=== PATIENT | female | born 1945 | race American Indian/Alaskan Native ===

== ENCOUNTER 2016-10-28 13:52 | Inpatient (IN) | payer OTHER ==
[2016-10-28 13:52] VITALS: BMI 34.0
[2016-10-28] MEDS ORDERED: Sodium Chloride 0.9% 1,000 ML IV ONE ×2 (14:44→14:46)
--- NOTE | 2016-10-28 15:18 | C.PDOC ---
History Of Present Illness A 71 y/o female presents to the ER c/o bilateral lower extremity pain for 3 years. Pt notes pain has worsened recently. Pt was evaluated by Dr. Peterson and diagnosed with peripheral vascular disease. Pt notes occasional swelling but denies redness, Shortness of breath, chest pain, fever, chills, trauma to the area, weakness or numbness, or any other complaints. Time Seen by Provider: 10/28/16 14:23 Chief Complaint (Nursing): Lower Extremity Problem/Injury History Per: Patient History/Exam Limitations: no limitations Onset/Duration Of Symptoms: Days Current Symptoms Are (Timing): Still Present Severity: Mild Additional History Per: Patient Past Medical History Reviewed: Historical Data, Nursing Documentation, Vital Signs Vital Signs: Last Vital Signs Temp 98.3 F 10/28/16 14:00 Pulse 51 L 10/28/16 15:44 Resp 18 10/28/16 15:44 BP 119/66 10/28/16 15:44 Pulse Ox 98 10/28/16 15:44 - Medical History PMH: Arthritis, HTN, Hypercholesterolemia Denies: Chronic Kidney Disease - [facility] Procedures CONTRAST AORTOGRAM (02/09/14) CONTRAST ARTERIOGRAM-LEG (02/09/14) Family History: States: Unknown Family Hx - Social History Hx Alcohol Use: No Hx Substance Use: No - Immunization History Hx Influenza Vaccination: Yes Hx Pneumococcal Vaccination: Yes Review Of Systems Except As Marked, All Systems Reviewed And Found Negative. Constitutional: Negative for: Fever, Chills, Other (Trauma to area) Cardiovascular: Negative for: Chest Pain Respiratory: Negative for: Shortness of Breath Musculoskeletal: Positive for: Leg Pain (Bilateral leg pain, occasional swelling ) Skin: Negative for: Other (Redness) Neurological: Negative for: Weakness, Numbness Physical Exam - Physical Exam Appears: Well, Non-toxic, No Acute Distress, Other (Speaking in full sentences) Skin: Normal Color, Warm, Dry Head: Atraumatic, Normacephalic Eye(s): bilateral: Normal Inspection, EOMI Nose: Normal Oral Mucosa: Moist Chest: Symmetrical Cardiovascular: Rhythm Regular, No Murmur Respiratory: Normal Breath Sounds, No Accessory Muscle Use Extremity: Normal ROM, No Tenderness, No Pedal Edema, No Calf Tenderness, Capillary Refill (<2secs), No Deformity, No Swelling Pulses: Left Dorsalis Pedis: Normal, Right Dorsalis Pedis: Normal Neurological/Psych: Oriented x3, Normal Speech, Normal Motor, Normal Sensation, Other (No focal deficit) Gait: Steady ED Course And Treatment - Laboratory Results Result Diagrams: 10/28/16 15:14 10/28/16 15:14 O2 Sat by Pulse Oximetry: 99 (RA) Pulse Ox Interpretation: Normal Progress Note: Impression: 71 y/o c/o bilateral lower extremity pain. Plans: Blood labs, EKG, IV fluids, UA. Dr gustavo cid. No call back. Admitted per RX instructions. Disposition - Disposition Disposition: HOSPITALIZED Disposition Time: 15:00 Condition: STABLE - Clinical Impression Clinical Impression: PVD (peripheral vascular disease), Bilateral leg pain, Chronic kidney disease - Scribe Statement The provider has reviewed the documentation as recorded by the Scribe Gaudencio rider All medical record entries made by the Scribe were at my direction and personally dictated by me. I have reviewed the chart and agree that the record accurately reflects my personal performance of the history, physical exam, medical decision making, and the department course for this patient. I have also personally directed, reviewed, and agree with the discharge instructions and disposition.
[2016-10-28 15:19] LABS: BASO % 0.5 % (0.0-2.0); EOS # 0.4 K/uL (0.0-0.7); HEMATOCRIT 39.2 % (34.0-47.0); LYMPH # 2.1 K/uL (1.0-4.3); LYMPH % 40.2 % (20.0-40.0); MEAN CORPUSCULAR HEMOGLOBIN 25.4 pg (27.0-31.0); MEAN CORPUSCULAR HGB CONC 31.7 g/dL (33.0-37.0); MEAN PLATELET VOLUME 12.3 fL (7.2-11.7); MONO # 0.4 K/uL (0.0-0.8); MONO % 8.6 % (0.0-10.0); NRBC % 0.1 % (0.0-2.0); RED CELL DISTRIBUTION WIDTH 16.8 % (11.5-14.5); WHITE BLOOD COUNT 5.2 K/uL (4.8-10.8)
[2016-10-28 15:28] LABS: POTASSIUM 4.2 mmol/L (3.6-5.2)
[2016-10-28] MEDS ORDERED: Sodium Chloride 0.9% 1,000 ML ONE (15:28)
[2016-10-28 15:30] LABS: ALB/GLOB RATIO 1.6 (1.0-2.1); BILIRUBIN,TOTAL 0.7 mg/dL (0.2-1.3); CALCIUM 8.9 mg/dl (8.6-10.4); TOTAL PROTEIN 7.3 g/dL (6.3-8.3)
--- NOTE | 2016-10-28 21:31 | CP.PCM.HP ---
History of Present Illness - History of Present Illness History of Present Illness: CC: "Pain in legs" HPI: Pt is a 71 year old female with a PMHx of HTN. Diabetes Mellitus, Chronic Kidney Disease, peripheral vascular disease, hypercholesterolemia, and Gout who presented to the ED after her vascular surgeon, Dr. Peterson, suggested she come to the hospital today following her appointment at his office 3 days ago. Pt reports that she has been experiencing pain in her legs 'for years'. She reports that the pain is worse with ambulation, but that she also experiences pain at rest. Pt denies any numbness, tingling, chest pain, shortness of breath , nausea, vomiting. PMHx: HTN, Diabetes Mellitus, Chronic Kidney Disease, peripheral vascular disease, hypercholesterolemia, and Gout Allergies: NKDA, seasonal, dust Home medications: Zetia 10 mg po qd, colchicine 0.6 mg po qd, Vit D 50,000 units q weekly, lisinopril 5 mg po qd, clonidine 0.2 mg po tid, HCTZ 25 mg po qd , asa 81 mg po qd, omega 3, humalog 75/25 Past Surgical Hx: denies Social Hx: denies hx of tobacco, alcohol, drug use Family Hx: Heart Attack (mother) Present on Admission - Present on Admission Any Indicators Present on Admission: No Review of Systems - Constitutional Constitutional: absent: Chills, Fever - EENT Eyes: absent: Blurred Vision Ears: absent: Disequilibrium Nose/Mouth/Throat: absent: Epistaxis, Nasal Congestion - Cardiovascular Cardiovascular: absent: Chest Pain, Dyspnea, Leg Edema, Pedal Edema - Respiratory Respiratory: absent: Cough, Dyspnea - Gastrointestinal Gastrointestinal: absent: Abdominal Pain, Belching - Genitourinary Genitourinary: absent: Dysuria - Musculoskeletal Musculoskeletal: Radiating Pain into Limb - Integumentary Integumentary: absent: Bleeding Lesions, Changing Lesions - Neurological Neurological: absent: Disequilibrium, Dizziness, Numbness - Psychiatric Psychiatric: absent: Anxiety - Hematologic/Lymphatic Hematologic: absent: Easy Bleeding Past Patient History - Infectious Disease Hx of Infectious Diseases: None - Past Medical History & Family History Past Medical History?: Yes - Past Social History Smoking Status: Former Smoker - CARDIAC Hx Hypercholesterolemia: Yes Hx Hypertension: Yes - PULMONARY Hx Respiratory Disorders: Yes ( ) - NEUROLOGICAL Hx Neurological Disorder: No - HEENT Hx HEENT Problems: No - RENAL Hx Chronic Kidney Disease: No - ENDOCRINE/METABOLIC Hx Endocrine Disorders: Yes Hx Diabetes Mellitus Type 2: Yes - HEMATOLOGICAL/ONCOLOGICAL Hx Blood Disorders: No - INTEGUMENTARY Hx Dermatological Problems: No - MUSCULOSKELETAL/RHEUMATOLOGICAL Hx Falls: No - GASTROINTESTINAL Hx Gastrointestinal Disorders: No - GENITOURINARY/GYNECOLOGICAL Hx Genitourinary Disorders: No - PSYCHIATRIC Hx Substance Use: No - SURGICAL HISTORY Hx Surgeries: Yes Hx Angiogram: Yes Hx Angioplasty: Yes (?) Hx Cardiac Catheterization: Yes - ANESTHESIA Hx Anesthesia: Yes Hx Anesthesia Reactions: No Hx Malignant Hyperthermia: No Meds Allergies/Adverse Reactions: Allergies Allergy/AdvReac Type Severity Reaction Status Date / Time DUST Allergy Uncoded 10/28/16 14:05 SEASONAL Allergy Uncoded 10/28/16 14:05 Physical Exam - Constitutional Appears: No Acute Distress - Head Exam Head Exam: ATRAUMATIC, NORMOCEPHALIC - Eye Exam Eye Exam: EOMI, PERRL - ENT Exam ENT Exam: Mucous Membranes Moist. absent: Mucous Membranes Dry - Neck Exam Neck exam: Positive for: Full Rom. Negative for: Lymphadenopathy - Respiratory Exam Respiratory Exam: Clear to Auscultation Bilateral. absent: Rales, Rhonchi, Wheezes - Cardiovascular Exam Cardiovascular Exam: +S1, +S2. absent: Gallop, Rubs - GI/Abdominal Exam GI & Abdominal Exam: Normal Bowel Sounds, Soft. absent: Distended, Firm, Guarding - Extremities Exam Extremities exam: Positive for: full ROM. Negative for: calf tenderness, pedal edema, pedal pulses present Additional comments: pedal pulses absent - Neurological Exam Neurological exam: Alert, Oriented x3 - Psychiatric Exam Psychiatric exam: Normal Affect, Normal Mood - Skin Skin Exam: Normal Color, Warm Results - Vital Signs Recent Vital Signs: Last Vital Signs Temp 97.7 F 10/28/16 16:17 Pulse 49 L 10/28/16 16:17 Resp 20 10/28/16 16:17 BP 169/65 H 10/28/16 16:17 Pulse Ox 99 10/28/16 17:12 - Labs Result Diagrams: 10/28/16 15:14 10/28/16 15:14 Labs: Laboratory Results - last 24 hr 10/28/16 10/28/16 10/28/16 15:14 15:14 15:14 WBC 5.2 RBC 4.90 Hgb 12.4 Hct 39.2 MCV 80.0 L D MCH 25.4 L MCHC 31.7 L RDW 16.8 H Plt Count 105 L D MPV 12.3 H Neut % (Auto) 43.7 L Lymph % (Auto) 40.2 H [place] % (Auto) 8.6 Eos % (Auto) 7.0 H Baso % (Auto) 0.5 Neut # 2.3 Lymph # 2.1 [place] # 0.4 Eos # 0.4 Baso # 0.0 Differential Comment PT 10.8 INR 1.0 APTT 34 Sodium 140 Potassium 4.2 Chloride 102 Carbon Dioxide 28 Anion Gap 14 BUN 54 H Creatinine 2.0 H Est GFR ( Amer) 30 Est GFR (Non-Af Amer) 25 POC Glucose (mg/dL) Random Glucose 122 H Calcium 8.9 Total Bilirubin 0.7 AST 43 H ALT 49 Alkaline Phosphatase 62 Total Protein 7.3 Albumin 4.5 Globulin 2.8 Albumin/Globulin Ratio 1.6 10/28/16 16:51 WBC RBC Hgb Hct MCV MCH MCHC RDW Plt Count MPV Neut % (Auto) Lymph % (Auto) [place] % (Auto) Eos % (Auto) Baso % (Auto) Neut # Lymph # [place] # Eos # Baso # Differential Comment PT INR APTT Sodium Potassium Chloride Carbon Dioxide Anion Gap BUN Creatinine Est GFR ( Amer) Est GFR (Non-Af Amer) POC Glucose (mg/dL) 126 H Random Glucose Calcium Total Bilirubin AST ALT Alkaline Phosphatase Total Protein Albumin Globulin Albumin/Globulin Ratio
--- NOTE | 2016-10-28 21:35 | CP.PCM.CON ---
<Umer Jefferson - Last Filed: 10/28/16 22:06> History of Present Illness - History of Present Illness History of Present Illness: MEDICINE RESIDENT CONSULT NOTE CC: "Pain in legs" HPI: Pt is a 71 year old female with a PMHx of HTN. Diabetes Mellitus, Chronic Kidney Disease, peripheral vascular disease, hypercholesterolemia, and Gout who presented to the ED after her vascular surgeon, Dr. Peterson, suggested she come to the hospital today following her appointment at his office 3 days ago. Pt reports that she has been experiencing pain in her legs 'for years'. She reports that the pain is worse with ambulation, but that she also experiences pain at rest. Pt denies any numbness, tingling, chest pain, shortness of breath , nausea, vomiting. PMHx: HTN, Diabetes Mellitus, Chronic Kidney Disease, peripheral vascular disease, hypercholesterolemia, and Gout Allergies: NKDA, seasonal, dust Home medications: Zetia 10 mg po qd, colchicine 0.6 mg po qd, Vit D 50,000 units q weekly, lisinopril 5 mg po qd, clonidine 0.2 mg po tid, HCTZ 25 mg po qd , asa 81 mg po qd, omega 3, humalog 75/25 Past Surgical Hx: denies Social Hx: denies hx of tobacco, alcohol, drug use Family Hx: Heart Attack (mother) Review of Systems - Constitutional Constitutional: absent: Chills, Headache - EENT Eyes: absent: Blind Spots, Blurred Vision Ears: absent: Disequilibrium, Dizziness Nose/Mouth/Throat: absent: Nasal Congestion, Nasal Obstruction - Cardiovascular Cardiovascular: absent: Chest Pain, Dyspnea, Leg Edema - Respiratory Respiratory: absent: Cough, Dyspnea - Gastrointestinal Gastrointestinal: absent: Abdominal Pain, Constipation, Diarrhea - Genitourinary Genitourinary: absent: Dysuria - Musculoskeletal Additional comments: B/L leg pain - Integumentary Integumentary: absent: Acne, Bleeding Lesions - Neurological Neurological: absent: Disequilibrium, Dizziness, Numbness - Psychiatric Psychiatric: absent: Abnormal Sleep Pattern, Anxiety - Endocrine Endocrine: absent: Change in Body Appearance - Hematologic/Lymphatic Hematologic: absent: Easy Bleeding, Easy Bruising Past Patient History - Infectious Disease Hx of Infectious Diseases: None - Past Medical History & Family History Past Medical History?: Yes - Past Social History Smoking Status: Former Smoker - CARDIAC Hx Hypercholesterolemia: Yes Hx Hypertension: Yes - PULMONARY Hx Respiratory Disorders: Yes ( ) - NEUROLOGICAL Hx Neurological Disorder: No - HEENT Hx HEENT Problems: No - RENAL Hx Chronic Kidney Disease: No - ENDOCRINE/METABOLIC Hx Endocrine Disorders: Yes Hx Diabetes Mellitus Type 2: Yes - HEMATOLOGICAL/ONCOLOGICAL Hx Blood Disorders: No - INTEGUMENTARY Hx Dermatological Problems: No - MUSCULOSKELETAL/RHEUMATOLOGICAL Hx Falls: No - GASTROINTESTINAL Hx Gastrointestinal Disorders: No - GENITOURINARY/GYNECOLOGICAL Hx Genitourinary Disorders: No - PSYCHIATRIC Hx Substance Use: No - SURGICAL HISTORY Hx Surgeries: Yes Hx Angiogram: Yes Hx Angioplasty: Yes (?) Hx Cardiac Catheterization: Yes - ANESTHESIA Hx Anesthesia: Yes Hx Anesthesia Reactions: No Hx Malignant Hyperthermia: No Meds Allergies/Adverse Reactions: Allergies Allergy/AdvReac Type Severity Reaction Status Date / Time DUST Allergy Uncoded 10/28/16 14:05 SEASONAL Allergy Uncoded 10/28/16 14:05 - Medications Medications: Current Medications Clonidine HCl (Catapres) 0.2 mg PO TID [facility] Ezetimibe (Zetia) 10 mg PO HS [facility] Ergocalciferol (Drisdol 50,000 Intl Units Cap) 1 cap PO QWK [facility] Heparin Sodium (Porcine) (Heparin) 5,000 units SC Q8 [facility] Sodium Chloride (Sodium Chloride 0.9%) 1,000 mls @ 100 mls/hr IV .Q10H ONE Stop: 10/29/16 00:45 Last Admin: 10/28/16 15:30 Dose: 100 mls/hr Insulin Human Isoph/Insulin Regular (Novolin 70/30 (70/30 Units/Ml) 10 Ml) 0 units SC ACHS [facility] PRN Reason: Protocol Pantoprazole Sodium (Protonix Ec Tab) 40 mg PO DAILY [facility] Physical Exam - Constitutional Appears: No Acute Distress - Head Exam Head Exam: ATRAUMATIC, NORMOCEPHALIC - Eye Exam Eye Exam: EOMI, PERRL - ENT Exam ENT Exam: Mucous Membranes Moist. absent: Mucous Membranes Dry - Neck Exam Neck exam: Positive for: Full Rom. Negative for: Lymphadenopathy - Respiratory Exam Respiratory Exam: Clear to Auscultation Bilateral. absent: Rales, Rhonchi, Wheezes - Cardiovascular Exam Cardiovascular Exam: +S1, +S2. absent: Gallop, Rubs - GI/Abdominal Exam GI & Abdominal Exam: Normal Bowel Sounds, Soft. absent: Firm, Guarding, Tenderness - Extremities Exam Extremities exam: Positive for: full ROM. Negative for: pedal edema, pedal pulses present Additional comments: pedal pulses absent - Neurological Exam Neurological exam: Alert, Oriented x3 - Psychiatric Exam Psychiatric exam: Normal Affect, Normal Mood - Skin Skin Exam: Normal Color, Warm Results - Vital Signs Recent Vital Signs: Last Vital Signs Temp 97.7 F 10/28/16 16:17 Pulse 49 L 10/28/16 16:17 Resp 20 10/28/16 16:17 BP 169/65 H 10/28/16 16:17 Pulse Ox 99 10/28/16 17:12 - Labs Result Diagrams: 10/28/16 15:14 10/28/16 15:14 Labs: Laboratory Results - last 24 hr 10/28/16 10/28/16 10/28/16 15:14 15:14 15:14 WBC 5.2 RBC 4.90 Hgb 12.4 Hct 39.2 MCV 80.0 L D MCH 25.4 L MCHC 31.7 L RDW 16.8 H Plt Count 105 L D MPV 12.3 H Neut % (Auto) 43.7 L Lymph % (Auto) 40.2 H [place] % (Auto) 8.6 Eos % (Auto) 7.0 H Baso % (Auto) 0.5 Neut # 2.3 Lymph # 2.1 [place] # 0.4 Eos # 0.4 Baso # 0.0 Differential Comment PT 10.8 INR 1.0 APTT 34 Sodium 140 Potassium 4.2 Chloride 102 Carbon Dioxide 28 Anion Gap 14 BUN 54 H Creatinine 2.0 H Est GFR ( Amer) 30 Est GFR (Non-Af Amer) 25 POC Glucose (mg/dL) Random Glucose 122 H Calcium 8.9 Total Bilirubin 0.7 AST 43 H ALT 49 Alkaline Phosphatase 62 Total Protein 7.3 Albumin 4.5 Globulin 2.8 Albumin/Globulin Ratio 1.6 10/28/16 16:51 WBC RBC Hgb Hct MCV MCH MCHC RDW Plt Count MPV Neut % (Auto) Lymph % (Auto) [place] % (Auto) Eos % (Auto) Baso % (Auto) Neut # Lymph # [place] # Eos # Baso # Differential Comment PT INR APTT Sodium Potassium Chloride Carbon Dioxide Anion Gap BUN Creatinine Est GFR ( Amer) Est GFR (Non-Af Amer) POC Glucose (mg/dL) 126 H Random Glucose Calcium Total Bilirubin AST ALT Alkaline Phosphatase Total Protein Albumin Globulin Albumin/Globulin Ratio Assessment & Plan - Assessment and Plan (Free Text) Assessment: Peripheral Vascular Disease: Management as per vascular surgery, Dr. Peterson HTN: HCTZ and Lisinopril held due to renal insufficiency Norvasc 10 mg po qd Clonidine 0.2 mg po tid Cardiology, Dr. Rice, consulted. Help appreciated. EKG - sinus bradycardia, t wave inversions in leads I and avL Diabetes Mellitus: Acchuchecks achs Regular insulin slidign scale Chronic Kidney Disease: Bun/Cr: 54/2.0 NS IVF 100 cc/hr Gout: Colchicine held Prophylactic Measures: GI: Protonix 40 mg po qd DVT: Heparin 5000 units sc q8h <Tristan Coelho - Last Filed: 12/02/16 16:30> Results - Vital Signs Recent Vital Signs: Last Vital Signs Temp 98.5 F 11/14/16 15:00 Pulse 57 L 11/14/16 15:00 Resp 20 11/14/16 15:00 BP 147/78 11/14/16 15:00 Pulse Ox 95 11/14/16 15:00 - Labs Result Diagrams: 11/13/16 07:58 11/13/16 07:58 Attending/Attestation - Attestation I have personally seen and examined this patient.: Yes I have fully participated in the care of the patient.: Yes I have reviewed all pertinent clinical information: Yes Notes (Text): Patient Seen and examined with the resident. Agree with the resident's evaluation, assessment and plan. Peripheral Vascular Disease: Management as per vascular surgery, Dr. Peterson HTN: HCTZ and Lisinopril held due to renal insufficiency Norvasc 10 mg po qd Clonidine 0.2 mg po tid Cardiology, Dr. Rice, consulted. Help appreciated. EKG - sinus bradycardia, t wave inversions in leads I and avL Diabetes Mellitus: Acchuchecks achs Regular insulin slidign scale Chronic Kidney Disease: Bun/Cr: 54/2.0 NS IVF 100 cc/hr
[2016-10-28] MEDS ORDERED: (Novolin 70/30) NPH/Regular 70/30 Units/ml 10 ml vial SC SCH (22:00)
[2016-10-28 22:19] LABS: RBC URINE 1 /hpf (0-3); TRANSITIONAL EPITHIAL < 1 /hpf (0-3); URINE BACTERIA RARE (<OCC); URINE BILIRUBIN NEGATIVE (NEGATIVE); URINE COLOR Yellow (YELLOW); URINE GLUCOSE (UA) 1+ mg/dL (Normal); URINE KETONE NEGATIVE (NEGATIVE); URINE LEUKOCYTE ESTERASE NEG Leu/uL (Negative); URINE PROTEIN 2+ mg/dL (NEGATIVE); URINE UROBILINOGEN NORMAL mg/dL (0.2-1.0); WBC URINE 1 /hpf (0-5)
[2016-10-28 22:20] LABS: URINE BLOOD NEGATIVE (NEGATIVE)
[2016-10-29] MEDS: (Novolin R) Insulin Human Regular 100 units/ml vial SC SCH ×4 (07:43→22:00)
[2016-10-29 07:54] LABS: POTASSIUM 3.9 mmol/L (3.6-5.2)
[2016-10-29 07:56] LABS: ALB/GLOB RATIO 1.3 (1.0-2.1); BILIRUBIN,TOTAL 0.8 mg/dL (0.2-1.3); PHOSPHOROUS 3.9 mg/dL (2.5-4.5); TOTAL PROTEIN 6.4 g/dL (6.3-8.3)
[2016-10-29 07:57] LABS: CALCIUM 8.3 mg/dl (8.6-10.4)
[2016-10-29 08:10] LABS: BASO % 0.5 % (0.0-2.0); EOS # 0.6 K/uL (0.0-0.7); EOS % 12.8 % (0.0-4.0); HEMATOCRIT 38.9 % (34.0-47.0); LYMPH # 2.2 K/uL (1.0-4.3); LYMPH % 47.8 % (20.0-40.0); MEAN CELL VOLUME 80.4 fL (81.0-99.0); MEAN CORPUSCULAR HEMOGLOBIN 25.3 pg (27.0-31.0); MEAN CORPUSCULAR HGB CONC 31.4 g/dL (33.0-37.0); MEAN PLATELET VOLUME 12.5 fL (7.2-11.7); MONO # 0.5 K/uL (0.0-0.8); MONO % 10.8 % (0.0-10.0); NRBC % 0.2 % (0.0-2.0); RED CELL DISTRIBUTION WIDTH 16.5 % (11.5-14.5); WHITE BLOOD COUNT 4.6 K/uL (4.8-10.8)
--- NOTE | 2016-10-29 08:49 | CP.PCM.PN ---
<Maria M Xiong - Last Filed: 10/29/16 15:00> Subjective - Date & Time of Evaluation Date of Evaluation: 10/29/16 Time of Evaluation: 08:00 - Subjective Subjective: PGY1 Medicine note for Dr. Coelho Patient seen and examined at bedside. Patient complained of pain and feeling cold in her legs bilaterally but denies numbness of tingling. She reports pain is worse with ambulation but is also present at rest. She denied any fever, chills headache, dizziness, chest pain, palpitations, SOB, cough, abdominal pain , nause,a vomiting, bowel/bladder complaints. She has been eating well. Objective - Vital Signs/Intake and Output Vital Signs (last 24 hours): Temp Pulse Resp BP Pulse Ox 97.0 F L 55 L 20 186/64 H 98 10/29/16 08:12 10/29/16 08:12 10/29/16 08:12 10/29/16 08:12 10/29/16 08:12 Intake and Output: 10/29/16 10/29/16 06:59 18:59 Intake Total 950 680 Output Total 200 Balance 750 680 - Medications Medications: Current Medications Clonidine HCl (Catapres) 0.2 mg PO TID [facility] Ezetimibe (Zetia) 10 mg PO HS [facility] Last Admin: 10/28/16 21:51 Dose: 10 mg Ergocalciferol (Drisdol 50,000 Intl Units Cap) 1 cap PO QWK [facility] Heparin Sodium (Porcine) (Heparin) 5,000 units SC Q8 [facility] Last Admin: 10/29/16 05:45 Dose: 5,000 units Insulin Human Regular (Novolin R) 0 unit SC ACHS [facility] PRN Reason: Protocol Last Admin: 10/29/16 07:43 Dose: Not Given Pantoprazole Sodium (Protonix Ec Tab) 40 mg PO DAILY [facility] - Labs Labs: 10/29/16 08:03 10/29/16 04:00 PT 10.8 SECONDS (9.7-12.2) 10/28/16 15:14 INR 1.0 10/28/16 15:14 APTT 34 SECONDS (21-34) 10/28/16 15:14 - Constitutional Appears: Non-toxic, No Acute Distress - Head Exam Head Exam: NORMAL INSPECTION - Eye Exam Eye Exam: Normal appearance. absent: Conjunctival injection, Scleral icterus - ENT Exam ENT Exam: Mucous Membranes Moist - Neck Exam Neck Exam: Normal Inspection. absent: Tenderness - Respiratory Exam Respiratory Exam: Clear to Ausculation Bilateral, NORMAL BREATHING PATTERN. absent: Accessory Muscle Use, Rales, Rhonchi, Wheezes, Respiratory Distress - Cardiovascular Exam Cardiovascular Exam: REGULAR RHYTHM, +S1, +S2. absent: Murmur - GI/Abdominal Exam GI & Abdominal Exam: Soft, Normal Bowel Sounds. absent: Firm, Guarding, Rigid, Tenderness - Extremities Exam Extremities Exam: Normal Inspection. absent: Calf Tenderness, Pedal Edema Additional comments: pedal pulses absent - Back Exam Back Exam: NORMAL INSPECTION. absent: rash noted - Neurological Exam Neurological Exam: Alert, Awake, Oriented x3 - Psychiatric Exam Psychiatric exam: Normal Affect, Normal Mood - Skin Skin Exam: Dry, Intact, Normal Color, Warm Assessment and Plan - Assessment and Plan (Free Text) Assessment: 71 year old female with a PMHx of HTN. Diabetes Mellitus, Chronic Kidney Disease , peripheral vascular disease, hypercholesterolemia, and Gout send in by Dr. Peterson for PVD Plan: Peripheral Vascular Disease: -Management as per vascular surgery, Dr. Peterson HTN: -ASA 81mg po daily -Norvasc 10 mg po qd -Hydralazine 25mg po q6h -Clonidine 0.1 mg po tid -f/u Echo -f/u TSH -EKG - sinus bradycardia, t wave inversions in leads I and avL -Dr. Rice cardiology consulted Diabetes Mellitus: -Acchuchecks achs -Regular insulin sliding scale Chronic Kidney Disease Stage 1: -NS IVF 100 cc/hr -f/u urine for microalbumin -f/u renal US -Dr. Dsouza nephrology consulted Low vitamin D: -Ergocalciferol 1 cap po qwk Hypercholesterolemia -Ezetimibe 10mg po qhs Gout: -Colchicine held Prophylactic Measures: -Protonix 40 mg po qd -Heparin 5000 units sc q8h -SCD c/i -Heart healthy mod consistent carb diet Plan discussed with Dr. Meliton Xiong PGY1 <Tristan Coelho - Last Filed: 12/02/16 16:35> Objective - Vital Signs/Intake and Output Vital Signs (last 24 hours): Temp Pulse Resp BP Pulse Ox 98.5 F 57 L 20 147/78 95 06/01/17 15:00 11/14/16 15:00 11/14/16 15:00 11/14/16 15:00 11/14/16 15:00 - Labs Labs: 11/13/16 07:58 11/13/16 07:58 PT 11.2 SECONDS (9.7-12.2) 11/12/16 06:30 INR 1.0 11/12/16 06:30 APTT 66 SECONDS (21-34) H D 11/12/16 06:30 Attending/Attestation - Attestation I have personally seen and examined this patient.: Yes I have fully participated in the care of the patient.: Yes I have reviewed all pertinent clinical information, including history, physical exam and plan: Yes Notes (Text): Patient Seen and examined with the resident. Agree with the resident's evaluation, assessment and plan. 71 year old female with a PMHx of HTN. Diabetes Mellitus, Chronic Kidney Disease , peripheral vascular disease, hypercholesterolemia, and Gout send in by Dr. Peterson for PVD Plan: Peripheral Vascular Disease: -Management as per vascular surgery, Dr. Peterson HTN: -ASA 81mg po daily -Norvasc 10 mg po qd -Hydralazine 25mg po q6h -Clonidine 0.1 mg po tid -f/u Echo -f/u TSH -EKG - sinus bradycardia, t wave inversions in leads I and avL -Dr. Rice cardiology consulted Diabetes Mellitus: -Acchuchecks achs -Regular insulin sliding scale Chronic Kidney Disease Stage 1: -NS IVF 100 cc/hr -f/u urine for microalbumin -f/u renal US -Dr. Dsouza nephrology consulted
[2016-10-29] MEDS: Pantoprazole 40 mg EC Tab PO SCH (09:41)
[2016-10-29] MEDS: Ergocalciferol 50,000 Intl Units Cap PO SCH (09:41)
--- NOTE | 2016-10-29 10:57 | CP.PCM.CON ---
History of Present Illness - History of Present Illness History of Present Illness: 71 y/o female with Hx/o IDDM, HTN, Hyperlipidemia, PVD was admittrd for c/o pain in both legs & recently developed Sm of claudication Renal consult is requested for evaluation of renal function Pt is followed by Dr Prince as outpatient. Had complete w/u in the past. Gives FHx/o DM & CKD. One sister & neice were on dialysis. Both . One brother is on dialysis Past Patient History - Infectious Disease Hx of Infectious Diseases: None - Past Medical History & Family History Past Medical History?: Yes - Past Social History Smoking Status: Former Smoker - CARDIAC Hx Hypercholesterolemia: Yes Hx Hypertension: Yes - PULMONARY Hx Respiratory Disorders: Yes ( ) - NEUROLOGICAL Hx Neurological Disorder: No - HEENT Hx HEENT Problems: No - RENAL Hx Chronic Kidney Disease: No - ENDOCRINE/METABOLIC Hx Endocrine Disorders: Yes Hx Diabetes Mellitus Type 2: Yes - HEMATOLOGICAL/ONCOLOGICAL Hx Blood Disorders: No - INTEGUMENTARY Hx Dermatological Problems: No - MUSCULOSKELETAL/RHEUMATOLOGICAL Hx Falls: No - GASTROINTESTINAL Hx Gastrointestinal Disorders: No - GENITOURINARY/GYNECOLOGICAL Hx Genitourinary Disorders: No - PSYCHIATRIC Hx Substance Use: No - SURGICAL HISTORY Hx Surgeries: Yes Hx Angiogram: Yes Hx Angioplasty: Yes (?) Hx Cardiac Catheterization: Yes - ANESTHESIA Hx Anesthesia: Yes Hx Anesthesia Reactions: No Hx Malignant Hyperthermia: No Meds Allergies/Adverse Reactions: Allergies Allergy/AdvReac Type Severity Reaction Status Date / Time DUST Allergy Uncoded 10/28/16 14:05 SEASONAL Allergy Uncoded 10/28/16 14:05 - Medications Medications: Current Medications Amlodipine Besylate (Norvasc) 10 mg PO DAILY [facility] Clonidine HCl (Catapres) 0.2 mg PO TID [facility] Last Admin: 10/29/16 09:42 Dose: 0.2 mg Ezetimibe (Zetia) 10 mg PO HS [facility] Last Admin: 10/28/16 21:51 Dose: 10 mg Ergocalciferol (Drisdol 50,000 Intl Units Cap) 1 cap PO QWK [facility] Last Admin: 10/29/16 09:41 Dose: Not Given Heparin Sodium (Porcine) (Heparin) 5,000 units SC Q8 [facility] Last Admin: 10/29/16 05:45 Dose: 5,000 units Insulin Human Regular (Novolin R) 0 unit SC ACHS [facility] PRN Reason: Protocol Last Admin: 10/29/16 07:43 Dose: Not Given Pantoprazole Sodium (Protonix Ec Tab) 40 mg PO DAILY [facility] Last Admin: 10/29/16 09:41 Dose: 40 mg Physical Exam - Constitutional Appears: No Acute Distress - Head Exam Head Exam: ATRAUMATIC, NORMOCEPHALIC - Eye Exam Eye Exam: Normal appearance Additional comments: No icterus - Respiratory Exam Additional comments: Lungs clear - Cardiovascular Exam Cardiovascular Exam: REGULAR RHYTHM - GI/Abdominal Exam GI & Abdominal Exam: Soft - Extremities Exam Additional comments: Pedal pulses not palpable Both feet are warm with good color Results - Vital Signs Recent Vital Signs: Last Vital Signs Temp 97.0 F L 10/29/16 08:12 Pulse 55 L 10/29/16 08:12 Resp 20 10/29/16 08:12 BP 186/64 H 10/29/16 08:12 Pulse Ox 98 10/29/16 08:12 - Labs Result Diagrams: 10/29/16 08:03 10/29/16 04:00 Labs: Laboratory Results - last 24 hr 10/28/16 10/28/16 10/28/16 15:14 15:14 15:14 WBC 5.2 RBC 4.90 Hgb 12.4 Hct 39.2 MCV 80.0 L D MCH 25.4 L MCHC 31.7 L RDW 16.8 H Plt Count 105 L D MPV 12.3 H Neut % (Auto) 43.7 L Lymph % (Auto) 40.2 H Pitkin % (Auto) 8.6 Eos % (Auto) 7.0 H Baso % (Auto) 0.5 Neut # 2.3 Lymph # 2.1 Pitkin # 0.4 Eos # 0.4 Baso # 0.0 Differential Comment PT 10.8 INR 1.0 APTT 34 Sodium 140 Potassium 4.2 Chloride 102 Carbon Dioxide 28 Anion Gap 14 BUN 54 H Creatinine 2.0 H Est GFR ( Amer) 30 Est GFR (Non-Af Amer) 25 POC Glucose (mg/dL) Random Glucose 122 H Calcium 8.9 Phosphorus Magnesium Total Bilirubin 0.7 AST 43 H ALT 49 Alkaline Phosphatase 62 Total Protein 7.3 Albumin 4.5 Globulin 2.8 Albumin/Globulin Ratio 1.6 Urine Color Urine Clarity Urine pH Ur Specific Hale Urine Protein Urine Glucose (UA) Urine Ketones Urine Blood Urine Nitrate Urine Bilirubin Urine Urobilinogen Ur Leukocyte Esterase Urine WBC (Auto) Urine RBC (Auto) Ur Squamous Epith Cells Ur Transition Epith Cell Urine Bacteria Hyaline Casts 10/28/16 10/28/16 10/28/16 16:51 21:49 21:52 WBC RBC Hgb Hct MCV MCH MCHC RDW Plt Count MPV Neut % (Auto) Lymph % (Auto) Pitkin % (Auto) Eos % (Auto) Baso % (Auto) Neut # Lymph # Pitkin # Eos # Baso # Differential Comment PT INR APTT Sodium Potassium Chloride Carbon Dioxide Anion Gap BUN Creatinine Est GFR ( Amer) Est GFR (Non-Af Amer) POC Glucose (mg/dL) 126 H 255 H Random Glucose Calcium Phosphorus Magnesium Total Bilirubin AST ALT Alkaline Phosphatase Total Protein Albumin Globulin Albumin/Globulin Ratio Urine Color Yellow Urine Clarity Clear Urine pH 5.0 Ur Specific Hale 1.013 Urine Protein 2+ H Urine Glucose (UA) 1+ Urine Ketones Negative Urine Blood Negative Urine Nitrate Negative Urine Bilirubin Negative Urine Urobilinogen Normal Ur Leukocyte Esterase Neg Urine WBC (Auto) 1 Urine RBC (Auto) 1 Ur Squamous Epith Cells < 1 Ur Transition Epith Cell < 1 Urine Bacteria Rare Hyaline Casts 6-10 H 10/29/16 10/29/16 10/29/16 04:00 06:51 08:03 WBC 4.6 L RBC 4.84 Hgb 12.2 Hct 38.9 MCV 80.4 L MCH 25.3 L MCHC 31.4 L RDW 16.5 H Plt Count 88 L MPV 12.5 H Neut % (Auto) 28.1 L Lymph % (Auto) 47.8 H Pitkin % (Auto) 10.8 H Eos % (Auto) 12.8 H Baso % (Auto) 0.5 Neut # 1.3 L Lymph # 2.2 Pitkin # 0.5 Eos # 0.6 Baso # 0.0 Differential Comment PT INR APTT Sodium 139 Potassium 3.9 Chloride 105 Carbon Dioxide 26 Anion Gap 13 BUN 39 H Creatinine 1.4 H Est GFR ( Amer) 45 Est GFR (Non-Af Amer) 37 POC Glucose (mg/dL) 129 H Random Glucose 123 H Calcium 8.3 L Phosphorus 3.9 Magnesium 2.0 Total Bilirubin 0.8 AST 42 H ALT 38 Alkaline Phosphatase 58 Total Protein 6.4 Albumin 3.6 Globulin 2.8 Albumin/Globulin Ratio 1.3 Urine Color Urine Clarity Urine pH Ur Specific Hale Urine Protein Urine Glucose (UA) Urine Ketones Urine Blood Urine Nitrate Urine Bilirubin Urine Urobilinogen Ur Leukocyte Esterase Urine WBC (Auto) Urine RBC (Auto) Ur Squamous Epith Cells Ur Transition Epith Cell Urine Bacteria Hyaline Casts Assessment & Plan - Assessment and Plan (Free Text) Assessment: CKD Stage 111. Renal function is stable IDDM PVD ? CAD HTN Plan: Urine for microalbumin Will review renal US report Monitor BP & renal function
--- NOTE | 2016-10-29 13:08 | CON ---
DATE: 10/29/2016 REASON FOR CONSULTATION: Peripheral vascular disease, hypertension and diabetes mellitus. The patient is a 71-year-old -[place] female who has a history of hypertension, diabetes hoang itus, hyperlipidemia and peripheral vascular disease, was offered surgery in the past, but she refuse d. The patient presents because of bilateral lower extremity pain. The patient denies any fever or chills. The patient is unaware of any prior cardiac history other than a history of hypertension. S he denies any chest pain. SOCIAL HISTORY: Nonsmoker. MEDICATIONS: Clonidine 0.2 mg t.i.d., heparin 5000 units q. 8 hours, Norvasc 10 mg once a day, Zetia 10 mg at bedtime, Protonix 40 mg p.o. once a day. REVIEW OF SYSTEMS: No nausea or vomiting. No fever or chills. No dizziness or syncope. No palpita tion. PHYSICAL EXAMINATION: GENERAL: The patient is an elderly female who does not appear to be in any distress. VITAL SIGNS: Blood pressure 186/64, heart rate , temperature 97, respirations 20. HEENT: Normocephalic. NECK: No JVD. CHEST: Clear. HEART: S1, S2 regular. ABDOMEN: Soft. EXTREMITIES: Absent dorsalis pedis pulse bilaterally. No acute ischemic changes are noted. LABORATORIES: PT, PTT and INR are within normal limits. SMA-7 is within normal limits except for gl ucose 123, BUN and creatinine of 39 and 1.4. Hemoglobin and hematocrit 12.2 and 38.9, white count an d platelet count are 4.6 and 88,000 respectively. EKG revealed sinus bradycardia at a rate of 48, left atrial enlargement, consider lateral ischemic Q- wave changes. ASSESSMENT: 1. Peripheral vascular disease. 2. Abnormal EKG with rhythm of sinus bradycardia and possible lateral ischemia. 3. Hypertension and diabetes mellitus. RECOMMENDATIONS: Reduce clonidine to 0.1 mg t.i.d. Continue Norvasc at 10 mg once a day, subcutaneo us heparin 5000 units q. 8 hours, Zetia 10 mg once a day. Start aspirin 81 mg once a day. Obtain an echocardiogram. Jose Rice MD cc: [id number] TT: 10/29/2016 13:07:41 Confirmation # [id number] Dictation # [id number]
--- NOTE | 2016-10-29 16:49 | CARD ---
APPROVED REPORT EXAM: Two-dimensional and M-mode echocardiogram with Doppler and color Doppler. Other Information Quality : AverageRhythm : NSR INDICATION Pre-Op M-Mode DIMENSIONS RVDd1.91 (2.1-3.2cm)Left Atrium (MM)4.26 (2.5-4.0cm) IVSd1.25 (0.7-1.1cm)Aortic Root2.81 (2.2-3.7cm) LVDd3.63 (4.0-5.6cm)Aortic Cusp Exc.1.76 (1.5-2.0cm) PWd1.84 (0.7-1.1cm)FS (%) 48 % LVDs1.87 (2.0-3.8cm)LVEF (%)81 (>50%) Aortic Valve AoV Peak Hystjjhe663.6cm/Dru Peak GR.11mmHg Mitral Valve MV E Gbmvynya80.2cm/sMV A Oqesffcp96.4cm/sE/A ratio1.0 TDI E/Lateral E'0.0E/Medial E'0.0 Tricuspid Valve TR Peak Htdogaxo050pl/sTR Peak Gr.[id number] LEFT VENTRICLE The left ventricle is normal size. There is mild concentric left ventricular hypertrophy. The left ventricular function is normal. The left ventricular ejection fraction is within the normal range. About 65%. No regional wall motion abnormalities noted. The left ventricular diastolic function is inconclusivre No left ventricle thrombus noted on this study. There is no ventricular septal defect visualized. There is no left ventricular aneurysm. There is no mass noted in the left ventricle. RIGHT VENTRICLE The right ventricle is normal size. There is normal right ventricular wall thickness. The right ventricular systolic function is normal. ATRIA The left atrium size is normal. The right atrium size is normal. The interatrial septum is intact with no evidence for an atrial septal defect. AORTIC VALVE The aortic valve is normal in structure and function. No aortic regurgitation is present. There is no aortic valvular stenosis. There is no aortic valvular vegetation. MITRAL VALVE The mitral valve is normal in structure and function. There is no evidence of mitral valve prolapse. There is no mitral valve stenosis. There is trace mitral valve regurgitation noted. TRICUSPID VALVE The tricuspid valve is normal in structure and function. There is no tricuspid valve regurgitation noted. There is no tricuspid valve prolapse or vegetation. There is no tricuspid valve stenosis. PULMONIC VALVE The pulmonary valve is normal in structure and function. There is no pulmonic valvular regurgitation. There is no pulmonic valvular stenosis. GREAT VESSELS The aortic root is normal in size. The ascending aorta is normal in size. The pulmonary artery is normal. The IVC is normal in size and collapses >50% with inspiration. PERICARDIAL EFFUSION The pericardium appears normal. There is no pleural effusion. <Conclusion> Normal LV EF, mild LVH. Normal Doppler.
--- NOTE | 2016-10-29 17:01 | US ---
PROCEDURE: Ultrasound of the Kidneys HISTORY: ckd COMPARISON: None available. TECHNIQUE: Sonogram of the kidneys. FINDINGS: RIGHT KIDNEY: Measures: 9.5 x 4.2 x 4.0 cm. Mild increased echogenicity Midpole apparent calculus 4 mm. Midpole-upper pole small cyst 1.7 x 1.1 x 1.1 cm no hydronephrosis LEFT KIDNEY: Measures: 8.8 x 4.3 x 4.2 cm. Mild increased echogenicity Mid-lower pole calculus mm no hydronephrosis OTHER FINDINGS: Aorta not well seen due to bowel gas -some atherosclerosis noted. . Bladder not distended to evaluate IMPRESSION: Bilateral mild increased renal echogenicity -this can be seen with medical renal disease. An obstructing bilateral renal calculi none larger than 5 mm in size is seen. No hydronephrosis Right renal cyst as above
--- NOTE | 2016-10-29 18:30 | CARD ---
APPROVED REPORT EKG Measurement Heart [id number] <Conclusion> Sinus bradycardia Possible Left atrial enlargement Left ventricular hypertrophy T wave abnormality, consider lateral ischemia Abnormal ECG
[2016-10-30 06:55] LABS: BASO % 0.3 % (0.0-2.0); EOS # 0.5 K/uL (0.0-0.7); EOS % 8.5 % (0.0-4.0); HEMATOCRIT 41.5 % (34.0-47.0); LYMPH # 3.1 K/uL (1.0-4.3); MEAN CELL VOLUME 80.3 fL (81.0-99.0); MEAN CORPUSCULAR HEMOGLOBIN 25.2 pg (27.0-31.0); MEAN CORPUSCULAR HGB CONC 31.4 g/dL (33.0-37.0); MEAN PLATELET VOLUME 12.2 fL (7.2-11.7); MONO # 0.5 K/uL (0.0-0.8); MONO % 8.2 % (0.0-10.0); RED CELL DISTRIBUTION WIDTH 16.4 % (11.5-14.5); WHITE BLOOD COUNT 6.2 K/uL (4.8-10.8)
--- NOTE | 2016-10-30 07:10 | CP.PCM.PN ---
<Maria M Xiong - Last Filed: 10/30/16 16:56> Subjective - Date & Time of Evaluation Date of Evaluation: 10/30/16 Time of Evaluation: 09:30 - Subjective Subjective: PGY1 Medicine note for Dr. Molina Patient seen and examined at bedside. Patient was complaining of a headache this AM and felt like her blood pressure was elevated as she had not had her medications. She denied any ringing of the ears or dizziness. She denied any fever, chills, chest pain, palpitations, SOB, cough, abdominal pain, nausea, vomiting, bowel/bladder complaints. Patient continues to complain of a dull pain in her legs bilaterally. She is eating well. She was complaining of some allergy- like symptoms and some nasal discharge and congestion. Objective - Vital Signs/Intake and Output Vital Signs (last 24 hours): Temp Pulse Resp BP Pulse Ox 98.4 F 56 L 20 119/67 98 10/30/16 00:00 10/30/16 00:00 10/30/16 00:00 10/30/16 00:00 10/30/16 00:00 Intake and Output: 10/30/16 10/30/16 06:59 18:59 Intake Total 240 Balance 240 - Medications Medications: Current Medications Amlodipine Besylate (Norvasc) 10 mg PO DAILY [facility] Last Admin: 10/29/16 11:40 Dose: 10 mg Aspirin (Aspirin Chewable) 81 mg PO DAILY [facility] Last Admin: 10/29/16 11:40 Dose: 81 mg Clonidine HCl (Catapres) 0.1 mg PO TID [facility] Last Admin: 10/29/16 17:22 Dose: 0.1 mg Ezetimibe (Zetia) 10 mg PO HS [facility] Last Admin: 10/29/16 22:20 Dose: 10 mg Ergocalciferol (Drisdol 50,000 Intl Units Cap) 1 cap PO QWK [facility] Last Admin: 10/29/16 09:41 Dose: Not Given Heparin Sodium (Porcine) (Heparin) 5,000 units SC Q8 [facility] Last Admin: 10/30/16 05:13 Dose: 5,000 units Hydralazine HCl (Apresoline) 25 mg PO Q6H [facility] Last Admin: 10/30/16 05:13 Dose: 25 mg Insulin Human Regular (Novolin R) 0 unit SC ACHS [facility] PRN Reason: Protocol Last Admin: 10/29/16 22:00 Dose: Not Given Pantoprazole Sodium (Protonix Ec Tab) 40 mg PO DAILY [facility] Last Admin: 10/29/16 09:41 Dose: 40 mg - Labs Labs: 10/30/16 06:15 10/29/16 04:00 PT 10.8 SECONDS (9.7-12.2) 10/28/16 15:14 INR 1.0 10/28/16 15:14 APTT 34 SECONDS (21-34) 10/28/16 15:14 - Constitutional Appears: Non-toxic, No Acute Distress - Head Exam Head Exam: NORMAL INSPECTION - Eye Exam Eye Exam: Normal appearance. absent: Conjunctival injection, Scleral icterus - ENT Exam ENT Exam: Mucous Membranes Moist Additional comments: no sinus tenderness - Neck Exam Neck Exam: Normal Inspection. absent: Tenderness - Respiratory Exam Respiratory Exam: Clear to Ausculation Bilateral, NORMAL BREATHING PATTERN. absent: Rales, Rhonchi, Wheezes - Cardiovascular Exam Cardiovascular Exam: REGULAR RHYTHM, RRR, +S1, +S2, Murmur (2nd intercostal space) - GI/Abdominal Exam GI & Abdominal Exam: Soft, Normal Bowel Sounds. absent: Firm, Guarding, Rigid, Tenderness - Extremities Exam Extremities Exam: Normal Inspection. absent: Pedal Edema Additional comments: diminished pulses - Back Exam Back Exam: NORMAL INSPECTION. absent: rash noted - Neurological Exam Neurological Exam: Alert, Awake, Normal Gait, Oriented x3 - Psychiatric Exam Psychiatric exam: Normal Affect, Normal Mood - Skin Skin Exam: Dry, Intact, Normal Color, Warm Assessment and Plan - Assessment and Plan (Free Text) Assessment: 71 year old female with a PMHx of HTN. Diabetes Mellitus, Chronic Kidney Disease , peripheral vascular disease, hypercholesterolemia, and Gout send in by Dr. Peterson for PVD Plan: Peripheral Vascular Disease -Management as per vascular surgery, Dr. Peterson -f/u arterial duplex -patient for peripheral angiogram and intervention for 10/[address] Newman HTN: -ASA 81mg po daily -Norvasc 10 mg po qd -Hydralazine 50mg po q6h -Clonidine 0.1 mg po tid -Echo: normal EF, mild LVF -TSH: 2.53 -EKG - sinus bradycardia, t wave inversions in leads I and avL -Dr. Newman cardiology consulted Diabetes Mellitus: -Acchuchecks achs -Regular insulin sliding scale Chronic Kidney Disease Stage III: -NS IVF 100 cc/hr -f/u urine for microalbumin -renal US: HTN disease -Dr. Dsouza nephrology consulted Low vitamin D: -Ergocalciferol 1 cap po qwk Hypercholesterolemia -Ezetimibe 10mg po qhs Gout: -Colchicine held Thromboyctopenia -likely secondary to chronic ASA vs cochicine use Underlying anemia -likely secondary to GUILLERMO vs anemia of chronic disease -f/u iron studies -If iron studies negative order: peripheral blood smear, LDH, haptoglobin, folate, vitB12, homocysteine, MMA Allergies: -Flonase 2spr bertha daily -Spiriva 10mg po hs Prophylactic Measures: -Protonix 40 mg po qd -Heparin 5000 units sc q8h- hold at midnight for procedure -SCD c/i -NPO at midnight for procedure Plan discussed with Dr. Reena Xiong PGY1 <Augustus Molina - Last Filed: 11/03/16 17:18> Objective - Vital Signs/Intake and Output Vital Signs (last 24 hours): Temp Pulse Resp BP Pulse Ox 98.6 F 105 H 20 213/75 H 98 11/03/16 15:00 11/03/16 15:00 11/03/16 15:00 11/03/16 15:00 11/03/16 15:00 Intake and Output: 11/03/16 11/03/16 06:59 18:59 Intake Total 1920 Balance 1920 - Medications Medications: Current Medications Amlodipine Besylate (Norvasc) 10 mg PO DAILY [facility] Last Admin: 11/03/16 09:33 Dose: 10 mg Aspirin (Aspirin Chewable) 81 mg PO DAILY [facility] Last Admin: 11/03/16 09:33 Dose: 81 mg Clonidine HCl (Catapres Tts1 0.1 Mg/24 Hr) 1 patch TD Q7D@1000 [facility] Last Admin: 11/02/16 09:49 Dose: Not Given Docusate Sodium (Colace) 100 mg PO TID [facility] Last Admin: 11/03/16 14:11 Dose: Not Given Ezetimibe (Zetia) 10 mg PO HS [facility] Last Admin: 11/02/16 22:04 Dose: 10 mg Ergocalciferol (Drisdol 50,000 Intl Units Cap) 1 cap PO QWK [facility] Last Admin: 10/29/16 09:41 Dose: Not Given Fluticasone Propionate (Flonase) 2 spr BERTHA DAILY [facility] Last Admin: 11/03/16 10:35 Dose: 2 spray Heparin Sodium (Porcine) (Heparin) 5,000 units SC Q12 [facility] Last Admin: 11/03/16 10:36 Dose: 5,000 units Hydralazine HCl (Apresoline) 75 mg PO Q6H [facility] Last Admin: 11/03/16 16:25 Dose: 75 mg Insulin Human Regular (Novolin R) 0 unit SC ACHS [facility] PRN Reason: Protocol Last Admin: 11/03/16 12:40 Dose: 3 unit Metoprolol Succinate (Toprol Xl) 12.5 mg PO DAILY [facility] Last Admin: 11/03/16 12:17 Dose: Not Given Montelukast Sodium (Singulair) 10 mg PO HS [facility] Last Admin: 11/02/16 22:03 Dose: 10 mg Pantoprazole Sodium (Protonix Ec Tab) 40 mg PO DAILY [facility] Last Admin: 11/03/16 09:33 Dose: 40 mg Rosuvastatin Calcium (Crestor) 10 mg PO HS [facility] Last Admin: 11/02/16 22:04 Dose: 10 mg - Labs Labs: 11/03/16 07:45 11/03/16 07:45 PT 10.1 SECONDS (9.7-12.2) 11/02/16 13:36 INR 0.9 11/02/16 13:36 APTT 34 SECONDS (21-34) 11/02/16 13:36 Attending/Attestation - Attestation I have personally seen and examined this patient.: Yes I have fully participated in the care of the patient.: Yes I have reviewed all pertinent clinical information, including history, physical exam and plan: Yes Notes (Text): 11/03/16 17:14 This patient was seen and examined at 10 AM 10/30/16 History, Exam, Assessment and Plan were thoroughly gone over with the resident. Augustus Molina D.O.
[2016-10-30 07:27] LABS: POTASSIUM 4.3 mmol/L (3.6-5.2)
[2016-10-30 07:29] LABS: ALB/GLOB RATIO 1.4 (1.0-2.1); BILIRUBIN,TOTAL 0.8 mg/dL (0.2-1.3); PHOSPHOROUS 3.5 mg/dL (2.5-4.5); TOTAL PROTEIN 7.2 g/dL (6.3-8.3)
[2016-10-30 07:30] LABS: CALCIUM 8.9 mg/dl (8.6-10.4); MAGNESIUM 1.9 mg/dL (1.6-2.3)
[2016-10-30] MEDS: (Novolin R) Insulin Human Regular 100 units/ml vial SC SCH ×4 (07:38→21:48)
[2016-10-30] MEDS: Pantoprazole 40 mg EC Tab PO SCH (09:25)
[2016-10-30 11:53] LABS: IRON 86 ug/dL (37-170)
[2016-10-30 11:55] LABS: IRON 85 ug/dL (37-170)
[2016-10-30] MEDS: Fluticasone Nasal 50 mcg/Spray NAS SCH (11:55)
--- NOTE | 2016-10-30 16:57 | CP.PCM.CON ---
History of Present Illness - History of Present Illness History of Present Illness: patient seen/examined. will schedule peripheral angiogram and intervention for tomorrow. Past Patient History - Infectious Disease Hx of Infectious Diseases: None - Past Medical History & Family History Past Medical History?: Yes - Past Social History Smoking Status: Former Smoker - CARDIAC Hx Hypercholesterolemia: Yes Hx Hypertension: Yes - PULMONARY Hx Respiratory Disorders: Yes ( ) - NEUROLOGICAL Hx Neurological Disorder: No - HEENT Hx HEENT Problems: No - RENAL Hx Chronic Kidney Disease: No - ENDOCRINE/METABOLIC Hx Endocrine Disorders: Yes Hx Diabetes Mellitus Type 2: Yes - HEMATOLOGICAL/ONCOLOGICAL Hx Blood Disorders: No - INTEGUMENTARY Hx Dermatological Problems: No - MUSCULOSKELETAL/RHEUMATOLOGICAL Hx Falls: No - GASTROINTESTINAL Hx Gastrointestinal Disorders: No - GENITOURINARY/GYNECOLOGICAL Hx Genitourinary Disorders: No - PSYCHIATRIC Hx Substance Use: No - SURGICAL HISTORY Hx Surgeries: Yes Hx Angiogram: Yes Hx Angioplasty: Yes (?) Hx Cardiac Catheterization: Yes - ANESTHESIA Hx Anesthesia: Yes Hx Anesthesia Reactions: No Hx Malignant Hyperthermia: No Meds Allergies/Adverse Reactions: Allergies Allergy/AdvReac Type Severity Reaction Status Date / Time DUST Allergy Uncoded 10/28/16 14:05 SEASONAL Allergy Uncoded 10/28/16 14:05 - Medications Medications: Current Medications Amlodipine Besylate (Norvasc) 10 mg PO DAILY [facility] Last Admin: 10/30/16 09:25 Dose: 10 mg Aspirin (Aspirin Chewable) 81 mg PO DAILY [facility] Last Admin: 10/30/16 09:25 Dose: 81 mg Clonidine HCl (Catapres) 0.1 mg PO TID [facility] Last Admin: 10/30/16 13:38 Dose: 0.1 mg Ezetimibe (Zetia) 10 mg PO HS [facility] Last Admin: 10/29/16 22:20 Dose: 10 mg Ergocalciferol (Drisdol 50,000 Intl Units Cap) 1 cap PO QWK [facility] Last Admin: 10/29/16 09:41 Dose: Not Given Fluticasone Propionate (Flonase) 2 spr BERTHA DAILY [facility] Last Admin: 10/30/16 11:55 Dose: 2 spray Heparin Sodium (Porcine) (Heparin) 5,000 units SC Q8 [facility] Last Admin: 10/30/16 13:39 Dose: 5,000 units Hydralazine HCl (Apresoline) 50 mg PO Q6H [facility] Insulin Human Regular (Novolin R) 0 unit SC ACHS [facility] PRN Reason: Protocol Last Admin: 10/30/16 11:54 Dose: 3 unit Montelukast Sodium (Singulair) 10 mg PO HS [facility] Pantoprazole Sodium (Protonix Ec Tab) 40 mg PO DAILY [facility] Last Admin: 10/30/16 09:25 Dose: 40 mg Results - Vital Signs Recent Vital Signs: Last Vital Signs Temp 97.9 F 10/30/16 08:03 Pulse 70 10/30/16 08:03 Resp 20 10/30/16 08:03 BP 197/61 H 10/30/16 14:10 Pulse Ox 98 10/30/16 08:03 - Labs Result Diagrams: 10/30/16 06:15 10/30/16 06:15 Labs: Laboratory Results - last 24 hr 10/29/16 10/29/16 10/29/16 14:01 17:11 21:43 WBC RBC Hgb Hct MCV MCH MCHC RDW Plt Count MPV Neut % (Auto) Lymph % (Auto) [place]in[place] % (Auto) Eos % (Auto) Baso % (Auto) Neut # Lymph # Rin[place] # Eos # Baso # Sodium Potassium Chloride Carbon Dioxide Anion Gap BUN Creatinine Est GFR ( Amer) Est GFR (Non-Af Amer) POC Glucose (mg/dL) 253 H 244 H Random Glucose Calcium Phosphorus Magnesium Iron TIBC % Saturation Ferritin Total Bilirubin AST ALT Alkaline Phosphatase Total Protein Albumin Globulin Albumin/Globulin Ratio PTH Intact Whole Molec 69 H 10/30/16 10/30/16 10/30/16 06:15 06:15 07:07 WBC 6.2 RBC 5.18 Hgb 13.0 Hct 41.5 MCV 80.3 L MCH 25.2 L MCHC 31.4 L RDW 16.4 H Plt Count 93 L MPV 12.2 H Neut % (Auto) 33.0 L Lymph % (Auto) 50.0 H R[place] % (Auto) 8.2 Eos % (Auto) 8.5 H Baso % (Auto) 0.3 Neut # 2.0 Lymph # 3.1 Rincon # 0.5 Eos # 0.5 Baso # 0.0 Sodium 137 Potassium 4.3 Chloride 102 Carbon Dioxide 25 Anion Gap 15 BUN 34 H Creatinine 1.4 H Est GFR ( Amer) 45 Est GFR (Non-Af Amer) 37 POC Glucose (mg/dL) 141 H Random Glucose 121 H Calcium 8.9 Phosphorus 3.5 Magnesium 1.9 Iron TIBC % Saturation Ferritin Total Bilirubin 0.8 AST 42 H ALT 41 Alkaline Phosphatase 65 Total Protein 7.2 Albumin 4.2 Globulin 3.0 Albumin/Globulin Ratio 1.4 PTH Intact Whole Molec 10/30/16 10/30/16 10/30/16 11:30 11:30 11:30 WBC RBC Hgb Hct MCV MCH MCHC RDW Plt Count MPV Neut % (Auto) Lymph % (Auto) [place] % (Auto) Eos % (Auto) Baso % (Auto) Neut # Lymph # [place] # Eos # Baso # Sodium Potassium Chloride Carbon Dioxide Anion Gap BUN Creatinine Est GFR ( Amer) Est GFR (Non-Af Amer) POC Glucose (mg/dL) Random Glucose Calcium Phosphorus Magnesium Iron 85 86 TIBC 319 % Saturation 27 27 Ferritin 154.0 Total Bilirubin AST ALT Alkaline Phosphatase Total Protein Albumin Globulin Albumin/Globulin Ratio PTH Intact Whole Molec 10/30/16 11:43 WBC RBC Hgb Hct MCV MCH MCHC RDW Plt Count MPV Neut % (Auto) Lymph % (Auto) [place] % (Auto) Eos % (Auto) Baso % (Auto) Neut # Lymph # R[place] # Eos # Baso # Sodium Potassium Chloride Carbon Dioxide Anion Gap BUN Creatinine Est GFR ( Amer) Est GFR (Non-Af Amer) POC Glucose (mg/dL) 212 H Random Glucose Calcium Phosphorus Magnesium Iron TIBC % Saturation Ferritin Total Bilirubin AST ALT Alkaline Phosphatase Total Protein Albumin Globulin Albumin/Globulin Ratio PTH Intact Whole Molec
--- NOTE | 2016-10-30 16:58 | CP.PCM.CON ---
History of Present Illness - History of Present Illness History of Present Illness: I was asked to see patient by Dr. Peterson for vascular evaluation. Patient is a 71 year old female with a history of HTN, hyperholeterolemia, PAD and chronic renal insufficiency who presents with leg pain. The patient has had lower extremity claudication which has now progressed to rest pain.She has previously been referred to vascular surgery, however she has not pursued further workup. The patient has renal insufficiency. . She is admitted for IV hydration and further evaluation. Review of Systems - Constitutional Constitutional: absent: As Per HPI, Anorexia, Chills, Daytime Sleepiness, Excessive Sweating, Fatigue, Fever, Frequent Falls, Headache, Increased Appetite , Lethargy, Malaise, Night Sweats, Snoring, Sleep Apnea, Weight Gain, Weight Loss, Weakness, Other - EENT Eyes: absent: As Per HPI, Blind Spots, Blurred Vision, Change in Vision, Decreased Night Vision, Diplopia, Discharge, Dry Eye, Exophthalmos, Floaters, Irritation, Itchy Eyes, Loss of Peripheral Vision, Pain, Photophobia, Requires Corrective Lenses, Sees Flashes, Spots in Vision, Tunnel Vision, Other Visual Disturbances, Loss of Vision, Other Ears: absent: As Per HPI, Decreased Hearing, Ear Discharge, Ear Pain, Tinnitus, Abnormal Hearing, Disequilibrium, Dizziness, Other Nose/Mouth/Throat: absent: As Per HPI, Epistaxis, Nasal Congestion, Nasal Discharge, Nasal Obstruction, Nasal Trauma, Nose Pain, Post Nasal Drip, Sinus Pain, Sinus Pressure, Bleeding Gums, Change in Voice, Dental Pain, Dry Mouth, Dysphagia, Halitosis, Hoarsness, Lip Swelling, Mouth Lesions, Mouth Pain, Odynophagia, Sore Throat, Throat Swelling, Tongue Swelling, Facial Pain, Neck Pain, Neck Mass, Other - Breasts Breasts: absent: As Per HPI, Change in Shape, Mass, Pain, Nipple Discharge, Nipple Inversion, Skin Changes, Swelling, Other - Cardiovascular Cardiovascular: absent: As Per HPI, Acrocyanosis, Chest Pain, Chest Pain at Rest , Chest Pain with Activity, Claudication, Diaphoresis, Dyspnea, Dyspnea on Exertion, Edema, Irregular Heart Rhythm, Pain Radiating to Arm/Neck/Jaw, Leg Edema, Leg Ulcers, Lightheadedness, Orthopnea, Palpitations, Paroxysmal Nocturnal Dyspnea, Pedal Edema, Radiating Pain, Rapid Heart Rate, Slow Heart Rate, Syncope, Other - Respiratory Respiratory: absent: As Per HPI, Cough, Dyspnea, Hemoptysis, Dyspnea on Exertion , Wheezing, Snoring, Stridor, Pain on Inspiration, Chest Congestion, Excessive Mucous Production, Change in Mucous Color, Pain with Coughing, Other - Gastrointestinal Gastrointestinal: absent: As Per HPI, Abdominal Pain, Belching, Bloating, Change in Bowel Habits, Change in Stool Character, Coffee Ground Emesis, Constipation, Cramping, Diarrhea, Dyspepsia, Dysphagia, Early Satiety, Excessive Flatus, Fecal Incontinence, Heartburn, Hematemesis, Hematochezia, Loose Stools, Melena, Nausea, Odynophagia, Temesmus, Vomiting, Other - Integumentary Integumentary: absent: As Per HPI, Acne, Alopecia, Bleeding Lesions, Change in Hair, Change in Nails, Change in Pigmentation, Changing Lesions, Dry Skin, Erythema, Furuncle, Hirsutism, Lesions, New Lesions, Non-Healing Lesions, Photosensitivity, Pruritus, Rash, Skin Pain, Skin Ulcer, Sores, Striae, Swelling , Unusual Bruising, Wounds, Jaundice, Other - Neurological Neurological: absent: As Per HPI, Abnormal Gait, Abnormal Hearing, Abnormal Movements, Abnormal Speech, Behavioral Changes, Burning Sensations, Confusion, Convulsions, Disequilibrium, Dizziness, Numbness, Focal Weakness, Frequent Falls , Headaches, Lack of Coordination, Loss of Vision, Memory Loss, Paresthesias, Radicular Pain, Restless Legs, Sensory Deficit, Syncope, Tingling, Tremor, Vertigo, Weakness, Other Visual Disturbances, Other - Psychiatric Psychiatric: absent: As Per HPI, Abnormal Sleep Pattern, Anhedonia, Anxiety, Auditory Hallucinations, Behavioral Changes, Change in Appetite, Change in Libido, Confusion, Depression, Difficulty Concentrating, Hallucinations, Homicidal Ideation, Hopelessness, Irritability, Memory Loss, Mood Swings, Panic Attacks, Paranoia, Suicidal Ideation, Visual Hallucinations, Tactile Hallucinations, Other - Hematologic/Lymphatic Hematologic: absent: As Per HPI, Easy Bleeding, Easy Bruising, Lymphadenopathy, Other Past Patient History - Infectious Disease Hx of Infectious Diseases: None - Past Medical History & Family History Past Medical History?: Yes - Past Social History Smoking Status: Former Smoker - CARDIAC Hx Hypercholesterolemia: Yes Hx Hypertension: Yes - PULMONARY Hx Respiratory Disorders: Yes (SOB ALLERY SEASON ) - NEUROLOGICAL Hx Neurological Disorder: No - HEENT Hx HEENT Problems: No - RENAL Hx Chronic Kidney Disease: No - ENDOCRINE/METABOLIC Hx Endocrine Disorders: Yes Hx Diabetes Mellitus Type 2: Yes - HEMATOLOGICAL/ONCOLOGICAL Hx Blood Disorders: No - INTEGUMENTARY Hx Dermatological Problems: No - MUSCULOSKELETAL/RHEUMATOLOGICAL Hx Falls: No - GASTROINTESTINAL Hx Gastrointestinal Disorders: No - GENITOURINARY/GYNECOLOGICAL Hx Genitourinary Disorders: No - PSYCHIATRIC Hx Substance Use: No - SURGICAL HISTORY Hx Surgeries: Yes Hx Angiogram: Yes Hx Angioplasty: Yes (?) Hx Cardiac Catheterization: Yes - ANESTHESIA Hx Anesthesia: Yes Hx Anesthesia Reactions: No Hx Malignant Hyperthermia: No Meds Allergies/Adverse Reactions: Allergies Allergy/AdvReac Type Severity Reaction Status Date / Time DUST Allergy Uncoded 10/28/16 14:05 SEASONAL Allergy Uncoded 10/28/16 14:05 - Medications Medications: Current Medications Amlodipine Besylate (Norvasc) 10 mg PO DAILY [facility] Last Admin: 10/30/16 09:25 Dose: 10 mg Aspirin (Aspirin Chewable) 81 mg PO DAILY [facility] Last Admin: 10/30/16 09:25 Dose: 81 mg Clonidine HCl (Catapres) 0.1 mg PO TID [facility] Last Admin: 10/30/16 13:38 Dose: 0.1 mg Ezetimibe (Zetia) 10 mg PO HS [facility] Last Admin: 10/29/16 22:20 Dose: 10 mg Ergocalciferol (Drisdol 50,000 Intl Units Cap) 1 cap PO QWK [facility] Last Admin: 10/29/16 09:41 Dose: Not Given Fluticasone Propionate (Flonase) 2 spr BERTHA DAILY [facility] Last Admin: 10/30/16 11:55 Dose: 2 spray Heparin Sodium (Porcine) (Heparin) 5,000 units SC Q8 [facility] Last Admin: 10/30/16 13:39 Dose: 5,000 units Hydralazine HCl (Apresoline) 50 mg PO Q6H [facility] Insulin Human Regular (Novolin R) 0 unit SC ACHS [facility] PRN Reason: Protocol Last Admin: 10/30/16 11:54 Dose: 3 unit Montelukast Sodium (Singulair) 10 mg PO HS [facility] Pantoprazole Sodium (Protonix Ec Tab) 40 mg PO DAILY [facility] Last Admin: 10/30/16 09:25 Dose: 40 mg Physical Exam - Constitutional Appears: Non-toxic - Head Exam Head Exam: NORMAL INSPECTION - Eye Exam Eye Exam: Normal appearance - ENT Exam ENT Exam: Mucous Membranes Moist - Neck Exam Neck exam: Positive for: Full Rom - Respiratory Exam Respiratory Exam: NORMAL BREATHING PATTERN - Cardiovascular Exam Cardiovascular Exam: REGULAR RHYTHM - GI/Abdominal Exam GI & Abdominal Exam: Normal Bowel Sounds - Rectal Exam Rectal Exam: Deferred - Extremities Exam Extremities exam: Positive for: pedal edema, pedal pulses present - Back Exam Back exam: NORMAL INSPECTION - Neurological Exam Neurological exam: Alert - Psychiatric Exam Psychiatric exam: Normal Affect - Skin Skin Exam: Normal Color Results - Vital Signs Recent Vital Signs: Last Vital Signs Temp 97.9 F 10/30/16 08:03 Pulse 70 10/30/16 08:03 Resp 20 10/30/16 08:03 BP 197/61 H 10/30/16 14:10 Pulse Ox 98 10/30/16 08:03 - Labs Result Diagrams: 11/03/16 07:45 11/03/16 07:45 Labs: Laboratory Results - last 24 hr 10/29/16 10/29/16 10/29/16 14:01 17:11 21:43 WBC RBC Hgb Hct MCV MCH MCHC RDW Plt Count MPV Neut % (Auto) Lymph % (Auto) [place]man % (Auto) Eos % (Auto) Baso % (Auto) Neut # Lymph # [place] # Eos # Baso # Sodium Potassium Chloride Carbon Dioxide Anion Gap BUN Creatinine Est GFR ( Amer) Est GFR (Non-Af Amer) POC Glucose (mg/dL) 253 H 244 H Random Glucose Calcium Phosphorus Magnesium Iron TIBC % Saturation Ferritin Total Bilirubin AST ALT Alkaline Phosphatase Total Protein Albumin Globulin Albumin/Globulin Ratio PTH Intact Whole Molec 69 H 10/30/16 10/30/16 10/30/16 06:15 06:15 07:07 WBC 6.2 RBC 5.18 Hgb 13.0 Hct 41.5 MCV 80.3 L MCH 25.2 L MCHC 31.4 L RDW 16.4 H Plt Count 93 L MPV 12.2 H Neut % (Auto) 33.0 L Lymph % (Auto) 50.0 H Whitman % (Auto) 8.2 Eos % (Auto) 8.5 H Baso % (Auto) 0.3 Neut # 2.0 Lymph # 3.1 Whitman # 0.5 Eos # 0.5 Baso # 0.0 Sodium 137 Potassium 4.3 Chloride 102 Carbon Dioxide 25 Anion Gap 15 BUN 34 H Creatinine 1.4 H Est GFR ( Amer) 45 Est GFR (Non-Af Amer) 37 POC Glucose (mg/dL) 141 H Random Glucose 121 H Calcium 8.9 Phosphorus 3.5 Magnesium 1.9 Iron TIBC % Saturation Ferritin Total Bilirubin 0.8 AST 42 H ALT 41 Alkaline Phosphatase 65 Total Protein 7.2 Albumin 4.2 Globulin 3.0 Albumin/Globulin Ratio 1.4 PTH Intact Whole Molec 10/30/16 10/30/16 10/30/16 11:30 11:30 11:30 WBC RBC Hgb Hct MCV MCH MCHC RDW Plt Count MPV Neut % (Auto) Lymph % (Auto) [place] % (Auto) Eos % (Auto) Baso % (Auto) Neut # Lymph # [place] # Eos # Baso # Sodium Potassium Chloride Carbon Dioxide Anion Gap BUN Creatinine Est GFR ( Amer) Est GFR (Non-Af Amer) POC Glucose (mg/dL) Random Glucose Calcium Phosphorus Magnesium Iron 85 86 TIBC 319 % Saturation 27 27 Ferritin 154.0 Total Bilirubin AST ALT Alkaline Phosphatase Total Protein Albumin Globulin Albumin/Globulin Ratio PTH Intact Whole Molec 10/30/16 11:43 WBC RBC Hgb Hct MCV MCH MCHC RDW Plt Count MPV Neut % (Auto) Lymph % (Auto) [place]man % (Auto) Eos % (Auto) Baso % (Auto) Neut # Lymph # [place]man # Eos # Baso # Sodium Potassium Chloride Carbon Dioxide Anion Gap BUN Creatinine Est GFR ( Amer) Est GFR (Non-Af Amer) POC Glucose (mg/dL) 212 H Random Glucose Calcium Phosphorus Magnesium Iron TIBC % Saturation Ferritin Total Bilirubin AST ALT Alkaline Phosphatase Total Protein Albumin Globulin Albumin/Globulin Ratio PTH Intact Whole Molec - EKG Data EKG Interpreted by: Myself Assessment & Plan (1) Chronic kidney disease Assessment and Plan: will need IV hydration. The risks associated with iodinated contrast and progressive real failure should be well documenterd Status: Acute (2) HTN (hypertension) Assessment and Plan: will monitor Status: Acute (3) Hypercholesterolemia Assessment and Plan: statin Status: Acute (4) PVD (peripheral vascular disease) Assessment and Plan: rest pain. will plan for contrast if cleared by renal Status: Acute
--- NOTE | 2016-10-30 19:18 | CP.PCM.PN ---
Subjective - Date & Time of Evaluation Date of Evaluation: 10/30/16 Time of Evaluation: 07:00 - Subjective Subjective: Feels better today Objective - Vital Signs/Intake and Output Vital Signs (last 24 hours): Temp Pulse Resp BP Pulse Ox 98.2 F 59 L 20 159/61 H 97 10/30/16 15:35 10/30/16 15:35 10/30/16 15:35 10/30/16 15:35 10/30/16 15:35 Intake and Output: 10/30/16 10/31/16 18:59 06:59 Intake Total 500 Balance 500 - Medications Medications: Current Medications Amlodipine Besylate (Norvasc) 10 mg PO DAILY [facility] Last Admin: 10/30/16 09:25 Dose: 10 mg Aspirin (Aspirin Chewable) 81 mg PO DAILY [facility] Last Admin: 10/30/16 09:25 Dose: 81 mg Clonidine HCl (Catapres) 0.1 mg PO TID [facility] Last Admin: 10/30/16 17:20 Dose: 0.1 mg Ezetimibe (Zetia) 10 mg PO HS [facility] Last Admin: 10/29/16 22:20 Dose: 10 mg Ergocalciferol (Drisdol 50,000 Intl Units Cap) 1 cap PO QWK [facility] Last Admin: 10/29/16 09:41 Dose: Not Given Fluticasone Propionate (Flonase) 2 spr BERTHA DAILY [facility] Last Admin: 10/30/16 11:55 Dose: 2 spray Heparin Sodium (Porcine) (Heparin) 5,000 units SC Q8 [facility] Last Admin: 10/30/16 13:39 Dose: 5,000 units Hydralazine HCl (Apresoline) 50 mg PO Q6H [facility] Last Admin: 10/30/16 17:00 Dose: 50 mg Insulin Human Regular (Novolin R) 0 unit SC ACHS [facility] PRN Reason: Protocol Last Admin: 10/30/16 17:25 Dose: 4 unit Montelukast Sodium (Singulair) 10 mg PO HS [facility] Pantoprazole Sodium (Protonix Ec Tab) 40 mg PO DAILY [facility] Last Admin: 10/30/16 09:25 Dose: 40 mg - Labs Labs: 10/30/16 06:15 10/30/16 06:15 PT 10.8 SECONDS (9.7-12.2) 10/28/16 15:14 INR 1.0 10/28/16 15:14 APTT 34 SECONDS (21-34) 10/28/16 15:14 - Respiratory Exam Additional comments: Lungs clear - Cardiovascular Exam Cardiovascular Exam: REGULAR RHYTHM - Extremities Exam Additional comments: No edema Assessment and Plan - Assessment and Plan (Free Text) Assessment: Stable Stage 3 kidney dis. HTN Plan: Continue to monitor renal function & BP PTH is normal
[2016-10-31 07:38] LABS: POTASSIUM 4.4 mmol/L (3.6-5.2)
[2016-10-31 07:40] LABS: BILIRUBIN,TOTAL 0.9 mg/dL (0.2-1.3)
[2016-10-31 07:41] LABS: ALB/GLOB RATIO 1.4 (1.0-2.1); PHOSPHOROUS 3.7 mg/dL (2.5-4.5); TOTAL PROTEIN 7.6 g/dL (6.3-8.3)
[2016-10-31 08:06] LABS: BASO % 0.5 % (0.0-2.0); EOS # 0.4 K/uL (0.0-0.7); EOS % 7.1 % (0.0-4.0); HEMATOCRIT 43.3 % (34.0-47.0); LYMPH # 2.8 K/uL (1.0-4.3); LYMPH % 50.4 % (20.0-40.0); MEAN CELL VOLUME 80.2 fL (81.0-99.0); MEAN CORPUSCULAR HEMOGLOBIN 25.3 pg (27.0-31.0); MEAN CORPUSCULAR HGB CONC 31.6 g/dL (33.0-37.0); MEAN PLATELET VOLUME 12.2 fL (7.2-11.7); MONO # 0.5 K/uL (0.0-0.8); NRBC % 0.2 % (0.0-2.0); RED CELL DISTRIBUTION WIDTH 16.6 % (11.5-14.5); WHITE BLOOD COUNT 5.5 K/uL (4.8-10.8)
[2016-10-31] MEDS ORDERED: Iodixanol 320 MG/ML 200 ML BOTTLE IV ONE (11:07)
[2016-10-31] MEDS ORDERED: Midazolam 2 MG/2 ML VIAL ONE ×2 (11:07→11:57)
--- NOTE | 2016-10-31 15:06 | OP ---
PROCEDURE DATE: 10/31/2016 PERIPHERAL ANGIOGRAPHY REPORT PERFORMING PHYSICIAN: Tommie Newman MD. REFERRING PHYSICIAN: Yash Peterson MD. PROCEDURE PERFORMED: Retrograde access - right common femoral artery, selective catheter placement i n the left common femoral artery via contralateral approach, abdominal aortography, selective angiogr aphy, left lower extremity. COMPLICATIONS: None. HISTORY: The patient is a 71-year-old female with a past medical history of peripheral vascular dise ase who presents with severe rest pain. She has abnormal ankle brachial index. Abdominal aortography was performed after access was obtained in the right common femoral artery. Om niflush was selectively placed initially in infrarenal abdominal aorta and then directed to the contr alateral left common femoral artery. Angiography was then performed using digital subtraction. FINDINGS: The infrarenal abdominal aorta was free of aneurysm or dissection. Bilateral common iliac arteries did show extensive eccentric calcification. There is moderate bilateral common femoral art miladis disease in the distal portion. The bilateral superficial femoral arteries are occluded 100%. In the left leg, the left superficial femoral artery constitutes at the proximal left popliteal artery. There is single-vessel runoff to the left foot. CONCLUSION: Bilateral superficial femoral artery occlusions. PLAN: The patient has extensive calcification. I would recommend surgical intervention via left fe m-pop bypass. Tommie Newman MD cc: [id number] TT: 10/31/2016 14:28:17 jn
--- NOTE | 2016-10-31 20:21 | CP.PCM.PCO ---
Physician Communication Note - Physician Communication Note Physician Communication Note: written med consult note in chart secondary to meditech outage
[2016-10-31] MEDS: (Novolin R) Insulin Human Regular 100 units/ml vial SC SCH ×2 (20:39→22:16)
[2016-10-31] MEDS: Sodium Chloride 0.9% 1,000 ML IV SCH (20:45)
--- NOTE | 2016-11-01 07:55 | CP.PCM.PN ---
Subjective - Date & Time of Evaluation Date of Evaluation: 11/01/16 Time of Evaluation: 07:50 - Subjective Subjective: patient has no current chest pain. s/p peripheral angiogram. patient needs fem pop bypass Objective - Vital Signs/Intake and Output Vital Signs (last 24 hours): Temp Pulse Resp BP Pulse Ox 98.4 F 75 20 150/64 96 10/31/16 23:25 10/31/16 23:25 10/31/16 23:25 10/31/16 23:25 10/31/16 23:25 Intake and Output: 11/01/16 11/01/16 06:59 18:59 Intake Total 725 Balance 725 - Medications Medications: Current Medications Amlodipine Besylate (Norvasc) 10 mg PO DAILY [facility] Last Admin: 10/30/16 09:25 Dose: 10 mg Aspirin (Aspirin Chewable) 81 mg PO DAILY [facility] Last Admin: 10/30/16 09:25 Dose: 81 mg Clonidine HCl (Catapres) 0.1 mg PO TID [facility] Last Admin: 10/31/16 20:39 Dose: Not Given Ezetimibe (Zetia) 10 mg PO [facility] Last Admin: 10/31/16 21:16 Dose: 10 mg Ergocalciferol (Drisdol 50,000 Intl Units Cap) 1 cap PO QWK [facility] Last Admin: 10/29/16 09:41 Dose: Not Given Fluticasone Propionate (Flonase) 2 spr BERTHA DAILY [facility] Last Admin: 10/30/16 11:55 Dose: 2 spray Heparin Sodium (Porcine) (Heparin) 5,000 units SC Q8 [facility] Last Admin: 10/30/16 21:40 Dose: 5,000 units Hydralazine HCl (Apresoline) 50 mg PO Q6H [facility] Last Admin: 11/01/16 04:23 Dose: 50 mg Sodium Chloride (Sodium Chloride 0.9%) 1,000 mls @ 70 mls/hr IV .[id number] [facility] Last Admin: 10/31/16 20:45 Dose: 70 mls/hr Insulin Human Regular (Novolin R) 0 unit SC ACHS [facility] PRN Reason: Protocol Last Admin: 10/31/16 22:16 Dose: Not Given Montelukast Sodium (Singulair) 10 mg PO [facility] Last Admin: 10/31/16 21:18 Dose: 10 mg Pantoprazole Sodium (Protonix Ec Tab) 40 mg PO DAILY [facility] Last Admin: 10/30/16 09:25 Dose: 40 mg - Labs Labs: 10/31/16 19:01 10/31/16 19:01 PT 10.8 SECONDS (9.7-12.2) 10/28/16 15:14 INR 1.0 10/28/16 15:14 APTT 34 SECONDS (21-34) 10/28/16 15:14 - Constitutional Appears: Non-toxic - Head Exam Head Exam: NORMAL INSPECTION - Eye Exam Eye Exam: Normal appearance - ENT Exam ENT Exam: Mucous Membranes Moist - Neck Exam Neck Exam: Full ROM - Respiratory Exam Respiratory Exam: Decreased Breath Sounds - Cardiovascular Exam Cardiovascular Exam: REGULAR RHYTHM - GI/Abdominal Exam GI & Abdominal Exam: Normal Bowel Sounds - Rectal Exam Rectal Exam: Deferred - Extremities Exam Extremities Exam: Pedal Edema - Back Exam Back Exam: NORMAL INSPECTION - Neurological Exam Neurological Exam: Alert - Psychiatric Exam Psychiatric exam: Normal Affect - Skin Skin Exam: Normal Color Assessment and Plan (1) HTN (hypertension) Assessment & Plan: blood pressure is controlled Status: Acute (2) Hypercholesterolemia Assessment & Plan: recommend statin therapy Status: Acute (3) Chronic kidney disease Assessment & Plan: renal following Status: Acute (4) PVD (peripheral vascular disease) Assessment & Plan: discussed angiogram with patient. She requires fem pop bypass. The patient has normal left ventricular function. She has no angina. She is medically optimized for surgery. She is at intermediate cardiovascular risk. Status: Acute
[2016-11-01] MEDS: (Novolin R) Insulin Human Regular 100 units/ml vial SC SCH ×4 (08:02→22:10)
--- NOTE | 2016-11-01 08:05 | CP.PCM.PN ---
<TyreseMaria M - Last Filed: 11/01/16 14:04> Subjective - Date & Time of Evaluation Date of Evaluation: 11/01/16 Time of Evaluation: 07:00 - Subjective Subjective: PGY1 Medicine note for Dr. Coelho Patient seen and examined at bedside. Patient is s/p peripheral angiogram on with Dr. Newman. She reported pain at site of cath to touch. She continues to complain of bilateral leg pain and tingling and sometimes flushing. She also reported she had some headaches this AM but denied any dizziness or ringing of the ears. She denied any chest pain, palpitations, SOB, cough, abd pain, nausea , vomiting, bowel/bladder complaints, swelling of her LE b/l. She has been NPO overnight and has been waiting to speak to Dr. Peterson regarding the fem- popliteal bypass. Objective - Vital Signs/Intake and Output Vital Signs (last 24 hours): Temp Pulse Resp BP Pulse Ox 98.4 F 75 20 150/64 96 10/31/16 23:25 10/31/16 23:25 10/31/16 23:25 10/31/16 23:25 10/31/16 23:25 Intake and Output: 11/01/16 11/01/16 06:59 18:59 Intake Total 725 Balance 725 - Medications Medications: Current Medications Amlodipine Besylate (Norvasc) 10 mg PO DAILY [facility] Last Admin: 10/30/16 09:25 Dose: 10 mg Aspirin (Aspirin Chewable) 81 mg PO DAILY [facility] Last Admin: 10/30/16 09:25 Dose: 81 mg Clonidine HCl (Catapres) 0.1 mg PO TID [facility] Last Admin: 10/31/16 20:39 Dose: Not Given Ezetimibe (Zetia) 10 mg PO HS [facility] Last Admin: 10/31/16 21:16 Dose: 10 mg Ergocalciferol (Drisdol 50,000 Intl Units Cap) 1 cap PO QWK [facility] Last Admin: 10/29/16 09:41 Dose: Not Given Fluticasone Propionate (Flonase) 2 spr BERTHA DAILY [facility] Last Admin: 10/30/16 11:55 Dose: 2 spray Heparin Sodium (Porcine) (Heparin) 5,000 units SC Q8 [facility] Last Admin: 05/17/17 21:40 Dose: 5,000 units Hydralazine HCl (Apresoline) 50 mg PO Q6H [facility] Last Admin: 11/01/16 04:23 Dose: 50 mg Sodium Chloride (Sodium Chloride 0.9%) 1,000 mls @ 70 mls/hr IV .[id number] [facility] Last Admin: 10/31/16 20:45 Dose: 70 mls/hr Insulin Human Regular (Novolin R) 0 unit SC ACHS [facility] PRN Reason: Protocol Last Admin: 11/01/16 08:02 Dose: Not Given Montelukast Sodium (Singulair) 10 mg PO HS [facility] Last Admin: 10/31/16 21:18 Dose: 10 mg Pantoprazole Sodium (Protonix Ec Tab) 40 mg PO DAILY [facility] Last Admin: 10/30/16 09:25 Dose: 40 mg - Labs Labs: 10/31/16 19:01 10/31/16 19:01 PT 10.8 SECONDS (9.7-12.2) 10/28/16 15:14 INR 1.0 10/28/16 15:14 APTT 34 SECONDS (21-34) 10/28/16 15:14 - Constitutional Appears: Non-toxic, No Acute Distress - Head Exam Head Exam: NORMAL INSPECTION - Eye Exam Eye Exam: Normal appearance. absent: Conjunctival injection, Scleral icterus - ENT Exam ENT Exam: Mucous Membranes Moist - Neck Exam Neck Exam: Full ROM, Normal Inspection. absent: Tenderness - Respiratory Exam Respiratory Exam: Clear to Ausculation Bilateral, NORMAL BREATHING PATTERN. absent: Accessory Muscle Use, Rales, Rhonchi, Wheezes, Respiratory Distress - Cardiovascular Exam Cardiovascular Exam: REGULAR RHYTHM, +S1, +S2, Murmur (systolic 2nd ICS) - GI/Abdominal Exam GI & Abdominal Exam: Soft, Normal Bowel Sounds. absent: Distended, Firm, Guarding, Rigid, Tenderness - Rectal Exam Rectal Exam: Deferred - Extremities Exam Extremities Exam: Normal Capillary Refill. absent: Pedal Edema Additional comments: diminished pulses b/l - Back Exam Back Exam: NORMAL INSPECTION. absent: rash noted, tenderness - Neurological Exam Neurological Exam: Alert, Awake, Normal Gait, Oriented x3 - Psychiatric Exam Psychiatric exam: Normal Affect, Normal Mood - Skin Skin Exam: Dry, Intact, Normal Color, Warm Assessment and Plan - Assessment and Plan (Free Text) Assessment: 71 year old female with a PMHx of HTN. Diabetes Mellitus, Chronic Kidney Disease , peripheral vascular disease, hypercholesterolemia, and Gout send in by Dr. Peterson for PVD Plan: Peripheral Vascular Disease -Management as per vascular surgery, Dr. Peterson -s/p peripehral angiogram with Dr. Newman -plan is for fem-pop bypass with Dr Peterson -ASA 81mg po daily HTN: -ASA 81mg po daily -Norvasc 10 mg po qd -Hydralazine 50mg po q6h -Toprol XL 12.5mg po daily -Clonidine patch 0.1 mg TD starting 11/02 when PO clonidine is discontinued -Echo: normal EF, mild LVF -TSH: 2.53 -EKG - sinus bradycardia, t wave inversions in leads I and avL -Dr. Newman cardiology consulted Diabetes Mellitus: -Acchuchecks achs -Regular insulin sliding scale Chronic Kidney Disease Stage III: -NS IVF 100 cc/hr -f/u urine for microalbumin -renal US: HTN disease -Dr. 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 Meliton Xiong PGY1 <Tristan Coelho - Last Filed: 12/08/16 12:08> Objective - Vital Signs/Intake and Output Vital Signs (last 24 hours): Temp Pulse Resp BP Pulse Ox 98.5 F 57 L 20 147/78 95 11/14/16 15:00 11/14/16 15:00 11/14/16 15:00 11/14/16 15:00 11/14/16 15:00 - Labs Labs: 11/13/16 07:58 11/13/16 07:58 PT 11.2 SECONDS (9.7-12.2) 11/12/16 06:30 INR 1.0 11/12/16 06:30 APTT 66 SECONDS (21-34) H D 11/12/16 06:30 Attending/Attestation - Attestation I have personally seen and examined this patient.: Yes I have fully participated in the care of the patient.: Yes I have reviewed all pertinent clinical information, including history, physical exam and plan: Yes Notes (Text): Patient seen and examined with the resident. Agree with the resident's evaluation, assessment and plan. 71 year old female with a PMHx of HTN. Diabetes Mellitus, Chronic Kidney Disease , peripheral vascular disease, hypercholesterolemia, and Gout send in by Dr. Peterson for PVD Plan: Peripheral Vascular Disease Management as per vascular surgery, Dr. Peterson HTN: Diabetes Mellitus:
[2016-11-01 08:41] LABS: INR 0.9
[2016-11-01 09:02] LABS: BASO % 0.4 % (0.0-2.0); EOS # 0.2 K/uL (0.0-0.7); EOS % 2.2 % (0.0-4.0); HEMATOCRIT 42.1 % (34.0-47.0); LYMPH # 2.1 K/uL (1.0-4.3); LYMPH % 25.9 % (20.0-40.0); MEAN CELL VOLUME 79.6 fL (81.0-99.0); MEAN CORPUSCULAR HEMOGLOBIN 25.5 pg (27.0-31.0); MEAN PLATELET VOLUME 12.2 fL (7.2-11.7); MONO # 0.7 K/uL (0.0-0.8); MONO % 8.6 % (0.0-10.0); NRBC % 0.1 % (0.0-2.0); RED CELL DISTRIBUTION WIDTH 16.7 % (11.5-14.5)
[2016-11-01 09:03] LABS: IRON 52 ug/dL (37-170)
[2016-11-01 09:18] LABS: POTASSIUM 4.4 mmol/L (3.6-5.2)
[2016-11-01 09:21] LABS: ALB/GLOB RATIO 1.6 (1.0-2.1); CALCIUM 9.2 mg/dl (8.6-10.4); MAGNESIUM 1.8 mg/dL (1.6-2.3); PHOSPHOROUS 3.9 mg/dL (2.5-4.5); TOTAL PROTEIN 7.8 g/dL (6.3-8.3)
[2016-11-01] MEDS: Fluticasone Nasal 50 mcg/Spray NAS SCH (10:28)
[2016-11-01] MEDS: Pantoprazole 40 mg EC Tab PO SCH (10:29)
[2016-11-01] MEDS: Sodium Chloride 0.9% 1,000 ML IV SCH (10:33)
--- NOTE | 2016-11-01 11:47 | CP.PCM.PN ---
Subjective - Date & Time of Evaluation Date of Evaluation: 11/01/16 Time of Evaluation: 11:00 - Subjective Subjective: Comfortable in bed Objective - Vital Signs/Intake and Output Vital Signs (last 24 hours): Temp Pulse Resp BP Pulse Ox 98.5 F 98 H 20 136/75 99 11/01/16 08:10 11/01/16 08:10 11/01/16 08:10 11/01/16 09:20 11/01/16 08:10 Intake and Output: 11/01/16 11/01/16 06:59 18:59 Intake Total 725 Balance 725 - Medications Medications: Current Medications Amlodipine Besylate (Norvasc) 10 mg PO DAILY [facility] Last Admin: 11/01/16 10:28 Dose: 10 mg Aspirin (Aspirin Chewable) 81 mg PO DAILY [facility] Last Admin: 11/01/16 10:28 Dose: 81 mg Clonidine HCl (Catapres) 0.1 mg PO TID [facility] Last Admin: 11/01/16 10:29 Dose: 0.1 mg Ezetimibe (Zetia) 10 mg PO HS [facility] Last Admin: 10/31/16 21:16 Dose: 10 mg Ergocalciferol (Drisdol 50,000 Intl Units Cap) 1 cap PO QWK [facility] Last Admin: 10/29/16 09:41 Dose: Not Given Fluticasone Propionate (Flonase) 2 spr BERTHA DAILY [facility] Last Admin: 11/01/16 10:28 Dose: 2 spray Heparin Sodium (Porcine) (Heparin) 5,000 units SC Q8 [facility] Last Admin: 10/30/16 21:40 Dose: 5,000 units Hydralazine HCl (Apresoline) 50 mg PO Q6H [facility] Last Admin: 11/01/16 10:30 Dose: 50 mg Sodium Chloride (Sodium Chloride 0.9%) 1,000 mls @ 70 mls/hr IV .[id number] [facility] Last Admin: 11/01/16 10:33 Dose: 70 mls/hr Insulin Human Regular (Novolin R) 0 unit SC ACHS [facility] PRN Reason: Protocol Last Admin: 11/01/16 08:02 Dose: Not Given Montelukast Sodium (Singulair) 10 mg PO HS [facility] Last Admin: 10/31/16 21:18 Dose: 10 mg Pantoprazole Sodium (Protonix Ec Tab) 40 mg PO DAILY [facility] Last Admin: 11/01/16 10:29 Dose: 40 mg Rosuvastatin Calcium (Crestor) 10 mg PO HS [facility] - Labs Labs: 11/01/16 08:14 11/01/16 08:14 PT 10.3 SECONDS (9.7-12.2) 11/01/16 04:00 INR 0.9 11/01/16 04:00 APTT 38 SECONDS (21-34) H 11/01/16 04:00 - Respiratory Exam Additional comments: Lungs clear - Cardiovascular Exam Cardiovascular Exam: REGULAR RHYTHM - Extremities Exam Additional comments: No edema Assessment and Plan - Assessment and Plan (Free Text) Assessment: Stage 111 kidney dis. Renal function is stable S/P cardiac cath HTN PVD Plan: Continue to monitor renal function Control BP
[2016-11-01] MEDS: Metoprolol Succinate 12.5 mg XL PO SCH (14:16)
[2016-11-02] MEDS: Sodium Chloride 0.9% 1,000 ML IV SCH ×2 (04:12→17:06)
[2016-11-02] MEDS: (Novolin R) Insulin Human Regular 100 units/ml vial SC SCH ×4 (08:28→21:48)
[2016-11-02] MEDS: Fluticasone Nasal 50 mcg/Spray NAS SCH ×2 (08:37→09:49)
[2016-11-02] MEDS: Metoprolol Succinate 12.5 mg XL PO SCH ×2 (08:37→09:50)
[2016-11-02] MEDS: Pantoprazole 40 mg EC Tab PO SCH ×2 (08:37→09:50)
[2016-11-02 08:50] LABS: EOS # 0.4 K/uL (0.0-0.7); MONO # 0.6 K/uL (0.0-0.8); NRBC % 0.1 % (0.0-2.0); WHITE BLOOD COUNT 6.1 K/uL (4.8-10.8)
[2016-11-02 09:03] LABS: BASO % 0.7 % (0.0-2.0); EOS % 6.1 % (0.0-4.0); HEMATOCRIT 37.5 % (34.0-47.0); LYMPH # 2.2 K/uL (1.0-4.3); LYMPH % 35.9 % (20.0-40.0); MEAN CELL VOLUME 80.2 fL (81.0-99.0); MEAN CORPUSCULAR HEMOGLOBIN 25.2 pg (27.0-31.0); MEAN CORPUSCULAR HGB CONC 31.5 g/dL (33.0-37.0); MEAN PLATELET VOLUME 11.3 fL (7.2-11.7); MONO % 10.2 % (0.0-10.0); POTASSIUM 4.2 mmol/L (3.6-5.2)
[2016-11-02 09:05] LABS: ALB/GLOB RATIO 1.3 (1.0-2.1); BILIRUBIN,TOTAL 0.7 mg/dL (0.2-1.3)
[2016-11-02 09:06] LABS: CALCIUM 8.5 mg/dl (8.6-10.4); MAGNESIUM 1.9 mg/dL (1.6-2.3); PHOSPHOROUS 3.3 mg/dL (2.5-4.5)
[2016-11-02] MEDS ORDERED: Magnesium Hydroxide Susp 30 ml UD PO ONE (10:22)
[2016-11-02] MEDS ORDERED: diltiaZEM 120 mg/24 Hours CD Cap PO SCH (12:30)
[2016-11-02 13:58] LABS: INR 0.9
--- NOTE | 2016-11-02 15:39 | CP.PCM.PN ---
Subjective - Date & Time of Evaluation Date of Evaluation: 11/02/16 Time of Evaluation: 01:00 - Subjective Subjective: No c/o SALAZAR ,SOB Objective - Vital Signs/Intake and Output Vital Signs (last 24 hours): Temp Pulse Resp BP Pulse Ox 98.0 F 66 20 198/72 H 97 11/02/16 08:02 11/02/16 08:02 11/02/16 08:02 11/02/16 14:24 11/02/16 08:02 Intake and Output: 11/02/16 11/02/16 06:59 18:59 Intake Total 1660 1040 Balance 1660 1040 - Medications Medications: Current Medications Amlodipine Besylate (Norvasc) 10 mg PO DAILY [facility] Last Admin: 11/02/16 09:49 Dose: Not Given Aspirin (Aspirin Chewable) 81 mg PO DAILY [facility] Last Admin: 11/02/16 09:49 Dose: Not Given Clonidine HCl (Catapres Tts1 0.1 Mg/24 Hr) 1 patch TD Q7D@1000 [facility] Last Admin: 11/02/16 09:49 Dose: Not Given Docusate Sodium (Colace) 100 mg PO TID [facility] Last Admin: 11/02/16 13:06 Dose: 100 mg Ezetimibe (Zetia) 10 mg PO HS [facility] Last Admin: 11/01/16 22:10 Dose: 10 mg Ergocalciferol (Drisdol 50,000 Intl Units Cap) 1 cap PO QWK [facility] Last Admin: 10/29/16 09:41 Dose: Not Given Fluticasone Propionate (Flonase) 2 spr BERTHA DAILY [facility] Last Admin: 11/02/16 09:49 Dose: Not Given Heparin Sodium (Porcine) (Heparin) 5,000 units SC Q12 [facility] Last Admin: 11/02/16 14:43 Dose: 5,000 units Hydralazine HCl (Apresoline) 75 mg PO Q6 [facility] Sodium Chloride (Sodium Chloride 0.9%) 1,000 mls @ 70 mls/hr IV .[id number] [facility] Last Admin: 11/02/16 04:12 Dose: 70 mls/hr Insulin Human Regular (Novolin R) 0 unit SC ACHS [facility] PRN Reason: Protocol Last Admin: 11/02/16 11:45 Dose: 4 unit Metoprolol Succinate (Toprol Xl) 12.5 mg PO DAILY [facility] Last Admin: 11/02/16 09:50 Dose: Not Given Minoxidil (Minoxidil) 2.5 mg PO DAILY [facility] Last Admin: 11/02/16 12:58 Dose: 2.5 mg Montelukast Sodium (Singulair) 10 mg PO HS [facility] Last Admin: 11/01/16 22:09 Dose: 10 mg Pantoprazole Sodium (Protonix Ec Tab) 40 mg PO DAILY [facility] Last Admin: 11/02/16 09:50 Dose: Not Given Rosuvastatin Calcium (Crestor) 10 mg PO [facility] Last Admin: 11/01/16 22:09 Dose: 10 mg - Labs Labs: 11/02/16 08:32 11/02/16 08:32 PT 10.1 SECONDS (9.7-12.2) 11/02/16 13:36 INR 0.9 11/02/16 13:36 APTT 34 SECONDS (21-34) 11/02/16 13:36 - Respiratory Exam Additional comments: Lungs clear - Cardiovascular Exam Cardiovascular Exam: REGULAR RHYTHM - Extremities Exam Additional comments: No edema Assessment and Plan - Assessment and Plan (Free Text) Assessment: Stable CKD Blood pressures are high. Suggest to change normal saline to D1/2 PVD Plan: Continue to monitor renal function For arterial bypass next wk.
--- NOTE | 2016-11-02 17:52 | CP.PCM.PN ---
<Umer Jefferson - Last Filed: 11/02/16 17:50> Subjective - Date & Time of Evaluation Date of Evaluation: 11/02/16 Time of Evaluation: 10:52 - Subjective Subjective: Pt seen and examined. Pt resting in bed comfortably. Pt's only complaint is her chronic b/l leg pain. Pt denies fever, chills, chest pain, shortness of breath, nausea, and vomiting. Objective - Vital Signs/Intake and Output Vital Signs (last 24 hours): Temp Pulse Resp BP Pulse Ox 98.4 F 91 H 20 197/75 H 97 11/02/16 16:51 11/02/16 16:51 11/02/16 16:51 11/02/16 16:51 11/02/16 16:51 Intake and Output: 11/02/16 11/02/16 06:59 18:59 Intake Total 1660 1040 Balance 1660 1040 - Medications Medications: Current Medications Amlodipine Besylate (Norvasc) 10 mg PO DAILY [facility] Last Admin: 11/02/16 09:49 Dose: Not Given Aspirin (Aspirin Chewable) 81 mg PO DAILY [facility] Last Admin: 11/02/16 09:49 Dose: Not Given Clonidine HCl (Catapres Tts1 0.1 Mg/24 Hr) 1 patch TD Q7D@1000 [facility] Last Admin: 11/02/16 09:49 Dose: Not Given Docusate Sodium (Colace) 100 mg PO TID [facility] Last Admin: 11/02/16 17:04 Dose: 100 mg Ezetimibe (Zetia) 10 mg PO HS [facility] Last Admin: 11/01/16 22:10 Dose: 10 mg Ergocalciferol (Drisdol 50,000 Intl Units Cap) 1 cap PO QWK [facility] Last Admin: 10/29/16 09:41 Dose: Not Given Fluticasone Propionate (Flonase) 2 spr BERTHA DAILY [facility] Last Admin: 11/02/16 09:49 Dose: Not Given Heparin Sodium (Porcine) (Heparin) 5,000 units SC Q12 [facility] Last Admin: 11/02/16 14:43 Dose: 5,000 units Hydralazine HCl (Apresoline) 75 mg PO Q6 [facility] Last Admin: 11/02/16 17:03 Dose: 75 mg Sodium Chloride (Sodium Chloride 0.9%) 1,000 mls @ 70 mls/hr IV .[id number] [facility] Last Admin: 11/02/16 17:06 Dose: 70 mls/hr Insulin Human Regular (Novolin R) 0 unit SC ACHS [facility] PRN Reason: Protocol Last Admin: 11/02/16 17:05 Dose: 6 unit Metoprolol Succinate (Toprol Xl) 12.5 mg PO DAILY [facility] Last Admin: 11/02/16 09:50 Dose: Not Given Minoxidil (Minoxidil) 2.5 mg PO DAILY [facility] Last Admin: 11/02/16 12:58 Dose: 2.5 mg Montelukast Sodium (Singulair) 10 mg PO [facility] Last Admin: 11/01/16 22:09 Dose: 10 mg Pantoprazole Sodium (Protonix Ec Tab) 40 mg PO DAILY [facility] Last Admin: 11/02/16 09:50 Dose: Not Given Rosuvastatin Calcium (Crestor) 10 mg PO [facility] Last Admin: 11/01/16 22:09 Dose: 10 mg - Labs Labs: 11/02/16 08:32 11/02/16 08:32 PT 10.1 SECONDS (9.7-12.2) 11/02/16 13:36 INR 0.9 11/02/16 13:36 APTT 34 SECONDS (21-34) 11/02/16 13:36 - Constitutional Appears: No Acute Distress - Head Exam Head Exam: ATRAUMATIC, NORMOCEPHALIC - Eye Exam Eye Exam: EOMI, PERRL - ENT Exam ENT Exam: Mucous Membranes Moist. absent: Mucous Membranes Dry - Respiratory Exam Respiratory Exam: Clear to Ausculation Bilateral. absent: Rales, Rhonchi, Wheezes - Cardiovascular Exam Cardiovascular Exam: +S1, +S2. absent: Gallop, Rubs - GI/Abdominal Exam GI & Abdominal Exam: Soft. absent: Tenderness - Extremities Exam Extremities Exam: Full ROM. absent: Pedal Edema Additional comments: pedal pulses diminshed - Neurological Exam Neurological Exam: Alert, Awake, Oriented x3 - Psychiatric Exam Psychiatric exam: Normal Affect, Normal Mood - Skin Skin Exam: Normal Color, Warm Assessment and Plan - Assessment and Plan (Free Text) Assessment: Peripheral Vascular Disease -Management as per vascular surgery, Dr. Peterson -s/p peripehral angiogram with Dr. Newman -plan is for fem-pop bypass with Dr Peterson on 11/06 -ASA 81mg po daily HTN: -ASA 81mg po daily -Norvasc 10 mg po qd -Hydralazine 50mg po q6h -Toprol XL 12.5mg po daily -Clonidine patch 0.1 mg TD starting 11/02 when PO clonidine is discontinued -Echo: normal EF, mild LVF -TSH: 2.53 -EKG - sinus bradycardia, t wave inversions in leads I and avL -Dr. Newman cardiology consulted Diabetes Mellitus: -Sugars running high -Acchuchecks achs -Regular insulin sliding scale Chronic Kidney Disease Stage III: -NS IVF 100 cc/hr -f/u urine for microalbumin -renal US: HTN disease -Dr. 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 ASA vs cochicine use Underlying anemia -likely secondary to GUILLERMO vs anemia of chronic disease -f/u iron studies -If iron studies negative order: peripheral blood smear, LDH, haptoglobin, folate, vitB12, homocysteine, MMA Allergies: -Flonase 2spr bertha daily -Spiriva 10mg po hs Prophylactic Measures: -Protonix 40 mg po qd -Heparin 5000 units sc q8h -SCD c/i -Heart healthy -NS @ 70cc/hr <Tristan Coelho - Last Filed: 12/08/16 13:18> Objective - Vital Signs/Intake and Output Vital Signs (last 24 hours): Temp Pulse Resp BP Pulse Ox 98.5 F 57 L 20 147/78 95 11/14/16 15:00 11/14/16 15:00 11/14/16 15:00 11/14/16 15:00 11/14/16 15:00 - Labs Labs: 11/13/16 07:58 11/13/16 07:58 PT 11.2 SECONDS (9.7-12.2) 11/12/16 06:30 INR 1.0 11/12/16 06:30 APTT 66 SECONDS (21-34) H D 11/12/16 06:30 Attending/Attestation - Attestation I have personally seen and examined this patient.: Yes I have fully participated in the care of the patient.: Yes I have reviewed all pertinent clinical information, including history, physical exam and plan: Yes Notes (Text): Patient seen and examined with the resident. Agree with the resident's evaluation, assessment and plan. Peripheral Vascular Disease -Management as per vascular surgery, Dr. Peterson -s/p peripehral angiogram with Dr. Newman -plan is for fem-pop bypass with Dr Peterson on 11/06 -ASA 81mg po daily HTN: -ASA 81mg po daily -Norvasc 10 mg po qd -Hydralazine 50mg po q6h -Toprol XL 12.5mg po daily -Clonidine patch 0.1 mg TD starting 11/02 when PO clonidine is discontinued -Echo: normal EF, mild LVF -TSH: 2.53 -EKG - sinus bradycardia, t wave inversions in leads I and avL -Dr. Newman cardiology consulted Diabetes Mellitus: -Sugars running high -Acchuchecks achs -Regular insulin sliding scale Chronic Kidney Disease Stage III: -NS IVF 100 cc/hr -f/u urine for microalbumin -renal US: HTN disease -Dr. Dsouza nephrology consulted
--- NOTE | 2016-11-03 05:49 | CP.PCM.PN ---
<Harsha Coleman - Last Filed: 11/03/16 05:45> Subjective - Date & Time of Evaluation Date of Evaluation: 11/03/16 Time of Evaluation: 05:40 - Subjective Subjective: Rapid Response Note Rapid response was called and [employer] arrived. Per nurse, patient has had elevated blood pressure over night and when the nurse took her BP it was 194/71.Per nurse Dorothy, the patient reported feeling lightheaded, weak, and had a headache. The patient was found seated in her chair. She was assisted to the bed. She was a little anxious and complained of palpitations. On heart monitor she was found to be in normal sinus rhythm. Her blood pressure began to decrease as she lay in bed. She requested tylenol for her head ache. Objective - Vital Signs/Intake and Output Vital Signs (last 24 hours): Temp Pulse Resp BP Pulse Ox 98.1 F 86 20 179/81 H 98 11/03/16 00:00 11/03/16 00:00 11/03/16 00:00 11/03/16 00:00 11/03/16 00:00 Intake and Output: 11/02/16 11/03/16 18:59 06:59 Intake Total 1040 1120 Balance 1040 1120 - Medications Medications: Current Medications Amlodipine Besylate (Norvasc) 10 mg PO DAILY [facility] Last Admin: 11/02/16 09:49 Dose: Not Given Aspirin (Aspirin Chewable) 81 mg PO DAILY [facility] Last Admin: 11/02/16 09:49 Dose: Not Given Clonidine HCl (Catapres Tts1 0.1 Mg/24 Hr) 1 patch TD Q7D@1000 [facility] Last Admin: 11/02/16 09:49 Dose: Not Given Docusate Sodium (Colace) 100 mg PO TID [facility] Last Admin: 11/02/16 17:04 Dose: 100 mg Ezetimibe (Zetia) 10 mg PO HS [facility] Last Admin: 11/02/16 22:04 Dose: 10 mg Ergocalciferol (Drisdol 50,000 Intl Units Cap) 1 cap PO QWK [facility] Last Admin: 10/29/16 09:41 Dose: Not Given Fluticasone Propionate (Flonase) 2 spr BERTHA DAILY [facility] Last Admin: 11/02/16 09:49 Dose: Not Given Heparin Sodium (Porcine) (Heparin) 5,000 units SC Q12 [facility] Last Admin: 11/02/16 22:04 Dose: 5,000 units Hydralazine HCl (Apresoline) 75 mg PO Q6 [facility] Last Admin: 11/03/16 05:00 Dose: 75 mg Sodium Chloride (Sodium Chloride 0.9%) 1,000 mls @ 70 mls/hr IV .[id number] [facility] Last Admin: 11/02/16 17:06 Dose: 70 mls/hr Insulin Human Regular (Novolin R) 0 unit SC ACHS [facility] PRN Reason: Protocol Last Admin: 11/02/16 21:48 Dose: Not Given Metoprolol Succinate (Toprol Xl) 12.5 mg PO DAILY [facility] Last Admin: 11/02/16 09:50 Dose: Not Given Minoxidil (Minoxidil) 2.5 mg PO DAILY [facility] Last Admin: 11/02/16 12:58 Dose: 2.5 mg Montelukast Sodium (Singulair) 10 mg PO HS [facility] Last Admin: 11/02/16 22:03 Dose: 10 mg Pantoprazole Sodium (Protonix Ec Tab) 40 mg PO DAILY [facility] Last Admin: 11/02/16 09:50 Dose: Not Given Rosuvastatin Calcium (Crestor) 10 mg PO HS [facility] Last Admin: 11/02/16 22:04 Dose: 10 mg - Labs Labs: 11/02/16 08:32 11/02/16 08:32 PT 10.1 SECONDS (9.7-12.2) 11/02/16 13:36 INR 0.9 11/02/16 13:36 APTT 34 SECONDS (21-34) 11/02/16 13:36 - Constitutional Appears: Non-toxic, No Acute Distress - Head Exam Head Exam: ATRAUMATIC, NORMOCEPHALIC - Eye Exam Eye Exam: Conjunctival injection, EOMI, PERRL Pupil Exam: NORMAL ACCOMODATION, PERRL - ENT Exam ENT Exam: Mucous Membranes Moist, Normal Oropharynx - Cardiovascular Exam Cardiovascular Exam: REGULAR RHYTHM, +S1, +S2, Murmur (+2) - Extremities Exam Extremities Exam: Normal Inspection - Neurological Exam Neurological Exam: Alert, Awake, CN II-XII Intact, Oriented x3 - Psychiatric Exam Psychiatric exam: Anxious - Skin Skin Exam: Dry, Intact, Warm Assessment and Plan - Assessment and Plan (Free Text) Assessment: 71 y/o F with hx of HTN, rapid response called for BP of 194/71. Plan: BP improved when laying down. Tylenol given for headache. EKG ordered. Continue to monitor. <Champ Ball P - Last Filed: 11/03/16 20:13> Objective - Vital Signs/Intake and Output Vital Signs (last 24 hours): Temp Pulse Resp BP Pulse Ox 98.6 F 105 H 20 213/75 H 98 11/03/16 15:00 11/03/16 15:00 11/03/16 15:00 11/03/16 15:00 11/03/16 15:00 - Medications Medications: Current Medications Amlodipine Besylate (Norvasc) 10 mg PO DAILY [facility] Last Admin: 11/03/16 09:33 Dose: 10 mg Aspirin (Aspirin Chewable) 81 mg PO DAILY [facility] Last Admin: 11/03/16 09:33 Dose: 81 mg Clonidine HCl (Catapres Tts1 0.1 Mg/24 Hr) 1 patch TD Q7D@1000 [facility] Last Admin: 11/02/16 09:49 Dose: Not Given Docusate Sodium (Colace) 100 mg PO TID [facility] Last Admin: 11/03/16 17:21 Dose: 100 mg Ezetimibe (Zetia) 10 mg PO HS [facility] Last Admin: 11/02/16 22:04 Dose: 10 mg Ergocalciferol (Drisdol 50,000 Intl Units Cap) 1 cap PO QWK [facility] Last Admin: 10/29/16 09:41 Dose: Not Given Fluticasone Propionate (Flonase) 2 spr BERTHA DAILY [facility] Last Admin: 11/03/16 10:35 Dose: 2 spray Heparin Sodium (Porcine) (Heparin) 5,000 units SC Q12 [facility] Last Admin: 11/03/16 10:36 Dose: 5,000 units Hydralazine HCl (Apresoline) 75 mg PO Q6H [facility] Last Admin: 11/03/16 16:25 Dose: 75 mg Insulin Human Regular (Novolin R) 0 unit SC ACHS [facility] PRN Reason: Protocol Last Admin: 11/03/16 17:21 Dose: 4 unit Metoprolol Succinate (Toprol Xl) 12.5 mg PO DAILY [facility] Last Admin: 11/03/16 12:17 Dose: Not Given Montelukast Sodium (Singulair) 10 mg PO HS [facility] Last Admin: 11/02/16 22:03 Dose: 10 mg Pantoprazole Sodium (Protonix Ec Tab) 40 mg PO DAILY [facility] Last Admin: 11/03/16 09:33 Dose: 40 mg Rosuvastatin Calcium (Crestor) 10 mg PO HS [facility] Last Admin: 11/02/16 22:04 Dose: 10 mg - Labs Labs: 11/03/16 07:45 11/03/16 07:45 PT 10.1 SECONDS (9.7-12.2) 11/02/16 13:36 INR 0.9 11/02/16 13:36 APTT 34 SECONDS (21-34) 11/02/16 13:36 Attending/Attestation - Attestation I have personally seen and examined this patient.: Yes I have fully participated in the care of the patient.: Yes I have reviewed all pertinent clinical information, including history, physical exam and plan: Yes
[2016-11-03 07:52] LABS: EOS # 0.3 K/uL (0.0-0.7); WHITE BLOOD COUNT 7.5 K/uL (4.8-10.8)
[2016-11-03 08:02] LABS: BASO % 0.4 % (0.0-2.0); EOS % 3.9 % (0.0-4.0); HEMATOCRIT 39.1 % (34.0-47.0); LYMPH # 2.2 K/uL (1.0-4.3); LYMPH % 29.7 % (20.0-40.0); MEAN CELL VOLUME 80.4 fL (81.0-99.0); MEAN CORPUSCULAR HGB CONC 31.1 g/dL (33.0-37.0); MEAN PLATELET VOLUME 12.5 fL (7.2-11.7); MONO # 0.6 K/uL (0.0-0.8); MONO % 8.6 % (0.0-10.0); RED CELL DISTRIBUTION WIDTH 16.6 % (11.5-14.5)
[2016-11-03] MEDS: (Novolin R) Insulin Human Regular 100 units/ml vial SC SCH ×4 (08:16→22:36)
[2016-11-03 08:18] LABS: POTASSIUM 4.7 mmol/L (3.6-5.2)
[2016-11-03 08:20] LABS: ALB/GLOB RATIO 1.4 (1.0-2.1); BILIRUBIN,TOTAL 0.6 mg/dL (0.2-1.3); TOTAL PROTEIN 6.9 g/dL (6.3-8.3)
[2016-11-03 08:21] LABS: CALCIUM 8.7 mg/dl (8.6-10.4); MAGNESIUM 2.1 mg/dL (1.6-2.3); PHOSPHOROUS 3.1 mg/dL (2.5-4.5)
[2016-11-03] MEDS: Pantoprazole 40 mg EC Tab PO SCH (09:33)
[2016-11-03] MEDS: Fluticasone Nasal 50 mcg/Spray NAS SCH (10:35)
--- NOTE | 2016-11-03 11:32 | CP.PCM.PN ---
Subjective - Date & Time of Evaluation Date of Evaluation: 11/03/16 Time of Evaluation: 10:30 - Subjective Subjective: events noted. had an episode of hypertension. no chest pain or dyspnea. Objective - Vital Signs/Intake and Output Vital Signs (last 24 hours): Temp Pulse Resp BP Pulse Ox 98.5 F 99 H 20 190/77 H 96 11/03/16 08:24 11/03/16 08:24 11/03/16 08:24 11/03/16 08:24 11/03/16 08:24 Intake and Output: 11/03/16 11/03/16 06:59 18:59 Intake Total 1920 Balance 1920 - Medications Medications: Current Medications Amlodipine Besylate (Norvasc) 10 mg PO DAILY [facility] Last Admin: 11/03/16 09:33 Dose: 10 mg Aspirin (Aspirin Chewable) 81 mg PO DAILY [facility] Last Admin: 11/03/16 09:33 Dose: 81 mg Clonidine HCl (Catapres Tts1 0.1 Mg/24 Hr) 1 patch TD Q7D@1000 [facility] Last Admin: 11/02/16 09:49 Dose: Not Given Docusate Sodium (Colace) 100 mg PO TID [facility] Last Admin: 11/03/16 09:33 Dose: 100 mg Ezetimibe (Zetia) 10 mg PO HS [facility] Last Admin: 11/02/16 22:04 Dose: 10 mg Ergocalciferol (Drisdol 50,000 Intl Units Cap) 1 cap PO QWK [facility] Last Admin: 10/29/16 09:41 Dose: Not Given Fluticasone Propionate (Flonase) 2 spr BERTHA DAILY [facility] Last Admin: 11/03/16 10:35 Dose: 2 spray Heparin Sodium (Porcine) (Heparin) 5,000 units SC Q12 [facility] Last Admin: 11/03/16 10:36 Dose: 5,000 units Sodium Chloride (Sodium Chloride 0.9%) 1,000 mls @ 70 mls/hr IV .[id number] [facility] Last Admin: 11/02/16 17:06 Dose: 70 mls/hr Insulin Human Regular (Novolin R) 0 unit SC ACHS [facility] PRN Reason: Protocol Last Admin: 11/03/16 08:16 Dose: 4 unit Metoprolol Succinate (Toprol Xl) 12.5 mg PO DAILY [facility] Last Admin: 11/02/16 09:50 Dose: Not Given Minoxidil (Minoxidil) 2.5 mg PO DAILY [facility] Last Admin: 11/03/16 09:33 Dose: 2.5 mg Montelukast Sodium (Singulair) 10 mg PO [facility] Last Admin: 11/02/16 22:03 Dose: 10 mg Pantoprazole Sodium (Protonix Ec Tab) 40 mg PO DAILY [facility] Last Admin: 11/03/16 09:33 Dose: 40 mg Rosuvastatin Calcium (Crestor) 10 mg PO HS [facility] Last Admin: 11/02/16 22:04 Dose: 10 mg - Labs Labs: 11/03/16 07:45 11/03/16 07:45 PT 10.1 SECONDS (9.7-12.2) 11/02/16 13:36 INR 0.9 11/02/16 13:36 APTT 34 SECONDS (21-34) 11/02/16 13:36 - Constitutional Appears: Non-toxic - Head Exam Head Exam: NORMAL INSPECTION - Eye Exam Eye Exam: Normal appearance - ENT Exam ENT Exam: Mucous Membranes Moist - Neck Exam Neck Exam: Full ROM - Cardiovascular Exam Cardiovascular Exam: REGULAR RHYTHM - GI/Abdominal Exam GI & Abdominal Exam: Normal Bowel Sounds - Rectal Exam Rectal Exam: NORMAL INSPECTION - Extremities Exam Extremities Exam: absent: Pedal Edema - Back Exam Back Exam: NORMAL INSPECTION - Neurological Exam Neurological Exam: Alert - Psychiatric Exam Psychiatric exam: Normal Affect - Skin Skin Exam: Normal Color Assessment and Plan (1) HTN (hypertension) Assessment & Plan: will increase hydralazine Status: Acute (2) Hypercholesterolemia Assessment & Plan: statin therapy Status: Acute (3) Chronic kidney disease Assessment & Plan: follow creatinine Status: Acute (4) PVD (peripheral vascular disease) Assessment & Plan: will need fem-pop bypass. intermediate cardiovascular risk Status: Acute
[2016-11-03] MEDS ORDERED: Sodium Chloride 0.9% 1,000 ML IV SCH (12:00)
[2016-11-03] MEDS: Metoprolol Succinate 12.5 mg XL PO SCH (12:17)
--- NOTE | 2016-11-03 13:59 | CP.PCM.PN ---
Subjective - Date & Time of Evaluation Date of Evaluation: 11/03/16 Time of Evaluation: 02:00 - Subjective Subjective: This mornings events noted Pt feels better now Objective - Vital Signs/Intake and Output Vital Signs (last 24 hours): Temp Pulse Resp BP Pulse Ox 98.5 F 99 H 20 190/77 H 96 11/03/16 08:24 11/03/16 08:24 11/03/16 08:24 11/03/16 08:24 11/03/16 08:24 Intake and Output: 11/03/16 11/03/16 06:59 18:59 Intake Total 1920 Balance 1920 - Medications Medications: Current Medications Amlodipine Besylate (Norvasc) 10 mg PO DAILY [facility] Last Admin: 11/03/16 09:33 Dose: 10 mg Aspirin (Aspirin Chewable) 81 mg PO DAILY [facility] Last Admin: 11/03/16 09:33 Dose: 81 mg Clonidine HCl (Catapres Tts1 0.1 Mg/24 Hr) 1 patch TD Q7D@1000 [facility] Last Admin: 11/02/16 09:49 Dose: Not Given Docusate Sodium (Colace) 100 mg PO TID [facility] Last Admin: 11/03/16 09:33 Dose: 100 mg Ezetimibe (Zetia) 10 mg PO HS [facility] Last Admin: 11/02/16 22:04 Dose: 10 mg Ergocalciferol (Drisdol 50,000 Intl Units Cap) 1 cap PO QWK [facility] Last Admin: 10/29/16 09:41 Dose: Not Given Fluticasone Propionate (Flonase) 2 spr BERTHA DAILY [facility] Last Admin: 11/03/16 10:35 Dose: 2 spray Heparin Sodium (Porcine) (Heparin) 5,000 units SC Q12 [facility] Last Admin: 11/03/16 10:36 Dose: 5,000 units Insulin Human Regular (Novolin R) 0 unit SC ACHS [facility] PRN Reason: Protocol Last Admin: 11/03/16 12:40 Dose: 3 unit Metoprolol Succinate (Toprol Xl) 12.5 mg PO DAILY [facility] Last Admin: 11/03/16 12:17 Dose: Not Given Montelukast Sodium (Singulair) 10 mg PO HS [facility] Last Admin: 11/02/16 22:03 Dose: 10 mg Pantoprazole Sodium (Protonix Ec Tab) 40 mg PO DAILY [facility] Last Admin: 11/03/16 09:33 Dose: 40 mg Rosuvastatin Calcium (Crestor) 10 mg PO [facility] Last Admin: 11/02/16 22:04 Dose: 10 mg - Labs Labs: 11/03/16 07:45 11/03/16 07:45 PT 10.1 SECONDS (9.7-12.2) 11/02/16 13:36 INR 0.9 11/02/16 13:36 APTT 34 SECONDS (21-34) 11/02/16 13:36 - Respiratory Exam Additional comments: Lungs clear - Cardiovascular Exam Cardiovascular Exam: REGULAR RHYTHM - Extremities Exam Additional comments: B/L 1-2+ pedal edema Assessment and Plan - Assessment and Plan (Free Text) Assessment: Stage 111 kidney dis. creat is stable HTN BP has been high Suggest to discontinue NS PVD Plan: Monitor BP Shah NS to 1/2 NS or D/C NS D/W Dr Paul
--- NOTE | 2016-11-03 14:22 | RAD ---
HISTORY: dizziness COMPARISON: No prior. FINDINGS: LUNGS: Mild to moderate venous congestion. Patchy left basilar airspace opacity with small left pleural effusion. PLEURA: As above. CARDIOVASCULAR: Normal. OSSEOUS STRUCTURES: No significant abnormalities. VISUALIZED UPPER ABDOMEN: Normal. OTHER FINDINGS: None. IMPRESSION: Mild to moderate venous congestion. Patchy left basilar airspace opacity with small left pleural effusion.
--- NOTE | 2016-11-03 18:09 | CP.PCM.PN ---
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 Pt had an episode of [employer] earlier for elevated pressure of 194/71. Vitals at the time 119/64, pulse 96, temp 98.2 and 97% on NC. Sugar was checked and was 220. Dr. Coelho and Dr. Randle present. Pt was placed on bed and all hypertension medications were on hold. Pt was placed on bed for rest. Per RN note, pt later felt better with no complaints, with pressure returning to 171/77, pulse 99, RR 21 and saturating 98 % on room air. EKG and CXR were ordered Objective - Vital Signs/Intake and Output Vital Signs (last 24 hours): Temp Pulse Resp BP Pulse Ox 98.6 F 105 H 20 213/75 H 98 11/03/16 15:00 11/03/16 15:00 11/03/16 15:00 11/03/16 15:00 11/03/16 15:00 Intake and Output: 11/03/16 11/03/16 06:59 18:59 Intake Total 1920 Balance 1920 - Medications Medications: Current Medications Amlodipine Besylate (Norvasc) 10 mg PO DAILY [facility] Last Admin: 11/03/16 09:33 Dose: 10 mg Aspirin (Aspirin Chewable) 81 mg PO DAILY [facility] Last Admin: 11/03/16 09:33 Dose: 81 mg Clonidine HCl (Catapres Tts1 0.1 Mg/24 Hr) 1 patch TD Q7D@1000 [facility] Last Admin: 11/02/16 09:49 Dose: Not Given Docusate Sodium (Colace) 100 mg PO TID [facility] Last Admin: 11/03/16 17:21 Dose: 100 mg Ezetimibe (Zetia) 10 mg PO HS [facility] Last Admin: 11/02/16 22:04 Dose: 10 mg Ergocalciferol (Drisdol 50,000 Intl Units Cap) 1 cap PO QWK [facility] Last Admin: 10/29/16 09:41 Dose: Not Given Fluticasone Propionate (Flonase) 2 spr BERTHA DAILY [facility] Last Admin: 11/03/16 10:35 Dose: 2 spray Heparin Sodium (Porcine) (Heparin) 5,000 units SC Q12 [facility] Last Admin: 11/03/16 10:36 Dose: 5,000 units Hydralazine HCl (Apresoline) 75 mg PO Q6H [facility] Last Admin: 11/03/16 16:25 Dose: 75 mg Insulin Human Regular (Novolin R) 0 unit SC ACHS [facility] PRN Reason: Protocol Last Admin: 11/03/16 17:21 Dose: 4 unit Metoprolol Succinate (Toprol Xl) 12.5 mg PO DAILY [facility] Last Admin: 11/03/16 12:17 Dose: Not Given Montelukast Sodium (Singulair) 10 mg PO HS [facility] Last Admin: 11/02/16 22:03 Dose: 10 mg Pantoprazole Sodium (Protonix Ec Tab) 40 mg PO DAILY [facility] Last Admin: 11/03/16 09:33 Dose: 40 mg Rosuvastatin Calcium (Crestor) 10 mg PO HS [facility] Last Admin: 11/02/16 22:04 Dose: 10 mg - Labs Labs: 11/03/16 07:45 11/03/16 07:45 PT 10.1 SECONDS (9.7-12.2) 11/02/16 13:36 INR 0.9 11/02/16 13:36 APTT 34 SECONDS (21-34) 11/02/16 13:36
--- NOTE | 2016-11-03 23:54 | CP.PCM.PN ---
<Umer Jefferson - Last Filed: 11/04/16 00:12> Subjective - Date & Time of Evaluation Date of Evaluation: 11/03/16 Time of Evaluation: 09:03 - Subjective Subjective: Pt seen and examined. Pt complains of lightheadness. Pt denies fever, chills, chest pain, shortness of breath, nausea, and vomiting. Objective - Vital Signs/Intake and Output Vital Signs (last 24 hours): Temp Pulse Resp BP Pulse Ox 98.6 F 105 H 20 195/69 H 98 11/03/16 15:00 11/03/16 15:00 11/03/16 15:00 11/03/16 19:00 11/03/16 15:00 Intake and Output: 11/03/16 11/04/16 18:59 06:59 Intake Total 360 Balance 360 - Medications Medications: Current Medications Amlodipine Besylate (Norvasc) 10 mg PO DAILY [facility] Last Admin: 11/03/16 09:33 Dose: 10 mg Aspirin (Aspirin Chewable) 81 mg PO DAILY [facility] Last Admin: 11/03/16 09:33 Dose: 81 mg Clonidine HCl (Catapres Tts1 0.1 Mg/24 Hr) 1 patch TD Q7D@1000 [facility] Last Admin: 11/02/16 09:49 Dose: Not Given Docusate Sodium (Colace) 100 mg PO TID [facility] Last Admin: 11/03/16 17:21 Dose: 100 mg Ezetimibe (Zetia) 10 mg PO HS [facility] Last Admin: 11/03/16 22:31 Dose: 10 mg Ergocalciferol (Drisdol 50,000 Intl Units Cap) 1 cap PO QWK [facility] Last Admin: 10/29/16 09:41 Dose: Not Given Fluticasone Propionate (Flonase) 2 spr BERTHA DAILY [facility] Last Admin: 11/03/16 10:35 Dose: 2 spray Heparin Sodium (Porcine) (Heparin) 5,000 units SC Q12 [facility] Last Admin: 11/03/16 22:33 Dose: 5,000 units Hydralazine HCl (Apresoline) 75 mg PO Q6H [facility] Last Admin: 11/03/16 22:31 Dose: 75 mg Insulin Human Regular (Novolin R) 0 unit SC ACHS [facility] PRN Reason: Protocol Last Admin: 11/03/16 22:36 Dose: Not Given Metoprolol Succinate (Toprol Xl) 12.5 mg PO DAILY [facility] Last Admin: 11/03/16 12:17 Dose: Not Given Montelukast Sodium (Singulair) 10 mg PO HS [facility] Last Admin: 11/03/16 22:31 Dose: 10 mg Pantoprazole Sodium (Protonix Ec Tab) 40 mg PO DAILY [facility] Last Admin: 11/03/16 09:33 Dose: 40 mg Rosuvastatin Calcium (Crestor) 10 mg PO HS [facility] Last Admin: 11/03/16 22:31 Dose: 10 mg - Labs Labs: 11/03/16 07:45 11/03/16 07:45 PT 10.1 SECONDS (9.7-12.2) 11/02/16 13:36 INR 0.9 11/02/16 13:36 APTT 34 SECONDS (21-34) 11/02/16 13:36 - Constitutional Appears: No Acute Distress - Head Exam Head Exam: ATRAUMATIC, NORMOCEPHALIC - Eye Exam Eye Exam: EOMI, PERRL - ENT Exam ENT Exam: Mucous Membranes Moist. absent: Mucous Membranes Dry - Respiratory Exam Respiratory Exam: Clear to Ausculation Bilateral. absent: Rales, Rhonchi, Wheezes - Cardiovascular Exam Cardiovascular Exam: +S1, +S2. absent: Gallop, Rubs - GI/Abdominal Exam GI & Abdominal Exam: Soft. absent: Tenderness - Neurological Exam Neurological Exam: Alert, Awake, Oriented x3 - Psychiatric Exam Psychiatric exam: Normal Affect, Normal Mood - Skin Skin Exam: Normal Color, Warm Assessment and Plan - Assessment and Plan (Free Text) Assessment: Peripheral Vascular Disease -Management as per vascular surgery, Dr. Peterson -s/p peripehral angiogram with Dr. Newman -plan is for fem-pop bypass with Dr Peterson on 11/06 -ASA 81mg po daily Refractory HTN: -ASA 81mg po daily -Norvasc 10 mg po qd -Hydralazine 50mg po q6h -Toprol XL 12.5mg po daily -Clonidine patch 0.1 mg TD starting 11/02 when PO clonidine is discontinued -Echo: normal EF, mild LVF -TSH: 2.53 -EKG - sinus bradycardia, t wave inversions in leads I and avL -Dr. Newman cardiology consulted Diabetes Mellitus: -Sugars running high -Acchuchecks achs -Regular insulin sliding scale Chronic Kidney Disease Stage III: -NS IVF 100 cc/hr -f/u urine for microalbumin -renal US: HTN disease -Dr. 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 ASA vs cochicine use Underlying anemia -likely secondary to GUILLERMO vs anemia of chronic disease -f/u iron studies -If iron studies negative order: peripheral blood smear, LDH, haptoglobin, folate, vitB12, homocysteine, MMA Allergies: -Flonase 2spr bertha daily -Spiriva 10mg po hs Prophylactic Measures: -Protonix 40 mg po qd -Heparin 5000 units sc q8h -SCD c/i -Heart healthy -NS @ 70cc/hr <Tristan Coelho - Last Filed: 12/13/16 17:01> Objective - Vital Signs/Intake and Output Vital Signs (last 24 hours): Temp Pulse Resp BP Pulse Ox 98.5 F 57 L 20 147/78 95 11/14/16 15:00 11/14/16 15:00 11/14/16 15:00 11/14/16 15:00 11/14/16 15:00 - Labs Labs: 11/13/16 07:58 11/13/16 07:58 PT 11.2 SECONDS (9.7-12.2) 11/12/16 06:30 INR 1.0 11/12/16 06:30 APTT 66 SECONDS (21-34) H D 11/12/16 06:30 Attending/Attestation - Attestation I have personally seen and examined this patient.: Yes I have fully participated in the care of the patient.: Yes I have reviewed all pertinent clinical information, including history, physical exam and plan: Yes Notes (Text): Patient seen and examined with the resident. Agree with the resident's evaluation, assessment and plan. Peripheral Vascular Disease -Management as per vascular surgery, Dr. Peterson -s/p angiogram with Dr. Newman -plan is for fem-pop bypass with Dr Peterson on 11/06 -ASA 81mg po daily Refractory HTN: -ASA 81mg po daily -Norvasc 10 mg po qd -Hydralazine 50mg po q6h -Toprol XL 12.5mg po daily -Clonidine patch 0.1 mg TD starting 11/02 when PO clonidine is discontinued -Echo: normal EF, mild LVF -TSH: 2.53 -EKG - sinus bradycardia, t wave inversions in leads I and avL -Dr. Newman cardiology consulted Diabetes Mellitus: uncontrolled -Sugars running high -Acchuchecks achs -Regular insulin sliding scale
--- NOTE | 2016-11-04 07:29 | CP.PCM.PN ---
Addendum entered and electronically signed by Maria M Xiong 11/04/16 11:59: Patient's BP medications have been changed to resume all home medications as per Dr. Pete: -Norvasc 5mg po daily -Lisinopril 5mg po daily -HCTZ 25mg po daily -Clonidine 0.2mg po TID Original Note: <Maria M Xiong - Last Filed: 11/04/16 10:50> Subjective - Date & Time of Evaluation Date of Evaluation: 11/04/16 Time of Evaluation: 07:15 - Subjective Subjective: PGY1 Medicine note for Dr. Pete Patient seen and examined at bedside. Weekend events noted. Patient states she no longer has any dizziness or lightheadedness as she did over the weekend which was related to her BP. Overnight she had no acute events as per nursing. She is complaining of a slight nonproductive cough and allergy-like symptoms but is not very bothered by it. Patient denied headaches, chest pain, palpitations, SOB, abdominal pain, nausea, vomiting, bowel/bladder complaints. She continues to have pain in her legs b/l and some tingling. Patient is ambulating to and from the bathroom. She is tolerating her diet. Patient is aware she is for the OR with Dr. Peterson on Monday 11/06 Objective - Vital Signs/Intake and Output Vital Signs (last 24 hours): Temp Pulse Resp BP Pulse Ox 99 F 100 H 20 175/75 H 97 11/04/16 00:00 11/04/16 00:00 11/04/16 00:00 11/04/16 00:00 11/04/16 00:00 Intake and Output: 11/04/16 11/04/16 06:59 18:59 Intake Total 360 120 Balance 360 120 - Medications Medications: Current Medications Amlodipine Besylate (Norvasc) 10 mg PO DAILY [facility] Last Admin: 11/03/16 09:33 Dose: 10 mg Aspirin (Aspirin Chewable) 81 mg PO DAILY [facility] Last Admin: 11/03/16 09:33 Dose: 81 mg Clonidine HCl (Catapres Tts1 0.1 Mg/24 Hr) 1 patch TD Q7D@1000 [facility] Last Admin: 11/02/16 09:49 Dose: Not Given Docusate Sodium (Colace) 100 mg PO TID [facility] Last Admin: 11/03/16 17:21 Dose: 100 mg Ezetimibe (Zetia) 10 mg PO HS [facility] Last Admin: 11/03/16 22:31 Dose: 10 mg Ergocalciferol (Drisdol 50,000 Intl Units Cap) 1 cap PO QWK [facility] Last Admin: 10/29/16 09:41 Dose: Not Given Fluticasone Propionate (Flonase) 2 spr BERTHA DAILY [facility] Last Admin: 11/03/16 10:35 Dose: 2 spray Heparin Sodium (Porcine) (Heparin) 5,000 units SC Q12 [facility] Last Admin: 11/03/16 22:33 Dose: 5,000 units Hydralazine HCl (Apresoline) 75 mg PO Q6H [facility] Last Admin: 11/04/16 03:46 Dose: 75 mg Insulin Human Regular (Novolin R) 0 unit SC ACHS [facility] PRN Reason: Protocol Last Admin: 11/03/16 22:36 Dose: Not Given Metoprolol Succinate (Toprol Xl) 12.5 mg PO DAILY [facility] Last Admin: 11/03/16 12:17 Dose: Not Given Montelukast Sodium (Singulair) 10 mg PO HS [facility] Last Admin: 11/03/16 22:31 Dose: 10 mg Pantoprazole Sodium (Protonix Ec Tab) 40 mg PO DAILY [facility] Last Admin: 11/03/16 09:33 Dose: 40 mg Rosuvastatin Calcium (Crestor) 10 mg PO HS [facility] Last Admin: 11/03/16 22:31 Dose: 10 mg - Labs Labs: 11/03/16 07:45 11/03/16 07:45 PT 10.1 SECONDS (9.7-12.2) 11/02/16 13:36 INR 0.9 11/02/16 13:36 APTT 34 SECONDS (21-34) 11/02/16 13:36 - Constitutional Appears: Non-toxic, No Acute Distress - Head Exam Head Exam: NORMAL INSPECTION - Eye Exam Eye Exam: Normal appearance. absent: Conjunctival injection, Scleral icterus - ENT Exam ENT Exam: Mucous Membranes Moist - Neck Exam Neck Exam: Full ROM, Normal Inspection - Respiratory Exam Respiratory Exam: Clear to Ausculation Bilateral, NORMAL BREATHING PATTERN. absent: Accessory Muscle Use, Rales, Rhonchi, Wheezes, Respiratory Distress - Cardiovascular Exam Cardiovascular Exam: REGULAR RHYTHM, RRR, +S1, +S2, Murmur (systolic 2nd ICS) - GI/Abdominal Exam GI & Abdominal Exam: Soft, Normal Bowel Sounds. absent: Firm, Guarding, Rigid, Tenderness - Rectal Exam Rectal Exam: Deferred - Extremities Exam Extremities Exam: Normal Capillary Refill, Normal Inspection. absent: Pedal Edema Additional comments: diminished pulses b/l - Back Exam Back Exam: NORMAL INSPECTION. absent: rash noted - Neurological Exam Neurological Exam: Alert, Awake, Normal Gait, Oriented x3 - Psychiatric Exam Psychiatric exam: Normal Affect, Normal Mood - Skin Skin Exam: Dry, Intact, Normal Color, Warm Assessment and Plan - Assessment and Plan (Free Text) Assessment: 71 year old female with a PMHx of HTN. Diabetes Mellitus, Chronic Kidney Disease , peripheral vascular disease, hypercholesterolemia, and Gout send in by Dr. Peterson for PVD Plan: Peripheral Vascular Disease -Management as per vascular surgery, Dr. Peterson -s/p peripehral angiogram with Dr. Newman -plan is for fem-pop bypass with Dr Peterson on Monday 11/06 -ASA 81mg po daily -Crestor 10mg po hs HTN: -ASA 81mg po daily -Norvasc 10 mg po qd -Hydralazine 75mg po q6h -Toprol XL 12.5mg po daily -Clonidine patch 0.1 mg TD starting 11/02 when PO clonidine is discontinued -Echo: normal EF, mild LVF -TSH: 2.53 -EKG - sinus bradycardia, t wave inversions in leads I and avL -Dr. Newman cardiology consulted Diabetes Mellitus: -Acchuchecks achs -Regular insulin sliding scale -f/u HgbA1c Chronic Kidney Disease Stage III: -monitor BUN:Cr -renal US: HTN disease -Dr. 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 Juan R Xiong PGY1 <Jose Pete M - Last Filed: 11/04/16 14:51> Objective - Vital Signs/Intake and Output Vital Signs (last 24 hours): Temp Pulse Resp BP Pulse Ox 98.5 F 98 H 18 157/72 H 96 11/04/16 11:11 11/04/16 11:11 11/04/16 11:11 11/04/16 11:11 11/04/16 11:11 Intake and Output: 11/04/16 11/04/16 06:59 18:59 Intake Total 360 120 Balance 360 120 - Medications Medications: Current Medications Amlodipine Besylate (Norvasc) 5 mg PO DAILY [facility] Aspirin (Aspirin Chewable) 81 mg PO DAILY [facility] Last Admin: 11/04/16 09:51 Dose: 81 mg Clonidine HCl (Catapres) 0.2 mg PO TID [facility] Last Admin: 11/04/16 14:35 Dose: 0.2 mg Docusate Sodium (Colace) 100 mg PO TID [facility] Last Admin: 11/04/16 14:35 Dose: 100 mg Ezetimibe (Zetia) 10 mg PO HS [facility] Last Admin: 11/03/16 22:31 Dose: 10 mg Ergocalciferol (Drisdol 50,000 Intl Units Cap) 1 cap PO QWK [facility] Last Admin: 10/29/16 09:41 Dose: Not Given Fluticasone Propionate (Flonase) 2 spr BERTHA DAILY [facility] Last Admin: 11/04/16 10:01 Dose: 2 spray Heparin Sodium (Porcine) (Heparin) 5,000 units SC Q12 [facility] Last Admin: 11/04/16 09:51 Dose: 5,000 units Hydrochlorothiazide (Hydrodiuril) 25 mg PO DAILY [facility] Sodium Chloride (Sodium Chloride 0.45%) 1,000 mls @ 80 mls/hr IV .[id number] [facility] Cefazolin Sodium 1 gm/ Sodium (Chloride) 100 mls @ 100 mls/hr IVPB Q8 [facility] Insulin Human Regular (Novolin R) 0 unit SC ACHS [facility] PRN Reason: Protocol Last Admin: 11/04/16 12:15 Dose: 4 unit Lisinopril (Zestril) 5 mg PO DAILY [facility] Montelukast Sodium (Singulair) 10 mg PO HS [facility] Last Admin: 11/03/16 22:31 Dose: 10 mg Pantoprazole Sodium (Protonix Ec Tab) 40 mg PO DAILY [facility] Last Admin: 11/04/16 09:51 Dose: 40 mg Rosuvastatin Calcium (Crestor) 10 mg PO HS [facility] Last Admin: 11/03/16 22:31 Dose: 10 mg - Labs Labs: 11/03/16 07:45 11/03/16 07:45 PT 10.1 SECONDS (9.7-12.2) 11/02/16 13:36 INR 0.9 11/02/16 13:36 APTT 34 SECONDS (21-34) 11/02/16 13:36 Attending/Attestation - Attestation I have personally seen and examined this patient.: Yes I have fully participated in the care of the patient.: Yes I have reviewed all pertinent clinical information, including history, physical exam and plan: Yes Notes (Text): 11/04/16 14:50 Patient was seen and examined at bedside with the resident Patient appears comfortable. Denies any pain in the legs. Patient blood pressure remains elevated. We will titrate the medication for optimal control We will start the patient on home medication We will monitor renal function closely. Nephrology is on board I discussed the plan of care with the resident and agree with the above history and physical and assessment/plan by the resident
[2016-11-04] MEDS: (Novolin R) Insulin Human Regular 100 units/ml vial SC SCH ×5 (08:46→22:00)
[2016-11-04] MEDS: Pantoprazole 40 mg EC Tab PO SCH (09:51)
[2016-11-04] MEDS: Metoprolol Succinate 12.5 mg XL PO SCH (09:52)
[2016-11-04] MEDS: Fluticasone Nasal 50 mcg/Spray NAS SCH (10:01)
--- NOTE | 2016-11-04 13:44 | CP.PCM.PN ---
Subjective - Date & Time of Evaluation Date of Evaluation: 11/04/16 Time of Evaluation: 01:30 - Subjective Subjective: Feels better today Objective - Vital Signs/Intake and Output Vital Signs (last 24 hours): Temp Pulse Resp BP Pulse Ox 98.5 F 98 H 18 157/72 H 96 11/04/16 11:11 11/04/16 11:11 11/04/16 11:11 11/04/16 11:11 11/04/16 11:11 Intake and Output: 11/04/16 11/04/16 06:59 18:59 Intake Total 360 120 Balance 360 120 - Medications Medications: Current Medications Amlodipine Besylate (Norvasc) 5 mg PO DAILY [facility] Aspirin (Aspirin Chewable) 81 mg PO DAILY [facility] Last Admin: 11/04/16 09:51 Dose: 81 mg Clonidine HCl (Catapres) 0.2 mg PO TID [facility] Docusate Sodium (Colace) 100 mg PO TID [facility] Last Admin: 11/04/16 09:52 Dose: 100 mg Ezetimibe (Zetia) 10 mg PO HS [facility] Last Admin: 11/03/16 22:31 Dose: 10 mg Ergocalciferol (Drisdol 50,000 Intl Units Cap) 1 cap PO QWK [facility] Last Admin: 10/29/16 09:41 Dose: Not Given Fluticasone Propionate (Flonase) 2 spr BERTHA DAILY [facility] Last Admin: 11/04/16 10:01 Dose: 2 spray Heparin Sodium (Porcine) (Heparin) 5,000 units SC Q12 [facility] Last Admin: 11/04/16 09:51 Dose: 5,000 units Hydrochlorothiazide (Hydrodiuril) 25 mg PO DAILY [facility] Sodium Chloride (Sodium Chloride 0.45%) 1,000 mls @ 80 mls/hr IV .[id number] [facility] Cefazolin Sodium 1 gm/ Sodium (Chloride) 100 mls @ 100 mls/hr IVPB Q8 [facility] Insulin Human Regular (Novolin R) 0 unit SC ACHS [facility] PRN Reason: Protocol Last Admin: 11/04/16 12:15 Dose: 4 unit Lisinopril (Zestril) 5 mg PO DAILY [facility] Montelukast Sodium (Singulair) 10 mg PO HS [facility] Last Admin: 11/03/16 22:31 Dose: 10 mg Pantoprazole Sodium (Protonix Ec Tab) 40 mg PO DAILY [facility] Last Admin: 11/04/16 09:51 Dose: 40 mg Rosuvastatin Calcium (Crestor) 10 mg PO HS [facility] Last Admin: 11/03/16 22:31 Dose: 10 mg - Labs Labs: 11/03/16 07:45 11/03/16 07:45 PT 10.1 SECONDS (9.7-12.2) 11/02/16 13:36 INR 0.9 11/02/16 13:36 APTT 34 SECONDS (21-34) 11/02/16 13:36 - Respiratory Exam Additional comments: Lungs clear - Cardiovascular Exam Cardiovascular Exam: REGULAR RHYTHM - Extremities Exam Additional comments: No edema Assessment and Plan - Assessment and Plan (Free Text) Assessment: Stage 111 kidney dis Stable HTN blood pressures are improving PVD Plan: Continue to monitor renal function
[2016-11-04] MEDS: ceFAZolin 1 GM in Sodium Chloride 0.9% 100 ML IVPB SCH ×2 (14:00→22:00)
[2016-11-05] MEDS: ceFAZolin 1 GM in Sodium Chloride 0.9% 100 ML IVPB SCH ×3 (05:30→21:15)
[2016-11-05 07:42] LABS: BASO % 0.5 % (0.0-2.0); EOS # 0.5 K/uL (0.0-0.7); EOS % 7.4 % (0.0-4.0); HEMATOCRIT 33.2 % (34.0-47.0); LYMPH # 2.4 K/uL (1.0-4.3); LYMPH % 37.8 % (20.0-40.0); MEAN CELL VOLUME 79.7 fL (81.0-99.0); MEAN CORPUSCULAR HEMOGLOBIN 25.6 pg (27.0-31.0); MEAN CORPUSCULAR HGB CONC 32.1 g/dL (33.0-37.0); MEAN PLATELET VOLUME 11.5 fL (7.2-11.7); MONO # 0.6 K/uL (0.0-0.8); MONO % 9.5 % (0.0-10.0); NRBC % 0.1 % (0.0-2.0); RED CELL DISTRIBUTION WIDTH 16.6 % (11.5-14.5); WHITE BLOOD COUNT 6.3 K/uL (4.8-10.8)
[2016-11-05 07:49] LABS: ALB/GLOB RATIO 1.3 (1.0-2.1); BILIRUBIN,TOTAL 0.5 mg/dL (0.2-1.3); TOTAL PROTEIN 6.4 g/dL (6.3-8.3)
[2016-11-05 07:50] LABS: CALCIUM 8.6 mg/dl (8.6-10.4); MAGNESIUM 2.2 mg/dL (1.6-2.3); PHOSPHOROUS 4.4 mg/dL (2.5-4.5)
[2016-11-05] MEDS: (Novolin R) Insulin Human Regular 100 units/ml vial SC SCH ×4 (08:02→22:01)
[2016-11-05] MEDS: Pantoprazole 40 mg EC Tab PO SCH (10:35)
[2016-11-05] MEDS: Fluticasone Nasal 50 mcg/Spray NAS SCH (10:47)
[2016-11-05] MEDS: Ergocalciferol 50,000 Intl Units Cap PO SCH ×2 (11:05→11:09)
--- NOTE | 2016-11-05 11:50 | CP.PCM.PN ---
<Bridgette Schilling - Last Filed: 11/05/16 11:46> Subjective - Date & Time of Evaluation Date of Evaluation: 11/05/16 Time of Evaluation: 10:00 - Subjective Subjective: Medicine Note for Dr. Pete, Patient was seen and examined at bedside. Patient denied headaches, chest pain, palpitations, SOB, abdominal pain, nausea, vomiting, bowel/bladder complaints. She continues to have pain in her legs b/l and some tingling. Patient is ambulating to and from the bathroom. She is tolerating her diet. Patient is aware she is for the OR with Dr. Peterson on tomorrow, Friday. Objective - Vital Signs/Intake and Output Vital Signs (last 24 hours): Temp Pulse Resp BP Pulse Ox 98.0 F 60 20 136/53 L 97 11/05/16 08:18 11/05/16 08:18 11/05/16 08:18 11/05/16 08:18 11/05/16 08:18 - Medications Medications: Current Medications Amlodipine Besylate (Norvasc) 5 mg PO DAILY [facility] Last Admin: 11/05/16 10:33 Dose: 5 mg Aspirin (Aspirin Chewable) 81 mg PO DAILY [facility] Last Admin: 11/05/16 10:33 Dose: 81 mg Clonidine HCl (Catapres) 0.2 mg PO TID [facility] Last Admin: 11/05/16 10:34 Dose: 0.2 mg Docusate Sodium (Colace) 100 mg PO TID [facility] Last Admin: 11/05/16 10:34 Dose: 100 mg Ezetimibe (Zetia) 10 mg PO HS [facility] Last Admin: 11/04/16 22:02 Dose: 10 mg Ergocalciferol (Drisdol 50,000 Intl Units Cap) 1 cap PO QWK [facility] Last Admin: 11/05/16 11:09 Dose: Not Given Fluticasone Propionate (Flonase) 2 spr BERTHA DAILY [facility] Last Admin: 11/05/16 10:47 Dose: 2 spray Heparin Sodium (Porcine) (Heparin) 5,000 units SC Q12 [facility] Last Admin: 11/05/16 10:42 Dose: Not Given Sodium Chloride (Sodium Chloride 0.45%) 1,000 mls @ 80 mls/hr IV .[id number] [facility] Cefazolin Sodium 1 gm/ Sodium (Chloride) 100 mls @ 100 mls/hr IVPB Q8 [facility] Last Admin: 11/05/16 05:30 Dose: Not Given Insulin Human Regular (Novolin R) 0 unit SC ACHS [facility] PRN Reason: Protocol Lisinopril (Zestril) 5 mg PO DAILY [facility] Last Admin: 11/05/16 10:35 Dose: 5 mg Montelukast Sodium (Singulair) 10 mg PO HS [facility] Last Admin: 11/04/16 22:02 Dose: 10 mg Pantoprazole Sodium (Protonix Ec Tab) 40 mg PO DAILY [facility] Last Admin: 11/05/16 10:35 Dose: 40 mg Rosuvastatin Calcium (Crestor) 10 mg PO HS [facility] Last Admin: 11/04/16 22:00 Dose: Not Given - Labs Labs: 11/05/16 07:09 11/05/16 07:09 PT 10.1 SECONDS (9.7-12.2) 11/02/16 13:36 INR 0.9 11/02/16 13:36 APTT 34 SECONDS (21-34) 11/02/16 13:36 - Constitutional Appears: No Acute Distress - Head Exam Head Exam: NORMAL INSPECTION, NORMOCEPHALIC - Respiratory Exam Respiratory Exam: Clear to Ausculation Bilateral, NORMAL BREATHING PATTERN. absent: Decreased Breath Sounds, Wheezes - Cardiovascular Exam Cardiovascular Exam: REGULAR RHYTHM, RRR, +S1, +S2 - GI/Abdominal Exam GI & Abdominal Exam: Soft, Normal Bowel Sounds. absent: Distended, Tenderness - Extremities Exam Extremities Exam: Normal Inspection, Pedal Edema, Tenderness Additional comments: diminished pulses BL - Neurological Exam Neurological Exam: Alert, Awake, Oriented x3 - Skin Skin Exam: Dry, Intact, Normal Color, Warm Assessment and Plan - Assessment and Plan (Free Text) Assessment: 71 year old female with a PMHx of HTN. Diabetes Mellitus, Chronic Kidney Disease , peripheral vascular disease, hypercholesterolemia, and Gout send in by Dr. Peterson for PVD. Plan: Peripheral Vascular Disease -Management as per vascular surgery, Dr. Peterson -s/p peripehral angiogram with Dr. Newman -plan is for fem-pop bypass with Dr Peterson on Monday 11/06 -ASA 81mg po daily -Crestor 10mg po hs HTN: -ASA 81mg po daily -Norvasc 5mg po daily -Lisinopril 5mg po daily -HCTZ 25mg po daily - held due to low BP -Clonidine 0.2mg po TID -Echo: normal EF, mild LVF -TSH: 2.53 -EKG - sinus bradycardia, t wave inversions in leads I and avL -Dr. Newman cardiology consulted Diabetes Mellitus: -Acchuchecks achs -Regular insulin sliding scale - HIGH -f/u HgbA1c Chronic Kidney Disease Stage III: -monitor BUN:Cr -renal US: HTN disease -Dr. 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 ASA vs cochicine use Underlying anemia -likely anemia of chronic disease -Monitor Allergies: -Flonase 2spr bertha daily -Singulair 10mg po hs Prophylactic Measures: -Protonix 40 mg po qd -Heparin 5000 units sc q8h -SCD c/i -Heart healthy diet - NPO TONIGHT -Colace 100mg po tid [facility] Tonie Mason DO, PGY-1 <Jose Pete M - Last Filed: 11/05/16 15:11> Objective - Vital Signs/Intake and Output Vital Signs (last 24 hours): Temp Pulse Resp BP Pulse Ox 98.0 F 60 20 136/53 L 97 11/05/16 08:18 11/05/16 08:18 11/05/16 08:18 11/05/16 08:18 11/05/16 08:18 - Medications Medications: Current Medications Amlodipine Besylate (Norvasc) 5 mg PO DAILY [facility] Last Admin: 11/05/16 10:33 Dose: 5 mg Aspirin (Aspirin Chewable) 81 mg PO DAILY [facility] Last Admin: 11/05/16 10:33 Dose: 81 mg Clonidine HCl (Catapres) 0.2 mg PO TID [facility] Last Admin: 11/05/16 14:10 Dose: 0.2 mg Docusate Sodium (Colace) 100 mg PO TID [facility] Last Admin: 11/05/16 14:10 Dose: 100 mg Ezetimibe (Zetia) 10 mg PO HS [facility] Last Admin: 11/04/16 22:02 Dose: 10 mg Ergocalciferol (Drisdol 50,000 Intl Units Cap) 1 cap PO QWK [facility] Last Admin: 11/05/16 11:09 Dose: Not Given Fluticasone Propionate (Flonase) 2 spr BERTHA DAILY [facility] Last Admin: 11/05/16 10:47 Dose: 2 spray Heparin Sodium (Porcine) (Heparin) 5,000 units SC Q12 [facility] Last Admin: 11/05/16 10:42 Dose: Not Given Sodium Chloride (Sodium Chloride 0.45%) 1,000 mls @ 80 mls/hr IV .[id number] [facility] Last Admin: 11/05/16 14:32 Dose: Not Given Cefazolin Sodium 1 gm/ Sodium (Chloride) 100 mls @ 100 mls/hr IVPB Q8 [facility] Last Admin: 11/05/16 14:30 Dose: Not Given Insulin Human Regular (Novolin R) 0 unit SC ACHS [facility] PRN Reason: Protocol Last Admin: 11/05/16 12:21 Dose: 6 unit Lisinopril (Zestril) 5 mg PO DAILY [facility] Last Admin: 11/05/16 10:35 Dose: 5 mg Montelukast Sodium (Singulair) 10 mg PO [facility] Last Admin: 11/04/16 22:02 Dose: 10 mg Pantoprazole Sodium (Protonix Ec Tab) 40 mg PO DAILY [facility] Last Admin: 11/05/16 10:35 Dose: 40 mg Rosuvastatin Calcium (Crestor) 10 mg PO HS [facility] Last Admin: 11/04/16 22:00 Dose: Not Given - Labs Labs: 11/05/16 07:09 11/05/16 07:09 PT 10.1 SECONDS (9.7-12.2) 11/02/16 13:36 INR 0.9 11/02/16 13:36 APTT 34 SECONDS (21-34) 11/02/16 13:36 Attending/Attestation - Attestation I have personally seen and examined this patient.: Yes I have fully participated in the care of the patient.: Yes I have reviewed all pertinent clinical information, including history, physical exam and plan: Yes Notes (Text): 11/05/16 14:59 Patient was seen and examined at bedside with the resident. Patient complains of pain in the right lower extremity Blood pressure noted and the significant drop noted therefore we will hold 1 medication. We will hold hydrochlorothiazide because patient is also on IV fluids. Patient's blood sugars noted. Slightly elevated. However patient is just on insulin sliding scale at this time. Patient will have a surgical procedure tomorrow. We will start the patient on long-acting insulin after the procedure. Cardiology, nephrology follow-up seen and appreciated. I discussed the plan of care with the resident and I agree with the above history and physical and assessment/plan by the resident.
--- NOTE | 2016-11-05 13:30 | CP.PCM.PN ---
Subjective - Date & Time of Evaluation Date of Evaluation: 11/05/16 Time of Evaluation: 11:00 - Subjective Subjective: patient denies chest pain or dyspnea Objective - Vital Signs/Intake and Output Vital Signs (last 24 hours): Temp Pulse Resp BP Pulse Ox 98.0 F 60 20 136/53 L 97 11/05/16 08:18 11/05/16 08:18 11/05/16 08:18 11/05/16 08:18 11/05/16 08:18 - Medications Medications: Current Medications Amlodipine Besylate (Norvasc) 5 mg PO DAILY [facility] Last Admin: 11/05/16 10:33 Dose: 5 mg Aspirin (Aspirin Chewable) 81 mg PO DAILY [facility] Last Admin: 11/05/16 10:33 Dose: 81 mg Clonidine HCl (Catapres) 0.2 mg PO TID [facility] Last Admin: 11/05/16 10:34 Dose: 0.2 mg Docusate Sodium (Colace) 100 mg PO TID [facility] Last Admin: 11/05/16 10:34 Dose: 100 mg Ezetimibe (Zetia) 10 mg PO HS [facility] Last Admin: 11/04/16 22:02 Dose: 10 mg Ergocalciferol (Drisdol 50,000 Intl Units Cap) 1 cap PO QWK [facility] Last Admin: 11/05/16 11:09 Dose: Not Given Fluticasone Propionate (Flonase) 2 spr BERTHA DAILY [facility] Last Admin: 11/05/16 10:47 Dose: 2 spray Heparin Sodium (Porcine) (Heparin) 5,000 units SC Q12 [facility] Last Admin: 11/05/16 10:42 Dose: Not Given Sodium Chloride (Sodium Chloride 0.45%) 1,000 mls @ 80 mls/hr IV .[id number] [facility] Cefazolin Sodium 1 gm/ Sodium (Chloride) 100 mls @ 100 mls/hr IVPB Q8 [facility] Last Admin: 11/05/16 05:30 Dose: Not Given Insulin Human Regular (Novolin R) 0 unit SC ACHS [facility] PRN Reason: Protocol Last Admin: 11/05/16 12:21 Dose: 6 unit Lisinopril (Zestril) 5 mg PO DAILY [facility] Last Admin: 11/05/16 10:35 Dose: 5 mg Montelukast Sodium (Singulair) 10 mg PO HS [facility] Last Admin: 11/04/16 22:02 Dose: 10 mg Pantoprazole Sodium (Protonix Ec Tab) 40 mg PO DAILY [facility] Last Admin: 11/05/16 10:35 Dose: 40 mg Rosuvastatin Calcium (Crestor) 10 mg PO HS [facility] Last Admin: 11/04/16 22:00 Dose: Not Given - Labs Labs: 11/05/16 07:09 11/05/16 07:09 PT 10.1 SECONDS (9.7-12.2) 11/02/16 13:36 INR 0.9 11/02/16 13:36 APTT 34 SECONDS (21-34) 11/02/16 13:36 - Constitutional Appears: Non-toxic - Head Exam Head Exam: NORMAL INSPECTION - Eye Exam Eye Exam: Normal appearance - ENT Exam ENT Exam: Mucous Membranes Moist - Neck Exam Neck Exam: Full ROM - Respiratory Exam Respiratory Exam: NORMAL BREATHING PATTERN - Cardiovascular Exam Cardiovascular Exam: REGULAR RHYTHM - GI/Abdominal Exam GI & Abdominal Exam: Normal Bowel Sounds - Rectal Exam Rectal Exam: Deferred - Extremities Exam Extremities Exam: absent: Pedal Edema - Back Exam Back Exam: NORMAL INSPECTION - Neurological Exam Neurological Exam: Alert - Psychiatric Exam Psychiatric exam: Normal Affect - Skin Skin Exam: Normal Color Assessment and Plan (1) Chronic kidney disease Assessment & Plan: stable creatinine Status: Acute (2) HTN (hypertension) Assessment & Plan: better controlled Status: Acute (3) Hypercholesterolemia Assessment & Plan: statin therapy Status: Acute (4) PVD (peripheral vascular disease) Assessment & Plan: for fem pop bypass. medically stable Status: Acute
--- NOTE | 2016-11-05 13:53 | VASCLAB ---
PROCEDURE: Left Lower Extremity Vein mapping. HISTORY: L saphneous vein marking pre op PRIORS: None. TECHNIQUE: Left common femoral, femoral, popliteal and posterior tibial, peroneal and great saphenous veins were evaluated. Flow was assessed with color Doppler, compressibility, assessment of phasic flow and augmentation response. Report prepared by Wu Thompson, DICK, RVT FINDINGS: LEFT: 1. Common Femoral Vein: Compressibility - Fully compressible: Thrombus - None : Flow - Phasic: Augmentation -Normal: Reflux - None. 2. Femoral Vein:Compressibility - Fully compressible: Thrombus - None 3. Popliteal Vein: Compressibility - Fully compressible: Thrombus - None 4. Posterior Tibial Vein: Compressibility - Fully compressible: Thrombus - None 5. Peroneal Vein:Compressibility - Fully compressible: Thrombus - None 6. Greater Saphenous Vein: Compressibility - Fully compressible: Thrombus - None 6.1. Thigh - Proximal Diameter: 0.60cm. Mid Diameter: 0.36cm. Distal Diameter: 0.34cm. Knee Distal Diameter: 0.33cm. 6.2. Calf - Proximal Diameter: 0.33cm. Mid Diameter:0.30cm. Distal Diameter: 0.25cm 6.3. Ankle - Diameter: 0.29cm 7. [place] Saphenous Vein: Compressibility - Fully compressible: thrombus - None 7.1. Knee - Diameter 0.33cm 7.2. Calf - Proximal Diameter: 0.23cm. Mid Diameter: 0.40cm. Distal Diameter: 0.28cm. 7.3. Ankle - Diameter: 0.31cm OTHER FINDINGS: None. IMPRESSION: Diameter measurements of the right greater saphenous vein are measured between 0.25 cm and 0.60 cm and lesser saphenous vein is measured between 0.23 cm and 0.40 cm.
[2016-11-05] MEDS: Sodium Chloride 0.45% 1,000 ML IV SCH (14:32)
--- NOTE | 2016-11-05 14:44 | CP.PCM.PN ---
Subjective - Date & Time of Evaluation Date of Evaluation: 11/05/16 Time of Evaluation: 14:42 - Subjective Subjective: patient up and around Feeling good No chest pain no shortness of breath Vital signs stable Kidney function stable with serum creatinine remained stable Chest clear Heart no rubs Abdomen soft Extremity no edema Impression and plan Peripheral vascular disease patient is going for bypass surgery on the left leg tomorrow Chronic kidney disease stage III remained stable and continue to monitor Objective - Vital Signs/Intake and Output Vital Signs (last 24 hours): Temp Pulse Resp BP Pulse Ox 98.0 F 60 20 136/53 L 97 11/05/16 08:18 11/05/16 08:18 11/05/16 08:18 11/05/16 08:18 11/05/16 08:18 - Medications Medications: Current Medications Amlodipine Besylate (Norvasc) 5 mg PO DAILY [facility] Last Admin: 11/05/16 10:33 Dose: 5 mg Aspirin (Aspirin Chewable) 81 mg PO DAILY [facility] Last Admin: 11/05/16 10:33 Dose: 81 mg Clonidine HCl (Catapres) 0.2 mg PO TID [facility] Last Admin: 11/05/16 14:10 Dose: 0.2 mg Docusate Sodium (Colace) 100 mg PO TID [facility] Last Admin: 11/05/16 14:10 Dose: 100 mg Ezetimibe (Zetia) 10 mg PO HS [facility] Last Admin: 11/04/16 22:02 Dose: 10 mg Ergocalciferol (Drisdol 50,000 Intl Units Cap) 1 cap PO QWK [facility] Last Admin: 11/05/16 11:09 Dose: Not Given Fluticasone Propionate (Flonase) 2 spr BERTHA DAILY [facility] Last Admin: 11/05/16 10:47 Dose: 2 spray Heparin Sodium (Porcine) (Heparin) 5,000 units SC Q12 [facility] Last Admin: 11/05/16 10:42 Dose: Not Given Sodium Chloride (Sodium Chloride 0.45%) 1,000 mls @ 80 mls/hr IV .[id number] [facility] Last Admin: 11/05/16 14:32 Dose: Not Given Cefazolin Sodium 1 gm/ Sodium (Chloride) 100 mls @ 100 mls/hr IVPB Q8 [facility] Last Admin: 11/05/16 14:30 Dose: Not Given Insulin Human Regular (Novolin R) 0 unit SC ACHS [facility] PRN Reason: Protocol Last Admin: 11/05/16 12:21 Dose: 6 unit Lisinopril (Zestril) 5 mg PO DAILY [facility] Last Admin: 11/05/16 10:35 Dose: 5 mg Montelukast Sodium (Singulair) 10 mg PO HS [facility] Last Admin: 11/04/16 22:02 Dose: 10 mg Pantoprazole Sodium (Protonix Ec Tab) 40 mg PO DAILY [facility] Last Admin: 11/05/16 10:35 Dose: 40 mg Rosuvastatin Calcium (Crestor) 10 mg PO HS [facility] Last Admin: 11/04/16 22:00 Dose: Not Given - Labs Labs: 11/05/16 07:09 11/05/16 07:09 PT 10.1 SECONDS (9.7-12.2) 11/02/16 13:36 INR 0.9 11/02/16 13:36 APTT 34 SECONDS (21-34) 11/02/16 13:36
[2016-11-05 18:33] LABS: HEMATOCRIT 33.1 % (34.0-47.0); MEAN CELL VOLUME 80.5 fL (81.0-99.0); MEAN CORPUSCULAR HEMOGLOBIN 25.7 pg (27.0-31.0); MEAN CORPUSCULAR HGB CONC 31.9 g/dL (33.0-37.0); MEAN PLATELET VOLUME 12.5 fL (7.2-11.7); RED CELL DISTRIBUTION WIDTH 16.6 % (11.5-14.5); WHITE BLOOD COUNT 6.7 K/uL (4.8-10.8)
[2016-11-05 18:42] LABS: POTASSIUM 5.8 mmol/L (3.6-5.2)
[2016-11-05 18:46] LABS: CALCIUM 8.6 mg/dl (8.6-10.4)
[2016-11-05] MEDS ORDERED: Sod Polystyrene Sulf 15 gm/60 ml Oral Susp PO ONE (19:23)
[2016-11-05] MEDS ORDERED: Albuterol-Ipratrop 3 mg / 0.5 (3 ml) UD INH STA (19:24)
[2016-11-06] MEDS: ceFAZolin 1 GM in Sodium Chloride 0.9% 100 ML IVPB SCH ×3 (06:04→21:07)
[2016-11-06 07:32] LABS: BASO % 0.4 % (0.0-2.0); EOS # 0.5 K/uL (0.0-0.7); EOS % 7.9 % (0.0-4.0); HEMATOCRIT 32.7 % (34.0-47.0); LYMPH # 2.5 K/uL (1.0-4.3); LYMPH % 39.8 % (20.0-40.0); MEAN CELL VOLUME 79.8 fL (81.0-99.0); MEAN CORPUSCULAR HEMOGLOBIN 25.5 pg (27.0-31.0); MEAN CORPUSCULAR HGB CONC 31.9 g/dL (33.0-37.0); MEAN PLATELET VOLUME 12.1 fL (7.2-11.7); MONO # 0.6 K/uL (0.0-0.8); MONO % 10.5 % (0.0-10.0); RED CELL DISTRIBUTION WIDTH 17.3 % (11.5-14.5); WHITE BLOOD COUNT 6.2 K/uL (4.8-10.8)
[2016-11-06 07:40] LABS: POTASSIUM 4.3 mmol/L (3.6-5.2)
[2016-11-06 07:42] LABS: BILIRUBIN,TOTAL 0.5 mg/dL (0.2-1.3)
[2016-11-06 07:43] LABS: ALB/GLOB RATIO 1.3 (1.0-2.1); CALCIUM 8.2 mg/dl (8.6-10.4); MAGNESIUM 2.1 mg/dL (1.6-2.3); PHOSPHOROUS 5.3 mg/dL (2.5-4.5); TOTAL PROTEIN 6.5 g/dL (6.3-8.3)
[2016-11-06] MEDS: (Novolin R) Insulin Human Regular 100 units/ml vial SC SCH ×4 (08:10→21:39)
[2016-11-06] MEDS: Pantoprazole 40 mg EC Tab PO SCH (09:21)
[2016-11-06] MEDS: Fluticasone Nasal 50 mcg/Spray NAS SCH (09:22)
[2016-11-06] MEDS: Sodium Chloride 0.45% 1,000 ML IV SCH ×2 (09:28→17:55)
[2016-11-06] MEDS ORDERED: Sodium Chloride 0.45% 1,000 ML IV SCH (09:41)
--- NOTE | 2016-11-06 11:06 | CP.PCM.PN ---
<Bridgette Schilling - Last Filed: 11/06/16 11:03> Subjective - Date & Time of Evaluation Date of Evaluation: 11/06/16 Time of Evaluation: 10:00 - Subjective Subjective: Medicine Note for Dr. Pete, Patient was seen and examined at bedside. Patient denied headaches, chest pain, palpitations, SOB, abdominal pain, nausea, vomiting, bowel/bladder complaints. She continues to have pain in her legs b/l and some tingling. Patient is ambulating to and from the bathroom. She is tolerating her diet. OR was cancelled due to abnormal EKG, hyperkalemia, and elevated BUN/CRE. As per Dr. Peterson, possible OR tomorrow. Objective - Vital Signs/Intake and Output Vital Signs (last 24 hours): Temp Pulse Resp BP Pulse Ox 97.8 F 78 20 151/69 H 97 11/06/16 08:29 11/06/16 08:29 11/06/16 08:29 11/06/16 08:29 11/06/16 08:29 Intake and Output: 11/06/16 11/06/16 06:59 18:59 Intake Total 890 Balance 890 - Medications Medications: Current Medications Amlodipine Besylate (Norvasc) 5 mg PO DAILY [facility] Last Admin: 11/06/16 09:21 Dose: 5 mg Aspirin (Aspirin Chewable) 81 mg PO DAILY [facility] Last Admin: 11/06/16 09:25 Dose: 81 mg Clonidine HCl (Catapres) 0.2 mg PO TID [facility] Last Admin: 11/06/16 09:21 Dose: 0.2 mg Docusate Sodium (Colace) 100 mg PO TID [facility] Last Admin: 11/06/16 09:21 Dose: 100 mg Ezetimibe (Zetia) 10 mg PO HS [facility] Last Admin: 11/05/16 21:16 Dose: 10 mg Ergocalciferol (Drisdol 50,000 Intl Units Cap) 1 cap PO QWK [facility] Last Admin: 11/05/16 11:09 Dose: Not Given Fluticasone Propionate (Flonase) 2 spr BERTHA DAILY [facility] Last Admin: 11/06/16 09:22 Dose: 1 spray Heparin Sodium (Porcine) (Heparin) 5,000 units SC Q12 [facility] Last Admin: 11/06/16 09:29 Dose: Not Given Cefazolin Sodium 1 gm/ Sodium (Chloride) 100 mls @ 100 mls/hr IVPB Q8 [facility] Last Admin: 11/06/16 06:04 Dose: 100 mls/hr Sodium Chloride (Sodium Chloride 0.45%) 1,000 mls @ 100 mls/hr IV .Q10H [facility] Insulin Glargine (Lantus) 10 unit SC DAILY [facility] Insulin Human Regular (Novolin R) 0 unit SC ACHS [facility] PRN Reason: Protocol Last Admin: 11/06/16 08:10 Dose: 4 unit Montelukast Sodium (Singulair) 10 mg PO HS [facility] Last Admin: 11/05/16 21:17 Dose: 10 mg Pantoprazole Sodium (Protonix Ec Tab) 40 mg PO DAILY [facility] Last Admin: 11/06/16 09:21 Dose: 40 mg Rosuvastatin Calcium (Crestor) 10 mg PO HS [facility] Last Admin: 11/05/16 21:16 Dose: 10 mg - Labs Labs: 11/06/16 07:00 11/06/16 07:00 PT 10.1 SECONDS (9.7-12.2) 11/02/16 13:36 INR 0.9 11/02/16 13:36 APTT 34 SECONDS (21-34) 11/02/16 13:36 - Constitutional Appears: No Acute Distress - Head Exam Head Exam: NORMAL INSPECTION, NORMOCEPHALIC - ENT Exam ENT Exam: Mucous Membranes Moist - Respiratory Exam Respiratory Exam: Clear to Ausculation Bilateral, NORMAL BREATHING PATTERN. absent: Wheezes - Cardiovascular Exam Cardiovascular Exam: REGULAR RHYTHM, RRR, +S1, +S2 - GI/Abdominal Exam GI & Abdominal Exam: Soft, Normal Bowel Sounds. absent: Distended, Tenderness - Extremities Exam Extremities Exam: Normal Inspection. absent: Pedal Edema, Tenderness - Neurological Exam Neurological Exam: Alert, Awake, Oriented x3 - Skin Skin Exam: Dry, Intact, Normal Color, Warm Assessment and Plan - Assessment and Plan (Free Text) Assessment: 71 year old female with a PMHx of HTN. Diabetes Mellitus, Chronic Kidney Disease , peripheral vascular disease, hypercholesterolemia, and Gout send in by Dr. Peterson for PVD. Plan: Peripheral Vascular Disease -Management as per vascular surgery, Dr. Peterson -s/p peripehral angiogram with Dr. Newman -plan is for fem-pop bypass with Dr Peterson on Monday 11/06 -ASA 81mg po daily -Crestor 10mg po hs HTN: -ASA 81mg po daily -Norvasc 5mg po daily -Lisinopril and HCTZ were DC due to hyperkalemia and increased BUN/CRE -Clonidine 0.2mg po TID -Echo: normal EF, mild LVF -TSH: 2.53 -EKG - sinus bradycardia, t wave inversions in leads I and avL -Dr. Newman cardiology consulted Diabetes Mellitus: -Acchuchecks achs -Regular insulin sliding scale - HIGH -Lantus 10mg SC daily -HgbA1c: 7.7 Hyperkalemia - F/U BMP - 2pm Chronic Kidney Disease Stage III: -monitor BUN:Cr -renal US: HTN disease -Dr. 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 Fraire can be called and notified of her admission. [phone], Tonie Mason DO, PGY-1 <Jose Pete M - Last Filed: 11/06/16 14:31> Objective - Vital Signs/Intake and Output Vital Signs (last 24 hours): Temp Pulse Resp BP Pulse Ox 97.8 F 78 20 151/69 H 97 11/06/16 08:29 11/06/16 08:29 11/06/16 08:29 11/06/16 08:29 11/06/16 08:29 Intake and Output: 11/06/16 11/06/16 06:59 18:59 Intake Total 890 Balance 890 - Medications Medications: Current Medications Amlodipine Besylate (Norvasc) 5 mg PO DAILY [facility] Last Admin: 11/06/16 09:21 Dose: 5 mg Aspirin (Aspirin Chewable) 81 mg PO DAILY [facility] Last Admin: 11/06/16 09:25 Dose: 81 mg Clonidine HCl (Catapres) 0.2 mg PO TID [facility] Last Admin: 11/06/16 13:27 Dose: 0.2 mg Docusate Sodium (Colace) 100 mg PO TID [facility] Last Admin: 11/06/16 13:27 Dose: 100 mg Ezetimibe (Zetia) 10 mg PO HS [facility] Last Admin: 11/05/16 21:16 Dose: 10 mg Ergocalciferol (Drisdol 50,000 Intl Units Cap) 1 cap PO QWK [facility] Last Admin: 11/05/16 11:09 Dose: Not Given Fluticasone Propionate (Flonase) 2 spr BERTHA DAILY [facility] Last Admin: 11/06/16 09:22 Dose: 1 spray Heparin Sodium (Porcine) (Heparin) 5,000 units SC Q12 [facility] Last Admin: 11/06/16 09:29 Dose: Not Given Cefazolin Sodium 1 gm/ Sodium (Chloride) 100 mls @ 100 mls/hr IVPB Q8 [facility] Last Admin: 11/06/16 13:27 Dose: 100 mls/hr Sodium Chloride (Sodium Chloride 0.45%) 1,000 mls @ 100 mls/hr IV .Q10H [facility] Insulin Glargine (Lantus) 10 unit SC DAILY [facility] Last Admin: 11/06/16 12:31 Dose: 10 units Insulin Human Regular (Novolin R) 0 unit SC ACHS [facility] PRN Reason: Protocol Last Admin: 11/06/16 12:19 Dose: 6 unit Montelukast Sodium (Singulair) 10 mg PO HS [facility] Last Admin: 11/05/16 21:17 Dose: 10 mg Pantoprazole Sodium (Protonix Ec Tab) 40 mg PO DAILY [facility] Last Admin: 11/06/16 09:21 Dose: 40 mg Rosuvastatin Calcium (Crestor) 10 mg PO HS [facility] Last Admin: 11/05/16 21:16 Dose: 10 mg - Labs Labs: 11/06/16 07:00 11/06/16 07:00 PT 10.1 SECONDS (9.7-12.2) 11/02/16 13:36 INR 0.9 11/02/16 13:36 APTT 34 SECONDS (21-34) 11/02/16 13:36 Attending/Attestation - Attestation I have personally seen and examined this patient.: Yes I have fully participated in the care of the patient.: Yes I have reviewed all pertinent clinical information, including history, physical exam and plan: Yes Notes (Text): 11/06/16 14:30 Patient was seen and examined at bedside with the resident. Patient has no new complaints. Complains of pain in the right leg Labs noted. Patient has hyperkalemia and elevated creatinine. We will hold lisinopril and hydrochlorothiazide. Blood pressure is better controlled now. Continue the other medication including clonidine and Norvasc. Surgery has been postponed today because of elevated creatinine and hyperkalemia. We will continue to monitor labs. I discussed the plan of care with the resident and agree with the above history and physical and assessment/plan by the resident.
[2016-11-06] MEDS: (Lantus) Insulin Glargine, Recombinant SC SCH (12:31)
[2016-11-06 14:54] LABS: POTASSIUM 4.5 mmol/L (3.6-5.2)
[2016-11-06 14:57] LABS: CALCIUM 8.3 mg/dl (8.6-10.4)
--- NOTE | 2016-11-06 17:53 | CP.PCM.PN ---
Subjective - Date & Time of Evaluation Date of Evaluation: 11/06/16 Time of Evaluation: 06:15 - Subjective Subjective: Feels better Objective - Vital Signs/Intake and Output Vital Signs (last 24 hours): Temp Pulse Resp BP Pulse Ox 97.7 F 64 20 120/54 L 95 11/06/16 16:00 11/06/16 16:00 11/06/16 16:00 11/06/16 16:00 11/06/16 16:00 Intake and Output: 11/06/16 11/06/16 06:59 18:59 Intake Total 890 Balance 890 - Medications Medications: Current Medications Amlodipine Besylate (Norvasc) 5 mg PO DAILY [facility] Last Admin: 11/06/16 09:21 Dose: 5 mg Aspirin (Aspirin Chewable) 81 mg PO DAILY [facility] Last Admin: 11/06/16 09:25 Dose: 81 mg Clonidine HCl (Catapres) 0.2 mg PO TID [facility] Last Admin: 11/06/16 13:27 Dose: 0.2 mg Docusate Sodium (Colace) 100 mg PO TID [facility] Last Admin: 11/06/16 13:27 Dose: 100 mg Ezetimibe (Zetia) 10 mg PO HS [facility] Last Admin: 11/05/16 21:16 Dose: 10 mg Ergocalciferol (Drisdol 50,000 Intl Units Cap) 1 cap PO QWK [facility] Last Admin: 11/05/16 11:09 Dose: Not Given Fluticasone Propionate (Flonase) 2 spr BERTHA DAILY [facility] Last Admin: 11/06/16 09:22 Dose: 1 spray Heparin Sodium (Porcine) (Heparin) 5,000 units SC Q12 [facility] Last Admin: 11/06/16 09:29 Dose: Not Given Cefazolin Sodium 1 gm/ Sodium (Chloride) 100 mls @ 100 mls/hr IVPB Q8 [facility] Last Admin: 11/06/16 13:27 Dose: 100 mls/hr Sodium Chloride (Sodium Chloride 0.45%) 1,000 mls @ 100 mls/hr IV .Q10H [facility] Insulin Glargine (Lantus) 10 unit SC DAILY [facility] Last Admin: 11/06/16 12:31 Dose: 10 units Insulin Human Regular (Novolin R) 0 unit SC ACHS [facility] PRN Reason: Protocol Last Admin: 11/06/16 17:00 Dose: 1 unit Montelukast Sodium (Singulair) 10 mg PO HS [facility] Last Admin: 11/05/16 21:17 Dose: 10 mg Pantoprazole Sodium (Protonix Ec Tab) 40 mg PO DAILY [facility] Last Admin: 11/06/16 09:21 Dose: 40 mg Rosuvastatin Calcium (Crestor) 10 mg PO HS [facility] Last Admin: 11/05/16 21:16 Dose: 10 mg - Labs Labs: 11/06/16 07:00 11/06/16 14:23 PT 10.1 SECONDS (9.7-12.2) 11/02/16 13:36 INR 0.9 11/02/16 13:36 APTT 34 SECONDS (21-34) 11/02/16 13:36 - Respiratory Exam Respiratory Exam: NORMAL BREATHING PATTERN - Cardiovascular Exam Cardiovascular Exam: REGULAR RHYTHM - Extremities Exam Additional comments: No edema Assessment and Plan - Assessment and Plan (Free Text) Assessment: Stage 111 kidney disease. Creat is stable HTN PVD DM Plan: Continue current Mx K+ is controlled
[2016-11-07] MEDS: ceFAZolin 1 GM in Sodium Chloride 0.9% 100 ML IVPB SCH ×3 (06:16→22:00)
[2016-11-07] MEDS: (Novolin R) Insulin Human Regular 100 units/ml vial SC SCH ×4 (08:18→21:20)
[2016-11-07 08:47] LABS: BASO % 0.3 % (0.0-2.0); EOS # 0.3 K/uL (0.0-0.7); LYMPH # 1.4 K/uL (1.0-4.3); MONO # 0.4 K/uL (0.0-0.8); NRBC % 0.1 % (0.0-2.0); WHITE BLOOD COUNT 4.6 K/uL (4.8-10.8)
[2016-11-07 08:51] LABS: EOS % 7.1 % (0.0-4.0); LYMPH % 29.1 % (20.0-40.0); MEAN CORPUSCULAR HEMOGLOBIN 25.3 pg (27.0-31.0); MEAN CORPUSCULAR HGB CONC 30.8 g/dL (33.0-37.0); MEAN PLATELET VOLUME 11.9 fL (7.2-11.7); MONO % 9.4 % (0.0-10.0)
[2016-11-07 08:52] LABS: HEMATOCRIT 23.7 % (34.0-47.0)
[2016-11-07 09:17] LABS: POTASSIUM 3.7 mmol/L (3.6-5.2)
[2016-11-07 09:19] LABS: BILIRUBIN,TOTAL 0.4 mg/dL (0.2-1.3); PHOSPHOROUS 3.6 mg/dL (2.5-4.5)
[2016-11-07 09:20] LABS: MAGNESIUM 1.5 mg/dL (1.6-2.3)
[2016-11-07 09:38] LABS: TOTAL PROTEIN 4.9 g/dL (6.3-8.3)
[2016-11-07] MEDS: Pantoprazole 40 mg EC Tab PO SCH (10:12)
[2016-11-07] MEDS: (Lantus) Insulin Glargine, Recombinant SC SCH ×2 (10:12→10:20)
[2016-11-07] MEDS ORDERED: Calcium Gluconate 4.65 mEq/10 ml Inj IVP ONE (10:42)
--- NOTE | 2016-11-07 10:54 | CP.PCM.PN ---
Addendum entered and electronically signed by Bridgette Schilling DO 11/07/16 14:26 : Repeat CBC/ CMP showed more accurate values. Patient went to OR at 12:15pm. Original Note: <Bridgette Schilling - Last Filed: 11/07/16 10:51> Subjective - Date & Time of Evaluation Date of Evaluation: 11/07/16 Time of Evaluation: 10:00 - Subjective Subjective: Medicine Note for Dr. Pete, Patient was seen and examined at bedside. Patient denied headaches, chest pain, palpitations, SOB, abdominal pain, nausea, vomiting, bowel/bladder complaints. She continues to have pain in her legs b/l and some tingling. Labs were unable to be drawn by phleobotomist today, nurse wes morning labs, however labs were abnormal and out of range for her normal baseline. Repeat labs are pending for a more accurate hemoglobin, potassium, and renal function. As per Dr. Peterson, possible OR today at 12pm pending repeat CBC/ CMP. Objective - Vital Signs/Intake and Output Vital Signs (last 24 hours): Temp Pulse Resp BP Pulse Ox 97.6 F 55 L 18 144/74 98 11/07/16 07:30 11/07/16 08:41 11/07/16 07:30 11/07/16 07:30 11/07/16 07:30 Intake and Output: 11/07/16 11/07/16 06:59 18:59 Intake Total 1200 800 Balance 1200 800 - Medications Medications: Current Medications Amlodipine Besylate (Norvasc) 5 mg PO DAILY [facility] Last Admin: 11/07/16 10:12 Dose: 5 mg Aspirin (Aspirin Chewable) 81 mg PO DAILY [facility] Last Admin: 11/07/16 10:13 Dose: Not Given Calcium Gluconate (Calcium Gluconate) 4.65 meq IVP ONCE ONE Stop: 11/07/16 10:43 Clonidine HCl (Catapres) 0.2 mg PO TID [facility] Last Admin: 11/07/16 10:12 Dose: 0.2 mg Docusate Sodium (Colace) 100 mg PO TID [facility] Last Admin: 11/06/16 17:49 Dose: 100 mg Ezetimibe (Zetia) 10 mg PO HS [facility] Last Admin: 11/06/16 21:07 Dose: 10 mg Ergocalciferol (Drisdol 50,000 Intl Units Cap) 1 cap PO QWK [facility] Last Admin: 11/05/16 11:09 Dose: Not Given Fluticasone Propionate (Flonase) 2 spr BERTHA DAILY [facility] Last Admin: 11/06/16 09:22 Dose: 1 spray Heparin Sodium (Porcine) (Heparin) 5,000 units SC Q12 [facility] Last Admin: 11/07/16 10:14 Dose: Not Given Cefazolin Sodium 1 gm/ Sodium (Chloride) 100 mls @ 100 mls/hr IVPB Q8 [facility] Last Admin: 11/07/16 06:16 Dose: 100 mls/hr Sodium Chloride (Sodium Chloride 0.45%) 1,000 mls @ 100 mls/hr IV .Q10H [facility] Last Admin: 11/06/16 17:55 Dose: 100 mls/hr Insulin Glargine (Lantus) 10 unit SC DAILY [facility] Last Admin: 11/07/16 10:20 Dose: Not Given Insulin Human Regular (Novolin R) 0 unit SC ACHS [facility] PRN Reason: Protocol Last Admin: 11/07/16 08:18 Dose: 6 unit Montelukast Sodium (Singulair) 10 mg PO HS [facility] Last Admin: 11/06/16 21:07 Dose: 10 mg Pantoprazole Sodium (Protonix Ec Tab) 40 mg PO DAILY [facility] Last Admin: 11/07/16 10:12 Dose: 40 mg Rosuvastatin Calcium (Crestor) 10 mg PO HS [facility] Last Admin: 11/06/16 21:07 Dose: 10 mg - Labs Labs: 11/07/16 08:43 11/07/16 08:43 PT 10.1 SECONDS (9.7-12.2) 11/02/16 13:36 INR 0.9 11/02/16 13:36 APTT 34 SECONDS (21-34) 11/02/16 13:36 - Constitutional Appears: No Acute Distress - Head Exam Head Exam: NORMAL INSPECTION - ENT Exam ENT Exam: Mucous Membranes Moist - Neck Exam Neck Exam: Normal Inspection - Respiratory Exam Respiratory Exam: Clear to Ausculation Bilateral, NORMAL BREATHING PATTERN. absent: Decreased Breath Sounds, Rhonchi, Wheezes - Cardiovascular Exam Cardiovascular Exam: REGULAR RHYTHM, RRR, +S1, +S2 - GI/Abdominal Exam GI & Abdominal Exam: Soft, Normal Bowel Sounds. absent: Distended, Tenderness - Extremities Exam Extremities Exam: Normal Inspection, Pedal Edema, Tenderness - Neurological Exam Neurological Exam: Alert, Awake, Oriented x3 - Skin Skin Exam: Dry, Intact, Normal Color, Warm Assessment and Plan - Assessment and Plan (Free Text) Assessment: 71 year old female with a PMHx of HTN. Diabetes Mellitus, Chronic Kidney Disease , peripheral vascular disease, hypercholesterolemia, and Gout send in by Dr. Peterson for PVD. Plan: Peripheral Vascular Disease -Management as per vascular surgery, Dr. Peterson -s/p peripehral angiogram with Dr. Newman -plan is for fem-pop bypass with Dr Peterson when hemoglobin, potassium and renal function improve, pending repeat labs -ASA 81mg po daily -Crestor 10mg po hs HTN: -ASA 81mg po daily -Norvasc 5mg po daily -Lisinopril and HCTZ were DC due to hyperkalemia and increased BUN/CRE -Clonidine 0.2mg po TID -Echo: normal EF, mild LVF -TSH: 2.53 -EKG - sinus bradycardia, t wave inversions in leads I and avL -Dr. Newman cardiology consulted Diabetes Mellitus: -Acchuchecks achs -Regular insulin sliding scale - HIGH -Lantus 10mg SC daily -HgbA1c: 7.7 Chronic Kidney Disease Stage III: -monitor BUN:Cr -renal US: HTN disease -Dr. 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 Fraire can be called and notified of her admission. [phone], Tonie Mason DO, PGY-1 <Juan R,Jose M - Last Filed: 11/07/16 17:06> Objective - Vital Signs/Intake and Output Vital Signs (last 24 hours): Temp Pulse Resp BP Pulse Ox 97.6 F 55 L 18 144/74 98 11/07/16 07:30 11/07/16 08:41 11/07/16 07:30 11/07/16 07:30 11/07/16 07:30 Intake and Output: 11/07/16 11/07/16 06:59 18:59 Intake Total 1200 800 Balance 1200 800 - Medications Medications: Current Medications Amlodipine Besylate (Norvasc) 5 mg PO DAILY [facility] Last Admin: 11/07/16 10:12 Dose: 5 mg Aspirin (Aspirin Chewable) 81 mg PO DAILY [facility] Last Admin: 11/07/16 10:13 Dose: Not Given Clonidine HCl (Catapres) 0.2 mg PO TID [facility] Last Admin: 11/07/16 10:12 Dose: 0.2 mg Docusate Sodium (Colace) 100 mg PO TID [facility] Last Admin: 11/06/16 17:49 Dose: 100 mg Ezetimibe (Zetia) 10 mg PO HS [facility] Last Admin: 11/06/16 21:07 Dose: 10 mg Ergocalciferol (Drisdol 50,000 Intl Units Cap) 1 cap PO QWK [facility] Last Admin: 11/05/16 11:09 Dose: Not Given Fluticasone Propionate (Flonase) 2 spr BERTHA DAILY [facility] Last Admin: 11/06/16 09:22 Dose: 1 spray Heparin Sodium (Porcine) (Heparin) 5,000 units SC Q12 [facility] Last Admin: 11/07/16 10:14 Dose: Not Given Hydralazine HCl (Apresoline) 5 mg IVP STAT [facility] Stop: 11/07/16 16:57 Hydromorphone HCl (Dilaudid) 0.5 mg IVP Q15M PRN PRN Reason: Pain, moderate (4-7) Stop: 11/07/16 17:51 Cefazolin Sodium 1 gm/ Sodium (Chloride) 100 mls @ 100 mls/hr IVPB Q8 [facility] Last Admin: 11/07/16 06:16 Dose: 100 mls/hr Sodium Chloride (Sodium Chloride 0.45%) 1,000 mls @ 100 mls/hr IV .Q10H [facility] Last Admin: 11/06/16 17:55 Dose: 100 mls/hr Insulin Glargine (Lantus) 10 unit SC DAILY [facility] Last Admin: 11/07/16 10:20 Dose: Not Given Insulin Human Regular (Novolin R) 0 unit SC ACHS [facility] PRN Reason: Protocol Last Admin: 11/07/16 08:18 Dose: 6 unit Montelukast Sodium (Singulair) 10 mg PO HS [facility] Last Admin: 11/06/16 21:07 Dose: 10 mg Ondansetron HCl (Zofran Inj) 4 mg IVP ONCE PRN PRN Reason: Nausea/Vomiting Stop: 11/07/16 17:52 Pantoprazole Sodium (Protonix Ec Tab) 40 mg PO DAILY [facility] Last Admin: 11/07/16 10:12 Dose: 40 mg Rosuvastatin Calcium (Crestor) 10 mg PO HS [facility] Last Admin: 11/06/16 21:07 Dose: 10 mg - Labs Labs: 11/07/16 11:03 11/07/16 11:03 PT 10.1 SECONDS (9.7-12.2) 11/02/16 13:36 INR 0.9 11/02/16 13:36 APTT 34 SECONDS (21-34) 11/02/16 13:36 Attending/Attestation - Attestation I have personally seen and examined this patient.: Yes I have fully participated in the care of the patient.: Yes I have reviewed all pertinent clinical information, including history, physical exam and plan: Yes Notes (Text): 11/07/16 17:05 Patient was seen and examined at bedside. Repeat labs showed patient to has acceptable H&H and platelets. Calcium level is also acceptable. Patient is planned for surgery today. I discussed the plan of care with the resident and agree with the above history and physical and assessment/plan but the resident.
[2016-11-07 11:07] LABS: HEMATOCRIT 33.5 % (34.0-47.0); MEAN CORPUSCULAR HEMOGLOBIN 25.2 pg (27.0-31.0); MEAN CORPUSCULAR HGB CONC 31.6 g/dL (33.0-37.0); MEAN PLATELET VOLUME 11.3 fL (7.2-11.7); RED CELL DISTRIBUTION WIDTH 16.9 % (11.5-14.5)
[2016-11-07 11:24] LABS: POTASSIUM 4.7 mmol/L (3.6-5.2)
[2016-11-07 11:27] LABS: ALB/GLOB RATIO 1.4 (1.0-2.1); BILIRUBIN,TOTAL 0.5 mg/dL (0.2-1.3); TOTAL PROTEIN 6.9 g/dL (6.3-8.3)
[2016-11-07 11:32] LABS: WHITE BLOOD COUNT 7.1 K/uL (4.8-10.8)
[2016-11-07 11:47] LABS: MEAN CELL VOLUME 79.8 fL (81.0-99.0)
[2016-11-07] MEDS ORDERED: ceFAZolin IV 1 gm in Dextrose 0 GM/0 ML BAG IVPB ONE ×2 (12:15→12:22)
[2016-11-07] MEDS ORDERED: HEPARIN-NS 5,000 UNITS/500 ML 5,000 UNIT/500 ML BAG IV ONE ×2 (12:16→14:10)
[2016-11-07] MEDS ORDERED: Midazolam 2 MG/2 ML VIAL ONE (12:18)
[2016-11-07] MEDS ORDERED: Propofol 10 mg/ml Inj (20 ML) ONE (12:19)
[2016-11-07] MEDS ORDERED: Sodium Chloride 0.9% 1,000 ML IV ONE ×3 (12:47→16:00)
[2016-11-07] MEDS ORDERED: ceFAZolin IV 2 gm in Dextrose 1 GM/50 ML BAG IVPB ONE (12:59)
[2016-11-07] MEDS ORDERED: Phenylephrine 10 mg/ml Inj ONE (13:21)
[2016-11-07] MEDS ORDERED: ePHEDrine 50 mg/ml Inj ONE (13:21)
[2016-11-07 13:28] LABS: CALCIUM 8.7 mg/dl (8.6-10.4)
[2016-11-07] MEDS ORDERED: Iodixanol 320 MG/ML 200 ML BOTTLE IV ONE (13:37)
--- NOTE | 2016-11-07 13:44 | CP.PCM.PN ---
Subjective - Date & Time of Evaluation Date of Evaluation: 11/07/16 Time of Evaluation: 11:00 - Subjective Subjective: C/o swelling of legs No SOB & no orthopnea noted Objective - Vital Signs/Intake and Output Vital Signs (last 24 hours): Temp Pulse Resp BP Pulse Ox 97.6 F 55 L 18 144/74 98 11/07/16 07:30 11/07/16 08:41 11/07/16 07:30 11/07/16 07:30 11/07/16 07:30 Intake and Output: 11/07/16 11/07/16 06:59 18:59 Intake Total 1200 800 Balance 1200 800 - Medications Medications: Current Medications Amlodipine Besylate (Norvasc) 5 mg PO DAILY [facility] Last Admin: 11/07/16 10:12 Dose: 5 mg Aspirin (Aspirin Chewable) 81 mg PO DAILY [facility] Last Admin: 11/07/16 10:13 Dose: Not Given Calcium Gluconate (Calcium Gluconate) 4.65 meq IVP ONCE ONE Stop: 11/07/16 10:43 Clonidine HCl (Catapres) 0.2 mg PO TID [facility] Last Admin: 11/07/16 10:12 Dose: 0.2 mg Docusate Sodium (Colace) 100 mg PO TID [facility] Last Admin: 11/06/16 17:49 Dose: 100 mg Ezetimibe (Zetia) 10 mg PO HS [facility] Last Admin: 11/06/16 21:07 Dose: 10 mg Ergocalciferol (Drisdol 50,000 Intl Units Cap) 1 cap PO QWK [facility] Last Admin: 11/05/16 11:09 Dose: Not Given Fluticasone Propionate (Flonase) 2 spr BERTHA DAILY [facility] Last Admin: 11/06/16 09:22 Dose: 1 spray Heparin Sodium (Porcine) (Heparin) 5,000 units SC Q12 [facility] Last Admin: 11/07/16 10:14 Dose: Not Given Cefazolin Sodium 1 gm/ Sodium (Chloride) 100 mls @ 100 mls/hr IVPB Q8 [facility] Last Admin: 11/07/16 06:16 Dose: 100 mls/hr Sodium Chloride (Sodium Chloride 0.45%) 1,000 mls @ 100 mls/hr IV .Q10H [facility] Last Admin: 11/06/16 17:55 Dose: 100 mls/hr Insulin Glargine (Lantus) 10 unit SC DAILY [facility] Last Admin: 11/07/16 10:20 Dose: Not Given Insulin Human Regular (Novolin R) 0 unit SC [facility] PRN Reason: Protocol Last Admin: 11/07/16 08:18 Dose: 6 unit Montelukast Sodium (Singulair) 10 mg PO HS [facility] Last Admin: 11/06/16 21:07 Dose: 10 mg Pantoprazole Sodium (Protonix Ec Tab) 40 mg PO DAILY [facility] Last Admin: 11/07/16 10:12 Dose: 40 mg Rosuvastatin Calcium (Crestor) 10 mg PO HS [facility] Last Admin: 11/06/16 21:07 Dose: 10 mg - Labs Labs: 11/07/16 11:03 11/07/16 11:03 PT 10.1 SECONDS (9.7-12.2) 11/02/16 13:36 INR 0.9 11/02/16 13:36 APTT 34 SECONDS (21-34) 11/02/16 13:36 - Rectal Exam Rectal Exam: Deferred
[2016-11-07] MEDS ORDERED: Protamine 50mg/5mL Inj IV ONE (15:44)
[2016-11-07] MEDS ORDERED: Neostigmine Methylsulfate 3mg/3ml Syringe IV ONE (15:49)
--- NOTE | 2016-11-07 15:55 | RAD ---
PROCEDURE: Intraoperative fluoroscopy HISTORY: LEFT FEM POP COMPARISON: Not available TECHNIQUE: Intraoperative fluoroscopy was provided. Total time of fluoroscopy was 13.5 seconds. FINDINGS: Three fluoroscopic spot films are submitted. Films are on file for review. IMPRESSION: Fluoroscopy provided.
[2016-11-07] MEDS: Sodium Chloride 0.9% 1,000 ML IV ONE ×2 (16:17→18:05)
[2016-11-07] MEDS: HYDROmorphone 0.5 mg/0.5 ml ISec IVP PRN ×2 (17:00→17:15)
[2016-11-07] MEDS ORDERED: Sodium Chloride 0.45% 1,000 ML IV ONE (17:00)
[2016-11-07] MEDS ORDERED: DiphenhydrAMINE 50 mg/ml Inj IVP STA (17:39)
[2016-11-07] MEDS ORDERED: DiphenhydrAMINE 50 mg/ml Inj ONE (17:43)
[2016-11-07] MEDS: Sodium Chloride 0.45% 1,000 ML IV SCH ×2 (18:00→18:28)
--- NOTE | 2016-11-07 18:30 | CP.CCUPN ---
CCU Subjective - Physician Review Events Since Last Encounter (Free Text): The Patient was seen and examined at the bedside, Medical records reviewed, all clinical/lab/hemodynamic/radiographic data were reviewed and management issues were discussed and formulated, Events reviewed 71 Y/O F with PMHx of HTN, Hypercholesterolemia, Arthritis, Chronic Kidney Disease and peripheral vascular disease who initially presented to the Emergency department c/o bilateral lower extremity pain and swelling Pt notes pain has worsened recently. Pt was evaluated by Dr. Peterson and diagnosed with peripheral vascular disease. Patient is s/p peripheral angiogram on 10/31, Admitted to the ICU s/p fem-pop bypass. Patient drowsy but easily arousable to name calling follow commands. Denies any pain now, No CP/SOB Saturating well. CCU Objective - Vital Signs / Intake & Output Intake and Output (Last 8hrs): Intake & Output 11/07/16 11/07/16 11/07/16 06:59 14:59 22:59 Intake Total 800 Output Total 250 Balance 800 -250 Intake: Intake, IV Amount 800 Right Hand 800 Oral 0 Output: Urine 250 Other: # Voids Urine, Voided 3 - Physical Exam Head: Positive for: Atraumatic, Normocephalic Pupils: Positive for: PERRL Extroacular Muscles: Positive for: EOMI Conjunctiva: Positive for: Normal Mouth: Positive for: Moist Mucous Membranes Neck: Positive for: Normal Range of Motion, Trachea Midline Respiratory/Chest: Positive for: Clear to Auscultation, Good Air Exchange. Negative for: Respiratory Distress, Accessory Muscle Use Cardiovascular: Positive for: Regular Rate and Rhythm, Normal S1, S2, Peripheal Pulses Present. Negative for: Murmurs, Irregular Rhythm Lower Extremity: Positive for: Swelling ( Left leg 3+ edema. Right leg 2+ edema) , Other (Left leg dressing dry and intact, Left leg dressing dry and intact.) Psychiatric: Positive for: Alert, Oriented x 3 - Medications Active Medications: Active Medications Generic Name Dose Route Start Last Admin Trade Name Freq PRN Reason Stop Dose Admin Amlodipine Besylate 5 mg 11/04/16 11:58 11/07/16 10:12 Norvasc PO 5 mg DAILY [facility] Administration Aspirin 81 mg 10/29/16 11:30 11/07/16 10:13 Aspirin Chewable PO Not Given DAILY [facility] Clonidine HCl 0.2 mg 11/04/16 14:00 11/07/16 10:12 Catapres PO 0.2 mg TID [facility] Administration Docusate Sodium 100 mg 11/02/16 14:00 11/06/16 17:49 Colace PO 100 mg TID [facility] Administration Ezetimibe 10 mg 10/28/16 22:00 11/06/16 21:07 Zetia PO 10 mg HS [facility] Administration Ergocalciferol 1 cap 10/29/16 10:00 11/05/16 11:09 Drisdol 50,000 Intl Units Cap PO Not Given QWK [facility] Fluticasone Propionate 2 spr 10/30/16 11:00 11/06/16 09:22 Flonase BERTHA 1 spray DAILY [facility] Administration Heparin Sodium (Porcine) 5,000 units 11/02/16 10:45 11/07/16 10:14 Heparin SC Not Given Q12 [facility] Cefazolin Sodium 1 gm/ Sodium 100 mls @ 100 mls/hr 11/04/16 14:00 11/07/16 06 :16 Chloride IVPB 100 mls/hr Q8 [facility] Administration Sodium Chloride 1,000 mls @ 100 mls/hr 11/06/16 09:53 11/06/16 17:55 Sodium Chloride 0.45% IV 100 mls/hr .Q10H [facility] Administration Insulin Glargine 10 unit 11/06/16 10:00 11/07/16 10:20 Lantus SC Not Given DAILY [facility] Insulin Human Regular 0 unit 11/05/16 09:14 11/07/16 18:19 Novolin R SC Not Given ACHS [facility] Protocol Montelukast Sodium 10 mg 10/30/16 22:00 11/06/16 21:07 Singulair PO 10 mg HS [facility] Administration Pantoprazole Sodium 40 mg 10/29/16 10:00 11/07/16 10:12 Protonix Ec Tab PO 40 mg DAILY [facility] Administration Rosuvastatin Calcium 10 mg 11/01/16 22:00 11/06/16 21:07 Crestor PO 10 mg HS [facility] Administration - Patient Studies Lab Studies: Lab Studies 11/07/16 11/07/16 11/07/16 Range/Units 16:31 11:44 11:03 WBC (4.8-10.8) K/uL RBC (3.80-5.20) Mil/uL Hgb (11.0-16.0) g/dL Hct (34.0-47.0) % MCV (81.0-99.0) fL MCH (27.0-31.0) pg MCHC (33.0-37.0) g/dL RDW (11.5-14.5) % Plt Count (130-400) K/uL MPV (7.2-11.7) fL Neut % (Auto) (50.0-75.0) % Lymph % (Auto) (20.0-40.0) % Hubbard % (Auto) (0.0-10.0) % Eos % (Auto) (0.0-4.0) % Baso % (Auto) (0.0-2.0) % Neut # (1.8-7.0) K/uL Lymph # (1.0-4.3) K/uL Hubbard # (0.0-0.8) K/uL Eos # (0.0-0.7) K/uL Baso # (0.0-0.2) K/uL Sodium 136 (132-148) mmol/L Potassium 4.7 (3.6-5.2) mmol/L Chloride 100 (98-107) mmol/L Carbon Dioxide 25 (22-30) mmol/L Anion Gap 16 (10-20) BUN 42 H (7-17) mg/dL Creatinine 1.5 H (0.7-1.2) MG/DL Est GFR ( Amer) 41 Est GFR (Non-Af Amer) 34 POC Glucose (mg/dL) 181 H 213 H (65-110) mg/dL Random Glucose 175 H (65-105) mg/dL Calcium 8.7 (8.6-10.4) mg/dl Phosphorus (2.5-4.5) mg/dL Magnesium (1.6-2.3) mg/dL Total Bilirubin 0.5 (0.2-1.3) mg/dL AST 29 (14-36) U/L ALT 33 (9-52) U/L Alkaline Phosphatase 45 (38-126) U/L Total Protein 6.9 (6.3-8.3) g/dL Albumin 4.1 (3.5-5.0) g/dL Globulin 2.9 (2.2-3.9) gm/dL Albumin/Globulin Ratio 1.4 (1.0-2.1) Blood Type Antibody Screen 11/07/16 11/07/16 11/07/16 Range/Units 11:03 11:03 08:43 WBC 7.1 D (4.8-10.8) K/uL RBC 4.20 (3.80-5.20) Mil/uL Hgb 10.6 L D (11.0-16.0) g/dL Hct 33.5 L (34.0-47.0) % MCV 79.8 L D (81.0-99.0) fL MCH 25.2 L (27.0-31.0) pg MCHC 31.6 L (33.0-37.0) g/dL RDW 16.9 H (11.5-14.5) % Plt Count 106 L D (130-400) K/uL MPV 11.3 (7.2-11.7) fL Neut % (Auto) (50.0-75.0) % Lymph % (Auto) (20.0-40.0) % Hubbard % (Auto) (0.0-10.0) % Eos % (Auto) (0.0-4.0) % Baso % (Auto) (0.0-2.0) % Neut # (1.8-7.0) K/uL Lymph # (1.0-4.3) K/uL Hubbard # (0.0-0.8) K/uL Eos # (0.0-0.7) K/uL Baso # (0.0-0.2) K/uL Sodium 137 (132-148) mmol/L Potassium 3.7 (3.6-5.2) mmol/L Chloride 111 H (98-107) mmol/L Carbon Dioxide 18 L (22-30) mmol/L Anion Gap 12 (10-20) BUN 32 H (7-17) mg/dL Creatinine 1.1 (0.7-1.2) MG/DL Est GFR ( Amer) 59 Est GFR (Non-Af Amer) 49 POC Glucose (mg/dL) (65-110) mg/dL Random Glucose 153 H (65-105) mg/dL Calcium 6.0 L* D (8.6-10.4) mg/dl Phosphorus 3.6 (2.5-4.5) mg/dL Magnesium 1.5 L (1.6-2.3) mg/dL Total Bilirubin 0.4 (0.2-1.3) mg/dL AST 22 (14-36) U/L ALT 27 (9-52) U/L Alkaline Phosphatase 24 L D (38-126) U/L Total Protein 4.9 L (6.3-8.3) g/dL Albumin 2.4 L D (3.5-5.0) g/dL Globulin 2.5 (2.2-3.9) gm/dL Albumin/Globulin Ratio 1.0 (1.0-2.1) Blood Type B POSITIVE Antibody Screen Negative 11/07/16 11/07/16 11/06/16 Range/Units 08:43 06:29 21:37 WBC 4.6 L (4.8-10.8) K/uL RBC 2.86 L (3.80-5.20) Mil/uL Hgb 7.3 L D (11.0-16.0) g/dL Hct 23.7 L (34.0-47.0) % MCV 82.0 D (81.0-99.0) fL MCH 25.3 L (27.0-31.0) pg MCHC 30.8 L (33.0-37.0) g/dL RDW 17.0 H (11.5-14.5) % Plt Count 65 L D (130-400) K/uL MPV 11.9 H (7.2-11.7) fL Neut % (Auto) 54.1 (50.0-75.0) % Lymph % (Auto) 29.1 (20.0-40.0) % Hubbard % (Auto) 9.4 (0.0-10.0) % Eos % (Auto) 7.1 H (0.0-4.0) % Baso % (Auto) 0.3 (0.0-2.0) % Neut # 2.5 (1.8-7.0) K/uL Lymph # 1.4 (1.0-4.3) K/uL Hubbard # 0.4 (0.0-0.8) K/uL Eos # 0.3 (0.0-0.7) K/uL Baso # 0.0 (0.0-0.2) K/uL Sodium (132-148) mmol/L Potassium (3.6-5.2) mmol/L Chloride (98-107) mmol/L Carbon Dioxide (22-30) mmol/L Anion Gap (10-20) BUN (7-17) mg/dL Creatinine (0.7-1.2) MG/DL Est GFR ( Amer) Est GFR (Non-Af Amer) POC Glucose (mg/dL) 254 H 275 H (65-110) mg/dL Random Glucose (65-105) mg/dL Calcium (8.6-10.4) mg/dl Phosphorus (2.5-4.5) mg/dL Magnesium (1.6-2.3) mg/dL Total Bilirubin (0.2-1.3) mg/dL AST (14-36) U/L ALT (9-52) U/L Alkaline Phosphatase (38-126) U/L Total Protein (6.3-8.3) g/dL Albumin (3.5-5.0) g/dL Globulin (2.2-3.9) gm/dL Albumin/Globulin Ratio (1.0-2.1) Blood Type Antibody Screen Laboratory Results - last 24 hr 11/06/16 11/07/16 11/07/16 21:37 06:29 08:43 WBC 4.6 L RBC 2.86 L Hgb 7.3 L D Hct 23.7 L MCV 82.0 D MCH 25.3 L MCHC 30.8 L RDW 17.0 H Plt Count 65 L D MPV 11.9 H Neut % (Auto) 54.1 Lymph % (Auto) 29.1 Hubbard % (Auto) 9.4 Eos % (Auto) 7.1 H Baso % (Auto) 0.3 Neut # 2.5 Lymph # 1.4 Hubbard # 0.4 Eos # 0.3 Baso # 0.0 Sodium Potassium Chloride Carbon Dioxide Anion Gap BUN Creatinine Est GFR ( Amer) Est GFR (Non-Af Amer) POC Glucose (mg/dL) 275 H 254 H Random Glucose Calcium Phosphorus Magnesium Total Bilirubin AST ALT Alkaline Phosphatase Total Protein Albumin Globulin Albumin/Globulin Ratio Blood Type Antibody Screen 11/07/16 11/07/16 11/07/16 08:43 11:03 11:03 WBC 7.1 D RBC 4.20 Hgb 10.6 L D Hct 33.5 L MCV 79.8 L D MCH 25.2 L MCHC 31.6 L RDW 16.9 H Plt Count 106 L D MPV 11.3 Neut % (Auto) Lymph % (Auto) Hubbard % (Auto) Eos % (Auto) Baso % (Auto) Neut # Lymph # Hubbard # Eos # Baso # Sodium 137 Potassium 3.7 Chloride 111 H Carbon Dioxide 18 L Anion Gap 12 BUN 32 H Creatinine 1.1 Est GFR ( Amer) 59 Est GFR (Non-Af Amer) 49 POC Glucose (mg/dL) Random Glucose 153 H Calcium 6.0 L* D Phosphorus 3.6 Magnesium 1.5 L Total Bilirubin 0.4 AST 22 ALT 27 Alkaline Phosphatase 24 L D Total Protein 4.9 L Albumin 2.4 L D Globulin 2.5 Albumin/Globulin Ratio 1.0 Blood Type B POSITIVE Antibody Screen Negative 11/07/16 11/07/16 11/07/16 11:03 11:44 16:31 WBC RBC Hgb Hct MCV MCH MCHC RDW Plt Count MPV Neut % (Auto) Lymph % (Auto) Hubbard % (Auto) Eos % (Auto) Baso % (Auto) Neut # Lymph # Hubbard # Eos # Baso # Sodium 136 Potassium 4.7 Chloride 100 Carbon Dioxide 25 Anion Gap 16 BUN 42 H Creatinine 1.5 H Est GFR ( Amer) 41 Est GFR (Non-Af Amer) 34 POC Glucose (mg/dL) 213 H 181 H Random Glucose 175 H Calcium 8.7 Phosphorus Magnesium Total Bilirubin 0.5 AST 29 ALT 33 Alkaline Phosphatase 45 Total Protein 6.9 Albumin 4.1 Globulin 2.9 Albumin/Globulin Ratio 1.4 Blood Type Antibody Screen Fingerstick Blood Sugar Results: 254 Review of Systems - Cardiovascular Cardiovascular: Edema. absent: Chest Pain, Chest Pain at Rest, Chest Pain with Activity, Dyspnea, Dyspnea on Exertion - Respiratory Respiratory: absent: Cough, Dyspnea, Hemoptysis, Dyspnea on Exertion - Gastrointestinal Gastrointestinal: UNREMARKABLE. absent: Abdominal Pain, Belching - Musculoskeletal Musculoskeletal: As Par HPI, Other (B/L leg pain) Critical Care Progress Note - Nutrition Nutrition: Nutrition Category Date Time Status Heart Healthy Diet [DIET] Diets 11/07/16 Dinner Active Assessment/Plan (1) PVD (peripheral vascular disease) Current Visit: Yes Status: Acute (2) Chronic kidney disease Current Visit: Yes Status: Acute (3) HTN (hypertension) Current Visit: Yes Status: Acute (4) Hypercholesterolemia Current Visit: Yes Status: Acute (5) Bilateral leg pain Current Visit: Yes Status: Acute - Assessment and Plan (Free Text) Assessment: Peripheral vascular disease s/p peripheral angiogram on 10/31, Admitted to the ICU today 11/07 s/p fem-pop bypass. Admit to SICU for hemodynamic monitoring and Pulse check Monitor Resp status for resp depression PRN naloxone for RR<8 Pulse check q 1h Periop antibiotics with Ancef pain control with PRN IV dilauded NPO till fully awake, then clear liquid diet, advance as tolerate Monitor urine output Restart meds, including Antihypertensive. Tight glycemic control, RISS coverage Aggressive pulmonary toilet, chest PT, suctioning DVT PPX with SQ Heparin
--- NOTE | 2016-11-07 18:51 | OP ---
PROCEDURE DATE: 11/07/2016 PREOPERATIVE DIAGNOSES: Severe peripheral vascular disease, left lower extremity, with superficial f emoral artery occlusion. POSTOPERATIVE DIAGNOSES: Severe peripheral vascular disease, left lower extremity, with superficial femoral artery occlusion. PROCEDURE PERFORMED: 1. Left femoral popliteal bypass with [place]. 2. Femoral left popliteal endarterectomy. 3. Adjacent tissue transfer closure, greater than 30 square cm. SURGEON: Yash Peterson MD ANESTHESIA: General endotracheal. ESTIMATED BLOOD LOSS: 200 mL. POSTOPERATIVE CONDITION: Stable. INDICATIONS FOR SURGERY: This is a 71-year-old female who presents with a history of severe peripher al vascular disease bilaterally. She underwent a possible stenting of her left superficial femoral a rtery which was unsuccessful and has been scheduled now for a left femoral popliteal bypass. The pat ient's medical condition is complicated by renal insufficiency and low platelet count. For this reas on, a [place]Lexa graft vein graft was done for safety reasons. PROCEDURE: The patient was taken to the operating room. General anesthesia administered and the lef t lower extremity was prepped and draped. An above-knee popliteal incision was made medially and the popliteal artery was then dissected free and looped. The wound was packed with heparinized saline s oaked lap pads and attention was turned to the left groin. A standard left femoral exploration incis ion was made and the common femoral, superficial femoral, and profunda femoris arteries were all diss ected free and Vesselooped. A femoropopliteal tunnel was made and a [place] drain was brought throug h it. Heparin was administered. A 6 mm x 80 mm ringed [place]-Lexa graft was selected and the distal an astomosis was complicated by a heavily diseased above-knee popliteal artery. For this reason, a form al popliteal endarterectomy was performed after opening the vessel using [place] dissectors and extract ing both proximal and distal endpoints within the endarterectomy itself. Tacking sutures were placed . Next, the distal anastomosis was accomplished with a running CV6 [place] suture. The graft was t unneled proximally into the femoral wound. In the femoral wound, an anastomosis was accomplished in what was a moderately to heavily diseased femoral vessel again using CV6 [place] sutures. At the [facility], prior to the anastomosis being done femorally, an arteriogram was taken and this revealed a widely patent above-knee anastomosis with 2-vessel runoff. Once the femoral anastomosis had been ac complished, the wounds were packed with Surgicel. Some bleeders in the popliteal anastomosis were li gated with a 7-0 [place] suture until it was hemostatic. Both wounds were then irrigated with hepar inized saline. In order to facilitate a looser closure and not compress the graft, an adjacent tissu e transfer closure of greater than 30 square cm was performed by widely mobilizing and using multiple layers of Monocryl, subcuticular Monocryl and skin clips. This was repeated in the femoral wound. The patient tolerated procedure well, returned to recovery room in stable condition. Yash Peterson MD cc: [id number] TT: 11/07/2016 18:50:49 emanuel
[2016-11-07] MEDS: Fluticasone Nasal 50 mcg/Spray NAS SCH (20:07)
[2016-11-08] MEDS: Sodium Chloride 0.45% 1,000 ML IV SCH (05:05)
[2016-11-08] MEDS: ceFAZolin 1 GM in Sodium Chloride 0.9% 100 ML IVPB SCH ×3 (05:10→22:00)
[2016-11-08 06:28] LABS: BASO % 0.2 % (0.0-2.0); EOS % 0.3 % (0.0-4.0); HEMATOCRIT 28.3 % (34.0-47.0); LYMPH # 1.3 K/uL (1.0-4.3); LYMPH % 12.6 % (20.0-40.0); MEAN CELL VOLUME 79.8 fL (81.0-99.0); MEAN CORPUSCULAR HEMOGLOBIN 25.3 pg (27.0-31.0); MEAN CORPUSCULAR HGB CONC 31.8 g/dL (33.0-37.0); MEAN PLATELET VOLUME 12.2 fL (7.2-11.7); MONO # 0.7 K/uL (0.0-0.8); MONO % 7.2 % (0.0-10.0); WHITE BLOOD COUNT 9.9 K/uL (4.8-10.8)
[2016-11-08 06:50] LABS: POTASSIUM 4.7 mmol/L (3.6-5.2)
[2016-11-08 06:52] LABS: ALB/GLOB RATIO 1.2 (1.0-2.1); BILIRUBIN,TOTAL 0.6 mg/dL (0.2-1.3); CALCIUM 7.7 mg/dl (8.6-10.4); PHOSPHOROUS 3.9 mg/dL (2.5-4.5); TOTAL PROTEIN 5.6 g/dL (6.3-8.3)
[2016-11-08 06:53] LABS: MAGNESIUM 1.7 mg/dL (1.6-2.3)
[2016-11-08] MEDS: (Novolin R) Insulin Human Regular 100 units/ml vial SC SCH ×4 (07:58→22:00)
[2016-11-08] MEDS ORDERED: Metoprolol 1 mg/ml Inj IVP ONE (09:56)
[2016-11-08] MEDS: (Lantus) Insulin Glargine, Recombinant SC SCH (10:33)
[2016-11-08] MEDS: Fluticasone Nasal 50 mcg/Spray NAS SCH (10:34)
--- NOTE | 2016-11-08 10:49 | RAD ---
HISTORY: low sats COMPARISON: 11/03/2016 FINDINGS: LUNGS: There is patchy right upper lobe opacity. Possible early pneumonia. Questionable left perihilar opacity. Followup advised. No other abnormal opacity is identified. PLEURA: No significant pleural effusion identified, no pneumothorax apparent. CARDIOVASCULAR: Normal. OSSEOUS STRUCTURES: No significant abnormalities. VISUALIZED UPPER ABDOMEN: Normal. OTHER FINDINGS: None. IMPRESSION: Patchy right upper lobe opacity and questionable left perihilar opacity. Possible pneumonia. Followup advised.
--- NOTE | 2016-11-08 12:15 | CP.PCM.PN ---
Subjective - Date & Time of Evaluation Date of Evaluation: 11/08/16 Time of Evaluation: 12:12 - Subjective Subjective: Follow up Nephrology Consultation: Assessment: JOE on CKD 3: improved HTN PVD s/p surgery Obesity iron def anemia Plan Monitor Input/Output, daily weights and renal function with basic metabolic panel HTN control with current meds. not on ACEI/ARB due to recent JOE add iron sulphate 325 mg TID with meals she is on vit D weekly supplements. also on statins check urine protein/creatinine and albumin/creatinine Dose meds/antibiotics for improved GFR. Avoid fleets enema/magnesium based laxatives. Avoid nephrotoxins/NSAIDs Thanks for allowing me to participate in care of your patient. Please call if any Qs Dr Nathan Avila Office: [phone] ROS: Family bedside c/o Rt foot itching. no CP/SOB. no urinary complaints but has horn Physical Examination: General Appearance: Comfortable, in no acute respiratory distress, co-operative . obese Vitals reviewed and noted as below BP 132/60 when seen Lungs: Normal respiratory rate/effort. Breath sounds bilateral equal and clear Heart: Normal rate. s1s2 normal. No rub or gallop. Extremities: trace edema. No varicose veins Neurological: Patient is alert, awake and oriented to person, place and time. No focal deficit. Strength bilateral appropriate and equal Skin: Warm and dry. Normal turgor. No rash. Palpitation: Normal elasticity for age Abdomen: Abdomen is soft. Bowel sounds +. There is no abdominal tenderness, no guarding/rigidity or organomegaly : kidney or bladder not palpable. has horn + clear urine Labs/imaging reviewed. Past medical history, past surgical history, family history, social history, allergy reviewed Sono:echogenic kidneys with cyst and non obst calculus PTH 69 Phos 3.9 Mg 1.7 albumin 3 TSAT 16% ferriitn 204 UA: 2+ protein Objective - Vital Signs/Intake and Output Vital Signs (last 24 hours): Temp Pulse Resp BP Pulse Ox 99.2 F 92 H 23 172/61 H 96 11/08/16 04:00 11/08/16 07:01 11/08/16 07:01 11/08/16 10:28 11/08/16 05:02 Intake and Output: 11/08/16 11/08/16 06:59 18:59 Intake Total 1440 240 Output Total 1550 80 Balance -110 160 - Medications Medications: Current Medications Amlodipine Besylate (Norvasc) 5 mg PO DAILY [facility] Last Admin: 11/08/16 10:27 Dose: 5 mg Aspirin (Aspirin Chewable) 81 mg PO DAILY [facility] Last Admin: 11/08/16 10:28 Dose: 81 mg Clonidine HCl (Catapres) 0.2 mg PO TID [facility] Last Admin: 11/08/16 10:28 Dose: 0.2 mg Clopidogrel Bisulfate (Plavix) 75 mg PO DAILY [facility] Last Admin: 11/08/16 10:28 Dose: 75 mg Docusate Sodium (Colace) 100 mg PO TID [facility] Last Admin: 11/08/16 10:28 Dose: 100 mg Ezetimibe (Zetia) 10 mg PO HS [facility] Last Admin: 11/07/16 22:30 Dose: 10 mg Ergocalciferol (Drisdol 50,000 Intl Units Cap) 1 cap PO QWK [facility] Last Admin: 11/05/16 11:09 Dose: Not Given Famotidine (Pepcid) 20 mg PO BID [facility] Last Admin: 11/08/16 10:27 Dose: 20 mg Fluticasone Propionate (Flonase) 2 spr BERTHA DAILY [facility] Last Admin: 11/08/16 10:34 Dose: Not Given Gabapentin (Neurontin) 100 mg PO TID [facility] Heparin Sodium (Porcine) (Heparin) 5,000 units SC Q8 [facility] Cefazolin Sodium 1 gm/ Sodium (Chloride) 100 mls @ 100 mls/hr IVPB Q8 [facility] Last Admin: 11/08/16 05:10 Dose: 100 mls/hr Insulin Glargine (Lantus) 10 unit SC DAILY [facility] Last Admin: 11/08/16 10:33 Dose: 10 units Insulin Human Regular (Novolin R) 0 unit SC ACHS [facility] PRN Reason: Protocol Last Admin: 11/08/16 07:58 Dose: 2 unit Metoprolol Tartrate (Lopressor) 50 mg PO BID [facility] Last Admin: 11/08/16 10:28 Dose: 50 mg Montelukast Sodium (Singulair) 10 mg PO HS [facility] Last Admin: 11/07/16 22:20 Dose: 10 mg Morphine Sulfate (Morphine) 2 mg IVP Q3 PRN PRN Reason: Pain, severe (8-10) Last Admin: 11/08/16 05:00 Dose: 2 mg Nitroglycerin (Nitrostat Sl Tab) 0.4 mg SL Q5M PRN PRN Reason: chest pain Rosuvastatin Calcium (Crestor) 10 mg PO HS [facility] Last Admin: 11/07/16 22:20 Dose: 10 mg - Labs Labs: 11/08/16 06:22 11/08/16 06:22 PT 10.1 SECONDS (9.7-12.2) 11/02/16 13:36 INR 0.9 11/02/16 13:36 APTT 34 SECONDS (21-34) 11/02/16 13:36
--- NOTE | 2016-11-08 12:45 | CP.PCM.PN ---
Subjective - Date & Time of Evaluation Date of Evaluation: 11/08/16 Time of Evaluation: 10:30 - Subjective Subjective: Pt was seen & evaluated by me yesterday. I was unable to write a note Came back @ 2 pm but computors were still down Pt had c/o swelling of feet but no pain No sob Objective - Vital Signs/Intake and Output Vital Signs (last 24 hours): Temp Pulse Resp BP Pulse Ox 99.2 F 82 14 163/69 H 97 11/08/16 04:00 11/08/16 12:02 11/08/16 12:02 11/08/16 12:02 11/08/16 12:02 Intake and Output: 11/08/16 11/08/16 06:59 18:59 Intake Total 1440 640 Output Total 1550 1080 Balance -110 -440 - Medications Medications: Current Medications Amlodipine Besylate (Norvasc) 5 mg PO DAILY [facility] Last Admin: 11/08/16 10:27 Dose: 5 mg Aspirin (Aspirin Chewable) 81 mg PO DAILY [facility] Last Admin: 11/08/16 10:28 Dose: 81 mg Clonidine HCl (Catapres) 0.2 mg PO TID [facility] Last Admin: 11/08/16 10:28 Dose: 0.2 mg Clopidogrel Bisulfate (Plavix) 75 mg PO DAILY [facility] Last Admin: 11/08/16 10:28 Dose: 75 mg Docusate Sodium (Colace) 100 mg PO TID [facility] Last Admin: 11/08/16 10:28 Dose: 100 mg Ezetimibe (Zetia) 10 mg PO HS [facility] Last Admin: 11/07/16 22:30 Dose: 10 mg Ergocalciferol (Drisdol 50,000 Intl Units Cap) 1 cap PO QWK [facility] Last Admin: 11/05/16 11:09 Dose: Not Given Famotidine (Pepcid) 20 mg PO BID [facility] Last Admin: 11/08/16 10:27 Dose: 20 mg Ferrous Sulfate (Feosol) 325 mg PO TID [facility] Fluticasone Propionate (Flonase) 2 spr BERTHA DAILY [facility] Last Admin: 11/08/16 10:34 Dose: Not Given Gabapentin (Neurontin) 100 mg PO TID [facility] Last Admin: 11/08/16 12:37 Dose: 100 mg Heparin Sodium (Porcine) (Heparin) 5,000 units SC Q8 [facility] Cefazolin Sodium 1 gm/ Sodium (Chloride) 100 mls @ 100 mls/hr IVPB Q8 [facility] Last Admin: 11/08/16 05:10 Dose: 100 mls/hr Insulin Glargine (Lantus) 10 unit SC DAILY [facility] Last Admin: 11/08/16 10:33 Dose: 10 units Insulin Human Regular (Novolin R) 0 unit SC ACHS [facility] PRN Reason: Protocol Last Admin: 11/08/16 12:37 Dose: 2 unit Metoprolol Tartrate (Lopressor) 50 mg PO BID [facility] Last Admin: 11/08/16 10:28 Dose: 50 mg Montelukast Sodium (Singulair) 10 mg PO HS [facility] Last Admin: 11/07/16 22:20 Dose: 10 mg Morphine Sulfate (Morphine) 2 mg IVP Q3 PRN PRN Reason: Pain, severe (8-10) Last Admin: 11/08/16 05:00 Dose: 2 mg Nitroglycerin (Nitrostat Sl Tab) 0.4 mg SL Q5M PRN PRN Reason: chest pain Rosuvastatin Calcium (Crestor) 10 mg PO [facility] Last Admin: 11/07/16 22:20 Dose: 10 mg - Labs Labs: 11/08/16 06:22 11/08/16 06:22 PT 10.1 SECONDS (9.7-12.2) 11/02/16 13:36 INR 0.9 11/02/16 13:36 APTT 34 SECONDS (21-34) 11/02/16 13:36 - Respiratory Exam Additional comments: Lungs clear - Cardiovascular Exam Cardiovascular Exam: REGULAR RHYTHM - Extremities Exam Additional comments: 1-2 + edema of both feet Assessment and Plan - Assessment and Plan (Free Text) Assessment: Stage 111 kidney dis renal function is stable HTN PVD Plan: Scheduled for leg bypass surgery today. Continue to monitor renal function
--- NOTE | 2016-11-08 13:00 | CP.PCM.PN ---
<Bridgette Schilling - Last Filed: 11/08/16 13:04> Subjective - Date & Time of Evaluation Date of Evaluation: 11/08/16 Time of Evaluation: 10:00 - Subjective Subjective: Medicine Note for Dr. Pete, Patient was seen and examined at bedside. S/P fem pop bypass POD #1. Patient was seen in the ICU. Patient reports her pain is well controlled. As per nursing , patient reported having chest pain last night, EKG and ROMIs were ordered, showing changes in the inferior leads. Patient was given nitro. 1st KASHIF was negative 2nd was elevated at 0.1660, as per Dr. Newman and by Dr. Peterson, patient was given plavix and to be started on it daily. Patient denied any current headaches, chest pain, palpitations, SOB, abdominal pain, nausea, vomiting, bowel/bladder complaints. She continues to have pain in her legs b/l and some tingling. Objective - Vital Signs/Intake and Output Vital Signs (last 24 hours): Temp Pulse Resp BP Pulse Ox 99.2 F 82 14 163/69 H 97 11/08/16 04:00 11/08/16 12:02 11/08/16 12:02 11/08/16 12:02 11/08/16 12:02 Intake and Output: 11/08/16 11/08/16 06:59 18:59 Intake Total 1440 640 Output Total 1550 1080 Balance -110 -440 - Medications Medications: Current Medications Amlodipine Besylate (Norvasc) 5 mg PO DAILY [facility] Last Admin: 11/08/16 10:27 Dose: 5 mg Aspirin (Aspirin Chewable) 81 mg PO DAILY [facility] Last Admin: 11/08/16 10:28 Dose: 81 mg Clonidine HCl (Catapres) 0.2 mg PO TID [facility] Last Admin: 11/08/16 10:28 Dose: 0.2 mg Clopidogrel Bisulfate (Plavix) 75 mg PO DAILY [facility] Last Admin: 11/08/16 10:28 Dose: 75 mg Docusate Sodium (Colace) 100 mg PO TID [facility] Last Admin: 11/08/16 10:28 Dose: 100 mg Ezetimibe (Zetia) 10 mg PO HS [facility] Last Admin: 11/07/16 22:30 Dose: 10 mg Ergocalciferol (Drisdol 50,000 Intl Units Cap) 1 cap PO QWK [facility] Last Admin: 11/05/16 11:09 Dose: Not Given Famotidine (Pepcid) 20 mg PO BID [facility] Last Admin: 11/08/16 10:27 Dose: 20 mg Ferrous Sulfate (Feosol) 325 mg PO TID [facility] Fluticasone Propionate (Flonase) 2 spr BERTHA DAILY [facility] Last Admin: 11/08/16 10:34 Dose: Not Given Gabapentin (Neurontin) 100 mg PO TID [facility] Last Admin: 11/08/16 12:37 Dose: 100 mg Heparin Sodium (Porcine) (Heparin) 5,000 units SC Q8 [facility] Cefazolin Sodium 1 gm/ Sodium (Chloride) 100 mls @ 100 mls/hr IVPB Q8 [facility] Last Admin: 11/08/16 05:10 Dose: 100 mls/hr Insulin Glargine (Lantus) 10 unit SC DAILY [facility] Last Admin: 11/08/16 10:33 Dose: 10 units Insulin Human Regular (Novolin R) 0 unit SC [facility] PRN Reason: Protocol Last Admin: 11/08/16 12:37 Dose: 2 unit Metoprolol Tartrate (Lopressor) 50 mg PO BID [facility] Last Admin: 11/08/16 10:28 Dose: 50 mg Montelukast Sodium (Singulair) 10 mg PO [facility] Last Admin: 11/07/16 22:20 Dose: 10 mg Morphine Sulfate (Morphine) 2 mg IVP Q3 PRN PRN Reason: Pain, severe (8-10) Last Admin: 11/08/16 05:00 Dose: 2 mg Nitroglycerin (Nitrostat Sl Tab) 0.4 mg SL Q5M PRN PRN Reason: chest pain Rosuvastatin Calcium (Crestor) 10 mg PO [facility] Last Admin: 11/07/16 22:20 Dose: 10 mg - Labs Labs: 11/08/16 06:22 11/08/16 06:22 PT 10.1 SECONDS (9.7-12.2) 11/02/16 13:36 INR 0.9 11/02/16 13:36 APTT 34 SECONDS (21-34) 11/02/16 13:36 - Constitutional Appears: No Acute Distress - Head Exam Head Exam: NORMAL INSPECTION, NORMOCEPHALIC - ENT Exam ENT Exam: Mucous Membranes Moist - Respiratory Exam Respiratory Exam: Clear to Ausculation Bilateral, NORMAL BREATHING PATTERN. absent: Decreased Breath Sounds, Rhonchi, Wheezes - Cardiovascular Exam Cardiovascular Exam: REGULAR RHYTHM, RRR, +S1, +S2 - GI/Abdominal Exam GI & Abdominal Exam: Soft, Normal Bowel Sounds. absent: Distended, Tenderness - Extremities Exam Extremities Exam: Normal Inspection. absent: Pedal Edema, Tenderness - Neurological Exam Neurological Exam: Alert, Awake, Oriented x3 - Skin Skin Exam: Dry, Intact, Normal Color, Warm Assessment and Plan - Assessment and Plan (Free Text) Assessment: 71 year old female with a PMHx of HTN. Diabetes Mellitus, Chronic Kidney Disease , peripheral vascular disease, hypercholesterolemia, and Gout send in by Dr. Peterson for PVD. Plan: Peripheral Vascular Disease -Management as per vascular surgery, Dr. Peterson -s/p peripehral angiogram with Dr. Newman - Fem-pop bypass S/P POD #1 - patient is being observed in the ICU. As per nursing, patient reported having chest pain last night, EKG and ROMIs were ordered, showing changes in the inferior leads. Patient was given nitro. 1st KASHIF was negative 2nd was elevated at 0.1660, as per Dr. Newman and by Dr. Peterson, patient was given plavix and to be started on it daily. - Plavix 75mg PO daily - Morphine 2mg IVP Q3H -ASA 81mg po daily -Crestor 10mg po hs HTN: -ASA 81mg po daily -Norvasc 5mg po daily -Lisinopril and HCTZ were DC due to hyperkalemia and increased BUN/CRE -Clonidine 0.2mg po TID -Echo: normal EF, mild LVF -TSH: 2.53 -EKG - sinus bradycardia, t wave inversions in leads I and avL -Dr. Newman cardiology consulted Diabetes Mellitus: -Acchuchecks achs -Regular insulin sliding scale - HIGH -Lantus 10mg SC daily -HgbA1c: 7.7 Chronic Kidney Disease Stage III: -monitor BUN:Cr -renal US: HTN disease -Dr. 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 Fraire can be called and notified of her admission. [phone], Tonie Mason DO, PGY-1 <Jose Pete - Last Filed: 11/08/16 16:33> Objective - Vital Signs/Intake and Output Vital Signs (last 24 hours): Temp Pulse Resp BP Pulse Ox 98.5 F 63 28 H 107/44 L 100 11/08/16 13:00 11/08/16 15:02 11/08/16 15:02 11/08/16 15:02 11/08/16 15:02 Intake and Output: 11/08/16 11/08/16 06:59 18:59 Intake Total 1440 940 Output Total 1550 1580 Balance -110 -640 - Medications Medications: Current Medications Amlodipine Besylate (Norvasc) 5 mg PO DAILY [facility] Last Admin: 11/08/16 10:27 Dose: 5 mg Aspirin (Aspirin Chewable) 81 mg PO DAILY [facility] Last Admin: 11/08/16 10:28 Dose: 81 mg Clonidine HCl (Catapres) 0.2 mg PO TID [facility] Last Admin: 11/08/16 13:52 Dose: 0.2 mg Clopidogrel Bisulfate (Plavix) 75 mg PO DAILY [facility] Last Admin: 11/08/16 10:28 Dose: 75 mg Docusate Sodium (Colace) 100 mg PO TID [facility] Last Admin: 11/08/16 13:52 Dose: 100 mg Ezetimibe (Zetia) 10 mg PO HS [facility] Last Admin: 11/07/16 22:30 Dose: 10 mg Ergocalciferol (Drisdol 50,000 Intl Units Cap) 1 cap PO QWK [facility] Last Admin: 11/05/16 11:09 Dose: Not Given Famotidine (Pepcid) 20 mg PO BID [facility] Last Admin: 11/08/16 10:27 Dose: 20 mg Ferrous Sulfate (Feosol) 325 mg PO TID [facility] Last Admin: 11/08/16 13:52 Dose: 325 mg Fluticasone Propionate (Flonase) 2 spr BERTHA DAILY [facility] Last Admin: 11/08/16 10:34 Dose: Not Given Gabapentin (Neurontin) 100 mg PO TID [facility] Last Admin: 11/08/16 13:52 Dose: 100 mg Heparin Sodium (Porcine) (Heparin) 5,000 units SC Q8 [facility] Last Admin: 11/08/16 13:52 Dose: 5,000 units Cefazolin Sodium 1 gm/ Sodium (Chloride) 100 mls @ 100 mls/hr IVPB Q8 [facility] Last Admin: 11/08/16 13:53 Dose: 100 mls/hr Insulin Glargine (Lantus) 10 unit SC DAILY [facility] Last Admin: 11/08/16 10:33 Dose: 10 units Insulin Human Regular (Novolin R) 0 unit SC ACHS [facility] PRN Reason: Protocol Last Admin: 11/08/16 12:37 Dose: 2 unit Metoprolol Tartrate (Lopressor) 50 mg PO BID [facility] Last Admin: 11/08/16 10:28 Dose: 50 mg Montelukast Sodium (Singulair) 10 mg PO [facility] Last Admin: 11/07/16 22:20 Dose: 10 mg Morphine Sulfate (Morphine) 2 mg IVP Q3 PRN PRN Reason: Pain, severe (8-10) Last Admin: 11/08/16 05:00 Dose: 2 mg Nitroglycerin (Nitrostat Sl Tab) 0.4 mg SL Q5M PRN PRN Reason: chest pain Rosuvastatin Calcium (Crestor) 10 mg PO [facility] Last Admin: 11/07/16 22:20 Dose: 10 mg - Labs Labs: 11/08/16 06:22 11/08/16 06:22 PT 10.1 SECONDS (9.7-12.2) 11/02/16 13:36 INR 0.9 11/02/16 13:36 APTT 34 SECONDS (21-34) 11/02/16 13:36 Attending/Attestation - Attestation I have personally seen and examined this patient.: Yes I have fully participated in the care of the patient.: Yes I have reviewed all pertinent clinical information, including history, physical exam and plan: Yes
--- NOTE | 2016-11-08 13:30 | CP.CCUPN ---
<Carrillo Angeles - Last Filed: 11/08/16 13:23> CCU Subjective - Physician Review Subjective (Free Text): 11/08/16 13:23 PGY-1 ICU progress note Pt seen and examined at bedside. Pt has no complaints this morning. Pain well under control. Denies fevers, chills, chest pain, sob, nausea or vomiting. Critical Care Time Spent (in minutes): 35 CCU Objective - Vital Signs / Intake & Output Vital Signs (Last 4 hours): Vital Signs Pulse Resp BP Pulse Ox 11/08/16 12:02 82 14 163/69 H 97 11/08/16 11:00 80 12 172/61 H 94 L 11/08/16 10:28 172/61 H 11/08/16 10:03 86 28 H 172/61 H 95 Intake and Output (Last 8hrs): Intake & Output 11/07/16 11/08/16 11/08/16 22:59 06:59 14:59 Intake Total 860 800 640 Output Total 1250 1000 1080 Balance -390 -200 -440 Weight 220 lb 7.396 oz 220 lb 7.396 oz Intake: Intake, IV Amount 500 800 300 Right Hand 500 800 300 Oral 360 340 Output: Urine 1250 1000 1080 Urethral (Horn) 650 1000 1080 Other: # Bowel Movements 0 - Physical Exam Head: Positive for: Atraumatic, Normocephalic Pupils: Positive for: PERRL Mouth: Positive for: Moist Mucous Membranes Respiratory/Chest: Positive for: Clear to Auscultation, Good Air Exchange Cardiovascular: Positive for: Normal S1, S2 Abdomen: Positive for: Normal Bowel Sounds. Negative for: Tenderness, Distention Upper Extremity: Positive for: NORMAL PULSES Lower Extremity: Positive for: Other (bandages in place, no strike through bleeding. Appropriate tenderness) Neurological: Positive for: Speech Normal, Motor Func Grossly Intact Skin: Positive for: Warm, Dry Psychiatric: Positive for: Alert, Oriented x 3 - Medications Active Medications: Active Medications Generic Name Dose Route Start Last Admin Trade Name Freq PRN Reason Stop Dose Admin Amlodipine Besylate 5 mg 11/04/16 11:58 11/08/16 10:27 Norvasc PO 5 mg DAILY CARRIE Administration Aspirin 81 mg 10/29/16 11:30 11/08/16 10:28 Aspirin Chewable PO 81 mg DAILY CARRIE Administration Clonidine HCl 0.2 mg 11/04/16 14:00 11/08/16 10:28 Catapres PO 0.2 mg TID CARRIE Administration Clopidogrel Bisulfate 75 mg 11/08/16 10:00 11/08/16 10:28 Plavix PO 75 mg DAILY CARRIE Administration Docusate Sodium 100 mg 11/02/16 14:00 11/08/16 10:28 Colace PO 100 mg TID CARRIE Administration Ezetimibe 10 mg 10/28/16 22:00 11/07/16 22:30 Zetia PO 10 mg HS CARRIE Administration Ergocalciferol 1 cap 10/29/16 10:00 11/05/16 11:09 Drisdol 50,000 Intl Units Cap PO Not Given [facility]WK [facility] Famotidine 20 mg 11/08/16 10:15 11/08/16 10:27 Pepcid PO 20 mg BID CARRIE Administration Ferrous Sulfate 325 mg 11/08/16 14:00 Feosol PO TID [facility] Fluticasone Propionate 2 spr 10/30/16 11:00 11/08/16 10:34 Flonase BERTHA Not Given DAILY [facility] Gabapentin 100 mg 11/08/16 12:00 11/08/16 12:37 Neurontin PO 100 mg TID [facility] Administration Heparin Sodium (Porcine) 5,000 units 11/08/16 14:00 Heparin SC Q8 [facility] Cefazolin Sodium 1 gm/ Sodium 100 mls @ 100 mls/hr 11/04/16 14:00 11/08/16 05 :10 Chloride IVPB 100 mls/hr Q8 CARRIE Administration Insulin Glargine 10 unit 11/06/16 10:00 11/08/16 10:33 Lantus SC 10 units DAILY [facility] Administration Insulin Human Regular 0 unit 11/05/16 09:14 11/08/16 12:37 Novolin R SC 2 unit ACHS CARRIE Administration Protocol Metoprolol Tartrate 50 mg 11/08/16 10:00 11/08/16 10:28 Lopressor PO 50 mg BID CARRIE Administration Montelukast Sodium 10 mg 10/30/16 22:00 11/07/16 22:20 Singulair PO 10 mg HS CARRIE Administration Morphine Sulfate 2 mg 11/07/16 18:56 11/08/16 05:00 Morphine IVP 2 mg Q3 PRN Administration Pain, severe (8-10) Nitroglycerin 0.4 mg 11/07/16 22:45 Nitrostat Sl Tab SL Q5M PRN chest pain Rosuvastatin Calcium 10 mg 11/01/16 22:00 11/07/16 22:20 Crestor PO 10 mg HS CARRIE Administration - Patient Studies Lab Studies: Lab Studies 11/08/16 11/08/16 11/08/16 Range/Units 12:20 07:34 06:22 WBC (4.8-10.8) K/uL RBC (3.80-5.20) Mil/uL Hgb (11.0-16.0) g/dL Hct (34.0-47.0) % MCV (81.0-99.0) fL MCH (27.0-31.0) pg MCHC (33.0-37.0) g/dL RDW (11.5-14.5) % Plt Count (130-400) K/uL MPV (7.2-11.7) fL Neut % (Auto) (50.0-75.0) % Lymph % (Auto) (20.0-40.0) % [place] % (Auto) (0.0-10.0) % Eos % (Auto) (0.0-4.0) % Baso % (Auto) (0.0-2.0) % Neut # (1.8-7.0) K/uL Lymph # (1.0-4.3) K/uL [place] # (0.0-0.8) K/uL Eos # (0.0-0.7) K/uL Baso # (0.0-0.2) K/uL Sodium (132-148) mmol/L Potassium (3.6-5.2) mmol/L Chloride (98-107) mmol/L Carbon Dioxide (22-30) mmol/L Anion Gap (10-20) BUN (7-17) mg/dL Creatinine (0.7-1.2) MG/DL Est GFR ( Amer) Est GFR (Non-Af Amer) POC Glucose (mg/dL) 169 H 192 H (65-110) mg/dL Random Glucose (65-105) mg/dL Calcium (8.6-10.4) mg/dl Phosphorus (2.5-4.5) mg/dL Magnesium (1.6-2.3) mg/dL Total Bilirubin (0.2-1.3) mg/dL AST (14-36) U/L ALT (9-52) U/L Alkaline Phosphatase (38-126) U/L Total Creatine Kinase 191 H (30-135) U/L CK-MB (Mass) 9.41 H (0.0-3.38) ng/mL Troponin I, Quant 0.1660 H* (0.00-0.120) ng/mL Total Protein (6.3-8.3) g/dL Albumin (3.5-5.0) g/dL Globulin (2.2-3.9) gm/dL Albumin/Globulin Ratio (1.0-2.1) Blood Type Antibody Screen 11/08/16 11/08/16 11/07/16 Range/Units 06:22 06:22 22:20 WBC 9.9 (4.8-10.8) K/uL RBC 3.54 L (3.80-5.20) Mil/uL Hgb 9.0 L (11.0-16.0) g/dL Hct 28.3 L (34.0-47.0) % MCV 79.8 L (81.0-99.0) fL MCH 25.3 L (27.0-31.0) pg MCHC 31.8 L (33.0-37.0) g/dL RDW 17.0 H (11.5-14.5) % Plt Count 113 L (130-400) K/uL MPV 12.2 H (7.2-11.7) fL Neut % (Auto) 79.7 H (50.0-75.0) % Lymph % (Auto) 12.6 L (20.0-40.0) % [place] % (Auto) 7.2 (0.0-10.0) % Eos % (Auto) 0.3 (0.0-4.0) % Baso % (Auto) 0.2 (0.0-2.0) % Neut # 7.9 H (1.8-7.0) K/uL Lymph # 1.3 (1.0-4.3) K/uL [place] # 0.7 (0.0-0.8) K/uL Eos # 0.0 (0.0-0.7) K/uL Baso # 0.0 (0.0-0.2) K/uL Sodium 131 L (132-148) mmol/L Potassium 4.7 (3.6-5.2) mmol/L Chloride 101 (98-107) mmol/L Carbon Dioxide 22 (22-30) mmol/L Anion Gap 13 (10-20) BUN 30 H (7-17) mg/dL Creatinine 1.2 (0.7-1.2) MG/DL Est GFR ( Amer) 54 Est GFR (Non-Af Amer) 44 POC Glucose (mg/dL) (65-110) mg/dL Random Glucose 171 H (65-105) mg/dL Calcium 7.7 L (8.6-10.4) mg/dl Phosphorus 3.9 (2.5-4.5) mg/dL Magnesium 1.7 (1.6-2.3) mg/dL Total Bilirubin 0.6 (0.2-1.3) mg/dL AST 34 (14-36) U/L ALT 27 (9-52) U/L Alkaline Phosphatase 37 L (38-126) U/L Total Creatine Kinase 138 H (30-135) U/L CK-MB (Mass) 3.19 (0.0-3.38) ng/mL Troponin I, Quant 0.0170 (0.00-0.120) ng/mL Total Protein 5.6 L (6.3-8.3) g/dL Albumin 3.0 L D (3.5-5.0) g/dL Globulin 2.6 (2.2-3.9) gm/dL Albumin/Globulin Ratio 1.2 (1.0-2.1) Blood Type Antibody Screen 11/07/16 11/07/16 11/07/16 Range/Units 21:15 16:31 11:03 WBC (4.8-10.8) K/uL RBC (3.80-5.20) Mil/uL Hgb (11.0-16.0) g/dL Hct (34.0-47.0) % MCV (81.0-99.0) fL MCH (27.0-31.0) pg MCHC (33.0-37.0) g/dL RDW (11.5-14.5) % Plt Count (130-400) K/uL MPV (7.2-11.7) fL Neut % (Auto) (50.0-75.0) % Lymph % (Auto) (20.0-40.0) % [place] % (Auto) (0.0-10.0) % Eos % (Auto) (0.0-4.0) % Baso % (Auto) (0.0-2.0) % Neut # (1.8-7.0) K/uL Lymph # (1.0-4.3) K/uL [place] # (0.0-0.8) K/uL Eos # (0.0-0.7) K/uL Baso # (0.0-0.2) K/uL Sodium 136 (132-148) mmol/L Potassium 4.7 (3.6-5.2) mmol/L Chloride 100 (98-107) mmol/L Carbon Dioxide 25 (22-30) mmol/L Anion Gap 16 (10-20) BUN 42 H (7-17) mg/dL Creatinine 1.5 H (0.7-1.2) MG/DL Est GFR ( Amer) 41 Est GFR (Non-Af Amer) 34 POC Glucose (mg/dL) 215 H 181 H (65-110) mg/dL Random Glucose 175 H (65-105) mg/dL Calcium 8.7 (8.6-10.4) mg/dl Phosphorus (2.5-4.5) mg/dL Magnesium (1.6-2.3) mg/dL Total Bilirubin 0.5 (0.2-1.3) mg/dL AST 29 (14-36) U/L ALT 33 (9-52) U/L Alkaline Phosphatase 45 (38-126) U/L Total Creatine Kinase (30-135) U/L CK-MB (Mass) (0.0-3.38) ng/mL Troponin I, Quant (0.00-0.120) ng/mL Total Protein 6.9 (6.3-8.3) g/dL Albumin 4.1 (3.5-5.0) g/dL Globulin 2.9 (2.2-3.9) gm/dL Albumin/Globulin Ratio 1.4 (1.0-2.1) Blood Type Antibody Screen 11/07/16 Range/Units 11:03 WBC (4.8-10.8) K/uL RBC (3.80-5.20) Mil/uL Hgb (11.0-16.0) g/dL Hct (34.0-47.0) % MCV (81.0-99.0) fL MCH (27.0-31.0) pg MCHC (33.0-37.0) g/dL RDW (11.5-14.5) % Plt Count (130-400) K/uL MPV (7.2-11.7) fL Neut % (Auto) (50.0-75.0) % Lymph % (Auto) (20.0-40.0) % [place] % (Auto) (0.0-10.0) % Eos % (Auto) (0.0-4.0) % Baso % (Auto) (0.0-2.0) % Neut # (1.8-7.0) K/uL Lymph # (1.0-4.3) K/uL [place] # (0.0-0.8) K/uL Eos # (0.0-0.7) K/uL Baso # (0.0-0.2) K/uL Sodium (132-148) mmol/L Potassium (3.6-5.2) mmol/L Chloride (98-107) mmol/L Carbon Dioxide (22-30) mmol/L Anion Gap (10-20) BUN (7-17) mg/dL Creatinine (0.7-1.2) MG/DL Est GFR ( Amer) Est GFR (Non-Af Amer) POC Glucose (mg/dL) (65-110) mg/dL Random Glucose (65-105) mg/dL Calcium (8.6-10.4) mg/dl Phosphorus (2.5-4.5) mg/dL Magnesium (1.6-2.3) mg/dL Total Bilirubin (0.2-1.3) mg/dL AST (14-36) U/L ALT (9-52) U/L Alkaline Phosphatase (38-126) U/L Total Creatine Kinase (30-135) U/L CK-MB (Mass) (0.0-3.38) ng/mL Troponin I, Quant (0.00-0.120) ng/mL Total Protein (6.3-8.3) g/dL Albumin (3.5-5.0) g/dL Globulin (2.2-3.9) gm/dL Albumin/Globulin Ratio (1.0-2.1) Blood Type B POSITIVE Antibody Screen Negative Laboratory Results - last 24 hr 11/07/16 11/07/16 11/07/16 11:03 11:03 16:31 WBC RBC Hgb Hct MCV MCH MCHC RDW Plt Count MPV Neut % (Auto) Lymph % (Auto) [place] % (Auto) Eos % (Auto) Baso % (Auto) Neut # Lymph # [place] # Eos # Baso # Sodium 136 Potassium 4.7 Chloride 100 Carbon Dioxide 25 Anion Gap 16 BUN 42 H Creatinine 1.5 H Est GFR ( Amer) 41 Est GFR (Non-Af Amer) 34 POC Glucose (mg/dL) 181 H Random Glucose 175 H Calcium 8.7 Phosphorus Magnesium Total Bilirubin 0.5 AST 29 ALT 33 Alkaline Phosphatase 45 Total Creatine Kinase CK-MB (Mass) Troponin I, Quant Total Protein 6.9 Albumin 4.1 Globulin 2.9 Albumin/Globulin Ratio 1.4 Blood Type B POSITIVE Antibody Screen Negative 11/07/16 11/07/16 11/08/16 21:15 22:20 06:22 WBC 9.9 RBC 3.54 L Hgb 9.0 L Hct 28.3 L MCV 79.8 L MCH 25.3 L MCHC 31.8 L RDW 17.0 H Plt Count 113 L MPV 12.2 H Neut % (Auto) 79.7 H Lymph % (Auto) 12.6 L [place] % (Auto) 7.2 Eos % (Auto) 0.3 Baso % (Auto) 0.2 Neut # 7.9 H Lymph # 1.3 [place] # 0.7 Eos # 0.0 Baso # 0.0 Sodium Potassium Chloride Carbon Dioxide Anion Gap BUN Creatinine Est GFR ( Amer) Est GFR (Non-Af Amer) POC Glucose (mg/dL) 215 H Random Glucose Calcium Phosphorus Magnesium Total Bilirubin AST ALT Alkaline Phosphatase Total Creatine Kinase 138 H CK-MB (Mass) 3.19 Troponin I, Quant 0.0170 Total Protein Albumin Globulin Albumin/Globulin Ratio Blood Type Antibody Screen 11/08/16 11/08/16 11/08/16 06:22 06:22 07:34 WBC RBC Hgb Hct MCV MCH MCHC RDW Plt Count MPV Neut % (Auto) Lymph % (Auto) [place] % (Auto) Eos % (Auto) Baso % (Auto) Neut # Lymph # [place] # Eos # Baso # Sodium 131 L Potassium 4.7 Chloride 101 Carbon Dioxide 22 Anion Gap 13 BUN 30 H Creatinine 1.2 Est GFR ( Amer) 54 Est GFR (Non-Af Amer) 44 POC Glucose (mg/dL) 192 H Random Glucose 171 H Calcium 7.7 L Phosphorus 3.9 Magnesium 1.7 Total Bilirubin 0.6 AST 34 ALT 27 Alkaline Phosphatase 37 L Total Creatine Kinase 191 H CK-MB (Mass) 9.41 H Troponin I, Quant 0.1660 H* Total Protein 5.6 L Albumin 3.0 L D Globulin 2.6 Albumin/Globulin Ratio 1.2 Blood Type Antibody Screen 11/08/16 12:20 WBC RBC Hgb Hct MCV MCH MCHC RDW Plt Count MPV Neut % (Auto) Lymph % (Auto) [place] % (Auto) Eos % (Auto) Baso % (Auto) Neut # Lymph # [place] # Eos # Baso # Sodium Potassium Chloride Carbon Dioxide Anion Gap BUN Creatinine Est GFR ( Amer) Est GFR (Non-Af Amer) POC Glucose (mg/dL) 169 H Random Glucose Calcium Phosphorus Magnesium Total Bilirubin AST ALT Alkaline Phosphatase Total Creatine Kinase CK-MB (Mass) Troponin I, Quant Total Protein Albumin Globulin Albumin/Globulin Ratio Blood Type Antibody Screen EKG/Cardiology Studies: Cardiology / EKG Studies 11/07/16 21:48 ELECTROCARDIOGRAM Stat Comment: Mode Of Transportation: PORTABLE Reason For Exam: chest Isolation: Contact 11/08/16 09:52 EKG [ELECTROCARDIOGRAM] Stat Comment: Mode Of Transportation: Reason For Exam: positive troponins Isolation: Contact Fingerstick Blood Sugar Results: 169 Review of Systems - Review of Systems All systems: reviewed and no additional remarkable complaints except (where noted in HPI) Critical Care Progress Note - Nutrition Nutrition: Nutrition Category Date Time Status Heart Healthy Diet [DIET] Diets 11/07/16 Dinner Active Assessment/Plan - Assessment and Plan (Free Text) Assessment: 71 year old female with a PMHx of HTN. Diabetes Mellitus, Chronic Kidney Disease , peripheral vascular disease, hypercholesterolemia, and Gout s/p fem-pop bypass , POD#1. Plan: Neuro: AAOx3, monitor Cardiovascular: Hemodynamically stable Reported some chest discomfort during night, EKG and serial KASHIF ordered with mildly elevated trop in AM. Will f/u Given one dose of lasix Continue current regimen Pulmonary: Saturating well, no acute distress No issues Gastrointestinal: No acute issues Heart healthy diet Hematology: No acute issues, monitor Cont plavix and ASA Endocrine: No issues sliding scale coverage Renal: No acute issues Cr improved Infectious Disease: Ancef per surgery Afebrile, no leukocytosis GI Prophylaxis: Pepcid DVT Prophylaxis: Heparin Dispo - Consider transfer if repeat KASHIF's negative <Macario Bautista - Last Filed: 11/08/16 14:32> CCU Objective - Vital Signs / Intake & Output Vital Signs (Last 4 hours): Vital Signs Pulse Resp BP Pulse Ox 11/08/16 12:02 82 14 163/69 H 97 11/08/16 11:00 80 12 172/61 H 94 L Intake and Output (Last 8hrs): Intake & Output 11/07/16 11/08/16 11/08/16 22:59 06:59 14:59 Intake Total 860 800 640 Output Total 1250 1000 1080 Balance -390 -200 -440 Weight 220 lb 7.396 oz 220 lb 7.396 oz Intake: Intake, IV Amount 500 800 300 Right Hand 500 800 300 Oral 360 340 Output: Urine 1250 1000 1080 Urethral (Horn) 650 1000 1080 Other: # Bowel Movements 0 - Medications Active Medications: Active Medications Generic Name Dose Route Start Last Admin Trade Name Luisq PRN Reason Stop Dose Admin Amlodipine Besylate 5 mg 11/04/16 11:58 11/08/16 10:27 Norvasc PO 5 mg DAILY CARRIE Administration Aspirin 81 mg 10/29/16 11:30 11/08/16 10:28 Aspirin Chewable PO 81 mg DAILY [facility] Administration Clonidine HCl 0.2 mg 11/04/16 14:00 11/08/16 13:52 Catapres PO 0.2 mg TID CARRIE Administration Clopidogrel Bisulfate 75 mg 11/08/16 10:00 11/08/16 10:28 Plavix PO 75 mg DAILY [facility] Administration Docusate Sodium 100 mg 11/02/16 14:00 11/08/16 13:52 Colace PO 100 mg TID [facility] Administration Ezetimibe 10 mg 10/28/16 22:00 11/07/16 22:30 Zetia PO 10 mg HS [facility] Administration Ergocalciferol 1 cap 10/29/16 10:00 11/05/16 11:09 Drisdol 50,000 Intl Units Cap PO Not Given QWK [facility] Famotidine 20 mg 11/08/16 10:15 11/08/16 10:27 Pepcid PO 20 mg BID CARRIE Administration Ferrous Sulfate 325 mg 11/08/16 14:00 11/08/16 13:52 Feosol PO 325 mg TID [facility] Administration Fluticasone Propionate 2 spr 10/30/16 11:00 11/08/16 10:34 Flonase BERTHA Not Given DAILY [facility] Gabapentin 100 mg 11/08/16 12:00 11/08/16 13:52 Neurontin PO 100 mg TID [facility]RIE Administration Heparin Sodium (Porcine) 5,000 units 11/08/16 14:00 11/08/16 13:52 Heparin SC 5,000 units Q8 [facility] Administration Cefazolin Sodium 1 gm/ Sodium 100 mls @ 100 mls/hr 11/04/16 14:00 11/08/16 13 :53 Chloride IVPB 100 mls/hr Q8 [facility] Administration Insulin Glargine 10 unit 11/06/16 10:00 11/08/16 10:33 Lantus SC 10 units DAILY [facility] Administration Insulin Human Regular 0 unit 11/05/16 09:14 11/08/16 12:37 Novolin R SC 2 unit ACHS [facility]RIE Administration Protocol Metoprolol Tartrate 50 mg 11/08/16 10:00 11/08/16 10:28 Lopressor PO 50 mg BID [facility] Administration Montelukast Sodium 10 mg 10/30/16 22:00 11/07/16 22:20 Singulair PO 10 mg HS [facility] Administration Morphine Sulfate 2 mg 11/07/16 18:56 11/08/16 05:00 Morphine IVP 2 mg Q3 PRN Administration Pain, severe (8-10) Nitroglycerin 0.4 mg 11/07/16 22:45 Nitrostat Sl Tab SL Q5M PRN chest pain Rosuvastatin Calcium 10 mg 11/01/16 22:00 11/07/16 22:20 Crestor PO 10 mg HS CARRIE Administration - Patient Studies Lab Studies: Lab Studies 11/08/16 11/08/16 11/08/16 Range/Units 12:20 07:34 06:22 WBC (4.8-10.8) K/uL RBC (3.80-5.20) Mil/uL Hgb (11.0-16.0) g/dL Hct (34.0-47.0) % MCV (81.0-99.0) fL MCH (27.0-31.0) pg MCHC (33.0-37.0) g/dL RDW (11.5-14.5) % Plt Count (130-400) K/uL MPV (7.2-11.7) fL Neut % (Auto) (50.0-75.0) % Lymph % (Auto) (20.0-40.0) % [place] % (Auto) (0.0-10.0) % Eos % (Auto) (0.0-4.0) % Baso % (Auto) (0.0-2.0) % Neut # (1.8-7.0) K/uL Lymph # (1.0-4.3) K/uL [place] # (0.0-0.8) K/uL Eos # (0.0-0.7) K/uL Baso # (0.0-0.2) K/uL Sodium (132-148) mmol/L Potassium (3.6-5.2) mmol/L Chloride (98-107) mmol/L Carbon Dioxide (22-30) mmol/L Anion Gap (10-20) BUN (7-17) mg/dL Creatinine (0.7-1.2) MG/DL Est GFR ( Amer) Est GFR (Non-Af Amer) POC Glucose (mg/dL) 169 H 192 H (65-110) mg/dL Random Glucose (65-105) mg/dL Calcium (8.6-10.4) mg/dl Phosphorus (2.5-4.5) mg/dL Magnesium (1.6-2.3) mg/dL Total Bilirubin (0.2-1.3) mg/dL AST (14-36) U/L ALT (9-52) U/L Alkaline Phosphatase (38-126) U/L Total Creatine Kinase 191 H (30-135) U/L CK-MB (Mass) 9.41 H (0.0-3.38) ng/mL Troponin I, Quant 0.1660 H* (0.00-0.120) ng/mL Total Protein (6.3-8.3) g/dL Albumin (3.5-5.0) g/dL Globulin (2.2-3.9) gm/dL Albumin/Globulin Ratio (1.0-2.1) Blood Type Antibody Screen 11/08/16 11/08/16 11/07/16 Range/Units 06:22 06:22 22:20 WBC 9.9 (4.8-10.8) K/uL RBC 3.54 L (3.80-5.20) Mil/uL Hgb 9.0 L (11.0-16.0) g/dL Hct 28.3 L (34.0-47.0) % MCV 79.8 L (81.0-99.0) fL MCH 25.3 L (27.0-31.0) pg MCHC 31.8 L (33.0-37.0) g/dL RDW 17.0 H (11.5-14.5) % Plt Count 113 L (130-400) K/uL MPV 12.2 H (7.2-11.7) fL Neut % (Auto) 79.7 H (50.0-75.0) % Lymph % (Auto) 12.6 L (20.0-40.0) % [place] % (Auto) 7.2 (0.0-10.0) % Eos % (Auto) 0.3 (0.0-4.0) % Baso % (Auto) 0.2 (0.0-2.0) % Neut # 7.9 H (1.8-7.0) K/uL Lymph # 1.3 (1.0-4.3) K/uL [place] # 0.7 (0.0-0.8) K/uL Eos # 0.0 (0.0-0.7) K/uL Baso # 0.0 (0.0-0.2) K/uL Sodium 131 L (132-148) mmol/L Potassium 4.7 (3.6-5.2) mmol/L Chloride 101 (98-107) mmol/L Carbon Dioxide 22 (22-30) mmol/L Anion Gap 13 (10-20) BUN 30 H (7-17) mg/dL Creatinine 1.2 (0.7-1.2) MG/DL Est GFR ( Amer) 54 Est GFR (Non-Af Amer) 44 POC Glucose (mg/dL) (65-110) mg/dL Random Glucose 171 H (65-105) mg/dL Calcium 7.7 L (8.6-10.4) mg/dl Phosphorus 3.9 (2.5-4.5) mg/dL Magnesium 1.7 (1.6-2.3) mg/dL Total Bilirubin 0.6 (0.2-1.3) mg/dL AST 34 (14-36) U/L ALT 27 (9-52) U/L Alkaline Phosphatase 37 L (38-126) U/L Total Creatine Kinase 138 H (30-135) U/L CK-MB (Mass) 3.19 (0.0-3.38) ng/mL Troponin I, Quant 0.0170 (0.00-0.120) ng/mL Total Protein 5.6 L (6.3-8.3) g/dL Albumin 3.0 L D (3.5-5.0) g/dL Globulin 2.6 (2.2-3.9) gm/dL Albumin/Globulin Ratio 1.2 (1.0-2.1) Blood Type Antibody Screen 11/07/16 11/07/16 11/07/16 Range/Units 21:15 16:31 11:03 WBC (4.8-10.8) K/uL RBC (3.80-5.20) Mil/uL Hgb (11.0-16.0) g/dL Hct (34.0-47.0) % MCV (81.0-99.0) fL MCH (27.0-31.0) pg MCHC (33.0-37.0) g/dL RDW (11.5-14.5) % Plt Count (130-400) K/uL MPV (7.2-11.7) fL Neut % (Auto) (50.0-75.0) % Lymph % (Auto) (20.0-40.0) % [place] % (Auto) (0.0-10.0) % Eos % (Auto) (0.0-4.0) % Baso % (Auto) (0.0-2.0) % Neut # (1.8-7.0) K/uL Lymph # (1.0-4.3) K/uL [place] # (0.0-0.8) K/uL Eos # (0.0-0.7) K/uL Baso # (0.0-0.2) K/uL Sodium (132-148) mmol/L Potassium (3.6-5.2) mmol/L Chloride (98-107) mmol/L Carbon Dioxide (22-30) mmol/L Anion Gap (10-20) BUN (7-17) mg/dL Creatinine (0.7-1.2) MG/DL Est GFR ( Amer) Est GFR (Non-Af Amer) POC Glucose (mg/dL) 215 H 181 H (65-110) mg/dL Random Glucose (65-105) mg/dL Calcium (8.6-10.4) mg/dl Phosphorus (2.5-4.5) mg/dL Magnesium (1.6-2.3) mg/dL Total Bilirubin (0.2-1.3) mg/dL AST (14-36) U/L ALT (9-52) U/L Alkaline Phosphatase (38-126) U/L Total Creatine Kinase (30-135) U/L CK-MB (Mass) (0.0-3.38) ng/mL Troponin I, Quant (0.00-0.120) ng/mL Total Protein (6.3-8.3) g/dL Albumin (3.5-5.0) g/dL Globulin (2.2-3.9) gm/dL Albumin/Globulin Ratio (1.0-2.1) Blood Type B POSITIVE Antibody Screen Negative Laboratory Results - last 24 hr 11/07/16 11/07/16 11/07/16 11:03 16:31 21:15 WBC RBC Hgb Hct MCV MCH MCHC RDW Plt Count MPV Neut % (Auto) Lymph % (Auto) [place] % (Auto) Eos % (Auto) Baso % (Auto) Neut # Lymph # [place] # Eos # Baso # Sodium Potassium Chloride Carbon Dioxide Anion Gap BUN Creatinine Est GFR ( Amer) Est GFR (Non-Af Amer) POC Glucose (mg/dL) 181 H 215 H Random Glucose Calcium Phosphorus Magnesium Total Bilirubin AST ALT Alkaline Phosphatase Total Creatine Kinase CK-MB (Mass) Troponin I, Quant Total Protein Albumin Globulin Albumin/Globulin Ratio Blood Type B POSITIVE Antibody Screen Negative 11/07/16 11/08/16 11/08/16 22:20 06:22 06:22 WBC 9.9 RBC 3.54 L Hgb 9.0 L Hct 28.3 L MCV 79.8 L MCH 25.3 L MCHC 31.8 L RDW 17.0 H Plt Count 113 L MPV 12.2 H Neut % (Auto) 79.7 H Lymph % (Auto) 12.6 L [place] % (Auto) 7.2 Eos % (Auto) 0.3 Baso % (Auto) 0.2 Neut # 7.9 H Lymph # 1.3 [place] # 0.7 Eos # 0.0 Baso # 0.0 Sodium 131 L Potassium 4.7 Chloride 101 Carbon Dioxide 22 Anion Gap 13 BUN 30 H Creatinine 1.2 Est GFR ( Amer) 54 Est GFR (Non-Af Amer) 44 POC Glucose (mg/dL) Random Glucose 171 H Calcium 7.7 L Phosphorus 3.9 Magnesium 1.7 Total Bilirubin 0.6 AST 34 ALT 27 Alkaline Phosphatase 37 L Total Creatine Kinase 138 H CK-MB (Mass) 3.19 Troponin I, Quant 0.0170 Total Protein 5.6 L Albumin 3.0 L D Globulin 2.6 Albumin/Globulin Ratio 1.2 Blood Type Antibody Screen 11/08/16 11/08/16 11/08/16 06:22 07:34 12:20 WBC RBC Hgb Hct MCV MCH MCHC RDW Plt Count MPV Neut % (Auto) Lymph % (Auto) [place] % (Auto) Eos % (Auto) Baso % (Auto) Neut # Lymph # [place] # Eos # Baso # Sodium Potassium Chloride Carbon Dioxide Anion Gap BUN Creatinine Est GFR ( Amer) Est GFR (Non-Af Amer) POC Glucose (mg/dL) 192 H 169 H Random Glucose Calcium Phosphorus Magnesium Total Bilirubin AST ALT Alkaline Phosphatase Total Creatine Kinase 191 H CK-MB (Mass) 9.41 H Troponin I, Quant 0.1660 H* Total Protein Albumin Globulin Albumin/Globulin Ratio Blood Type Antibody Screen EKG/Cardiology Studies: Cardiology / EKG Studies 11/07/16 21:48 ELECTROCARDIOGRAM Stat Comment: Mode Of Transportation: PORTABLE Reason For Exam: chest Isolation: Contact 11/08/16 09:52 EKG [ELECTROCARDIOGRAM] Stat Comment: Mode Of Transportation: Reason For Exam: positive troponins Isolation: Contact Critical Care Progress Note - Nutrition Nutrition: Nutrition Category Date Time Status Heart Healthy Diet [DIET] Diets 11/07/16 Dinner Active Attending/Attestation - Attestation I have personally seen and examined this patient.: Yes I have fully participated in the care of the patient.: Yes I have reviewed all pertinent clinical information: Yes Notes (Text): 11/08/16 14:30 Pt seen and examined on rounds with Dr. Angeles and pt RN. All pertinent PN/labs/ meds/imaging reviewed personally and discussed with involved consultants. I agree with the assessment and plan as outlined above which reflects my direct input. sitting in chair in NAD hypoxic off NC; CXR reviewed --> vascular congestion / pulm edema trend CE and f/u EKG d/c IVF; diurese start BB for rate/BP control d/c a-line d/c horn advance diet GI / DVT PPx OOB/ PT Eval transfer to tele if CE downtrending Macario Bautista MD
[2016-11-08 15:02] LABS: CREATININE, RANDOM URINE 17.9 mg/dL
--- NOTE | 2016-11-08 17:42 | CP.PCM.PN ---
Subjective - Date & Time of Evaluation Date of Evaluation: 11/08/16 Time of Evaluation: 17:25 - Subjective Subjective: patient has no current chest pain or dyspnea Objective - Vital Signs/Intake and Output Vital Signs (last 24 hours): Temp Pulse Resp BP Pulse Ox 98.5 F 63 28 H 107/44 L 100 11/08/16 13:00 11/08/16 15:02 11/08/16 15:02 11/08/16 15:02 11/08/16 15:02 Intake and Output: 11/08/16 11/08/16 06:59 18:59 Intake Total 1440 940 Output Total 1550 1580 Balance -110 -640 - Medications Medications: Current Medications Amlodipine Besylate (Norvasc) 5 mg PO DAILY [facility] Last Admin: 11/08/16 10:27 Dose: 5 mg Aspirin (Aspirin Chewable) 81 mg PO DAILY [facility] Last Admin: 11/08/16 10:28 Dose: 81 mg Clonidine HCl (Catapres) 0.2 mg PO TID [facility] Last Admin: 11/08/16 13:52 Dose: 0.2 mg Clopidogrel Bisulfate (Plavix) 75 mg PO DAILY [facility] Last Admin: 11/08/16 10:28 Dose: 75 mg Docusate Sodium (Colace) 100 mg PO TID [facility] Last Admin: 11/08/16 13:52 Dose: 100 mg Ezetimibe (Zetia) 10 mg PO HS [facility] Last Admin: 11/07/16 22:30 Dose: 10 mg Ergocalciferol (Drisdol 50,000 Intl Units Cap) 1 cap PO QWK [facility] Last Admin: 11/05/16 11:09 Dose: Not Given Famotidine (Pepcid) 20 mg PO BID [facility] Last Admin: 11/08/16 10:27 Dose: 20 mg Ferrous Sulfate (Feosol) 325 mg PO TID [facility] Last Admin: 11/08/16 13:52 Dose: 325 mg Fluticasone Propionate (Flonase) 2 spr BERTHA DAILY [facility] Last Admin: 11/08/16 10:34 Dose: Not Given Gabapentin (Neurontin) 100 mg PO TID [facility] Last Admin: 11/08/16 13:52 Dose: 100 mg Heparin Sodium (Porcine) (Heparin) 5,000 units SC Q8 [facility] Last Admin: 11/08/16 13:52 Dose: 5,000 units Cefazolin Sodium 1 gm/ Sodium (Chloride) 100 mls @ 100 mls/hr IVPB Q8 [facility] Last Admin: 11/08/16 13:53 Dose: 100 mls/hr Insulin Glargine (Lantus) 10 unit SC DAILY [facility] Last Admin: 11/08/16 10:33 Dose: 10 units Insulin Human Regular (Novolin R) 0 unit SC ACHS [facility] PRN Reason: Protocol Last Admin: 11/08/16 12:37 Dose: 2 unit Metoprolol Tartrate (Lopressor) 50 mg PO BID [facility] Last Admin: 11/08/16 10:28 Dose: 50 mg Montelukast Sodium (Singulair) 10 mg PO [facility] Last Admin: 11/07/16 22:20 Dose: 10 mg Morphine Sulfate (Morphine) 2 mg IVP Q3 PRN PRN Reason: Pain, severe (8-10) Last Admin: 11/08/16 05:00 Dose: 2 mg Nitroglycerin (Nitrostat Sl Tab) 0.4 mg SL Q5M PRN PRN Reason: chest pain Rosuvastatin Calcium (Crestor) 10 mg PO [facility] Last Admin: 11/07/16 22:20 Dose: 10 mg - Labs Labs: 11/08/16 06:22 11/08/16 06:22 PT 10.1 SECONDS (9.7-12.2) 11/02/16 13:36 INR 0.9 11/02/16 13:36 APTT 34 SECONDS (21-34) 11/02/16 13:36 - Constitutional Appears: Non-toxic - Head Exam Head Exam: NORMAL INSPECTION - Eye Exam Eye Exam: Normal appearance - ENT Exam ENT Exam: Mucous Membranes Moist - Neck Exam Neck Exam: Full ROM - Respiratory Exam Respiratory Exam: Decreased Breath Sounds - Cardiovascular Exam Cardiovascular Exam: REGULAR RHYTHM - GI/Abdominal Exam GI & Abdominal Exam: Normal Bowel Sounds - Rectal Exam Rectal Exam: Deferred - Extremities Exam Extremities Exam: absent: Pedal Edema - Back Exam Back Exam: NORMAL INSPECTION - Neurological Exam Neurological Exam: Alert - Psychiatric Exam Psychiatric exam: Normal Affect - Skin Skin Exam: Normal Color Assessment and Plan (1) HTN (hypertension) Assessment & Plan: will continue medical therapy Status: Acute (2) Hypercholesterolemia Assessment & Plan: statin therapy Status: Acute (3) PVD (peripheral vascular disease) Assessment & Plan: s/p L fem pop bypass Status: Acute (4) NSTEMI (non-ST elevated myocardial infarction) Assessment & Plan: will subendocardial ischemia. Patient has a substrate for CAD given PAD. recommend antiplatlelet therapy. no current angina. would consider cardiac cath in the future, however patient is currently hemodynamically stable and has renal insufficiency. will treat conservatively at the moment. Status: Acute
[2016-11-08] MEDS ORDERED: Albuterol 0.083% Inhal Sol (2.5 mg/3 mL) UD ONE (22:45)
[2016-11-08] MEDS ORDERED: Propofol 10 mg/ml Inj (20 ML) ONE ×2 (22:49→22:55)
[2016-11-08] MEDS: Midazolam 2 MG/2 ML VIAL ONE (22:50)
[2016-11-08 23:05] LABS: BASO # 0.2 K/uL (0.0-0.2); BASO % 1.2 % (0.0-2.0); EOS # 0.2 K/uL (0.0-0.7); EOS % 1.6 % (0.0-4.0); HEMATOCRIT 31.2 % (34.0-47.0); LYMPH # 4.9 K/uL (1.0-4.3); LYMPH % 36.3 % (20.0-40.0); MEAN CELL VOLUME 81.1 fL (81.0-99.0); MEAN CORPUSCULAR HEMOGLOBIN 25.3 pg (27.0-31.0); MEAN CORPUSCULAR HGB CONC 31.2 g/dL (33.0-37.0); MEAN PLATELET VOLUME 11.3 fL (7.2-11.7); MONO % 7.5 % (0.0-10.0); NRBC % 0.1 % (0.0-2.0); RED CELL DISTRIBUTION WIDTH 17.1 % (11.5-14.5); WHITE BLOOD COUNT 13.6 K/uL (4.8-10.8)
[2016-11-08 23:15] LABS: POTASSIUM 4.6 mmol/L (3.6-5.2)
[2016-11-08 23:17] LABS: ALB/GLOB RATIO 1.1 (1.0-2.1); BILIRUBIN,TOTAL 0.5 mg/dL (0.2-1.3)
[2016-11-08 23:18] LABS: CALCIUM 7.3 mg/dl (8.6-10.4); MAGNESIUM 1.9 mg/dL (1.6-2.3); PHOSPHOROUS 5.5 mg/dL (2.5-4.5)
[2016-11-08] MEDS ORDERED: Propofol 10 mg/ml Inj (100 ml) IV SCH (23:30)
[2016-11-08] MEDS: Propofol 10 mg/ml 1,000 MG/100 ML VIAL IV PRN (23:45)
[2016-11-08] MEDS ORDERED: Propofol 10 mg/ml Inj (20 ML) IV ONE (23:45)
[2016-11-08] MEDS ORDERED: Magnesium Sulfate 1 gm in D5W 1 GM/100 ML BAG IVPB ONE (23:53)
--- NOTE | 2016-11-09 00:05 | CP.CCUPN ---
CCU Subjective - Physician Review Events Since Last Encounter (Free Text): 11/08/16 23:57 Critical Care Note Around 11 pm I was called since the patient was desaturating in the 70's, feeling dizzy, tripoiding and saying she felt like she was going to , Hb in the 90's SBP in the 160's. Despite lasix and bipap she did not improve and mental status started declinic, bilateral crackles auscultated adn gargling sound heard from the distance. Intubated on first attempt with mac #3, salmon colored fluid visualized coming out from the vocal cords. BP dropped momentarily due sedation. Held all BP meds except for metoprolol, increased lasix to 60 mg q12h, troponins bumped from 1.26 to 12 as well as cpk and ckmb, T wave inversions from V4-V6. Started Heparin drip, will not give boluses. Discussed with Dr. Newman and agrees with heparin drip, will watch surgical site. Called Dr. Peterson to inform, but answering service said he is not available. Discussed with Nephew, Mr. Shabazzant, he is aware of possible acute IA and acute respiratory failure as well as risk of bleeding of fresh surgical site with heparin drip. Critical care time 60 mn CCU Objective - Vital Signs / Intake & Output Vital Signs (Last 4 hours): Vital Signs Pulse 11/08/16 22:50 87 Intake and Output (Last 8hrs): Intake & Output 11/08/16 11/08/16 11/09/16 14:59 22:59 06:59 Intake Total 940 250 Output Total 1380 450 Balance -440 -200 Intake: Intake, IV Amount 400 Right Hand 400 Oral 540 250 Output: Urine 1380 450 Urethral ([place]) 1380 450 Other: # Bowel Movements 0 0 - Physical Exam Head: Positive for: Atraumatic, Normocephalic Pupils: Positive for: PERRL Mouth: Positive for: Moist Mucous Membranes Respiratory/Chest: Positive for: Clear to Auscultation, Good Air Exchange Cardiovascular: Positive for: Normal S1, S2 Abdomen: Positive for: Normal Bowel Sounds. Negative for: Tenderness, Distention Upper Extremity: Positive for: NORMAL PULSES Lower Extremity: Positive for: Other (bandages in place, no strike through bleeding. Appropriate tenderness) Neurological: Positive for: Speech Normal, Motor Func Grossly Intact Skin: Positive for: Warm, Dry Psychiatric: Positive for: Alert, Oriented x 3 - Medications Active Medications: Active Medications Generic Name Dose Route Start Last Admin Trade Name Freq PRN Reason Stop Dose Admin Albuterol/Ipratropium 3 ml 11/09/16 02:00 Duoneb 3 Mg/0.5 Mg (3 Ml) Ud INH RQ6 [facility] Amlodipine Besylate 5 mg 11/04/16 11:58 11/08/16 10:27 Norvasc PO 5 mg DAILY [facility] Administration Aspirin 81 mg 10/29/16 11:30 11/08/16 10:28 Aspirin Chewable PO 81 mg DAILY [facility] Administration Clonidine HCl 0.2 mg 11/04/16 14:00 11/08/16 18:27 Catapres PO 0.2 mg TID [facility] Administration Clopidogrel Bisulfate 75 mg 11/08/16 10:00 11/08/16 10:28 Plavix PO 75 mg DAILY [facility] Administration Docusate Sodium 100 mg 11/02/16 14:00 11/08/16 18:27 Colace PO 100 mg TID [facility] Administration Ezetimibe 10 mg 10/28/16 22:00 11/07/16 22:30 Zetia PO 10 mg HS [facility] Administration Ferrous Sulfate 325 mg 11/08/16 14:00 11/08/16 18:27 Feosol PO 325 mg TID [facility] Administration Furosemide 60 mg 11/09/16 10:00 Lasix IVP Q12H [facility] Gabapentin 100 mg 11/08/16 12:00 11/08/16 18:27 Neurontin PO 100 mg TID [facility] Administration Cefazolin Sodium 1 gm/ Sodium 100 mls @ 100 mls/hr 11/04/16 14:00 11/08/16 13 :53 Chloride IVPB 100 mls/hr Q8 [facility] Administration Propofol 1,000 mg in 100 mls @ 3 mls/hr 11/08/16 22:57 Diprivan IV .Q24H PRN Agitation Protocol 5 MCG/KG/MIN Heparin Sodium/Sodium Chloride 25,000 units in 250 mls @ 12 mls/hr 11/08/16 23 :51 Heparin 50341 Units/250ml 1/2 Normal Saline IV .[id number] PRN PROTOCOL Protocol 12 UNITS/KG/HR Magnesium Sulfate/Dextrose 1 gm in 100 mls @ 200 mls/hr 11/08/16 23:53 Magnesium Sulfate 1 Gm/100 Ml D5w IVPB 11/09/16 00:22 ONCE ONE Insulin Glargine 10 unit 11/06/16 10:00 11/08/16 10:33 Lantus SC 10 units DAILY [facility] Administration Insulin Human Regular 0 unit 11/09/16 00:00 Novolin R SC Q6 [facility] Protocol Metoprolol Tartrate 12.5 mg 11/08/16 23:45 Lopressor PO Q12H [facility] Morphine Sulfate 2 mg 11/07/16 18:56 11/08/16 05:00 Morphine IVP 2 mg Q3 PRN Administration Pain, severe (8-10) Rosuvastatin Calcium 10 mg 11/01/16 22:00 11/07/16 22:20 Crestor PO 10 mg HS [facility] Administration - Patient Studies Lab Studies: Microbiology Studies 11/07/16 Unknown MRSA Culture (Admit) - Final Nose MRSA NOT DETECTED Lab Studies 11/08/16 11/08/16 11/08/16 Range/Units 23:03 23:03 21:40 WBC 13.6 H (4.8-10.8) K/uL RBC 3.85 (3.80-5.20) Mil/uL Hgb 9.7 L (11.0-16.0) g/dL Hct 31.2 L (34.0-47.0) % MCV 81.1 (81.0-99.0) fL MCH 25.3 L (27.0-31.0) pg MCHC 31.2 L (33.0-37.0) g/dL RDW 17.1 H (11.5-14.5) % Plt Count 125 L (130-400) K/uL MPV 11.3 (7.2-11.7) fL Neut % (Auto) 53.4 (50.0-75.0) % Lymph % (Auto) 36.3 (20.0-40.0) % [place] % (Auto) 7.5 (0.0-10.0) % Eos % (Auto) 1.6 (0.0-4.0) % Baso % (Auto) 1.2 (0.0-2.0) % Neut # 7.3 H (1.8-7.0) K/uL Lymph # 4.9 H (1.0-4.3) K/uL [place] # 1.0 H (0.0-0.8) K/uL Eos # 0.2 (0.0-0.7) K/uL Baso # 0.2 (0.0-0.2) K/uL Sodium 132 (132-148) mmol/L Potassium 4.6 (3.6-5.2) mmol/L Chloride 99 (98-107) mmol/L Carbon Dioxide 22 (22-30) mmol/L Anion Gap 16 (10-20) BUN 29 H (7-17) mg/dL Creatinine 1.4 H (0.7-1.2) MG/DL Est GFR ( Amer) 45 Est GFR (Non-Af Amer) 37 POC Glucose (mg/dL) 253 H (65-110) mg/dL Random Glucose 282 H (65-105) mg/dL Calcium 7.3 L (8.6-10.4) mg/dl Phosphorus 5.5 H (2.5-4.5) mg/dL Magnesium 1.9 (1.6-2.3) mg/dL Total Bilirubin 0.5 (0.2-1.3) mg/dL AST 83 H D (14-36) U/L ALT 23 (9-52) U/L Alkaline Phosphatase 39 (38-126) U/L Total Creatine Kinase 915 H (30-135) U/L CK-MB (Mass) 20.2 H (0.0-3.38) ng/mL Troponin I, Quant 12.0000 H* (0.00-0.120) ng/mL Total Protein 6.0 L (6.3-8.3) g/dL Albumin 3.2 L (3.5-5.0) g/dL Globulin 2.9 (2.2-3.9) gm/dL Albumin/Globulin Ratio 1.1 (1.0-2.1) Ur Random Creatinine mg/dL U Random Total Protein (0.0-12.0) mg/dL Urine Microalbumin (0.0-16.6) mg/L 11/08/16 11/08/16 11/08/16 Range/Units 16:04 14:37 14:37 WBC (4.8-10.8) K/uL RBC (3.80-5.20) Mil/uL Hgb (11.0-16.0) g/dL Hct (34.0-47.0) % MCV (81.0-99.0) fL MCH (27.0-31.0) pg MCHC (33.0-37.0) g/dL RDW (11.5-14.5) % Plt Count (130-400) K/uL MPV (7.2-11.7) fL Neut % (Auto) (50.0-75.0) % Lymph % (Auto) (20.0-40.0) % [place] % (Auto) (0.0-10.0) % Eos % (Auto) (0.0-4.0) % Baso % (Auto) (0.0-2.0) % Neut # (1.8-7.0) K/uL Lymph # (1.0-4.3) K/uL [place] # (0.0-0.8) K/uL Eos # (0.0-0.7) K/uL Baso # (0.0-0.2) K/uL Sodium (132-148) mmol/L Potassium (3.6-5.2) mmol/L Chloride (98-107) mmol/L Carbon Dioxide (22-30) mmol/L Anion Gap (10-20) BUN (7-17) mg/dL Creatinine (0.7-1.2) MG/DL Est GFR ( Amer) Est GFR (Non-Af Amer) POC Glucose (mg/dL) 230 H (65-110) mg/dL Random Glucose (65-105) mg/dL Calcium (8.6-10.4) mg/dl Phosphorus (2.5-4.5) mg/dL Magnesium (1.6-2.3) mg/dL Total Bilirubin (0.2-1.3) mg/dL AST (14-36) U/L ALT (9-52) U/L Alkaline Phosphatase (38-126) U/L Total Creatine Kinase (30-135) U/L CK-MB (Mass) (0.0-3.38) ng/mL Troponin I, Quant (0.00-0.120) ng/mL Total Protein (6.3-8.3) g/dL Albumin (3.5-5.0) g/dL Globulin (2.2-3.9) gm/dL Albumin/Globulin Ratio (1.0-2.1) Ur Random Creatinine 17.9 mg/dL U Random Total Protein 35.0 H (0.0-12.0) mg/dL Urine Microalbumin 184.0 H (0.0-16.6) mg/L 11/08/16 11/08/16 11/08/16 Range/Units 14:37 12:20 07:34 WBC (4.8-10.8) K/uL RBC (3.80-5.20) Mil/uL Hgb (11.0-16.0) g/dL Hct (34.0-47.0) % MCV (81.0-99.0) fL MCH (27.0-31.0) pg MCHC (33.0-37.0) g/dL RDW (11.5-14.5) % Plt Count (130-400) K/uL MPV (7.2-11.7) fL Neut % (Auto) (50.0-75.0) % Lymph % (Auto) (20.0-40.0) % [place] % (Auto) (0.0-10.0) % Eos % (Auto) (0.0-4.0) % Baso % (Auto) (0.0-2.0) % Neut # (1.8-7.0) K/uL Lymph # (1.0-4.3) K/uL [place] # (0.0-0.8) K/uL Eos # (0.0-0.7) K/uL Baso # (0.0-0.2) K/uL Sodium (132-148) mmol/L Potassium (3.6-5.2) mmol/L Chloride (98-107) mmol/L Carbon Dioxide (22-30) mmol/L Anion Gap (10-20) BUN (7-17) mg/dL Creatinine (0.7-1.2) MG/DL Est GFR ( Amer) Est GFR (Non-Af Amer) POC Glucose (mg/dL) 169 H 192 H (65-110) mg/dL Random Glucose (65-105) mg/dL Calcium (8.6-10.4) mg/dl Phosphorus (2.5-4.5) mg/dL Magnesium (1.6-2.3) mg/dL Total Bilirubin (0.2-1.3) mg/dL AST (14-36) U/L ALT (9-52) U/L Alkaline Phosphatase (38-126) U/L Total Creatine Kinase 789 H (30-135) U/L CK-MB (Mass) 17.8 H (0.0-3.38) ng/mL Troponin I, Quant 1.6500 H* (0.00-0.120) ng/mL Total Protein (6.3-8.3) g/dL Albumin (3.5-5.0) g/dL Globulin (2.2-3.9) gm/dL Albumin/Globulin Ratio (1.0-2.1) Ur Random Creatinine mg/dL U Random Total Protein (0.0-12.0) mg/dL Urine Microalbumin (0.0-16.6) mg/L 11/08/16 11/08/16 11/08/16 Range/Units 06:22 06:22 06:22 WBC 9.9 (4.8-10.8) K/uL RBC 3.54 L (3.80-5.20) Mil/uL Hgb 9.0 L (11.0-16.0) g/dL Hct 28.3 L (34.0-47.0) % MCV 79.8 L (81.0-99.0) fL MCH 25.3 L (27.0-31.0) pg MCHC 31.8 L (33.0-37.0) g/dL RDW 17.0 H (11.5-14.5) % Plt Count 113 L (130-400) K/uL MPV 12.2 H (7.2-11.7) fL Neut % (Auto) 79.7 H (50.0-75.0) % Lymph % (Auto) 12.6 L (20.0-40.0) % [place] % (Auto) 7.2 (0.0-10.0) % Eos % (Auto) 0.3 (0.0-4.0) % Baso % (Auto) 0.2 (0.0-2.0) % Neut # 7.9 H (1.8-7.0) K/uL Lymph # 1.3 (1.0-4.3) K/uL [place] # 0.7 (0.0-0.8) K/uL Eos # 0.0 (0.0-0.7) K/uL Baso # 0.0 (0.0-0.2) K/uL Sodium 131 L (132-148) mmol/L Potassium 4.7 (3.6-5.2) mmol/L Chloride 101 (98-107) mmol/L Carbon Dioxide 22 (22-30) mmol/L Anion Gap 13 (10-20) BUN 30 H (7-17) mg/dL Creatinine 1.2 (0.7-1.2) MG/DL Est GFR ( Amer) 54 Est GFR (Non-Af Amer) 44 POC Glucose (mg/dL) (65-110) mg/dL Random Glucose 171 H (65-105) mg/dL Calcium 7.7 L (8.6-10.4) mg/dl Phosphorus 3.9 (2.5-4.5) mg/dL Magnesium 1.7 (1.6-2.3) mg/dL Total Bilirubin 0.6 (0.2-1.3) mg/dL AST 34 (14-36) U/L ALT 27 (9-52) U/L Alkaline Phosphatase 37 L (38-126) U/L Total Creatine Kinase 191 H (30-135) U/L CK-MB (Mass) 9.41 H (0.0-3.38) ng/mL Troponin I, Quant 0.1660 H* (0.00-0.120) ng/mL Total Protein 5.6 L (6.3-8.3) g/dL Albumin 3.0 L D (3.5-5.0) g/dL Globulin 2.6 (2.2-3.9) gm/dL Albumin/Globulin Ratio 1.2 (1.0-2.1) Ur Random Creatinine mg/dL U Random Total Protein (0.0-12.0) mg/dL Urine Microalbumin (0.0-16.6) mg/L Laboratory Results - last 24 hr 11/08/16 11/08/16 11/08/16 06:22 06:22 06:22 WBC 9.9 RBC 3.54 L Hgb 9.0 L Hct 28.3 L MCV 79.8 L MCH 25.3 L MCHC 31.8 L RDW 17.0 H Plt Count 113 L MPV 12.2 H Neut % (Auto) 79.7 H Lymph % (Auto) 12.6 L [place] % (Auto) 7.2 Eos % (Auto) 0.3 Baso % (Auto) 0.2 Neut # 7.9 H Lymph # 1.3 [place] # 0.7 Eos # 0.0 Baso # 0.0 Sodium 131 L Potassium 4.7 Chloride 101 Carbon Dioxide 22 Anion Gap 13 BUN 30 H Creatinine 1.2 Est GFR ( Amer) 54 Est GFR (Non-Af Amer) 44 POC Glucose (mg/dL) Random Glucose 171 H Calcium 7.7 L Phosphorus 3.9 Magnesium 1.7 Total Bilirubin 0.6 AST 34 ALT 27 Alkaline Phosphatase 37 L Total Creatine Kinase 191 H CK-MB (Mass) 9.41 H Troponin I, Quant 0.1660 H* Total Protein 5.6 L Albumin 3.0 L D Globulin 2.6 Albumin/Globulin Ratio 1.2 Ur Random Creatinine U Random Total Protein Urine Microalbumin 11/08/16 11/08/16 11/08/16 07:34 12:20 14:37 WBC RBC Hgb Hct MCV MCH MCHC RDW Plt Count MPV Neut % (Auto) Lymph % (Auto) [place] % (Auto) Eos % (Auto) Baso % (Auto) Neut # Lymph # [place] # Eos # Baso # Sodium Potassium Chloride Carbon Dioxide Anion Gap BUN Creatinine Est GFR ( Amer) Est GFR (Non-Af Amer) POC Glucose (mg/dL) 192 H 169 H Random Glucose Calcium Phosphorus Magnesium Total Bilirubin AST ALT Alkaline Phosphatase Total Creatine Kinase 789 H CK-MB (Mass) 17.8 H Troponin I, Quant 1.6500 H* Total Protein Albumin Globulin Albumin/Globulin Ratio Ur Random Creatinine U Random Total Protein Urine Microalbumin 11/08/16 11/08/16 11/08/16 14:37 14:37 16:04 WBC RBC Hgb Hct MCV MCH MCHC RDW Plt Count MPV Neut % (Auto) Lymph % (Auto) [place] % (Auto) Eos % (Auto) Baso % (Auto) Neut # Lymph # [place] # Eos # Baso # Sodium Potassium Chloride Carbon Dioxide Anion Gap BUN Creatinine Est GFR ( Amer) Est GFR (Non-Af Amer) POC Glucose (mg/dL) 230 H Random Glucose Calcium Phosphorus Magnesium Total Bilirubin AST ALT Alkaline Phosphatase Total Creatine Kinase CK-MB (Mass) Troponin I, Quant Total Protein Albumin Globulin Albumin/Globulin Ratio Ur Random Creatinine 17.9 U Random Total Protein 35.0 H Urine Microalbumin 184.0 H 11/08/16 11/08/16 11/08/16 21:40 23:03 23:03 WBC 13.6 H RBC 3.85 Hgb 9.7 L Hct 31.2 L MCV 81.1 MCH 25.3 L MCHC 31.2 L RDW 17.1 H Plt Count 125 L MPV 11.3 Neut % (Auto) 53.4 Lymph % (Auto) 36.3 [place] % (Auto) 7.5 Eos % (Auto) 1.6 Baso % (Auto) 1.2 Neut # 7.3 H Lymph # 4.9 H [place] # 1.0 H Eos # 0.2 Baso # 0.2 Sodium 132 Potassium 4.6 Chloride 99 Carbon Dioxide 22 Anion Gap 16 BUN 29 H Creatinine 1.4 H Est GFR ( Amer) 45 Est GFR (Non-Af Amer) 37 POC Glucose (mg/dL) 253 H Random Glucose 282 H Calcium 7.3 L Phosphorus 5.5 H Magnesium 1.9 Total Bilirubin 0.5 AST 83 H D ALT 23 Alkaline Phosphatase 39 Total Creatine Kinase 915 H CK-MB (Mass) 20.2 H Troponin I, Quant 12.0000 H* Total Protein 6.0 L Albumin 3.2 L Globulin 2.9 Albumin/Globulin Ratio 1.1 Ur Random Creatinine U Random Total Protein Urine Microalbumin EKG/Cardiology Studies: Cardiology / EKG Studies 11/08/16 09:52 EKG [ELECTROCARDIOGRAM] Stat Comment: Mode Of Transportation: Reason For Exam: positive troponins Isolation: Contact Fingerstick Blood Sugar Results: 169
[2016-11-09] MEDS: Albuterol-Ipratrop 3 mg / 0.5 (3 ml) UD INH SCH ×4 (01:19→19:28)
[2016-11-09] MEDS: Heparin25000 units/250ml 1/2NS 25,000 UNITS/250 ML BAG IV PRN (01:46)
[2016-11-09] MEDS: Midazolam 2 MG/2 ML VIAL ONE (02:13)
[2016-11-09] MEDS: Propofol 10 mg/ml 1,000 MG/100 ML VIAL IV PRN ×4 (02:30→19:35)
[2016-11-09] MEDS ORDERED: Magnesium Sulfate 1 gm in D5W 1 GM/100 ML BAG IVPB ONE (03:00)
[2016-11-09 04:44] LABS: ABG ALLEN TEST POS; ABG MECHANICAL RATE 14; ARTERIAL BLOOD HGB O2 SAT 96.9 % (95.0-98.0); ATERIAL BLOOD GAS PEEP 5; CARBOXYHEMOGLOBIN 1.1 % (0.5-1.5); DRAW SITE RR; HHB 0.9 % (0.0-5.0)
[2016-11-09] MEDS: ceFAZolin 1 GM in Sodium Chloride 0.9% 100 ML IVPB SCH ×2 (05:35→13:37)
[2016-11-09] MEDS: (Novolin R) Insulin Human Regular 100 units/ml vial SC SCH ×4 (06:00→17:38)
[2016-11-09 06:40] LABS: BASO % 0.3 % (0.0-2.0); EOS % 0.6 % (0.0-4.0); HEMATOCRIT 22.3 % (34.0-47.0); LYMPH # 1.2 K/uL (1.0-4.3); LYMPH % 15.3 % (20.0-40.0); MEAN CELL VOLUME 81.2 fL (81.0-99.0); MEAN CORPUSCULAR HGB CONC 32.1 g/dL (33.0-37.0); MEAN PLATELET VOLUME 11.6 fL (7.2-11.7); MONO # 0.7 K/uL (0.0-0.8); MONO % 8.6 % (0.0-10.0); RED CELL DISTRIBUTION WIDTH 16.8 % (11.5-14.5); WHITE BLOOD COUNT 8.1 K/uL (4.8-10.8)
[2016-11-09 06:47] LABS: CHLORIDE 110 mmol/L (98-107)
[2016-11-09 06:48] LABS: SODIUM 136 mmol/L (132-148)
[2016-11-09 06:50] LABS: GFR AFRICAN-AMERICAN > 60
[2016-11-09 06:51] LABS: ALB/GLOB RATIO 0.8 (1.0-2.1); ALKALINE PHOSPHATASE 28 U/L (38-126); ALT/SGPT 21 U/L (9-52); AST/SGOT 57 U/L (14-36); BILIRUBIN,TOTAL 0.3 mg/dL (0.2-1.3); BLOOD UREA NITROGEN 22 mg/dL (7-17); CARBON DIOXIDE 17 mmol/L (22-30); GLUCOSE,RANDOM 171 mg/dL (65-105); PHOSPHOROUS 2.8 mg/dL (2.5-4.5); TOTAL PROTEIN 4.2 g/dL (6.3-8.3)
[2016-11-09 06:52] LABS: MAGNESIUM 2.2 mg/dL (1.6-2.3)
[2016-11-09 06:55] LABS: CALCIUM 5.3 mg/dl (8.6-10.4)
--- NOTE | 2016-11-09 08:41 | CP.PCM.PN ---
Subjective - Date & Time of Evaluation Date of Evaluation: 11/09/16 Time of Evaluation: 08:25 - Subjective Subjective: events noted. patient had no chest pain at the time of my visit yesterday, however yesterday evening patient developed flash pulmonary edema and required intubation. According to ui software developer today, patient had previously removed oxygen. Troponin noted to be elevated. found to have a hgb 7.1. Objective - Vital Signs/Intake and Output Vital Signs (last 24 hours): Temp Pulse Resp BP Pulse Ox 99 F 78 10 L 157/52 H 99 11/09/16 05:00 11/09/16 06:42 11/09/16 06:42 11/09/16 06:42 11/09/16 05:00 Intake and Output: 11/09/16 11/09/16 06:59 18:59 Intake Total 781.4 167 Output Total 1355 210 Balance -573.6 -43 - Medications Medications: Current Medications Albuterol/Ipratropium (Duoneb 3 Mg/0.5 Mg (3 Ml) Ud) 3 ml INH RQ6 [facility] Last Admin: 11/09/16 07:39 Dose: 3 ml Amlodipine Besylate (Norvasc) 5 mg PO DAILY [facility] Last Admin: 11/08/16 10:27 Dose: 5 mg Aspirin (Aspirin Chewable) 81 mg PO DAILY [facility] Last Admin: 11/08/16 10:28 Dose: 81 mg Clonidine HCl (Catapres) 0.2 mg PO TID [facility] Last Admin: 11/08/16 18:27 Dose: 0.2 mg Clopidogrel Bisulfate (Plavix) 75 mg PO DAILY [facility] Last Admin: 11/08/16 10:28 Dose: 75 mg Docusate Sodium (Colace) 100 mg PO TID [facility] Last Admin: 11/08/16 18:27 Dose: 100 mg Ezetimibe (Zetia) 10 mg PO HS [facility] Last Admin: 11/08/16 22:00 Dose: 10 mg Ferrous Sulfate (Feosol) 325 mg PO TID [facility] Last Admin: 11/08/16 18:27 Dose: 325 mg Furosemide (Lasix) 60 mg IVP Q12H [facility] Gabapentin (Neurontin) 100 mg PO TID [facility] Last Admin: 11/08/16 18:27 Dose: 100 mg Cefazolin Sodium 1 gm/ Sodium (Chloride) 100 mls @ 100 mls/hr IVPB Q8 [facility] Last Admin: 11/09/16 05:35 Dose: 100 mls/hr Propofol (Diprivan) 1,000 mg in 100 mls @ 3 mls/hr IV .Q24H PRN; Protocol; 5 MCG/KG/MIN PRN Reason: Agitation Last Admin: 11/09/16 07:17 Dose: 30 mcg/kg/min, 18 mls/hr Heparin Sodium/Sodium Chloride (Heparin 56641 Units/250ml 1/2 Normal Saline) 25 ,000 units in 250 mls @ 12 mls/hr IV .[id number] PRN; Protocol; 12 UNITS/KG/HR PRN Reason: PROTOCOL Last Admin: 11/09/16 01:46 Dose: 12 units/kg/hr, 12 mls/hr Potassium Chloride (Potassium Chloride 10 Meq/100 Ml) 10 meq in 100 mls @ 100 mls/hr IVPB Q1H [facility] Stop: 11/09/16 11:59 Insulin Glargine (Lantus) 10 unit SC DAILY [facility] Last Admin: 11/08/16 10:33 Dose: 10 units Insulin Human Regular (Novolin R) 0 unit SC Q6 [facility] PRN Reason: Protocol Last Admin: 11/09/16 07:22 Dose: 6 unit Metoprolol Tartrate (Lopressor) 12.5 mg PO Q12H [facility] Last Admin: 11/09/16 00:30 Dose: 12.5 mg Morphine Sulfate (Morphine) 2 mg IVP Q3 PRN PRN Reason: Pain, severe (8-10) Last Admin: 11/08/16 05:00 Dose: 2 mg Rosuvastatin Calcium (Crestor) 10 mg PO HS [facility] Last Admin: 11/08/16 22:00 Dose: 10 mg - Labs Labs: 11/09/16 06:31 11/09/16 06:31 PT 10.1 SECONDS (9.7-12.2) 11/02/16 13:36 INR 0.9 11/02/16 13:36 APTT 31 SECONDS (21-34) 11/09/16 00:14 - Constitutional Appears: No Acute Distress - Head Exam Head Exam: NORMAL INSPECTION - Eye Exam Eye Exam: Normal appearance - ENT Exam ENT Exam: Mucous Membranes Dry - Neck Exam Neck Exam: absent: Lymphadenopathy - Respiratory Exam Respiratory Exam: Decreased Breath Sounds - Cardiovascular Exam Cardiovascular Exam: REGULAR RHYTHM - GI/Abdominal Exam GI & Abdominal Exam: Normal Bowel Sounds - Rectal Exam Rectal Exam: Deferred - Extremities Exam Extremities Exam: Pedal Edema - Back Exam Back Exam: NORMAL INSPECTION - Psychiatric Exam Psychiatric exam: Normal Affect - Skin Skin Exam: Normal Color Assessment and Plan (1) NSTEMI (non-ST elevated myocardial infarction) Assessment & Plan: likely exacerbated by anemia in the setting of underlying CAD. Recommend transfusion of PRBCs to Hgb 10. recommend conitnued heparin in the setting of NSTEMI. can give lasix for assistance with volume overload. will continue antiplatelet and anticaogulant therapy despite anemia as patient has NSTEMI. will monitor Hgb closely. echocardiogram to evaluate for wall motion abnormalities Status: Acute (2) HTN (hypertension) Assessment & Plan: betablocker therapy and blood pressure control Status: Acute (3) Hypercholesterolemia Assessment & Plan: statin therapy Status: Acute (4) PVD (peripheral vascular disease) Assessment & Plan: antiplatelet therapy Status: Acute
[2016-11-09] MEDS: (Lantus) Insulin Glargine, Recombinant SC SCH (09:24)
--- NOTE | 2016-11-09 10:37 | CP.CCUPN ---
CCU Subjective - Physician Review Subjective (Free Text): 11/09/16 10:29 events from overnight noted. Worsening cardiac enzymes and development of acute hypoxic resp failure due to pulm edema now on vent / sedated. opens eyes and responds to noxious stimuli. drop in h/h noted from morning. no overt signs of hemorrhage identified. being transfused 2u PRBC in the setting of cardiac ischemia Afeb. VSS Gen: Sedated HEENT: DUNG. ETT/NGT Neck: Supple COR: S1, S2, RRR, +IGNACIA, no jvd Resp: coarse rhonchi b/l ABD: Soft, nt/nd, BS +ve Ext: LLE wound site C/D/I; b/l edema L>R Neuro: sedated Meds / Labs / Imaging reviewed independently as noted below. A/P: 71M DM2, HTN, CKD, PVD s/p POD 2 L fem pop bypass, now with ACS/NSTEMI and pulm edema with resultant hypoxic resp failure; acute anemia -- unclear if GI or other source Neuro: cont sedation Resp: wean vent as tolerated; f/u ABG/CXR Cards: on ASA/Plavix/Hep gtt; BP control as per cards recs. Statin. Will check echo. Dr. Newman f/u appreciated; if any further drop in h/h or evidence of hemorrhage, will d/c hep gtt GI: start TF; GI PPx Renal: on lasix; diuresing well; renal following ID: DEMARCUS Heme: Transfuse PRBC; trend h/h; no SCDs for ppx given PVD as per Dr. Peterson ; on Hep gtt prognosis guarded Macario Bautista MD CC time spent 45min CCU Objective - Vital Signs / Intake & Output Vital Signs (Last 4 hours): Vital Signs Temp Pulse Resp BP 11/09/16 09:32 97.0 F L 76 17 173/58 H 11/09/16 09:25 177/58 H 11/09/16 09:23 177/58 H 11/09/16 09:17 97.0 F L 80 17 177/58 H 11/09/16 09:02 98.5 F 82 15 157/41 H 11/09/16 06:42 78 10 L 157/52 H Intake and Output (Last 8hrs): Intake & Output 11/08/16 11/09/16 11/09/16 22:59 06:59 14:59 Intake Total 450 581.4 167 Output Total 500 1105 210 Balance -50 -523.6 -43 Weight 213 lb 13.574 oz Intake: IV 163 37 Intake, IV Amount 100 318.4 130 Left Antecubital 100 Left Wrist 100 160 12 Right Antecubital 12 Right Hand 146.4 18 Oral 350 0 0 Blood Product 0 Red Blood Cells Cpd As1 0 Lr Unit [id number] Other 100 Output: Urine 500 1105 210 Urethral ([place]) 500 1105 210 Stool 0 0 Other: # Bowel Movements 0 0 - Medications Active Medications: Active Medications Generic Name Dose Route Start Last Admin Trade Name Freq PRN Reason Stop Dose Admin Albuterol/Ipratropium 3 ml 11/09/16 02:00 11/09/16 07:39 Duoneb 3 Mg/0.5 Mg (3 Ml) Ud INH 3 ml RQ6 CARRIE Administration Amlodipine Besylate 5 mg 11/04/16 11:58 11/08/16 10:27 Norvasc PO 5 mg DAILY CARRIE Administration Aspirin 81 mg 10/29/16 11:30 11/09/16 09:23 Aspirin Chewable PO 81 mg DAILY CARRIE Administration Clonidine HCl 0.2 mg 11/04/16 14:00 11/08/16 18:27 Catapres PO 0.2 mg TID CARRIE Administration Clopidogrel Bisulfate 75 mg 11/08/16 10:00 11/09/16 09:23 Plavix PO 75 mg DAILY CARRIE Administration Docusate Sodium 100 mg 11/02/16 14:00 11/09/16 09:24 Colace PO Not Given TID CARRIE Ezetimibe 10 mg 10/28/16 22:00 11/08/16 22:00 Zetia PO 10 mg HS CARRIE Administration Ferrous Sulfate 325 mg 11/08/16 14:00 11/09/16 09:23 Feosol PO 325 mg TID CARRIE Administration Furosemide 60 mg 11/09/16 10:00 11/09/16 09:23 Lasix IVP 60 mg Q12H CARRIE Administration Gabapentin 100 mg 11/08/16 12:00 11/09/16 09:23 Neurontin PO 100 mg TID CARRIE Administration Cefazolin Sodium 1 gm/ Sodium 100 mls @ 100 mls/hr 11/04/16 14:00 11/09/16 05 :35 Chloride IVPB 100 mls/hr Q8 CARRIE Administration Propofol 1,000 mg in 100 mls @ 3 mls/hr 11/08/16 22:57 11/09/16 07:17 Diprivan IV 30 mcg/kg/min .Q24H PRN 18 mls/hr Agitation Administration Protocol 5 MCG/KG/MIN Heparin Sodium/Sodium Chloride 25,000 units in 250 mls @ 12 mls/hr 11/08/16 23 :51 11/09/16 01:46 Heparin 54850 Units/250ml 1/2 Normal Saline IV 12 units/kg/hr .[id number] PRN 12 mls/hr PROTOCOL Administration Protocol 12 UNITS/KG/HR Potassium Chloride 10 meq in 100 mls @ 100 mls/hr 11/09/16 08:00 11/09/16 08: 52 Potassium Chloride 10 Meq/100 Ml IVPB 11/09/16 11:59 100 mls/hr Q1H CARRIE Administration Insulin Glargine 10 unit 11/06/16 10:00 11/09/16 09:24 Lantus SC 10 units DAILY CARRIE Administration Insulin Human Regular 0 unit 11/09/16 00:00 11/09/16 07:22 Novolin R SC 6 unit Q6 CARRIE Administration Protocol Metoprolol Tartrate 25 mg 11/09/16 10:00 11/09/16 09:25 Lopressor PO 25 mg Q12 CARRIE Administration Morphine Sulfate 2 mg 11/07/16 18:56 11/08/16 05:00 Morphine IVP 2 mg Q3 PRN Administration Pain, severe (8-10) Rosuvastatin Calcium 10 mg 11/01/16 22:00 11/08/16 22:00 Crestor PO 10 mg HS CARRIE Administration - Patient Studies Lab Studies: Microbiology Studies 11/07/16 Unknown MRSA Culture (Admit) - Final Nose MRSA NOT DETECTED Lab Studies 11/09/16 11/09/16 11/09/16 Range/Units 08:50 06:56 06:31 WBC (4.8-10.8) K/uL RBC (3.80-5.20) Mil/uL Hgb (11.0-16.0) g/dL Hct (34.0-47.0) % MCV (81.0-99.0) fL MCH (27.0-31.0) pg MCHC (33.0-37.0) g/dL RDW (11.5-14.5) % Plt Count (130-400) K/uL MPV (7.2-11.7) fL Neut % (Auto) (50.0-75.0) % Lymph % (Auto) (20.0-40.0) % [place] % (Auto) (0.0-10.0) % Eos % (Auto) (0.0-4.0) % Baso % (Auto) (0.0-2.0) % Neut # (1.8-7.0) K/uL Lymph # (1.0-4.3) K/uL [place] # (0.0-0.8) K/uL Eos # (0.0-0.7) K/uL Baso # (0.0-0.2) K/uL APTT 121 H* D (21-34) SECONDS Puncture Site pCO2 (35-45) mm/Hg pO2 (80-100) mm/Hg HCO3 (21-28) mmol/L ABG pH (7.35-7.45) ABG Total CO2 (22-28) mmol/L ABG O2 Saturation (95-98) % ABG Base Excess (-2.0-3.0) mmol/L ABG Hemoglobin (11.7-17.4) g/dL ABG Carboxyhemoglobin (0.5-1.5) % POC ABG HHb (Measured) (0.0-5.0) % ABG Methemoglobin (0.0-3.0) % Mj Test A-a O2 Difference mm/Hg Respiratory Index Hgb O2 Saturation (95.0-98.0) % Mechanical Rate FiO2 % Tidal Volume PEEP Sodium (132-148) mmol/L Potassium (3.6-5.2) mmol/L Chloride (98-107) mmol/L Carbon Dioxide (22-30) mmol/L Anion Gap (10-20) BUN (7-17) mg/dL Creatinine (0.7-1.2) MG/DL Est GFR ( Amer) Est GFR (Non-Af Amer) POC Glucose (mg/dL) 288 H (65-110) mg/dL Random Glucose (65-105) mg/dL Calcium (8.6-10.4) mg/dl Phosphorus (2.5-4.5) mg/dL Magnesium (1.6-2.3) mg/dL Total Bilirubin (0.2-1.3) mg/dL AST (14-36) U/L ALT (9-52) U/L Alkaline Phosphatase (38-126) U/L Total Creatine Kinase 555 H (30-135) U/L CK-MB (Mass) 12.2 H (0.0-3.38) ng/mL Troponin I, Quant 9.9100 H* (0.00-0.120) ng/mL Total Protein (6.3-8.3) g/dL Albumin (3.5-5.0) g/dL Globulin (2.2-3.9) gm/dL Albumin/Globulin Ratio (1.0-2.1) Ur Random Creatinine mg/dL U Random Total Protein (0.0-12.0) mg/dL Urine Microalbumin (0.0-16.6) mg/L Blood Type Antibody Screen 11/09/16 11/09/16 11/09/16 Range/Units 06:31 06:31 04:30 WBC 8.1 (4.8-10.8) K/uL RBC 2.74 L (3.80-5.20) Mil/uL Hgb 7.1 L D (11.0-16.0) g/dL Hct 22.3 L (34.0-47.0) % MCV 81.2 (81.0-99.0) fL MCH 26.0 L (27.0-31.0) pg MCHC 32.1 L (33.0-37.0) g/dL RDW 16.8 H (11.5-14.5) % Plt Count 86 L D (130-400) K/uL MPV 11.6 (7.2-11.7) fL Neut % (Auto) 75.2 H (50.0-75.0) % Lymph % (Auto) 15.3 L (20.0-40.0) % [place] % (Auto) 8.6 (0.0-10.0) % Eos % (Auto) 0.6 (0.0-4.0) % Baso % (Auto) 0.3 (0.0-2.0) % Neut # 6.1 (1.8-7.0) K/uL Lymph # 1.2 (1.0-4.3) K/uL [place] # 0.7 (0.0-0.8) K/uL Eos # 0.0 (0.0-0.7) K/uL Baso # 0.0 (0.0-0.2) K/uL APTT (21-34) SECONDS Puncture Site Rr pCO2 32 L (35-45) mm/Hg pO2 156 H (80-100) mm/Hg HCO3 22.0 (21-28) mmol/L ABG pH 7.41 (7.35-7.45) ABG Total CO2 21.3 L (22-28) mmol/L ABG O2 Saturation 99.1 H (95-98) % ABG Base Excess -3.8 L (-2.0-3.0) mmol/L ABG Hemoglobin 8.5 L (11.7-17.4) g/dL ABG Carboxyhemoglobin 1.1 (0.5-1.5) % POC ABG HHb (Measured) 0.9 (0.0-5.0) % ABG Methemoglobin 1.0 (0.0-3.0) % Mj Test Pos A-a O2 Difference 232.0 mm/Hg Respiratory Index 1.5 Hgb O2 Saturation 96.9 (95.0-98.0) % Mechanical Rate 14 FiO2 60.0 % Tidal Volume 500 PEEP 5 Sodium 136 (132-148) mmol/L Potassium 3.0 L (3.6-5.2) mmol/L Chloride 110 H (98-107) mmol/L Carbon Dioxide 17 L (22-30) mmol/L Anion Gap 12 (10-20) BUN 22 H (7-17) mg/dL Creatinine 1.0 (0.7-1.2) MG/DL Est GFR ( Amer) > 60 Est GFR (Non-Af Amer) 55 POC Glucose (mg/dL) (65-110) mg/dL Random Glucose 171 H (65-105) mg/dL Calcium 5.3 L* D (8.6-10.4) mg/dl Phosphorus 2.8 (2.5-4.5) mg/dL Magnesium 2.2 (1.6-2.3) mg/dL Total Bilirubin 0.3 (0.2-1.3) mg/dL AST 57 H D (14-36) U/L ALT 21 (9-52) U/L Alkaline Phosphatase 28 L D (38-126) U/L Total Creatine Kinase (30-135) U/L CK-MB (Mass) (0.0-3.38) ng/mL Troponin I, Quant (0.00-0.120) ng/mL Total Protein 4.2 L (6.3-8.3) g/dL Albumin 1.9 L D (3.5-5.0) g/dL Globulin 2.3 (2.2-3.9) gm/dL Albumin/Globulin Ratio 0.8 L (1.0-2.1) Ur Random Creatinine mg/dL U Random Total Protein (0.0-12.0) mg/dL Urine Microalbumin (0.0-16.6) mg/L Blood Type Antibody Screen 11/09/16 11/08/16 11/08/16 Range/Units 00:14 23:03 23:03 WBC 13.6 H (4.8-10.8) K/uL RBC 3.85 (3.80-5.20) Mil/uL Hgb 9.7 L (11.0-16.0) g/dL Hct 31.2 L (34.0-47.0) % MCV 81.1 (81.0-99.0) fL MCH 25.3 L (27.0-31.0) pg MCHC 31.2 L (33.0-37.0) g/dL RDW 17.1 H (11.5-14.5) % Plt Count 125 L (130-400) K/uL MPV 11.3 (7.2-11.7) fL Neut % (Auto) 53.4 (50.0-75.0) % Lymph % (Auto) 36.3 (20.0-40.0) % [place] % (Auto) 7.5 (0.0-10.0) % Eos % (Auto) 1.6 (0.0-4.0) % Baso % (Auto) 1.2 (0.0-2.0) % Neut # 7.3 H (1.8-7.0) K/uL Lymph # 4.9 H (1.0-4.3) K/uL [place] # 1.0 H (0.0-0.8) K/uL Eos # 0.2 (0.0-0.7) K/uL Baso # 0.2 (0.0-0.2) K/uL APTT 31 (21-34) SECONDS Puncture Site pCO2 (35-45) mm/Hg pO2 (80-100) mm/Hg HCO3 (21-28) mmol/L ABG pH (7.35-7.45) ABG Total CO2 (22-28) mmol/L ABG O2 Saturation (95-98) % ABG Base Excess (-2.0-3.0) mmol/L ABG Hemoglobin (11.7-17.4) g/dL ABG Carboxyhemoglobin (0.5-1.5) % POC ABG HHb (Measured) (0.0-5.0) % ABG Methemoglobin (0.0-3.0) % Mj Test A-a O2 Difference mm/Hg Respiratory Index Hgb O2 Saturation (95.0-98.0) % Mechanical Rate FiO2 % Tidal Volume PEEP Sodium 132 (132-148) mmol/L Potassium 4.6 (3.6-5.2) mmol/L Chloride 99 (98-107) mmol/L Carbon Dioxide 22 (22-30) mmol/L Anion Gap 16 (10-20) BUN 29 H (7-17) mg/dL Creatinine 1.4 H (0.7-1.2) MG/DL Est GFR ( Amer) 45 Est GFR (Non-Af Amer) 37 POC Glucose (mg/dL) (65-110) mg/dL Random Glucose 282 H (65-105) mg/dL Calcium 7.3 L (8.6-10.4) mg/dl Phosphorus 5.5 H (2.5-4.5) mg/dL Magnesium 1.9 (1.6-2.3) mg/dL Total Bilirubin 0.5 (0.2-1.3) mg/dL AST 83 H D (14-36) U/L ALT 23 (9-52) U/L Alkaline Phosphatase 39 (38-126) U/L Total Creatine Kinase 915 H (30-135) U/L CK-MB (Mass) 20.2 H (0.0-3.38) ng/mL Troponin I, Quant 12.0000 H* (0.00-0.120) ng/mL Total Protein 6.0 L (6.3-8.3) g/dL Albumin 3.2 L (3.5-5.0) g/dL Globulin 2.9 (2.2-3.9) gm/dL Albumin/Globulin Ratio 1.1 (1.0-2.1) Ur Random Creatinine mg/dL U Random Total Protein (0.0-12.0) mg/dL Urine Microalbumin (0.0-16.6) mg/L Blood Type Antibody Screen 11/08/16 11/08/16 11/08/16 Range/Units 21:40 16:04 14:37 WBC (4.8-10.8) K/uL RBC (3.80-5.20) Mil/uL Hgb (11.0-16.0) g/dL Hct (34.0-47.0) % MCV (81.0-99.0) fL MCH (27.0-31.0) pg MCHC (33.0-37.0) g/dL RDW (11.5-14.5) % Plt Count (130-400) K/uL MPV (7.2-11.7) fL Neut % (Auto) (50.0-75.0) % Lymph % (Auto) (20.0-40.0) % [place] % (Auto) (0.0-10.0) % Eos % (Auto) (0.0-4.0) % Baso % (Auto) (0.0-2.0) % Neut # (1.8-7.0) K/uL Lymph # (1.0-4.3) K/uL [place] # (0.0-0.8) K/uL Eos # (0.0-0.7) K/uL Baso # (0.0-0.2) K/uL APTT (21-34) SECONDS Puncture Site pCO2 (35-45) mm/Hg pO2 (80-100) mm/Hg HCO3 (21-28) mmol/L ABG pH (7.35-7.45) ABG Total CO2 (22-28) mmol/L ABG O2 Saturation (95-98) % ABG Base Excess (-2.0-3.0) mmol/L ABG Hemoglobin (11.7-17.4) g/dL ABG Carboxyhemoglobin (0.5-1.5) % POC ABG HHb (Measured) (0.0-5.0) % ABG Methemoglobin (0.0-3.0) % Mj Test A-a O2 Difference mm/Hg Respiratory Index Hgb O2 Saturation (95.0-98.0) % Mechanical Rate FiO2 % Tidal Volume PEEP Sodium (132-148) mmol/L Potassium (3.6-5.2) mmol/L Chloride (98-107) mmol/L Carbon Dioxide (22-30) mmol/L Anion Gap (10-20) BUN (7-17) mg/dL Creatinine (0.7-1.2) MG/DL Est GFR ( Amer) Est GFR (Non-Af Amer) POC Glucose (mg/dL) 253 H 230 H (65-110) mg/dL Random Glucose (65-105) mg/dL Calcium (8.6-10.4) mg/dl Phosphorus (2.5-4.5) mg/dL Magnesium (1.6-2.3) mg/dL Total Bilirubin (0.2-1.3) mg/dL AST (14-36) U/L ALT (9-52) U/L Alkaline Phosphatase (38-126) U/L Total Creatine Kinase (30-135) U/L CK-MB (Mass) (0.0-3.38) ng/mL Troponin I, Quant (0.00-0.120) ng/mL Total Protein (6.3-8.3) g/dL Albumin (3.5-5.0) g/dL Globulin (2.2-3.9) gm/dL Albumin/Globulin Ratio (1.0-2.1) Ur Random Creatinine 17.9 mg/dL U Random Total Protein 35.0 H (0.0-12.0) mg/dL Urine Microalbumin (0.0-16.6) mg/L Blood Type Antibody Screen 11/08/16 11/08/16 11/08/16 Range/Units 14:37 14:37 12:20 WBC (4.8-10.8) K/uL RBC (3.80-5.20) Mil/uL Hgb (11.0-16.0) g/dL Hct (34.0-47.0) % MCV (81.0-99.0) fL MCH (27.0-31.0) pg MCHC (33.0-37.0) g/dL RDW (11.5-14.5) % Plt Count (130-400) K/uL MPV (7.2-11.7) fL Neut % (Auto) (50.0-75.0) % Lymph % (Auto) (20.0-40.0) % [place] % (Auto) (0.0-10.0) % Eos % (Auto) (0.0-4.0) % Baso % (Auto) (0.0-2.0) % Neut # (1.8-7.0) K/uL Lymph # (1.0-4.3) K/uL [place] # (0.0-0.8) K/uL Eos # (0.0-0.7) K/uL Baso # (0.0-0.2) K/uL APTT (21-34) SECONDS Puncture Site pCO2 (35-45) mm/Hg pO2 (80-100) mm/Hg HCO3 (21-28) mmol/L ABG pH (7.35-7.45) ABG Total CO2 (22-28) mmol/L ABG O2 Saturation (95-98) % ABG Base Excess (-2.0-3.0) mmol/L ABG Hemoglobin (11.7-17.4) g/dL ABG Carboxyhemoglobin (0.5-1.5) % POC ABG HHb (Measured) (0.0-5.0) % ABG Methemoglobin (0.0-3.0) % Mj Test A-a O2 Difference mm/Hg Respiratory Index Hgb O2 Saturation (95.0-98.0) % Mechanical Rate FiO2 % Tidal Volume PEEP Sodium (132-148) mmol/L Potassium (3.6-5.2) mmol/L Chloride (98-107) mmol/L Carbon Dioxide (22-30) mmol/L Anion Gap (10-20) BUN (7-17) mg/dL Creatinine (0.7-1.2) MG/DL Est GFR ( Amer) Est GFR (Non-Af Amer) POC Glucose (mg/dL) 169 H (65-110) mg/dL Random Glucose (65-105) mg/dL Calcium (8.6-10.4) mg/dl Phosphorus (2.5-4.5) mg/dL Magnesium (1.6-2.3) mg/dL Total Bilirubin (0.2-1.3) mg/dL AST (14-36) U/L ALT (9-52) U/L Alkaline Phosphatase (38-126) U/L Total Creatine Kinase 789 H (30-135) U/L CK-MB (Mass) 17.8 H (0.0-3.38) ng/mL Troponin I, Quant 1.6500 H* (0.00-0.120) ng/mL Total Protein (6.3-8.3) g/dL Albumin (3.5-5.0) g/dL Globulin (2.2-3.9) gm/dL Albumin/Globulin Ratio (1.0-2.1) Ur Random Creatinine mg/dL U Random Total Protein (0.0-12.0) mg/dL Urine Microalbumin 184.0 H (0.0-16.6) mg/L Blood Type Antibody Screen 11/07/16 Range/Units 11:03 WBC (4.8-10.8) K/uL RBC (3.80-5.20) Mil/uL Hgb (11.0-16.0) g/dL Hct (34.0-47.0) % MCV (81.0-99.0) fL MCH (27.0-31.0) pg MCHC (33.0-37.0) g/dL RDW (11.5-14.5) % Plt Count (130-400) K/uL MPV (7.2-11.7) fL Neut % (Auto) (50.0-75.0) % Lymph % (Auto) (20.0-40.0) % [place] % (Auto) (0.0-10.0) % Eos % (Auto) (0.0-4.0) % Baso % (Auto) (0.0-2.0) % Neut # (1.8-7.0) K/uL Lymph # (1.0-4.3) K/uL [place] # (0.0-0.8) K/uL Eos # (0.0-0.7) K/uL Baso # (0.0-0.2) K/uL APTT (21-34) SECONDS Puncture Site pCO2 (35-45) mm/Hg pO2 (80-100) mm/Hg HCO3 (21-28) mmol/L ABG pH (7.35-7.45) ABG Total CO2 (22-28) mmol/L ABG O2 Saturation (95-98) % ABG Base Excess (-2.0-3.0) mmol/L ABG Hemoglobin (11.7-17.4) g/dL ABG Carboxyhemoglobin (0.5-1.5) % POC ABG HHb (Measured) (0.0-5.0) % ABG Methemoglobin (0.0-3.0) % Mj Test A-a O2 Difference mm/Hg Respiratory Index Hgb O2 Saturation (95.0-98.0) % Mechanical Rate FiO2 % Tidal Volume PEEP Sodium (132-148) mmol/L Potassium (3.6-5.2) mmol/L Chloride (98-107) mmol/L Carbon Dioxide (22-30) mmol/L Anion Gap (10-20) BUN (7-17) mg/dL Creatinine (0.7-1.2) MG/DL Est GFR ( Amer) Est GFR (Non-Af Amer) POC Glucose (mg/dL) (65-110) mg/dL Random Glucose (65-105) mg/dL Calcium (8.6-10.4) mg/dl Phosphorus (2.5-4.5) mg/dL Magnesium (1.6-2.3) mg/dL Total Bilirubin (0.2-1.3) mg/dL AST (14-36) U/L ALT (9-52) U/L Alkaline Phosphatase (38-126) U/L Total Creatine Kinase (30-135) U/L CK-MB (Mass) (0.0-3.38) ng/mL Troponin I, Quant (0.00-0.120) ng/mL Total Protein (6.3-8.3) g/dL Albumin (3.5-5.0) g/dL Globulin (2.2-3.9) gm/dL Albumin/Globulin Ratio (1.0-2.1) Ur Random Creatinine mg/dL U Random Total Protein (0.0-12.0) mg/dL Urine Microalbumin (0.0-16.6) mg/L Blood Type B POSITIVE Antibody Screen Negative Laboratory Results - last 24 hr 11/07/16 11/08/16 11/08/16 11:03 12:20 14:37 WBC RBC Hgb Hct MCV MCH MCHC RDW Plt Count MPV Neut % (Auto) Lymph % (Auto) [place] % (Auto) Eos % (Auto) Baso % (Auto) Neut # Lymph # [place] # Eos # Baso # APTT Puncture Site pCO2 pO2 HCO3 ABG pH ABG Total CO2 ABG O2 Saturation ABG Base Excess ABG Hemoglobin ABG Carboxyhemoglobin POC ABG HHb (Measured) ABG Methemoglobin Mj Test A-a O2 Difference Respiratory Index Hgb O2 Saturation Mechanical Rate FiO2 Tidal Volume PEEP Sodium Potassium Chloride Carbon Dioxide Anion Gap BUN Creatinine Est GFR ( Amer) Est GFR (Non-Af Amer) POC Glucose (mg/dL) 169 H Random Glucose Calcium Phosphorus Magnesium Total Bilirubin AST ALT Alkaline Phosphatase Total Creatine Kinase 789 H CK-MB (Mass) 17.8 H Troponin I, Quant 1.6500 H* Total Protein Albumin Globulin Albumin/Globulin Ratio Ur Random Creatinine U Random Total Protein Urine Microalbumin Blood Type B POSITIVE Antibody Screen Negative 11/08/16 11/08/16 11/08/16 14:37 14:37 16:04 WBC RBC Hgb Hct MCV MCH MCHC RDW Plt Count MPV Neut % (Auto) Lymph % (Auto) [place] % (Auto) Eos % (Auto) Baso % (Auto) Neut # Lymph # [place] # Eos # Baso # APTT Puncture Site pCO2 pO2 HCO3 ABG pH ABG Total CO2 ABG O2 Saturation ABG Base Excess ABG Hemoglobin ABG Carboxyhemoglobin POC ABG HHb (Measured) ABG Methemoglobin Mj Test A-a O2 Difference Respiratory Index Hgb O2 Saturation Mechanical Rate FiO2 Tidal Volume PEEP Sodium Potassium Chloride Carbon Dioxide Anion Gap BUN Creatinine Est GFR ( Amer) Est GFR (Non-Af Amer) POC Glucose (mg/dL) 230 H Random Glucose Calcium Phosphorus Magnesium Total Bilirubin AST ALT Alkaline Phosphatase Total Creatine Kinase CK-MB (Mass) Troponin I, Quant Total Protein Albumin Globulin Albumin/Globulin Ratio Ur Random Creatinine 17.9 U Random Total Protein 35.0 H Urine Microalbumin 184.0 H Blood Type Antibody Screen 11/08/16 11/08/16 11/08/16 21:40 23:03 23:03 WBC 13.6 H RBC 3.85 Hgb 9.7 L Hct 31.2 L MCV 81.1 MCH 25.3 L MCHC 31.2 L RDW 17.1 H Plt Count 125 L MPV 11.3 Neut % (Auto) 53.4 Lymph % (Auto) 36.3 [place] % (Auto) 7.5 Eos % (Auto) 1.6 Baso % (Auto) 1.2 Neut # 7.3 H Lymph # 4.9 H [place] # 1.0 H Eos # 0.2 Baso # 0.2 APTT Puncture Site pCO2 pO2 HCO3 ABG pH ABG Total CO2 ABG O2 Saturation ABG Base Excess ABG Hemoglobin ABG Carboxyhemoglobin POC ABG HHb (Measured) ABG Methemoglobin Mj Test A-a O2 Difference Respiratory Index Hgb O2 Saturation Mechanical Rate FiO2 Tidal Volume PEEP Sodium 132 Potassium 4.6 Chloride 99 Carbon Dioxide 22 Anion Gap 16 BUN 29 H Creatinine 1.4 H Est GFR ( Amer) 45 Est GFR (Non-Af Amer) 37 POC Glucose (mg/dL) 253 H Random Glucose 282 H Calcium 7.3 L Phosphorus 5.5 H Magnesium 1.9 Total Bilirubin 0.5 AST 83 H D ALT 23 Alkaline Phosphatase 39 Total Creatine Kinase 915 H CK-MB (Mass) 20.2 H Troponin I, Quant 12.0000 H* Total Protein 6.0 L Albumin 3.2 L Globulin 2.9 Albumin/Globulin Ratio 1.1 Ur Random Creatinine U Random Total Protein Urine Microalbumin Blood Type Antibody Screen 11/09/16 11/09/16 11/09/16 00:14 04:30 06:31 WBC 8.1 RBC 2.74 L Hgb 7.1 L D Hct 22.3 L MCV 81.2 MCH 26.0 L MCHC 32.1 L RDW 16.8 H Plt Count 86 L D MPV 11.6 Neut % (Auto) 75.2 H Lymph % (Auto) 15.3 L [place] % (Auto) 8.6 Eos % (Auto) 0.6 Baso % (Auto) 0.3 Neut # 6.1 Lymph # 1.2 [place] # 0.7 Eos # 0.0 Baso # 0.0 APTT 31 Puncture Site Rr pCO2 32 L pO2 156 H HCO3 22.0 ABG pH 7.41 ABG Total CO2 21.3 L ABG O2 Saturation 99.1 H ABG Base Excess -3.8 L ABG Hemoglobin 8.5 L ABG Carboxyhemoglobin 1.1 POC ABG HHb (Measured) 0.9 ABG Methemoglobin 1.0 Mj Test Pos A-a O2 Difference 232.0 Respiratory Index 1.5 Hgb O2 Saturation 96.9 Mechanical Rate 14 FiO2 60.0 Tidal Volume 500 PEEP 5 Sodium Potassium Chloride Carbon Dioxide Anion Gap BUN Creatinine Est GFR ( Amer) Est GFR (Non-Af Amer) POC Glucose (mg/dL) Random Glucose Calcium Phosphorus Magnesium Total Bilirubin AST ALT Alkaline Phosphatase Total Creatine Kinase CK-MB (Mass) Troponin I, Quant Total Protein Albumin Globulin Albumin/Globulin Ratio Ur Random Creatinine U Random Total Protein Urine Microalbumin Blood Type Antibody Screen 11/09/16 11/09/16 11/09/16 06:31 06:31 06:56 WBC RBC Hgb Hct MCV MCH MCHC RDW Plt Count MPV Neut % (Auto) Lymph % (Auto) [place] % (Auto) Eos % (Auto) Baso % (Auto) Neut # Lymph # [place] # Eos # Baso # APTT Puncture Site pCO2 pO2 HCO3 ABG pH ABG Total CO2 ABG O2 Saturation ABG Base Excess ABG Hemoglobin ABG Carboxyhemoglobin POC ABG HHb (Measured) ABG Methemoglobin Mj Test A-a O2 Difference Respiratory Index Hgb O2 Saturation Mechanical Rate FiO2 Tidal Volume PEEP Sodium 136 Potassium 3.0 L Chloride 110 H Carbon Dioxide 17 L Anion Gap 12 BUN 22 H Creatinine 1.0 Est GFR ( Amer) > 60 Est GFR (Non-Af Amer) 55 POC Glucose (mg/dL) 288 H Random Glucose 171 H Calcium 5.3 L* D Phosphorus 2.8 Magnesium 2.2 Total Bilirubin 0.3 AST 57 H D ALT 21 Alkaline Phosphatase 28 L D Total Creatine Kinase 555 H CK-MB (Mass) 12.2 H Troponin I, Quant 9.9100 H* Total Protein 4.2 L Albumin 1.9 L D Globulin 2.3 Albumin/Globulin Ratio 0.8 L Ur Random Creatinine U Random Total Protein Urine Microalbumin Blood Type Antibody Screen 11/09/16 08:50 WBC RBC Hgb Hct MCV MCH MCHC RDW Plt Count MPV Neut % (Auto) Lymph % (Auto) [place] % (Auto) Eos % (Auto) Baso % (Auto) Neut # Lymph # [place] # Eos # Baso # APTT 121 H* D Puncture Site pCO2 pO2 HCO3 ABG pH ABG Total CO2 ABG O2 Saturation ABG Base Excess ABG Hemoglobin ABG Carboxyhemoglobin POC ABG HHb (Measured) ABG Methemoglobin Mj Test A-a O2 Difference Respiratory Index Hgb O2 Saturation Mechanical Rate FiO2 Tidal Volume PEEP Sodium Potassium Chloride Carbon Dioxide Anion Gap BUN Creatinine Est GFR ( Amer) Est GFR (Non-Af Amer) POC Glucose (mg/dL) Random Glucose Calcium Phosphorus Magnesium Total Bilirubin AST ALT Alkaline Phosphatase Total Creatine Kinase CK-MB (Mass) Troponin I, Quant Total Protein Albumin Globulin Albumin/Globulin Ratio Ur Random Creatinine U Random Total Protein Urine Microalbumin Blood Type Antibody Screen EKG/Cardiology Studies: Cardiology / EKG Studies 11/08/16 09:52 EKG [ELECTROCARDIOGRAM] Stat Comment: Mode Of Transportation: Reason For Exam: positive troponins Isolation: Contact Fingerstick Blood Sugar Results: 288 Review of Systems - Review of Systems Systems not reviewed;Unavailable: Acuity of Condition
--- NOTE | 2016-11-09 12:14 | CP.PCM.PN ---
Subjective - Date & Time of Evaluation Date of Evaluation: 11/09/16 Time of Evaluation: 12:00 - Subjective Subjective: Patient was seen and examined at bedside in ICU. Patient is intubated and sedated. Objective - Vital Signs/Intake and Output Vital Signs (last 24 hours): Temp Pulse Resp BP Pulse Ox 97.1 F L 64 14 152/52 H 99 11/09/16 10:02 11/09/16 11:04 11/09/16 11:04 11/09/16 11:04 11/09/16 11:04 Intake and Output: 11/09/16 11/09/16 06:59 18:59 Intake Total 781.4 893 Output Total 1355 1310 Balance -573.6 -417 - Medications Medications: Current Medications Albuterol/Ipratropium (Duoneb 3 Mg/0.5 Mg (3 Ml) Ud) 3 ml INH RQ6 [facility] Last Admin: 11/09/16 07:39 Dose: 3 ml Amlodipine Besylate (Norvasc) 5 mg PO DAILY [facility] Last Admin: 11/08/16 10:27 Dose: 5 mg Aspirin (Aspirin Chewable) 81 mg PO DAILY [facility] Last Admin: 11/09/16 09:23 Dose: 81 mg Clonidine HCl (Catapres) 0.2 mg PO TID [facility] Last Admin: 11/08/16 18:27 Dose: 0.2 mg Clopidogrel Bisulfate (Plavix) 75 mg PO DAILY [facility] Last Admin: 11/09/16 09:23 Dose: 75 mg Docusate Sodium (Colace) 100 mg PO TID [facility] Last Admin: 11/09/16 09:24 Dose: Not Given Ezetimibe (Zetia) 10 mg PO HS [facility] Last Admin: 11/08/16 22:00 Dose: 10 mg Ferrous Sulfate (Feosol) 325 mg PO TID [facility] Last Admin: 11/09/16 09:23 Dose: 325 mg Furosemide (Lasix) 60 mg IVP Q12H [facility] Last Admin: 11/09/16 09:23 Dose: 60 mg Gabapentin (Neurontin) 100 mg PO TID [facility] Last Admin: 11/09/16 09:23 Dose: 100 mg Cefazolin Sodium 1 gm/ Sodium (Chloride) 100 mls @ 100 mls/hr IVPB Q8 [facility] Last Admin: 11/09/16 05:35 Dose: 100 mls/hr Propofol (Diprivan) 1,000 mg in 100 mls @ 3 mls/hr IV .Q24H PRN; Protocol; 5 MCG/KG/MIN PRN Reason: Agitation Last Admin: 11/09/16 07:17 Dose: 30 mcg/kg/min, 18 mls/hr Heparin Sodium/Sodium Chloride (Heparin 27477 Units/250ml 1/2 Normal Saline) 25 ,000 units in 250 mls @ 12 mls/hr IV .[id number] PRN; Protocol; 12 UNITS/KG/HR PRN Reason: PROTOCOL Last Titration: 11/09/16 11:35 Dose: 9 units/kg/hr, 9 mls/hr Insulin Glargine (Lantus) 10 unit SC DAILY [facility] Last Admin: 11/09/16 09:24 Dose: 10 units Insulin Human Regular (Novolin R) 0 unit SC Q6 [facility] PRN Reason: Protocol Last Admin: 11/09/16 07:22 Dose: 6 unit Metoprolol Tartrate (Lopressor) 25 mg PO Q12 [facility] Last Admin: 11/09/16 09:25 Dose: 25 mg Morphine Sulfate (Morphine) 2 mg IVP Q3 PRN PRN Reason: Pain, severe (8-10) Last Admin: 11/08/16 05:00 Dose: 2 mg Rosuvastatin Calcium (Crestor) 10 mg PO HS [facility] Last Admin: 11/08/16 22:00 Dose: 10 mg - Labs Labs: 11/09/16 06:31 11/09/16 06:31 PT 10.1 SECONDS (9.7-12.2) 11/02/16 13:36 INR 0.9 11/02/16 13:36 APTT 121 SECONDS (21-34) H* D 11/09/16 08:50 - Head Exam Head Exam: ATRAUMATIC, NORMOCEPHALIC - Eye Exam Eye Exam: absent: Scleral icterus - ENT Exam ENT Exam: Mucous Membranes Moist - Respiratory Exam Respiratory Exam: Clear to Ausculation Bilateral Additional comments: Intubated on ventilator support. - Cardiovascular Exam Cardiovascular Exam: REGULAR RHYTHM, +S1, +S2 - GI/Abdominal Exam GI & Abdominal Exam: Soft. absent: Tenderness - Neurological Exam Additional comments: Patient is sedated and unresponsive. Assessment and Plan (1) Respiratory failure requiring intubation Status: Acute (2) HTN (hypertension) Status: Acute (3) Hypercholesterolemia Status: Acute (4) NSTEMI (non-ST elevated myocardial infarction) Status: Acute (5) PVD (peripheral vascular disease) Status: Acute - Assessment and Plan (Free Text) Plan: Patient is on aspirin, Plavix and heparin drip for non-STEMI. Cardiology is on board Patient developed acute hypoxic respiratory failure secondary to pleural effusion. On IV Lasix. Vent management as per ICU team. Acute kidney injury is improving Status post Left femoral-popliteal bypass postoperative day #2 Status post Femoral left popliteal endarterectomy postoperative day #2 Postop management as per surgery.
--- NOTE | 2016-11-09 12:26 | RAD ---
HISTORY: Intubated. Semi erect portable study 23:20. COMPARISON: Multiple serial examinations preceding the most recent study: November 08, 2016. 10:09. FINDINGS: LUNGS: Progressive asymmetrical pulmonary edema right greater than left. PLEURA: No significant pleural effusion identified, no pneumothorax apparent. CARDIOVASCULAR: No radiographic findings to suggest acute or significant cardiovascular disease. OSSEOUS STRUCTURES: No significant abnormalities. VISUALIZED UPPER ABDOMEN: Normal. OTHER FINDINGS: Satisfactory position of recently placed endotracheal tube. IMPRESSION: Worsening asymmetric pulmonary edema. Satisfactory position of recently placed endotracheal tube.
--- NOTE | 2016-11-09 13:09 | RAD ---
HISTORY: Intubated. Portable study 07:20. COMPARISON: No prior. FINDINGS: LUNGS: Improving asymmetrical pulmonary edema. PLEURA: No significant pleural effusion identified, no pneumothorax apparent. CARDIOVASCULAR: No significant interval change compared to the prior examination(s). OSSEOUS STRUCTURES: No significant abnormalities. VISUALIZED UPPER ABDOMEN: Normal. OTHER FINDINGS: Stable, satisfactory position ventilatory, and nasogastric apparatus. IMPRESSION: Improving pulmonary edema.
--- NOTE | 2016-11-09 13:40 | CP.PCM.PN ---
Subjective - Date & Time of Evaluation Date of Evaluation: 11/09/16 Time of Evaluation: 12:10 - Subjective Subjective: seen and examined on vent Objective - Vital Signs/Intake and Output Vital Signs (last 24 hours): Temp Pulse Resp BP Pulse Ox 97.0 F L 63 14 164/57 H 98 11/09/16 12:38 11/09/16 12:39 11/09/16 12:39 11/09/16 12:39 11/09/16 12:39 Intake and Output: 11/09/16 11/09/16 06:59 18:59 Intake Total 781.4 1444 Output Total 1355 2009 Balance -573.6 -566 - Medications Medications: Current Medications Albuterol/Ipratropium (Duoneb 3 Mg/0.5 Mg (3 Ml) Ud) 3 ml INH RQ6 [facility] Last Admin: 11/09/16 13:28 Dose: 3 ml Amlodipine Besylate (Norvasc) 5 mg PO DAILY [facility] Last Admin: 11/08/16 10:27 Dose: 5 mg Aspirin (Aspirin Chewable) 81 mg PO DAILY [facility] Last Admin: 11/09/16 09:23 Dose: 81 mg Clonidine HCl (Catapres) 0.2 mg PO TID [facility] Last Admin: 11/08/16 18:27 Dose: 0.2 mg Clopidogrel Bisulfate (Plavix) 75 mg PO DAILY [facility] Last Admin: 11/09/16 09:23 Dose: 75 mg Docusate Sodium (Colace) 100 mg PO TID [facility] Last Admin: 11/09/16 09:24 Dose: Not Given Ezetimibe (Zetia) 10 mg PO HS [facility] Last Admin: 11/08/16 22:00 Dose: 10 mg Ferrous Sulfate (Feosol) 325 mg PO TID [facility] Last Admin: 11/09/16 09:23 Dose: 325 mg Furosemide (Lasix) 60 mg IVP Q12H [facility] Last Admin: 11/09/16 09:23 Dose: 60 mg Gabapentin (Neurontin) 100 mg PO TID [facility] Last Admin: 11/09/16 09:23 Dose: 100 mg Cefazolin Sodium 1 gm/ Sodium (Chloride) 100 mls @ 100 mls/hr IVPB Q8 [facility] Last Admin: 11/09/16 05:35 Dose: 100 mls/hr Propofol (Diprivan) 1,000 mg in 100 mls @ 3 mls/hr IV .Q24H PRN; Protocol; 5 MCG/KG/MIN PRN Reason: Agitation Last Admin: 11/09/16 07:17 Dose: 30 mcg/kg/min, 18 mls/hr Heparin Sodium/Sodium Chloride (Heparin 60594 Units/250ml 1/2 Normal Saline) 25 ,000 units in 250 mls @ 12 mls/hr IV .[id number] PRN; Protocol; 12 UNITS/KG/HR PRN Reason: PROTOCOL Last Titration: 11/09/16 11:35 Dose: 9 units/kg/hr, 9 mls/hr Insulin Glargine (Lantus) 10 unit SC DAILY [facility] Last Admin: 11/09/16 09:24 Dose: 10 units Insulin Human Regular (Novolin R) 0 unit SC Q6 [facility] PRN Reason: Protocol Last Admin: 11/09/16 12:43 Dose: 6 unit Metoprolol Tartrate (Lopressor) 25 mg PO Q12 [facility] Last Admin: 11/09/16 09:25 Dose: 25 mg Morphine Sulfate (Morphine) 2 mg IVP Q3 PRN PRN Reason: Pain, severe (8-10) Last Admin: 11/08/16 05:00 Dose: 2 mg Rosuvastatin Calcium (Crestor) 10 mg PO HS [facility] Last Admin: 11/08/16 22:00 Dose: 10 mg - Labs Labs: 11/09/16 06:31 11/09/16 06:31 PT 10.1 SECONDS (9.7-12.2) 11/02/16 13:36 INR 0.9 11/02/16 13:36 APTT 121 SECONDS (21-34) H* D 11/09/16 08:50 - Constitutional Appears: Non-toxic - Head Exam Head Exam: ATRAUMATIC - Eye Exam Eye Exam: Normal appearance - ENT Exam Additional comments: et tube - Neck Exam Neck Exam: Normal Inspection - Respiratory Exam Additional comments: mechanical bs - Cardiovascular Exam Cardiovascular Exam: +S1, +S2 - GI/Abdominal Exam GI & Abdominal Exam: Normal Bowel Sounds - Extremities Exam Additional comments: no edema - Neurological Exam Additional comments: sedated - Psychiatric Exam Additional comments: sedated - Skin Additional comments: dressing on L upper leg Assessment and Plan - Assessment and Plan (Free Text) Assessment: Impression: JOE on CKD 3 proteinuria HTN PVD s/p surgery Obesity Anemia - iron deficiency hypoxic respiratory failure Plan -joe resolving -bp reasonably controlled holding jany/arb -on po iron -vent weaning per primary -jhas about 2 grams of protein - will check spep & sflc
[2016-11-09 17:49] LABS: BASO % 0.4 % (0.0-2.0); EOS # 0.1 K/uL (0.0-0.7); EOS % 1.3 % (0.0-4.0); HEMATOCRIT 32.3 % (34.0-47.0); LYMPH # 1.4 K/uL (1.0-4.3); LYMPH % 13.9 % (20.0-40.0); MEAN CELL VOLUME 82.2 fL (81.0-99.0); MEAN CORPUSCULAR HEMOGLOBIN 26.3 pg (27.0-31.0); MEAN PLATELET VOLUME 11.4 fL (7.2-11.7); MONO # 0.8 K/uL (0.0-0.8); MONO % 7.6 % (0.0-10.0); RED CELL DISTRIBUTION WIDTH 17.2 % (11.5-14.5); WHITE BLOOD COUNT 10.2 K/uL (4.8-10.8)
[2016-11-09 17:58] LABS: CALCIUM 7.6 mg/dl (8.6-10.4)
[2016-11-09 18:45] LABS: MEAN CELL VOLUME 81.5 fL (81.0-99.0); MEAN CORPUSCULAR HEMOGLOBIN 26.5 pg (27.0-31.0); MEAN CORPUSCULAR HGB CONC 32.5 g/dL (33.0-37.0); MEAN PLATELET VOLUME 12.2 fL (7.2-11.7); WHITE BLOOD COUNT 10.5 K/uL (4.8-10.8)
[2016-11-09] MEDS: Acetaminophen 650mg/20.3ml solution UD PO PRN (21:16)
[2016-11-10] MEDS: Propofol 10 mg/ml 1,000 MG/100 ML VIAL IV PRN ×2 (01:04→07:02)
[2016-11-10] MEDS: Albuterol-Ipratrop 3 mg / 0.5 (3 ml) UD INH SCH ×4 (01:28→19:44)
[2016-11-10 05:24] LABS: ABG MECHANICAL RATE 14; ARTERIAL BLOOD HGB O2 SAT 96.9 % (95.0-98.0); ATERIAL BLOOD GAS PEEP 5; CARBOXYHEMOGLOBIN 1.1 % (0.5-1.5); DRAW SITE RB; HHB 0.7 % (0.0-5.0); METHEMOGLOBIN 1.3 % (0.0-3.0)
[2016-11-10] MEDS ORDERED: Enalaprilat 2.5 MG/2 ML IV ONE (05:40)
[2016-11-10] MEDS: (Novolin R) Insulin Human Regular 100 units/ml vial SC SCH ×6 (06:00→21:59)
[2016-11-10 06:33] LABS: BASO # 0.1 K/uL (0.0-0.2); BASO % 0.7 % (0.0-2.0); EOS # 0.4 K/uL (0.0-0.7); EOS % 3.8 % (0.0-4.0); LYMPH # 1.4 K/uL (1.0-4.3); LYMPH % 14.5 % (20.0-40.0); MEAN CELL VOLUME 80.8 fL (81.0-99.0); MEAN CORPUSCULAR HEMOGLOBIN 27.9 pg (27.0-31.0); MEAN CORPUSCULAR HGB CONC 34.5 g/dL (33.0-37.0); MEAN PLATELET VOLUME 12.2 fL (7.2-11.7); MONO # 0.7 K/uL (0.0-0.8); NRBC % 0.2 % (0.0-2.0); RED CELL DISTRIBUTION WIDTH 17.9 % (11.5-14.5); WHITE BLOOD COUNT 9.3 K/uL (4.8-10.8)
[2016-11-10 06:37] LABS: POTASSIUM 4.2 mmol/L (3.6-5.2)
[2016-11-10 06:39] LABS: ALB/GLOB RATIO 1.1 (1.0-2.1); BILIRUBIN,TOTAL 0.6 mg/dL (0.2-1.3); PHOSPHOROUS 2.8 mg/dL (2.5-4.5); TOTAL PROTEIN 5.4 g/dL (6.3-8.3)
[2016-11-10 06:40] LABS: CALCIUM 7.8 mg/dl (8.6-10.4); MAGNESIUM 1.8 mg/dL (1.6-2.3)
--- NOTE | 2016-11-10 08:04 | CP.CCUPN ---
CCU Subjective - Physician Review Subjective (Free Text): doing well on vent. awake, interactive, appropriately responsive. Diuresed well. Afeb. VSS Gen: Mildy Sedated HEENT: DUNG. ETT/OGT Neck: Supple COR: S1, S2, RRR, no M/R/G Resp: scattered coarse rhonchi b/l ABD: Soft, nt/nd, BS +ve Ext: LLE wound site C/D/I; b/l edema decreasing L>R Neuro: sedated but arousable and appropriately responsive. Meds / Labs / Imaging reviewed independently as noted below. A/P: 71M DM2, HTN, CKD, PVD s/p POD 2 L fem pop bypass, now with ACS/NSTEMI and pulm edema with resultant hypoxic resp failure; acute anemia likely errorneous blood result as pt with dramatic rise in H/H post 1u PRBC Neuro: hold sedation Resp: wean vent as tolerated and extubate Cards: on ASA/Plavix/Hep gtt; BP control. Statin. Dr. Newman f/u appreciated ; taper diuretics GI: hold TF in anticipation of extubation; GI PPx Renal: diuresing well; renal following ID: DEMARCUS Heme: no SCDs for ppx given PVD as per Dr. Peterson; on Hep gtt prognosis guarded Macario Bautista MD CC time spent 35min 11/10/16 10:21 CCU Objective - Vital Signs / Intake & Output Vital Signs (Last 4 hours): Vital Signs Temp Pulse Resp BP Pulse Ox 11/10/16 07:27 72 16 147/56 L 98 11/10/16 07:00 73 14 99 11/10/16 06:27 69 15 163/56 H 100 11/10/16 06:24 69 14 158/58 H 100 11/10/16 06:23 68 13 155/53 H 100 11/10/16 06:00 99.4 F 72 14 100 11/10/16 05:54 202/75 H 11/10/16 05:27 77 14 202/75 H 100 11/10/16 05:00 77 14 100 11/10/16 04:55 82 14 195/71 H 100 11/10/16 04:40 77 14 208/74 H 100 11/10/16 04:29 86 14 194/63 H 100 11/10/16 04:27 79 14 233/80 H 100 Intake and Output (Last 8hrs): Intake & Output 11/09/16 11/10/16 11/10/16 22:59 06:59 14:59 Intake Total 651 656 Output Total 2029 1390 Balance -8361 -732 Intake: IV 18 200 Intake, IV Amount 283 216 Left Upper arm 81 72 Left Wrist 40 Right Hand 162 144 Oral 50 Tube Feeding 240 240 Other 60 Output: Urine 2029 1390 Urethral ([place]) 2029 1390 Stool 0 0 - Medications Active Medications: Active Medications Generic Name Dose Route Start Last Admin Trade Name Freq PRN Reason Stop Dose Admin Acetaminophen 650 mg 11/09/16 20:48 11/09/16 21:16 Tylenol 650mg/20.3ml Solution Ud PO 650 mg Q6 PRN Administration for temp 101 and above Albuterol/Ipratropium 3 ml 11/09/16 02:00 11/10/16 07:36 Duoneb 3 Mg/0.5 Mg (3 Ml) Ud INH 3 ml RQ6 CARRIE Administration Amlodipine Besylate 5 mg 11/04/16 11:58 11/08/16 10:27 Norvasc PO 5 mg DAILY CARRIE Administration Aspirin 81 mg 10/29/16 11:30 11/09/16 09:23 Aspirin Chewable PO 81 mg DAILY CARRIE Administration Clonidine HCl 0.2 mg 11/10/16 04:18 Catapres PO TID CARRIE Clopidogrel Bisulfate 75 mg 11/08/16 10:00 11/09/16 09:23 Plavix PO 75 mg DAILY CARRIE Administration Docusate Sodium 100 mg 11/02/16 14:00 11/09/16 17:39 Colace PO Not Given TID CARRIE Ezetimibe 10 mg 10/28/16 22:00 11/09/16 21:18 Zetia PO 10 mg HS CARRIE Administration Ferrous Sulfate 325 mg 11/08/16 14:00 11/09/16 17:38 Feosol PO 325 mg TID CARRIE Administration Furosemide 40 mg 11/10/16 10:00 Lasix IVP DAILY CARRIE Gabapentin 100 mg 11/08/16 12:00 11/09/16 17:38 Neurontin PO 100 mg TID CARRIE Administration Propofol 1,000 mg in 100 mls @ 3 mls/hr 11/08/16 22:57 11/10/16 07:02 Diprivan IV 30 mcg/kg/min .Q24H PRN 18 mls/hr Agitation Administration Protocol 5 MCG/KG/MIN Heparin Sodium/Sodium Chloride 25,000 units in 250 mls @ 12 mls/hr 11/08/16 23 :51 11/10/16 01:04 Heparin 28667 Units/250ml 1/2 Normal Saline IV 9 units/kg/hr .[id number] PRN 9 mls/hr PROTOCOL Titration Protocol 12 UNITS/KG/HR Insulin Glargine 16 unit 11/09/16 16:05 Lantus SC DAILY CARRIE Insulin Human Regular 0 unit 11/09/16 00:00 11/10/16 06:00 Novolin R SC 10 unit Q6 CARRIE Administration Protocol Metoprolol Tartrate 25 mg 11/09/16 10:00 11/09/16 21:17 Lopressor PO 25 mg Q12 CARRIE Administration Morphine Sulfate 2 mg 11/07/16 18:56 11/08/16 05:00 Morphine IVP 2 mg Q3 PRN Administration Pain, severe (8-10) Rosuvastatin Calcium 10 mg 11/01/16 22:00 11/09/16 21:24 Crestor PO 10 mg HS CARRIE Administration - Patient Studies Lab Studies: Lab Studies 11/10/16 11/10/16 11/10/16 Range/Units 06:32 06:21 06:21 WBC 9.3 (4.8-10.8) K/uL RBC 3.71 L (3.80-5.20) Mil/uL Hgb 10.3 L (11.0-16.0) g/dL Hct 30.0 L (34.0-47.0) % MCV 80.8 L (81.0-99.0) fL MCH 27.9 (27.0-31.0) pg MCHC 34.5 (33.0-37.0) g/dL RDW 17.9 H (11.5-14.5) % Plt Count 124 L (130-400) K/uL MPV 12.2 H (7.2-11.7) fL Neut % (Auto) 73.0 (50.0-75.0) % Lymph % (Auto) 14.5 L (20.0-40.0) % [place] % (Auto) 8.0 (0.0-10.0) % Eos % (Auto) 3.8 (0.0-4.0) % Baso % (Auto) 0.7 (0.0-2.0) % Neut # 6.8 (1.8-7.0) K/uL Lymph # 1.4 (1.0-4.3) K/uL Republic # 0.7 (0.0-0.8) K/uL Eos # 0.4 (0.0-0.7) K/uL Baso # 0.1 (0.0-0.2) K/uL APTT (21-34) SECONDS Puncture Site pCO2 (35-45) mm/Hg pO2 (80-100) mm/Hg HCO3 (21-28) mmol/L ABG pH (7.35-7.45) ABG Total CO2 (22-28) mmol/L ABG O2 Saturation (95-98) % ABG Base Excess (-2.0-3.0) mmol/L ABG Hemoglobin (11.7-17.4) g/dL ABG Carboxyhemoglobin (0.5-1.5) % POC ABG HHb (Measured) (0.0-5.0) % ABG Methemoglobin (0.0-3.0) % Mj Test A-a O2 Difference mm/Hg Respiratory Index Hgb O2 Saturation (95.0-98.0) % Mechanical Rate FiO2 % Tidal Volume PEEP Sodium 132 (132-148) mmol/L Potassium 4.2 (3.6-5.2) mmol/L Chloride 96 L (98-107) mmol/L Carbon Dioxide 24 (22-30) mmol/L Anion Gap 16 (10-20) BUN 31 H (7-17) mg/dL Creatinine 1.2 (0.7-1.2) MG/DL Est GFR ( Amer) 54 Est GFR (Non-Af Amer) 44 POC Glucose (mg/dL) 372 H (65-110) mg/dL Random Glucose 290 H (65-105) mg/dL Calcium 7.8 L (8.6-10.4) mg/dl Phosphorus 2.8 (2.5-4.5) mg/dL Magnesium 1.8 (1.6-2.3) mg/dL Total Bilirubin 0.6 (0.2-1.3) mg/dL AST 63 H (14-36) U/L ALT 25 (9-52) U/L Alkaline Phosphatase 43 (38-126) U/L Total Protein 5.4 L (6.3-8.3) g/dL Albumin 2.9 L D (3.5-5.0) g/dL Globulin 2.6 (2.2-3.9) gm/dL Albumin/Globulin Ratio 1.1 (1.0-2.1) Blood Type Antibody Screen 11/10/16 11/10/16 11/09/16 Range/Units 05:10 00:32 23:45 WBC (4.8-10.8) K/uL RBC (3.80-5.20) Mil/uL Hgb (11.0-16.0) g/dL Hct (34.0-47.0) % MCV (81.0-99.0) fL MCH (27.0-31.0) pg MCHC (33.0-37.0) g/dL RDW (11.5-14.5) % Plt Count (130-400) K/uL MPV (7.2-11.7) fL Neut % (Auto) (50.0-75.0) % Lymph % (Auto) (20.0-40.0) % Republic % (Auto) (0.0-10.0) % Eos % (Auto) (0.0-4.0) % Baso % (Auto) (0.0-2.0) % Neut # (1.8-7.0) K/uL Lymph # (1.0-4.3) K/uL [place] # (0.0-0.8) K/uL Eos # (0.0-0.7) K/uL Baso # (0.0-0.2) K/uL APTT 67 H D (21-34) SECONDS Puncture Site Rb pCO2 33 L (35-45) mm/Hg pO2 228 H (80-100) mm/Hg HCO3 28.8 H (21-28) mmol/L ABG pH 7.53 H (7.35-7.45) ABG Total CO2 28.6 H (22-28) mmol/L ABG O2 Saturation 99.3 H (95-98) % ABG Base Excess 4.9 H (-2.0-3.0) mmol/L ABG Hemoglobin 10.3 L (11.7-17.4) g/dL ABG Carboxyhemoglobin 1.1 (0.5-1.5) % POC ABG HHb (Measured) 0.7 (0.0-5.0) % ABG Methemoglobin 1.3 (0.0-3.0) % Mj Test Na A-a O2 Difference 16.0 mm/Hg Respiratory Index 0.1 Hgb O2 Saturation 96.9 (95.0-98.0) % Mechanical Rate 14 FiO2 40.0 % Tidal Volume 500 PEEP 5 Sodium (132-148) mmol/L Potassium (3.6-5.2) mmol/L Chloride (98-107) mmol/L Carbon Dioxide (22-30) mmol/L Anion Gap (10-20) BUN (7-17) mg/dL Creatinine (0.7-1.2) MG/DL Est GFR ( Amer) Est GFR (Non-Af Amer) POC Glucose (mg/dL) 344 H (65-110) mg/dL Random Glucose (65-105) mg/dL Calcium (8.6-10.4) mg/dl Phosphorus (2.5-4.5) mg/dL Magnesium (1.6-2.3) mg/dL Total Bilirubin (0.2-1.3) mg/dL AST (14-36) U/L ALT (9-52) U/L Alkaline Phosphatase (38-126) U/L Total Protein (6.3-8.3) g/dL Albumin (3.5-5.0) g/dL Globulin (2.2-3.9) gm/dL Albumin/Globulin Ratio (1.0-2.1) Blood Type Antibody Screen 11/09/16 11/09/16 11/09/16 Range/Units 18:42 17:39 17:39 WBC 10.5 10.2 (4.8-10.8) K/uL RBC 4.04 3.93 (3.80-5.20) Mil/uL Hgb 10.7 L 10.3 L D (11.0-16.0) g/dL Hct 33.0 L 32.3 L (34.0-47.0) % MCV 81.5 82.2 (81.0-99.0) fL MCH 26.5 L 26.3 L (27.0-31.0) pg MCHC 32.5 L 32.0 L (33.0-37.0) g/dL RDW 18.0 H 17.2 H (11.5-14.5) % Plt Count 121 L 108 L D (130-400) K/uL MPV 12.2 H 11.4 (7.2-11.7) fL Neut % (Auto) 76.8 H (50.0-75.0) % Lymph % (Auto) 13.9 L (20.0-40.0) % [place] % (Auto) 7.6 (0.0-10.0) % Eos % (Auto) 1.3 (0.0-4.0) % Baso % (Auto) 0.4 (0.0-2.0) % Neut # 7.9 H (1.8-7.0) K/uL Lymph # 1.4 (1.0-4.3) K/uL [place] # 0.8 (0.0-0.8) K/uL Eos # 0.1 (0.0-0.7) K/uL Baso # 0.0 (0.0-0.2) K/uL APTT 75 H D (21-34) SECONDS Puncture Site pCO2 (35-45) mm/Hg pO2 (80-100) mm/Hg HCO3 (21-28) mmol/L ABG pH (7.35-7.45) ABG Total CO2 (22-28) mmol/L ABG O2 Saturation (95-98) % ABG Base Excess (-2.0-3.0) mmol/L ABG Hemoglobin (11.7-17.4) g/dL ABG Carboxyhemoglobin (0.5-1.5) % POC ABG HHb (Measured) (0.0-5.0) % ABG Methemoglobin (0.0-3.0) % Mj Test A-a O2 Difference mm/Hg Respiratory Index Hgb O2 Saturation (95.0-98.0) % Mechanical Rate FiO2 % Tidal Volume PEEP Sodium (132-148) mmol/L Potassium (3.6-5.2) mmol/L Chloride (98-107) mmol/L Carbon Dioxide (22-30) mmol/L Anion Gap (10-20) BUN (7-17) mg/dL Creatinine (0.7-1.2) MG/DL Est GFR ( Amer) Est GFR (Non-Af Amer) POC Glucose (mg/dL) (65-110) mg/dL Random Glucose (65-105) mg/dL Calcium (8.6-10.4) mg/dl Phosphorus (2.5-4.5) mg/dL Magnesium (1.6-2.3) mg/dL Total Bilirubin (0.2-1.3) mg/dL AST (14-36) U/L ALT (9-52) U/L Alkaline Phosphatase (38-126) U/L Total Protein (6.3-8.3) g/dL Albumin (3.5-5.0) g/dL Globulin (2.2-3.9) gm/dL Albumin/Globulin Ratio (1.0-2.1) Blood Type Antibody Screen 11/09/16 11/09/16 11/09/16 Range/Units 17:39 17:13 12:15 WBC (4.8-10.8) K/uL RBC (3.80-5.20) Mil/uL Hgb (11.0-16.0) g/dL Hct (34.0-47.0) % MCV (81.0-99.0) fL MCH (27.0-31.0) pg MCHC (33.0-37.0) g/dL RDW (11.5-14.5) % Plt Count (130-400) K/uL MPV (7.2-11.7) fL Neut % (Auto) (50.0-75.0) % Lymph % (Auto) (20.0-40.0) % [place] % (Auto) (0.0-10.0) % Eos % (Auto) (0.0-4.0) % Baso % (Auto) (0.0-2.0) % Neut # (1.8-7.0) K/uL Lymph # (1.0-4.3) K/uL [place] # (0.0-0.8) K/uL Eos # (0.0-0.7) K/uL Baso # (0.0-0.2) K/uL APTT (21-34) SECONDS Puncture Site pCO2 (35-45) mm/Hg pO2 (80-100) mm/Hg HCO3 (21-28) mmol/L ABG pH (7.35-7.45) ABG Total CO2 (22-28) mmol/L ABG O2 Saturation (95-98) % ABG Base Excess (-2.0-3.0) mmol/L ABG Hemoglobin (11.7-17.4) g/dL ABG Carboxyhemoglobin (0.5-1.5) % POC ABG HHb (Measured) (0.0-5.0) % ABG Methemoglobin (0.0-3.0) % Mj Test A-a O2 Difference mm/Hg Respiratory Index Hgb O2 Saturation (95.0-98.0) % Mechanical Rate FiO2 % Tidal Volume PEEP Sodium 132 (132-148) mmol/L Potassium 6.0 H (3.6-5.2) mmol/L Chloride 99 (98-107) mmol/L Carbon Dioxide 24 (22-30) mmol/L Anion Gap 15 (10-20) BUN 28 H (7-17) mg/dL Creatinine 1.3 H (0.7-1.2) MG/DL Est GFR ( Amer) 49 Est GFR (Non-Af Amer) 40 POC Glucose (mg/dL) 261 H 272 H (65-110) mg/dL Random Glucose 207 H (65-105) mg/dL Calcium 7.6 L (8.6-10.4) mg/dl Phosphorus (2.5-4.5) mg/dL Magnesium (1.6-2.3) mg/dL Total Bilirubin (0.2-1.3) mg/dL AST (14-36) U/L ALT (9-52) U/L Alkaline Phosphatase (38-126) U/L Total Protein (6.3-8.3) g/dL Albumin (3.5-5.0) g/dL Globulin (2.2-3.9) gm/dL Albumin/Globulin Ratio (1.0-2.1) Blood Type Antibody Screen 11/09/16 11/07/16 Range/Units 08:50 11:03 WBC (4.8-10.8) K/uL RBC (3.80-5.20) Mil/uL Hgb (11.0-16.0) g/dL Hct (34.0-47.0) % MCV (81.0-99.0) fL MCH (27.0-31.0) pg MCHC (33.0-37.0) g/dL RDW (11.5-14.5) % Plt Count (130-400) K/uL MPV (7.2-11.7) fL Neut % (Auto) (50.0-75.0) % Lymph % (Auto) (20.0-40.0) % [place] % (Auto) (0.0-10.0) % Eos % (Auto) (0.0-4.0) % Baso % (Auto) (0.0-2.0) % Neut # (1.8-7.0) K/uL Lymph # (1.0-4.3) K/uL [place] # (0.0-0.8) K/uL Eos # (0.0-0.7) K/uL Baso # (0.0-0.2) K/uL APTT 121 H* D (21-34) SECONDS Puncture Site pCO2 (35-45) mm/Hg pO2 (80-100) mm/Hg HCO3 (21-28) mmol/L ABG pH (7.35-7.45) ABG Total CO2 (22-28) mmol/L ABG O2 Saturation (95-98) % ABG Base Excess (-2.0-3.0) mmol/L ABG Hemoglobin (11.7-17.4) g/dL ABG Carboxyhemoglobin (0.5-1.5) % POC ABG HHb (Measured) (0.0-5.0) % ABG Methemoglobin (0.0-3.0) % Mj Test A-a O2 Difference mm/Hg Respiratory Index Hgb O2 Saturation (95.0-98.0) % Mechanical Rate FiO2 % Tidal Volume PEEP Sodium (132-148) mmol/L Potassium (3.6-5.2) mmol/L Chloride (98-107) mmol/L Carbon Dioxide (22-30) mmol/L Anion Gap (10-20) BUN (7-17) mg/dL Creatinine (0.7-1.2) MG/DL Est GFR ( Amer) Est GFR (Non-Af Amer) POC Glucose (mg/dL) (65-110) mg/dL Random Glucose (65-105) mg/dL Calcium (8.6-10.4) mg/dl Phosphorus (2.5-4.5) mg/dL Magnesium (1.6-2.3) mg/dL Total Bilirubin (0.2-1.3) mg/dL AST (14-36) U/L ALT (9-52) U/L Alkaline Phosphatase (38-126) U/L Total Protein (6.3-8.3) g/dL Albumin (3.5-5.0) g/dL Globulin (2.2-3.9) gm/dL Albumin/Globulin Ratio (1.0-2.1) Blood Type B POSITIVE Antibody Screen Negative Laboratory Results - last 24 hr 11/07/16 11/09/16 11/09/16 11:03 08:50 12:15 WBC RBC Hgb Hct MCV MCH MCHC RDW Plt Count MPV Neut % (Auto) Lymph % (Auto) [place] % (Auto) Eos % (Auto) Baso % (Auto) Neut # Lymph # [place] # Eos # Baso # APTT 121 H* D Puncture Site pCO2 pO2 HCO3 ABG pH ABG Total CO2 ABG O2 Saturation ABG Base Excess ABG Hemoglobin ABG Carboxyhemoglobin POC ABG HHb (Measured) ABG Methemoglobin Mj Test A-a O2 Difference Respiratory Index Hgb O2 Saturation Mechanical Rate FiO2 Tidal Volume PEEP Sodium Potassium Chloride Carbon Dioxide Anion Gap BUN Creatinine Est GFR ( Amer) Est GFR (Non-Af Amer) POC Glucose (mg/dL) 272 H Random Glucose Calcium Phosphorus Magnesium Total Bilirubin AST ALT Alkaline Phosphatase Total Protein Albumin Globulin Albumin/Globulin Ratio Blood Type B POSITIVE Antibody Screen Negative 11/09/16 11/09/16 11/09/16 17:13 17:39 17:39 WBC 10.2 RBC 3.93 Hgb 10.3 L D Hct 32.3 L MCV 82.2 MCH 26.3 L MCHC 32.0 L RDW 17.2 H Plt Count 108 L D MPV 11.4 Neut % (Auto) 76.8 H Lymph % (Auto) 13.9 L [place] % (Auto) 7.6 Eos % (Auto) 1.3 Baso % (Auto) 0.4 Neut # 7.9 H Lymph # 1.4 Republic # 0.8 Eos # 0.1 Baso # 0.0 APTT Puncture Site pCO2 pO2 HCO3 ABG pH ABG Total CO2 ABG O2 Saturation ABG Base Excess ABG Hemoglobin ABG Carboxyhemoglobin POC ABG HHb (Measured) ABG Methemoglobin Mj Test A-a O2 Difference Respiratory Index Hgb O2 Saturation Mechanical Rate FiO2 Tidal Volume PEEP Sodium 132 Potassium 6.0 H Chloride 99 Carbon Dioxide 24 Anion Gap 15 BUN 28 H Creatinine 1.3 H Est GFR ( Amer) 49 Est GFR (Non-Af Amer) 40 POC Glucose (mg/dL) 261 H Random Glucose 207 H Calcium 7.6 L Phosphorus Magnesium Total Bilirubin AST ALT Alkaline Phosphatase Total Protein Albumin Globulin Albumin/Globulin Ratio Blood Type Antibody Screen 11/09/16 11/09/16 11/09/16 17:39 18:42 23:45 WBC 10.5 RBC 4.04 Hgb 10.7 L Hct 33.0 L MCV 81.5 MCH 26.5 L MCHC 32.5 L RDW 18.0 H Plt Count 121 L MPV 12.2 H Neut % (Auto) Lymph % (Auto) [place] % (Auto) Eos % (Auto) Baso % (Auto) Neut # Lymph # [place] # Eos # Baso # APTT 75 H D Puncture Site pCO2 pO2 HCO3 ABG pH ABG Total CO2 ABG O2 Saturation ABG Base Excess ABG Hemoglobin ABG Carboxyhemoglobin POC ABG HHb (Measured) ABG Methemoglobin Mj Test A-a O2 Difference Respiratory Index Hgb O2 Saturation Mechanical Rate FiO2 Tidal Volume PEEP Sodium Potassium Chloride Carbon Dioxide Anion Gap BUN Creatinine Est GFR ( Amer) Est GFR (Non-Af Amer) POC Glucose (mg/dL) 344 H Random Glucose Calcium Phosphorus Magnesium Total Bilirubin AST ALT Alkaline Phosphatase Total Protein Albumin Globulin Albumin/Globulin Ratio Blood Type Antibody Screen 11/10/16 11/10/16 11/10/16 00:32 05:10 06:21 WBC 9.3 RBC 3.71 L Hgb 10.3 L Hct 30.0 L MCV 80.8 L MCH 27.9 MCHC 34.5 RDW 17.9 H Plt Count 124 L MPV 12.2 H Neut % (Auto) 73.0 Lymph % (Auto) 14.5 L [place] % (Auto) 8.0 Eos % (Auto) 3.8 Baso % (Auto) 0.7 Neut # 6.8 Lymph # 1.4 Republic # 0.7 Eos # 0.4 Baso # 0.1 APTT 67 H D Puncture Site Rb pCO2 33 L pO2 228 H HCO3 28.8 H ABG pH 7.53 H ABG Total CO2 28.6 H ABG O2 Saturation 99.3 H ABG Base Excess 4.9 H ABG Hemoglobin 10.3 L ABG Carboxyhemoglobin 1.1 POC ABG HHb (Measured) 0.7 ABG Methemoglobin 1.3 Mj Test Na A-a O2 Difference 16.0 Respiratory Index 0.1 Hgb O2 Saturation 96.9 Mechanical Rate 14 FiO2 40.0 Tidal Volume 500 PEEP 5 Sodium Potassium Chloride Carbon Dioxide Anion Gap BUN Creatinine Est GFR ( Amer) Est GFR (Non-Af Amer) POC Glucose (mg/dL) Random Glucose Calcium Phosphorus Magnesium Total Bilirubin AST ALT Alkaline Phosphatase Total Protein Albumin Globulin Albumin/Globulin Ratio Blood Type Antibody Screen 11/10/16 11/10/16 06:21 06:32 WBC RBC Hgb Hct MCV MCH MCHC RDW Plt Count MPV Neut % (Auto) Lymph % (Auto) [place] % (Auto) Eos % (Auto) Baso % (Auto) Neut # Lymph # [place] # Eos # Baso # APTT Puncture Site pCO2 pO2 HCO3 ABG pH ABG Total CO2 ABG O2 Saturation ABG Base Excess ABG Hemoglobin ABG Carboxyhemoglobin POC ABG HHb (Measured) ABG Methemoglobin Mj Test A-a O2 Difference Respiratory Index Hgb O2 Saturation Mechanical Rate FiO2 Tidal Volume PEEP Sodium 132 Potassium 4.2 Chloride 96 L Carbon Dioxide 24 Anion Gap 16 BUN 31 H Creatinine 1.2 Est GFR ( Amer) 54 Est GFR (Non-Af Amer) 44 POC Glucose (mg/dL) 372 H Random Glucose 290 H Calcium 7.8 L Phosphorus 2.8 Magnesium 1.8 Total Bilirubin 0.6 AST 63 H ALT 25 Alkaline Phosphatase 43 Total Protein 5.4 L Albumin 2.9 L D Globulin 2.6 Albumin/Globulin Ratio 1.1 Blood Type Antibody Screen Fingerstick Blood Sugar Results: 372
--- NOTE | 2016-11-10 09:21 | RAD ---
HISTORY: Follow-up. Portable study 07:21. COMPARISON: Multiple serial examinations preceding the most recent study: November 09, 2016. Employing similar portable technique performed at 07:20 FINDINGS: LUNGS: Continued improvement in pulmonary edema. PLEURA: No significant pleural effusion identified, no pneumothorax apparent. CARDIOVASCULAR: No significant interval change compared to the prior examination(s). OSSEOUS STRUCTURES: No significant abnormalities. VISUALIZED UPPER ABDOMEN: Normal. OTHER FINDINGS: Stable position of endotracheal tube. Stable position of nasogastric tube. IMPRESSION: Continued improvement in asymmetrical pulmonary edema.
--- NOTE | 2016-11-10 09:25 | CP.PCM.PN ---
Subjective - Date & Time of Evaluation Date of Evaluation: 11/10/16 Time of Evaluation: 09:20 - Subjective Subjective: patient remains intubated. more awake. Objective - Vital Signs/Intake and Output Vital Signs (last 24 hours): Temp Pulse Resp BP Pulse Ox 99.4 F 72 16 147/56 L 98 11/10/16 06:00 11/10/16 07:27 11/10/16 07:27 11/10/16 07:27 11/10/16 07:27 Intake and Output: 11/10/16 11/10/16 06:59 18:59 Intake Total 989 57 Output Total 2320 100 Balance -1331 -43 - Medications Medications: Current Medications Acetaminophen (Tylenol 650mg/20.3ml Solution Ud) 650 mg PO Q6 PRN PRN Reason: for temp 101 and above Last Admin: 11/09/16 21:16 Dose: 650 mg Albuterol/Ipratropium (Duoneb 3 Mg/0.5 Mg (3 Ml) Ud) 3 ml INH RQ6 [facility] Last Admin: 11/10/16 07:36 Dose: 3 ml Amlodipine Besylate (Norvasc) 5 mg PO DAILY [facility] Last Admin: 11/08/16 10:27 Dose: 5 mg Aspirin (Aspirin Chewable) 81 mg PO DAILY [facility] Last Admin: 11/09/16 09:23 Dose: 81 mg Clonidine HCl (Catapres) 0.2 mg PO TID [facility] Clopidogrel Bisulfate (Plavix) 75 mg PO DAILY [facility] Last Admin: 11/09/16 09:23 Dose: 75 mg Docusate Sodium (Colace) 100 mg PO TID [facility] Last Admin: 11/09/16 17:39 Dose: Not Given Ezetimibe (Zetia) 10 mg PO [facility] Last Admin: 11/09/16 21:18 Dose: 10 mg Ferrous Sulfate (Feosol) 325 mg PO TID [facility] Last Admin: 11/09/16 17:38 Dose: 325 mg Furosemide (Lasix) 40 mg IVP DAILY [facility] Gabapentin (Neurontin) 100 mg PO TID [facility] Last Admin: 11/09/16 17:38 Dose: 100 mg Propofol (Diprivan) 1,000 mg in 100 mls @ 3 mls/hr IV .Q24H PRN; Protocol; 5 MCG/KG/MIN PRN Reason: Agitation Last Admin: 11/10/16 07:02 Dose: 30 mcg/kg/min, 18 mls/hr Heparin Sodium/Sodium Chloride (Heparin 58095 Units/250ml 1/2 Normal Saline) 25 ,000 units in 250 mls @ 12 mls/hr IV .[id number] PRN; Protocol; 12 UNITS/KG/HR PRN Reason: PROTOCOL Last Titration: 11/10/16 01:04 Dose: 9 units/kg/hr, 9 mls/hr Insulin Glargine (Lantus) 16 unit SC DAILY [facility] Insulin Human Regular (Novolin R) 0 unit SC Q6 [facility] PRN Reason: Protocol Last Admin: 11/10/16 06:00 Dose: 10 unit Metoprolol Tartrate (Lopressor) 25 mg PO Q12 [facility] Last Admin: 11/09/16 21:17 Dose: 25 mg Morphine Sulfate (Morphine) 2 mg IVP Q3 PRN PRN Reason: Pain, severe (8-10) Last Admin: 11/08/16 05:00 Dose: 2 mg Rosuvastatin Calcium (Crestor) 10 mg PO HS [facility] Last Admin: 11/09/16 21:24 Dose: 10 mg - Labs Labs: 11/10/16 06:21 11/10/16 06:21 PT 10.1 SECONDS (9.7-12.2) 11/02/16 13:36 INR 0.9 11/02/16 13:36 APTT 61 SECONDS (21-34) H D 11/10/16 08:37 - Constitutional Appears: Non-toxic - Head Exam Head Exam: NORMAL INSPECTION - Eye Exam Eye Exam: Normal appearance - ENT Exam ENT Exam: Mucous Membranes Moist - Neck Exam Neck Exam: Full ROM - Respiratory Exam Respiratory Exam: Decreased Breath Sounds - Cardiovascular Exam Cardiovascular Exam: REGULAR RHYTHM - GI/Abdominal Exam GI & Abdominal Exam: Normal Bowel Sounds - Rectal Exam Rectal Exam: Deferred - Extremities Exam Extremities Exam: absent: Pedal Edema - Back Exam Back Exam: NORMAL INSPECTION - Neurological Exam Neurological Exam: Alert - Psychiatric Exam Psychiatric exam: Normal Affect - Skin Skin Exam: Normal Color Assessment and Plan (1) NSTEMI (non-ST elevated myocardial infarction) Assessment & Plan: I reviewed the echocardiogram. There are no new regional wall motion abnormalities. There is moderate LVH. Hgb is table. Patient will continue with antiplatelet therapy. She will need cardiac catheterization when stable. Status: Acute (2) HTN (hypertension) Assessment & Plan: will adjust therapy Status: Acute (3) Hypercholesterolemia Assessment & Plan: statin therapy Status: Acute (4) PVD (peripheral vascular disease) Assessment & Plan: s/p fem pop bypass Status: Acute
[2016-11-10] MEDS: (Lantus) Insulin Glargine, Recombinant SC SCH (09:26)
[2016-11-10 13:04] LABS: TOTAL PROTEIN, SERUM 3.8 g/dL (6.1-8.1)
--- NOTE | 2016-11-10 15:55 | CP.PCM.PN ---
Subjective - Date & Time of Evaluation Date of Evaluation: 11/10/16 Time of Evaluation: 15:40 - Subjective Subjective: Patient seen and examined at bedside Extubated now and alert Objective - Vital Signs/Intake and Output Vital Signs (last 24 hours): Temp Pulse Resp BP Pulse Ox 99.4 F 78 24 154/45 H 98 11/10/16 06:00 11/10/16 10:27 11/10/16 10:27 11/10/16 10:27 11/10/16 10:27 Intake and Output: 11/10/16 11/10/16 06:59 18:59 Intake Total 989 132 Output Total 2320 1100 Balance -5711 -968 - Medications Medications: Current Medications Acetaminophen (Tylenol 650mg/20.3ml Solution Ud) 650 mg PO Q6 PRN PRN Reason: for temp 101 and above Last Admin: 11/09/16 21:16 Dose: 650 mg Albuterol/Ipratropium (Duoneb 3 Mg/0.5 Mg (3 Ml) Ud) 3 ml INH RQ6 [facility] Last Admin: 11/10/16 13:09 Dose: 3 ml Amlodipine Besylate (Norvasc) 5 mg PO DAILY [facility] Last Admin: 11/10/16 09:27 Dose: 5 mg Aspirin (Aspirin Chewable) 81 mg PO DAILY [facility] Last Admin: 11/10/16 09:26 Dose: 81 mg Clonidine HCl (Catapres) 0.2 mg PO TID [facility] Last Admin: 11/10/16 14:13 Dose: 0.2 mg Clopidogrel Bisulfate (Plavix) 75 mg PO DAILY [facility] Last Admin: 11/10/16 09:27 Dose: 75 mg Docusate Sodium (Colace) 100 mg PO TID [facility] Last Admin: 11/10/16 14:12 Dose: 100 mg Ezetimibe (Zetia) 10 mg PO HS [facility] Last Admin: 11/09/16 21:18 Dose: 10 mg Ferrous Sulfate (Feosol) 325 mg PO TID [facility] Last Admin: 11/10/16 14:13 Dose: 325 mg Furosemide (Lasix) 40 mg IVP DAILY [facility] Last Admin: 11/10/16 09:28 Dose: 40 mg Gabapentin (Neurontin) 100 mg PO TID [facility] Last Admin: 11/10/16 14:13 Dose: 100 mg Propofol (Diprivan) 1,000 mg in 100 mls @ 3 mls/hr IV .Q24H PRN; Protocol; 5 MCG/KG/MIN PRN Reason: Agitation Last Admin: 11/10/16 07:02 Dose: 30 mcg/kg/min, 18 mls/hr Heparin Sodium/Sodium Chloride (Heparin 80631 Units/250ml 1/2 Normal Saline) 25 ,000 units in 250 mls @ 12 mls/hr IV .[id number] PRN; Protocol; 12 UNITS/KG/HR PRN Reason: PROTOCOL Last Titration: 11/10/16 01:04 Dose: 9 units/kg/hr, 9 mls/hr Insulin Glargine (Lantus) 16 unit SC DAILY [facility] Last Admin: 11/10/16 09:26 Dose: 16 u Insulin Human Regular (Novolin R) 0 unit SC ACHS [facility] PRN Reason: Protocol Metoprolol Tartrate (Lopressor) 25 mg PO Q12 [facility] Last Admin: 11/10/16 09:27 Dose: 25 mg Morphine Sulfate (Morphine) 2 mg IVP Q3 PRN PRN Reason: Pain, severe (8-10) Last Admin: 11/08/16 05:00 Dose: 2 mg Rosuvastatin Calcium (Crestor) 10 mg PO HS [facility] Last Admin: 11/09/16 21:24 Dose: 10 mg - Labs Labs: 11/10/16 06:21 11/10/16 06:21 PT 10.1 SECONDS (9.7-12.2) 11/02/16 13:36 INR 0.9 11/02/16 13:36 APTT 61 SECONDS (21-34) H D 11/10/16 08:37 - Head Exam Head Exam: ATRAUMATIC, NORMOCEPHALIC - Eye Exam Eye Exam: Normal appearance, PERRL - ENT Exam ENT Exam: Mucous Membranes Moist - Respiratory Exam Respiratory Exam: Clear to Ausculation Bilateral - Cardiovascular Exam Cardiovascular Exam: REGULAR RHYTHM, +S1, +S2 - GI/Abdominal Exam GI & Abdominal Exam: Soft, Tenderness - Extremities Exam Extremities Exam: absent: Pedal Edema - Neurological Exam Neurological Exam: Alert, Awake Assessment and Plan (1) Respiratory failure requiring intubation Status: Acute (2) HTN (hypertension) Status: Acute (3) Hypercholesterolemia Status: Acute (4) NSTEMI (non-ST elevated myocardial infarction) Status: Acute (5) PVD (peripheral vascular disease) Status: Acute - Assessment and Plan (Free Text) Assessment: Patient is extubated now. S/P Fem-pep bypass POD # 2 Continue post op management as per surgery Medical management for NSTEMI Cardiology is on board Discussed with family at bedside
[2016-11-11] MEDS: Albuterol-Ipratrop 3 mg / 0.5 (3 ml) UD INH SCH ×4 (01:19→19:46)
[2016-11-11] MEDS: Acetaminophen 650mg/20.3ml solution UD PO PRN (02:44)
[2016-11-11] MEDS: Heparin25000 units/250ml 1/2NS 25,000 UNITS/250 ML BAG IV PRN (05:38)
[2016-11-11 06:44] LABS: POTASSIUM 4.3 mmol/L (3.6-5.2)
[2016-11-11 06:46] LABS: BILIRUBIN,TOTAL 0.8 mg/dL (0.2-1.3); TOTAL PROTEIN 5.8 g/dL (6.3-8.3)
[2016-11-11 06:47] LABS: CALCIUM 7.9 mg/dl (8.6-10.4); MAGNESIUM 1.9 mg/dL (1.6-2.3); PHOSPHOROUS 4.8 mg/dL (2.5-4.5)
[2016-11-11 06:52] LABS: BASO % 0.3 % (0.0-2.0); EOS # 0.6 K/uL (0.0-0.7); HEMATOCRIT 28.2 % (34.0-47.0); LYMPH # 2.1 K/uL (1.0-4.3); LYMPH % 22.4 % (20.0-40.0); MEAN CELL VOLUME 82.1 fL (81.0-99.0); MEAN CORPUSCULAR HEMOGLOBIN 26.5 pg (27.0-31.0); MEAN CORPUSCULAR HGB CONC 32.3 g/dL (33.0-37.0); MEAN PLATELET VOLUME 11.5 fL (7.2-11.7); MONO # 0.9 K/uL (0.0-0.8); MONO % 9.6 % (0.0-10.0); NRBC % 0.1 % (0.0-2.0); RED CELL DISTRIBUTION WIDTH 17.9 % (11.5-14.5); WHITE BLOOD COUNT 9.6 K/uL (4.8-10.8)
--- NOTE | 2016-11-11 07:32 | CP.CCUPN ---
CCU Subjective - Physician Review Subjective (Free Text): extubated successfully yesterday. on NC, no distress Afeb. VSS Gen: NAD HEENT: DUNG. Neck: Supple COR: S1, S2, RRR, no M/R/G Resp: scattered coarse rhonchi b/l ABD: Soft, nt/nd, BS +ve Ext: LLE wound site C/D/I; minimal b/l edema Neuro: AAOx3. non focal Meds / Labs / Imaging reviewed independently as noted below. A/P: 71M DM2, HTN, CKD, PVD s/p POD 2 L fem pop bypass, now with ACS/NSTEMI and pulm edema with resultant hypoxic resp failure; acute anemia likely errorneous blood result as pt with dramatic rise in H/H post 1u PRBC Neuro: OOB. PT/OT eval. Pain control. Resp: O2 Supp as needed. Incentive spirometry. Cards: on ASA/Plavix/Hep gtt; BP control. Statin. Dr. Newman f/u appreciated ; diuresed well. cont lasix. GI: adv diet. GI PPx Renal: renal following ID: [email or web address] Heme: no SCDs for ppx given PVD as per Dr. Peterson; on Hep gtt improving. stable for transfer to [facility] will sign off. please recall if clinically warranted. Macario Bautista MD 11/11/16 13:35 CCU Objective - Vital Signs / Intake & Output Vital Signs (Last 4 hours): Vital Signs Temp Pulse Resp BP Pulse Ox 11/11/16 07:00 61 19 100 11/11/16 06:26 60 12 111/36 L 99 11/11/16 06:00 62 13 99 11/11/16 05:00 60 17 98 11/11/16 04:27 63 20 96/25 L 99 11/11/16 04:00 97.9 F 69 22 99 Intake and Output (Last 8hrs): Intake & Output 11/10/16 11/11/16 11/11/16 22:59 06:59 14:59 Intake Total 982 372 9 Output Total 325 360 Balance 657 12 9 Weight 216 lb Intake: IV 200 Intake, IV Amount 72 72 9 Left Upper arm 72 72 9 Oral 910 100 Output: Urine 325 360 Urethral ([place]) 325 360 - Medications Active Medications: Active Medications Generic Name Dose Route Start Last Admin Trade Name Freq PRN Reason Stop Dose Admin Acetaminophen 650 mg 11/09/16 20:48 11/11/16 02:44 Tylenol 650mg/20.3ml Solution Ud PO 650 mg Q6 PRN Administration for temp 101 and above Albuterol/Ipratropium 3 ml 11/09/16 02:00 11/11/16 01:19 Duoneb 3 Mg/0.5 Mg (3 Ml) Ud INH 3 ml RQ6 [facility] Administration Amlodipine Besylate 5 mg 11/04/16 11:58 11/10/16 09:27 Norvasc PO 5 mg DAILY [facility] Administration Aspirin 81 mg 10/29/16 11:30 11/10/16 09:26 Aspirin Chewable PO 81 mg DAILY [facility] Administration Clonidine HCl 0.2 mg 11/10/16 04:18 11/10/16 17:30 Catapres PO 0.2 mg TID [facility] Administration Clopidogrel Bisulfate 75 mg 11/08/16 10:00 11/10/16 09:27 Plavix PO 75 mg DAILY [facility] Administration Docusate Sodium 100 mg 11/02/16 14:00 11/10/16 17:30 Colace PO 100 mg TID [facility] Administration Ezetimibe 10 mg 10/28/16 22:00 11/10/16 21:42 Zetia PO 10 mg HS [facility] Administration Ferrous Sulfate 325 mg 11/08/16 14:00 11/10/16 17:30 Feosol PO 325 mg TID [facility] Administration Furosemide 40 mg 11/10/16 10:00 11/10/16 09:28 Lasix IVP 40 mg DAILY [facility] Administration Gabapentin 100 mg 11/08/16 12:00 11/10/16 17:30 Neurontin PO 100 mg TID [facility] Administration Propofol 1,000 mg in 100 mls @ 3 mls/hr 11/08/16 22:57 11/10/16 07:02 Diprivan IV 30 mcg/kg/min .Q24H PRN 18 mls/hr Ag[facility] Administration Protocol 5 MCG/KG/MIN Heparin Sodium/Sodium Chloride 25,000 units in 250 mls @ 12 mls/hr 11/08/16 23 :51 11/11/16 05:38 Heparin 50840 Units/250ml 1/2 Normal Saline IV 9 units/kg/hr .[id number] PRN 9 mls/hr PROTOCOL Administration Protocol 12 UNITS/KG/HR Insulin Glargine 16 unit 11/09/16 16:05 11/10/16 09:26 Lantus SC 16 u DAILY [facility] Administration Insulin Human Regular 0 unit 11/10/16 22:00 11/10/16 21:59 Novolin R SC Not Given ACHS [facility] Protocol Metoprolol Tartrate 25 mg 11/09/16 10:00 11/10/16 21:43 Lopressor PO Not Given Q12 [facility] Morphine Sulfate 2 mg 11/07/16 18:56 11/08/16 05:00 Morphine IVP 2 mg Q3 PRN Administration Pain, severe (8-10) Rosuvastatin Calcium 10 mg 11/01/16 22:00 11/10/16 21:42 Crestor PO 10 mg HS [facility] Administration - Patient Studies Lab Studies: Lab Studies 11/11/16 11/11/16 11/11/16 Range/Units 06:25 06:25 06:25 WBC 9.6 (4.8-10.8) K/uL RBC 3.44 L (3.80-5.20) Mil/uL Hgb 9.1 L (11.0-16.0) g/dL Hct 28.2 L (34.0-47.0) % MCV 82.1 (81.0-99.0) fL MCH 26.5 L (27.0-31.0) pg MCHC 32.3 L (33.0-37.0) g/dL RDW 17.9 H (11.5-14.5) % Plt Count 145 (130-400) K/uL MPV 11.5 (7.2-11.7) fL Neut % (Auto) 61.7 (50.0-75.0) % Lymph % (Auto) 22.4 (20.0-40.0) % Baldwin % (Auto) 9.6 (0.0-10.0) % Eos % (Auto) 6.0 H (0.0-4.0) % Baso % (Auto) 0.3 (0.0-2.0) % Neut # 5.9 (1.8-7.0) K/uL Lymph # 2.1 (1.0-4.3) K/uL Baldwin # 0.9 H (0.0-0.8) K/uL Eos # 0.6 (0.0-0.7) K/uL Baso # 0.0 (0.0-0.2) K/uL Differential Comment PT 11.5 (9.7-12.2) SECONDS INR 1.0 APTT 60 H (21-34) SECONDS Sodium 133 (132-148) mmol/L Potassium 4.3 (3.6-5.2) mmol/L Chloride 94 L (98-107) mmol/L Carbon Dioxide 27 (22-30) mmol/L Anion Gap 16 (10-20) BUN 41 H (7-17) mg/dL Creatinine 1.8 H (0.7-1.2) MG/DL Est GFR ( Amer) 34 Est GFR (Non-Af Amer) 28 POC Glucose (mg/dL) (65-110) mg/dL Random Glucose 198 H (65-105) mg/dL Calcium 7.9 L (8.6-10.4) mg/dl Phosphorus 4.8 H (2.5-4.5) mg/dL Magnesium 1.9 (1.6-2.3) mg/dL Total Bilirubin 0.8 (0.2-1.3) mg/dL AST 77 H D (14-36) U/L ALT 45 (9-52) U/L Alkaline Phosphatase 42 (38-126) U/L Total Protein 5.8 L (6.3-8.3) g/dL Total Protein (PEP) (6.1-8.1) g/dL Albumin 2.9 L (3.5-5.0) g/dL Globulin 2.9 (2.2-3.9) gm/dL Albumin/Globulin Ratio 1.0 (1.0-2.1) 11/10/16 11/10/16 11/10/16 Range/Units 21:46 16:05 12:20 WBC (4.8-10.8) K/uL RBC (3.80-5.20) Mil/uL Hgb (11.0-16.0) g/dL Hct (34.0-47.0) % MCV (81.0-99.0) fL MCH (27.0-31.0) pg MCHC (33.0-37.0) g/dL RDW (11.5-14.5) % Plt Count (130-400) K/uL MPV (7.2-11.7) fL Neut % (Auto) (50.0-75.0) % Lymph % (Auto) (20.0-40.0) % Baldwin % (Auto) (0.0-10.0) % Eos % (Auto) (0.0-4.0) % Baso % (Auto) (0.0-2.0) % Neut # (1.8-7.0) K/uL Lymph # (1.0-4.3) K/uL Baldwin # (0.0-0.8) K/uL Eos # (0.0-0.7) K/uL Baso # (0.0-0.2) K/uL Differential Comment PT (9.7-12.2) SECONDS INR APTT (21-34) SECONDS Sodium (132-148) mmol/L Potassium (3.6-5.2) mmol/L Chloride (98-107) mmol/L Carbon Dioxide (22-30) mmol/L Anion Gap (10-20) BUN (7-17) mg/dL Creatinine (0.7-1.2) MG/DL Est GFR ( Amer) Est GFR (Non-Af Amer) POC Glucose (mg/dL) 185 H 227 H 296 H (65-110) mg/dL Random Glucose (65-105) mg/dL Calcium (8.6-10.4) mg/dl Phosphorus (2.5-4.5) mg/dL Magnesium (1.6-2.3) mg/dL Total Bilirubin (0.2-1.3) mg/dL AST (14-36) U/L ALT (9-52) U/L Alkaline Phosphatase (38-126) U/L Total Protein (6.3-8.3) g/dL Total Protein (PEP) (6.1-8.1) g/dL Albumin (3.5-5.0) g/dL Globulin (2.2-3.9) gm/dL Albumin/Globulin Ratio (1.0-2.1) 11/10/16 11/10/16 11/10/16 Range/Units 11:34 08:37 06:21 WBC (4.8-10.8) K/uL RBC (3.80-5.20) Mil/uL Hgb (11.0-16.0) g/dL Hct (34.0-47.0) % MCV (81.0-99.0) fL MCH (27.0-31.0) pg MCHC (33.0-37.0) g/dL RDW (11.5-14.5) % Plt Count (130-400) K/uL MPV (7.2-11.7) fL Neut % (Auto) (50.0-75.0) % Lymph % (Auto) (20.0-40.0) % Baldwin % (Auto) (0.0-10.0) % Eos % (Auto) (0.0-4.0) % Baso % (Auto) (0.0-2.0) % Neut # (1.8-7.0) K/uL Lymph # (1.0-4.3) K/uL Baldwin # (0.0-0.8) K/uL Eos # (0.0-0.7) K/uL Baso # (0.0-0.2) K/uL Differential Comment PT (9.7-12.2) SECONDS INR APTT 61 H D (21-34) SECONDS Sodium (132-148) mmol/L Potassium (3.6-5.2) mmol/L Chloride (98-107) mmol/L Carbon Dioxide (22-30) mmol/L Anion Gap (10-20) BUN (7-17) mg/dL Creatinine (0.7-1.2) MG/DL Est GFR ( Amer) Est GFR (Non-Af Amer) POC Glucose (mg/dL) 294 H (65-110) mg/dL Random Glucose (65-105) mg/dL Calcium (8.6-10.4) mg/dl Phosphorus (2.5-4.5) mg/dL Magnesium (1.6-2.3) mg/dL Total Bilirubin (0.2-1.3) mg/dL AST (14-36) U/L ALT (9-52) U/L Alkaline Phosphatase (38-126) U/L Total Protein (6.3-8.3) g/dL Total Protein (PEP) (6.1-8.1) g/dL Albumin (3.5-5.0) g/dL Globulin (2.2-3.9) gm/dL Albumin/Globulin Ratio (1.0-2.1) 11/09/16 Range/Units 06:31 WBC (4.8-10.8) K/uL RBC (3.80-5.20) Mil/uL Hgb (11.0-16.0) g/dL Hct (34.0-47.0) % MCV (81.0-99.0) fL MCH (27.0-31.0) pg MCHC (33.0-37.0) g/dL RDW (11.5-14.5) % Plt Count (130-400) K/uL MPV (7.2-11.7) fL Neut % (Auto) (50.0-75.0) % Lymph % (Auto) (20.0-40.0) % Baldwin % (Auto) (0.0-10.0) % Eos % (Auto) (0.0-4.0) % Baso % (Auto) (0.0-2.0) % Neut # (1.8-7.0) K/uL Lymph # (1.0-4.3) K/uL Baldwin # (0.0-0.8) K/uL Eos # (0.0-0.7) K/uL Baso # (0.0-0.2) K/uL Differential Comment PT (9.7-12.2) SECONDS INR APTT (21-34) SECONDS Sodium (132-148) mmol/L Potassium (3.6-5.2) mmol/L Chloride (98-107) mmol/L Carbon Dioxide (22-30) mmol/L Anion Gap (10-20) BUN (7-17) mg/dL Creatinine (0.7-1.2) MG/DL Est GFR ( Amer) Est GFR (Non-Af Amer) POC Glucose (mg/dL) (65-110) mg/dL Random Glucose (65-105) mg/dL Calcium (8.6-10.4) mg/dl Phosphorus (2.5-4.5) mg/dL Magnesium (1.6-2.3) mg/dL Total Bilirubin (0.2-1.3) mg/dL AST (14-36) U/L ALT (9-52) U/L Alkaline Phosphatase (38-126) U/L Total Protein (6.3-8.3) g/dL Total Protein (PEP) 3.8 L (6.1-8.1) g/dL Albumin (3.5-5.0) g/dL Globulin (2.2-3.9) gm/dL Albumin/Globulin Ratio (1.0-2.1) Laboratory Results - last 24 hr 11/09/16 11/10/16 11/10/16 06:31 06:21 08:37 WBC RBC Hgb Hct MCV MCH MCHC RDW Plt Count MPV Neut % (Auto) Lymph % (Auto) Baldwin % (Auto) Eos % (Auto) Baso % (Auto) Neut # Lymph # Baldwin # Eos # Baso # Differential Comment PT INR APTT 61 H D Sodium Potassium Chloride Carbon Dioxide Anion Gap BUN Creatinine Est GFR ( Amer) Est GFR (Non-Af Amer) POC Glucose (mg/dL) Random Glucose Calcium Phosphorus Magnesium Total Bilirubin AST ALT Alkaline Phosphatase Total Protein Total Protein (PEP) 3.8 L Albumin Globulin Albumin/Globulin Ratio 11/10/16 11/10/16 11/10/16 11:34 12:20 16:05 WBC RBC Hgb Hct MCV MCH MCHC RDW Plt Count MPV Neut % (Auto) Lymph % (Auto) Baldwin % (Auto) Eos % (Auto) Baso % (Auto) Neut # Lymph # Baldwin # Eos # Baso # Differential Comment PT INR APTT Sodium Potassium Chloride Carbon Dioxide Anion Gap BUN Creatinine Est GFR ( Amer) Est GFR (Non-Af Amer) POC Glucose (mg/dL) 294 H 296 H 227 H Random Glucose Calcium Phosphorus Magnesium Total Bilirubin AST ALT Alkaline Phosphatase Total Protein Total Protein (PEP) Albumin Globulin Albumin/Globulin Ratio 11/10/16 11/11/16 11/11/16 21:46 06:25 06:25 WBC 9.6 RBC 3.44 L Hgb 9.1 L Hct 28.2 L MCV 82.1 MCH 26.5 L MCHC 32.3 L RDW 17.9 H Plt Count 145 MPV 11.5 Neut % (Auto) 61.7 Lymph % (Auto) 22.4 Baldwin % (Auto) 9.6 Eos % (Auto) 6.0 H Baso % (Auto) 0.3 Neut # 5.9 Lymph # 2.1 Baldwin # 0.9 H Eos # 0.6 Baso # 0.0 Differential Comment PT INR APTT Sodium 133 Potassium 4.3 Chloride 94 L Carbon Dioxide 27 Anion Gap 16 BUN 41 H Creatinine 1.8 H Est GFR ( Amer) 34 Est GFR (Non-Af Amer) 28 POC Glucose (mg/dL) 185 H Random Glucose 198 H Calcium 7.9 L Phosphorus 4.8 H Magnesium 1.9 Total Bilirubin 0.8 AST 77 H D ALT 45 Alkaline Phosphatase 42 Total Protein 5.8 L Total Protein (PEP) Albumin 2.9 L Globulin 2.9 Albumin/Globulin Ratio 1.0 11/11/16 06:25 WBC RBC Hgb Hct MCV MCH MCHC RDW Plt Count MPV Neut % (Auto) Lymph % (Auto) Baldwin % (Auto) Eos % (Auto) Baso % (Auto) Neut # Lymph # Baldwin # Eos # Baso # Differential Comment PT 11.5 INR 1.0 APTT 60 H Sodium Potassium Chloride Carbon Dioxide Anion Gap BUN Creatinine Est GFR ( Amer) Est GFR (Non-Af Amer) POC Glucose (mg/dL) Random Glucose Calcium Phosphorus Magnesium Total Bilirubin AST ALT Alkaline Phosphatase Total Protein Total Protein (PEP) Albumin Globulin Albumin/Globulin Ratio Fingerstick Blood Sugar Results: 254 Critical Care Progress Note - Nutrition Nutrition: Nutrition Category Date Time Status Liquid Diet [DIET] Diets 11/10/16 Dinner Active
[2016-11-11] MEDS: (Novolin R) Insulin Human Regular 100 units/ml vial SC SCH ×4 (07:58→21:50)
[2016-11-11] MEDS: (Lantus) Insulin Glargine, Recombinant SC SCH (10:01)
--- NOTE | 2016-11-11 12:48 | CP.PCM.PN ---
Subjective - Date & Time of Evaluation Date of Evaluation: 11/11/16 Time of Evaluation: 12:00 - Subjective Subjective: Appears comfortable sitting up in chair Denied feeling SOB C/o numbness in Rt foot. No pain Objective - Vital Signs/Intake and Output Vital Signs (last 24 hours): Temp Pulse Resp BP Pulse Ox 98.1 F 82 11 L 129/43 L 100 11/11/16 08:00 11/11/16 10:00 11/11/16 10:00 11/11/16 10:00 11/11/16 10:00 Intake and Output: 11/11/16 11/11/16 06:59 18:59 Intake Total 658 236 Output Total 495 Balance 163 236 - Medications Medications: Current Medications Acetaminophen (Tylenol 650mg/20.3ml Solution Ud) 650 mg PO Q6 PRN PRN Reason: for temp 101 and above Last Admin: 11/11/16 02:44 Dose: 650 mg Albuterol/Ipratropium (Duoneb 3 Mg/0.5 Mg (3 Ml) Ud) 3 ml INH RQ6 [facility] Last Admin: 11/11/16 08:23 Dose: 3 ml Amlodipine Besylate (Norvasc) 5 mg PO DAILY [facility] Last Admin: 11/11/16 10:00 Dose: 5 mg Aspirin (Aspirin Chewable) 81 mg PO DAILY [facility] Last Admin: 11/11/16 10:00 Dose: 81 mg Clonidine HCl (Catapres) 0.2 mg PO TID [facility] Last Admin: 11/11/16 10:01 Dose: 0.2 mg Clopidogrel Bisulfate (Plavix) 75 mg PO DAILY [facility] Last Admin: 11/11/16 10:00 Dose: 75 mg Docusate Sodium (Colace) 100 mg PO TID [facility] Last Admin: 11/11/16 10:00 Dose: 100 mg Ezetimibe (Zetia) 10 mg PO HS [facility] Last Admin: 11/10/16 21:42 Dose: 10 mg Ferrous Sulfate (Feosol) 325 mg PO TID [facility] Last Admin: 11/11/16 10:00 Dose: 325 mg Furosemide (Lasix) 40 mg IVP DAILY [facility] Last Admin: 11/11/16 09:59 Dose: 40 mg Gabapentin (Neurontin) 100 mg PO TID [facility] Last Admin: 11/11/16 10:00 Dose: 100 mg Propofol (Diprivan) 1,000 mg in 100 mls @ 3 mls/hr IV .Q24H PRN; Protocol; 5 MCG/KG/MIN PRN Reason: Agitation Last Admin: 11/10/16 07:02 Dose: 30 mcg/kg/min, 18 mls/hr Heparin Sodium/Sodium Chloride (Heparin 08769 Units/250ml 1/2 Normal Saline) 25 ,000 units in 250 mls @ 12 mls/hr IV .[id number] PRN; Protocol; 12 UNITS/KG/HR PRN Reason: PROTOCOL Last Admin: 11/11/16 05:38 Dose: 9 units/kg/hr, 9 mls/hr Insulin Glargine (Lantus) 16 unit SC DAILY [facility] Last Admin: 11/11/16 10:01 Dose: 16 u Insulin Human Regular (Novolin R) 0 unit SC ACHS [facility] PRN Reason: Protocol Last Admin: 11/11/16 11:52 Dose: 6 unit Metoprolol Tartrate (Lopressor) 25 mg PO Q12 [facility] Last Admin: 11/11/16 10:00 Dose: 25 mg Morphine Sulfate (Morphine) 2 mg IVP Q3 PRN PRN Reason: Pain, severe (8-10) Last Admin: 11/08/16 05:00 Dose: 2 mg Rosuvastatin Calcium (Crestor) 10 mg PO HS [facility] Last Admin: 11/10/16 21:42 Dose: 10 mg - Labs Labs: 11/11/16 06:25 11/11/16 06:25 PT 11.5 SECONDS (9.7-12.2) 11/11/16 06:25 INR 1.0 11/11/16 06:25 APTT 60 SECONDS (21-34) H 11/11/16 06:25 - Respiratory Exam Respiratory Exam: NORMAL BREATHING PATTERN Additional comments: Lungs clear - Cardiovascular Exam Cardiovascular Exam: REGULAR RHYTHM - Extremities Exam Additional comments: No edema Rt foot is lightly cold. No cyanosis. DP not palp Assessment and Plan - Assessment and Plan (Free Text) Assessment: JOE improving S/P Lt leg Fem-Pop Acute DC.Followed by cardiology Plan: Continue to monitor renal function Echo report is pending Check Rt DP & PT with doppler
--- NOTE | 2016-11-11 12:55 | CARD ---
APPROVED REPORT EXAM: Two-dimensional and M-mode echocardiogram with Doppler and color Doppler. Other Information Quality : Technically LimitedRhythm : INDICATION MT M-Mode DIMENSIONS RVDd1.17 (2.1-3.2cm)Left Atrium (MM)4.03 (2.5-4.0cm) IVSd1.27 (0.7-1.1cm)Aortic Root2.73 (2.2-3.7cm) LVDd4.85 (4.0-5.6cm)Aortic Cusp Exc.1.85 (1.5-2.0cm) PWd1.27 (0.7-1.1cm)FS (%) 30 % LVDs3.38 (2.0-3.8cm)LVEF (%)57 (>50%) Mitral Valve MV E Uozyiizm41.8cm/sMV A Oiuuihgp39.6cm/sE/A ratio1.4 TDI E/Lateral E'0.0E/Medial E'0.0 Tricuspid Valve TR Peak [id number]/sTR Peak Gr.[id number] LEFT VENTRICLE The left ventricle is normal size. There is mild concentric left ventricular hypertrophy. The left ventricular function is normal. The left ventricular ejection fraction is within the normal range. There is normal LV segmental wall motion. Tissue Doppler imaging reveals moderate left ventricular diastolic dysfunction. No left ventricle thrombus noted on this study. There is no ventricular septal defect visualized. There is no left ventricular aneurysm. There is no mass noted in the left ventricle. RIGHT VENTRICLE The right ventricle is normal size. There is normal right ventricular wall thickness. The right ventricular systolic function is normal. ATRIA The left atrium is borderline dilated. The right atrium size is normal. AORTIC VALVE The aortic valve is normal in structure. No aortic regurgitation is present. There is no aortic valvular stenosis. There is no aortic valvular vegetation. MITRAL VALVE The mitral valve is normal in structure. There is no mitral valve stenosis. Mitral regurgitation is trace. TRICUSPID VALVE The tricuspid valve is normal in structure. There is no tricuspid valve regurgitation noted. GREAT VESSELS The aortic root is normal in size. The ascending aorta is normal in size. The pulmonary artery is normal. PERICARDIAL EFFUSION There is no pericardial effusion. <Conclusion> There is mild concentric left ventricular hypertrophy. Tissue Doppler imaging reveals moderate left ventricular diastolic dysfunction. The left atrium is borderline dilated. LV EF IS 57%.
--- NOTE | 2016-11-11 13:54 | CP.PCM.PN ---
Subjective - Date & Time of Evaluation Date of Evaluation: 11/11/16 Time of Evaluation: 13:30 - Subjective Subjective: patient is extubated, sitting in the chair. family is at the bedside Objective - Vital Signs/Intake and Output Vital Signs (last 24 hours): Temp Pulse Resp BP Pulse Ox 98.1 F 72 9 L 109/90 98 11/11/16 08:00 11/11/16 13:00 11/11/16 13:00 11/11/16 12:26 11/11/16 13:00 Intake and Output: 11/11/16 11/11/16 06:59 18:59 Intake Total 658 245 Output Total 495 0 Balance 163 245 - Medications Medications: Current Medications Acetaminophen (Tylenol 650mg/20.3ml Solution Ud) 650 mg PO Q6 PRN PRN Reason: for temp 101 and above Last Admin: 11/11/16 02:44 Dose: 650 mg Albuterol/Ipratropium (Duoneb 3 Mg/0.5 Mg (3 Ml) Ud) 3 ml INH RQ6 [facility] Last Admin: 11/11/16 08:23 Dose: 3 ml Amlodipine Besylate (Norvasc) 5 mg PO DAILY [facility] Last Admin: 11/11/16 10:00 Dose: 5 mg Aspirin (Aspirin Chewable) 81 mg PO DAILY [facility] Last Admin: 11/11/16 10:00 Dose: 81 mg Clonidine HCl (Catapres) 0.2 mg PO TID [facility] Last Admin: 11/11/16 13:46 Dose: 0.2 mg Clopidogrel Bisulfate (Plavix) 75 mg PO DAILY [facility] Last Admin: 11/11/16 10:00 Dose: 75 mg Docusate Sodium (Colace) 100 mg PO TID [facility] Last Admin: 11/11/16 13:46 Dose: 100 mg Ezetimibe (Zetia) 10 mg PO HS [facility] Last Admin: 11/10/16 21:42 Dose: 10 mg Ferrous Sulfate (Feosol) 325 mg PO TID [facility] Last Admin: 11/11/16 13:46 Dose: 325 mg Furosemide (Lasix) 40 mg IVP DAILY [facility] Last Admin: 11/11/16 09:59 Dose: 40 mg Gabapentin (Neurontin) 100 mg PO TID [facility] Last Admin: 11/11/16 13:46 Dose: 100 mg Propofol (Diprivan) 1,000 mg in 100 mls @ 3 mls/hr IV .Q24H PRN; Protocol; 5 MCG/KG/MIN PRN Reason: Agitation Last Admin: 11/10/16 07:02 Dose: 30 mcg/kg/min, 18 mls/hr Heparin Sodium/Sodium Chloride (Heparin 03198 Units/250ml 1/2 Normal Saline) 25 ,000 units in 250 mls @ 12 mls/hr IV .[id number] PRN; Protocol; 12 UNITS/KG/HR PRN Reason: PROTOCOL Last Admin: 11/11/16 05:38 Dose: 9 units/kg/hr, 9 mls/hr Insulin Detemir (Levemir) 14 unit SC BID [facility] Insulin Human Regular (Novolin R) 0 unit SC ACHS [facility] PRN Reason: Protocol Last Admin: 11/11/16 11:52 Dose: 6 unit Metoprolol Tartrate (Lopressor) 25 mg PO Q12 [facility] Last Admin: 11/11/16 10:00 Dose: 25 mg Morphine Sulfate (Morphine) 2 mg IVP Q3 PRN PRN Reason: Pain, severe (8-10) Last Admin: 11/08/16 05:00 Dose: 2 mg Rosuvastatin Calcium (Crestor) 10 mg PO HS [facility] Last Admin: 11/10/16 21:42 Dose: 10 mg - Labs Labs: 11/11/16 06:25 11/11/16 06:25 PT 11.5 SECONDS (9.7-12.2) 11/11/16 06:25 INR 1.0 11/11/16 06:25 APTT 60 SECONDS (21-34) H 11/11/16 06:25 - Constitutional Appears: Non-toxic - Head Exam Head Exam: NORMAL INSPECTION - Eye Exam Eye Exam: Normal appearance - ENT Exam ENT Exam: Mucous Membranes Moist - Neck Exam Neck Exam: Full ROM - Respiratory Exam Respiratory Exam: NORMAL BREATHING PATTERN - Cardiovascular Exam Cardiovascular Exam: REGULAR RHYTHM - GI/Abdominal Exam GI & Abdominal Exam: Normal Bowel Sounds - Rectal Exam Rectal Exam: Deferred - Extremities Exam Extremities Exam: absent: Pedal Edema - Back Exam Back Exam: NORMAL INSPECTION - Neurological Exam Neurological Exam: Alert - Psychiatric Exam Psychiatric exam: Normal Affect - Skin Skin Exam: Normal Color Assessment and Plan (1) NSTEMI (non-ST elevated myocardial infarction) Assessment & Plan: Patient may have unstable coronary plaque. I recommend cardiac cath to assess anatomy. I discussed with patient and family including risk of worsening renal failure. The patient understands, but given recent myocardial infarction, it is necessary to proceed with cath. Status: Acute (2) HTN (hypertension) Assessment & Plan: controlled Status: Acute (3) Hypercholesterolemia Assessment & Plan: statin therapy Status: Acute (4) PVD (peripheral vascular disease) Assessment & Plan: s/p fem pop Status: Acute
--- NOTE | 2016-11-11 16:16 | CP.PCM.PN ---
Subjective - Date & Time of Evaluation Date of Evaluation: 11/11/16 Time of Evaluation: 15:00 - Subjective Subjective: Patient is currently extubated, she did not appear to be in any acute distress at this time. Family members were present at bedside as well as via the phone. And we had a discussion. Cardiology is planning on cardiac cath. She had a femoral popliteal bypass done o 11/07 and then on 11/08 developed pulmonary edema requiring intubation. Her cardiac enzymes were elevated with the troponins as high as 12. She is currently on a heparin ggt and plavix at this time. Hgb is 9.1, she had been given 1 unit of PRBCs. Patient denied abdominal pain, denied chest pain, denied shortness of breath, denied headache. She reported + pain at recent surgical site of left leg however tolerable. Objective - Vital Signs/Intake and Output Vital Signs (last 24 hours): Temp Pulse Resp BP Pulse Ox 98.1 F 72 9 L 109/90 98 11/11/16 08:00 11/11/16 13:00 11/11/16 13:00 11/11/16 12:26 11/11/16 13:00 Intake and Output: 11/11/16 11/11/16 06:59 18:59 Intake Total 658 245 Output Total 495 0 Balance 163 245 - Medications Medications: Current Medications Acetaminophen (Tylenol 650mg/20.3ml Solution Ud) 650 mg PO Q6 PRN PRN Reason: for temp 101 and above Last Admin: 11/11/16 02:44 Dose: 650 mg Albuterol/Ipratropium (Duoneb 3 Mg/0.5 Mg (3 Ml) Ud) 3 ml INH RQ6 [facility] Last Admin: 11/11/16 14:36 Dose: Not Given Amlodipine Besylate (Norvasc) 5 mg PO DAILY [facility] Last Admin: 11/11/16 10:00 Dose: 5 mg Aspirin (Aspirin Chewable) 81 mg PO DAILY [facility] Last Admin: 11/11/16 10:00 Dose: 81 mg Clonidine HCl (Catapres) 0.2 mg PO TID [facility] Last Admin: 11/11/16 13:46 Dose: 0.2 mg Clopidogrel Bisulfate (Plavix) 75 mg PO DAILY [facility] Last Admin: 11/11/16 10:00 Dose: 75 mg Docusate Sodium (Colace) 100 mg PO TID [facility] Last Admin: 11/11/16 13:46 Dose: 100 mg Ezetimibe (Zetia) 10 mg PO HS [facility] Last Admin: 11/10/16 21:42 Dose: 10 mg Ferrous Sulfate (Feosol) 325 mg PO TID [facility] Last Admin: 11/11/16 13:46 Dose: 325 mg Furosemide (Lasix) 40 mg IVP DAILY [facility] Last Admin: 11/11/16 09:59 Dose: 40 mg Gabapentin (Neurontin) 100 mg PO TID [facility] Last Admin: 11/11/16 13:46 Dose: 100 mg Propofol (Diprivan) 1,000 mg in 100 mls @ 3 mls/hr IV .Q24H PRN; Protocol; 5 MCG/KG/MIN PRN Reason: Agitation Last Admin: 11/10/16 07:02 Dose: 30 mcg/kg/min, 18 mls/hr Heparin Sodium/Sodium Chloride (Heparin 22753 Units/250ml 1/2 Normal Saline) 25 ,000 units in 250 mls @ 12 mls/hr IV .[id number] PRN; Protocol; 12 UNITS/KG/HR PRN Reason: PROTOCOL Last Admin: 11/11/16 05:38 Dose: 9 units/kg/hr, 9 mls/hr Insulin Detemir (Levemir) 14 unit SC BID [facility] Insulin Human Regular (Novolin R) 0 unit SC ACHS [facility] PRN Reason: Protocol Last Admin: 11/11/16 11:52 Dose: 6 unit Metoprolol Tartrate (Lopressor) 25 mg PO Q12 [facility] Last Admin: 11/11/16 10:00 Dose: 25 mg Morphine Sulfate (Morphine) 2 mg IVP Q3 PRN PRN Reason: Pain, severe (8-10) Last Admin: 11/08/16 05:00 Dose: 2 mg Rosuvastatin Calcium (Crestor) 10 mg PO [facility] Last Admin: 11/10/16 21:42 Dose: 10 mg - Labs Labs: 11/11/16 06:25 11/11/16 06:25 PT 11.5 SECONDS (9.7-12.2) 11/11/16 06:25 INR 1.0 11/11/16 06:25 APTT 60 SECONDS (21-34) H 11/11/16 06:25 - Constitutional Appears: No Acute Distress - Head Exam Head Exam: NORMAL INSPECTION, NORMOCEPHALIC - Eye Exam Eye Exam: EOMI, Normal appearance - ENT Exam ENT Exam: Mucous Membranes Moist - Respiratory Exam Respiratory Exam: Decreased Breath Sounds - Cardiovascular Exam Cardiovascular Exam: REGULAR RHYTHM - GI/Abdominal Exam GI & Abdominal Exam: Soft, Normal Bowel Sounds. absent: Rigid, Tenderness - Extremities Exam Additional comments: Left leg s/p femoral popliteal. Dressing appears to be clean and dry - Neurological Exam Neurological Exam: Alert, Awake Neuro motor strength exam: Left Upper Extremity: 5, Right Upper Extremity: 5, Left Lower Extremity: 5, Right Lower Extremity: 5 - Psychiatric Exam Psychiatric exam: Flat Affect - Skin Skin Exam: Normal Color, Warm Assessment and Plan - Assessment and Plan (Free Text) Assessment: Assessment and Plan (1) NSTEMI (non-ST elevated myocardial infarction) 11/11: Currently pending cardiac cath. On heparin ggt, ASA, Plavix, Statin As mentioned previously her troponins climbed as high as 12 on 11/08. Echo was also done as well. (2) Respiratory failure requiring intubation 11/11: Patient now extubated. A repeat CXRAY shows the side of pulmonary edema is improving. She has been getting Lasix (3) HTN 11/11 Systolic mainly in the 110s at this time. (4) Hypercholesterolemia 11/11: Now on statin as well as ASA, Plavix (5) Anemia 11/11: Continue to monitor. This is probably related to recent surgery as well as history of CKD (6) PVD (peripheral vascular disease) POD # 3 of Fem-popliteal
[2016-11-11] MEDS: Insulin Detemir 100 units/ml Vial (Levemir) SC SCH (17:41)
[2016-11-12] MEDS: Albuterol-Ipratrop 3 mg / 0.5 (3 ml) UD INH SCH ×2 (01:38→08:02)
[2016-11-12] MEDS: guaiFENesin 600 mg ER Tab PO SCH ×3 (01:52→22:11)
[2016-11-12] MEDS: Acetaminophen 650mg/20.3ml solution UD PO PRN (05:54)
[2016-11-12 06:42] LABS: BASO % 0.4 % (0.0-2.0); EOS # 0.7 K/uL (0.0-0.7); EOS % 8.5 % (0.0-4.0); HEMATOCRIT 29.3 % (34.0-47.0); LYMPH % 24.8 % (20.0-40.0); MEAN CELL VOLUME 82.3 fL (81.0-99.0); MEAN CORPUSCULAR HEMOGLOBIN 26.5 pg (27.0-31.0); MEAN CORPUSCULAR HGB CONC 32.2 g/dL (33.0-37.0); MEAN PLATELET VOLUME 11.6 fL (7.2-11.7); MONO # 0.8 K/uL (0.0-0.8); MONO % 9.2 % (0.0-10.0); NRBC % 0.2 % (0.0-2.0); RED CELL DISTRIBUTION WIDTH 17.5 % (11.5-14.5); WHITE BLOOD COUNT 8.2 K/uL (4.8-10.8)
[2016-11-12 07:08] LABS: POTASSIUM 4.6 mmol/L (3.6-5.2)
[2016-11-12 07:11] LABS: ALB/GLOB RATIO 1.2 (1.0-2.1); BILIRUBIN,TOTAL 0.9 mg/dL (0.2-1.3); PHOSPHOROUS 4.5 mg/dL (2.5-4.5); TOTAL PROTEIN 6.1 g/dL (6.3-8.3)
[2016-11-12 07:12] LABS: CALCIUM 8.6 mg/dl (8.6-10.4); MAGNESIUM 2.1 mg/dL (1.6-2.3)
[2016-11-12] MEDS: (Novolin R) Insulin Human Regular 100 units/ml vial SC SCH ×4 (08:19→21:55)
[2016-11-12] MEDS ORDERED: Acetylcysteine 20% Inhal Soln (4ml) PO ONE (09:15)
[2016-11-12] MEDS: Insulin Detemir 100 units/ml Vial (Levemir) SC SCH ×2 (09:30→18:00)
--- NOTE | 2016-11-12 10:24 | CP.PCM.PN ---
<Curtis Schillinga - Last Filed: 11/12/16 12:36> Subjective - Date & Time of Evaluation Date of Evaluation: 11/12/16 Time of Evaluation: 07:00 - Subjective Subjective: Medicine Note for Dr. Coelho, Patient was seen and examined at bedside. Patient reports her pain is well controlled and her breathing has much improved. Denied any fever, chills, headache, chest pain, abdominal pain, n/v/d/c, or urinary symptoms. Plan is for Cardiac Cath today at [facility]. Objective - Vital Signs/Intake and Output Vital Signs (last 24 hours): Temp Pulse Resp BP Pulse Ox 98.3 F 76 22 167/42 H 96 11/12/16 00:00 11/12/16 04:00 11/12/16 04:00 11/12/16 09:29 11/11/16 16:26 Intake and Output: 11/12/16 11/12/16 06:59 18:59 Intake Total 417 Output Total 550 Balance -133 - Medications Medications: Current Medications Acetaminophen (Tylenol 650mg/20.3ml Solution Ud) 650 mg PO Q6 PRN PRN Reason: for temp 101 and above Last Admin: 11/12/16 05:54 Dose: 650 mg Albuterol/Ipratropium (Duoneb 3 Mg/0.5 Mg (3 Ml) Ud) 3 ml INH RQ6 [facility] Last Admin: 11/12/16 08:02 Dose: 3 ml Amlodipine Besylate (Norvasc) 5 mg PO DAILY [facility] Last Admin: 11/12/16 09:26 Dose: 5 mg Aspirin (Aspirin Chewable) 81 mg PO DAILY [facility] Last Admin: 11/12/16 09:26 Dose: 81 mg Clonidine HCl (Catapres) 0.2 mg PO TID [facility] Last Admin: 11/12/16 09:27 Dose: 0.2 mg Clopidogrel Bisulfate (Plavix) 75 mg PO DAILY [facility] Last Admin: 11/12/16 09:26 Dose: 75 mg Docusate Sodium (Colace) 100 mg PO TID [facility] Last Admin: 11/12/16 09:26 Dose: 100 mg Ezetimibe (Zetia) 10 mg PO [facility] Last Admin: 11/11/16 21:26 Dose: 10 mg Ferrous Sulfate (Feosol) 325 mg PO TID [facility] Last Admin: 11/12/16 09:26 Dose: 325 mg Furosemide (Lasix) 40 mg IVP DAILY [facility] Last Admin: 11/12/16 09:29 Dose: 40 mg Gabapentin (Neurontin) 100 mg PO TID [facility] Last Admin: 11/12/16 09:26 Dose: 100 mg Guaifenesin (Mucinex La) 600 mg PO BID [facility] Last Admin: 11/12/16 09:26 Dose: 600 mg Insulin Detemir (Levemir) 14 unit SC BID [facility] Last Admin: 11/12/16 09:30 Dose: 14 unit Insulin Human Regular (Novolin R) 0 unit SC ACHS [facility] PRN Reason: Protocol Last Admin: 11/12/16 08:19 Dose: 6 unit Metoprolol Tartrate (Lopressor) 25 mg PO Q12 [facility] Last Admin: 11/12/16 09:27 Dose: 25 mg Rosuvastatin Calcium (Crestor) 10 mg PO HS [facility] Last Admin: 11/11/16 21:26 Dose: 10 mg - Labs Labs: 11/12/16 06:30 11/12/16 06:30 PT 11.2 SECONDS (9.7-12.2) 11/12/16 06:30 INR 1.0 11/12/16 06:30 APTT 66 SECONDS (21-34) H D 11/12/16 06:30 - Constitutional Appears: No Acute Distress - Head Exam Head Exam: NORMAL INSPECTION, NORMOCEPHALIC - ENT Exam ENT Exam: Mucous Membranes Moist - Respiratory Exam Respiratory Exam: Clear to Ausculation Bilateral, NORMAL BREATHING PATTERN. absent: Rhonchi, Wheezes - Cardiovascular Exam Cardiovascular Exam: REGULAR RHYTHM - GI/Abdominal Exam GI & Abdominal Exam: Soft, Normal Bowel Sounds. absent: Distended, Tenderness - Extremities Exam Extremities Exam: Normal Inspection. absent: Pedal Edema, Tenderness Additional comments: Left leg dressings C/D/I - Neurological Exam Neurological Exam: Alert, Awake, Oriented x3 - Skin Skin Exam: Dry, Intact, Normal Color, Warm Assessment and Plan - Assessment and Plan (Free Text) Assessment: 71 year old female with a PMHx of HTN. Diabetes Mellitus, Chronic Kidney Disease , peripheral vascular disease, hypercholesterolemia, and Gout sent in by Dr. Peterson for Fem-pop bypass on 11/07. Pt had NSTEMI on 11/08. For cardiac cath . Plan: NSTEMI As per nursing, patient reported having chest pain last night, EKG and ROMIs were ordered, showing changes in the inferior leads. Patient was given nitro. 1st KASHIF was negative 2nd was elevated at 0.1660, as per Dr. Newman and by Dr. Peterson, patient was given plavix and to be started on it daily. Troponins elevated up to 12. Cardiac Cath 11/[address] Newman at [facility] Peripheral Vascular Disease -Management as per vascular surgery, Dr. Peterson -s/p peripehral angiogram with Dr. Newman - Fem-pop bypass S/P POD #5 - Plavix 75mg PO daily -ASA 81mg po daily -Crestor 10mg po hs Respiratory Failure requiring intubation NSTEMI, pulmonary edema was intubated on 11/08, extubated successfully on 11/10. Currently on lasix 40mg IVP daily HTN - ASA 81mg po daily - Norvasc 5mg po daily - Lopressor 25mg IVP BID -Clonidine 0.2mg po TID - Echo: normal EF, mild LVF -EKG - sinus bradycardia, t wave inversions in leads I and avL -Dr. Newman cardiology consulted Diabetes Mellitus -Acchuchecks achs -Regular insulin sliding scale - HIGH -Levimer 14mg SC BID - Gabapentin 100mg PO TID -HgbA1c: 7.7 Chronic Kidney Disease Stage III -monitor BUN:Cr -renal US: HTN disease -Dr. 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 ASA vs cochicine use Underlying anemia -likely anemia of chronic disease -Monitor Prophylactic Measures -Protonix 40 mg po qd -Heparin 5000 units sc q8h -SCD c/i -Heart healthy diet -Colace 100mg po tid DW Tonie Fisher DO, PGY-1 <Tristan Coelho - Last Filed: 12/19/16 12:31> Objective - Vital Signs/Intake and Output Vital Signs (last 24 hours): Temp Pulse Resp BP Pulse Ox 98.5 F 57 L 20 147/78 95 06//17 15:00 11/14/16 15:00 11/14/16 15:00 11/14/16 15:00 11/14/16 15:00 - Labs Labs: 11/13/16 07:58 11/13/16 07:58 PT 11.2 SECONDS (9.7-12.2) 11/12/16 06:30 INR 1.0 11/12/16 06:30 APTT 66 SECONDS (21-34) H D 11/12/16 06:30 Attending/Attestation - Attestation I have personally seen and examined this patient.: Yes I have fully participated in the care of the patient.: Yes I have reviewed all pertinent clinical information, including history, physical exam and plan: Yes Notes (Text): Patient Seen and examined with the resident. Agree with the resident's evaluation, assessment and plan. 71 year old female with a PMHx of HTN. Diabetes Mellitus, Chronic Kidney Disease , peripheral vascular disease, hypercholesterolemia, and Gout sent in by Dr. Peterson for Fem-pop bypass on 11/07. Pt had NSTEMI on 11/08. For cardiac cath . Plan: NSTEMI Cardiac Cath 11/[address] Newman at [facility] Peripheral Vascular Disease -Management as per vascular surgery, Dr. Peterson Respiratory Failure requiring intubation NSTEMI, pulmonary edema was intubated on 11/08, extubated successfully on 11/10. Currently on lasix 40mg IVP daily HTN
[2016-11-12 11:52] LABS: BETA 1 GLOBULIN 0.2 g/dL (0.4-0.6); BETA 2 GLOBULIN 0.3 g/dL (0.2-0.5); GAMMA GLOBULIN 0.4 g/dL (0.8-1.7)
--- NOTE | 2016-11-12 11:58 | CP.PCM.PN ---
Subjective - Date & Time of Evaluation Date of Evaluation: 11/12/16 Time of Evaluation: 11:55 - Subjective Subjective: doing better vital noted less pain Objective - Vital Signs/Intake and Output Vital Signs (last 24 hours): Temp Pulse Resp BP Pulse Ox 98.3 F 76 22 167/42 H 96 11/12/16 00:00 11/12/16 04:00 11/12/16 04:00 11/12/16 09:29 11/11/16 16:26 Intake and Output: 11/12/16 11/12/16 06:59 18:59 Intake Total 417 Output Total 550 Balance -133 - Medications Medications: Current Medications Acetaminophen (Tylenol 650mg/20.3ml Solution Ud) 650 mg PO Q6 PRN PRN Reason: for temp 101 and above Last Admin: 11/12/16 05:54 Dose: 650 mg Albuterol/Ipratropium (Duoneb 3 Mg/0.5 Mg (3 Ml) Ud) 3 ml INH RQ6 [facility] Last Admin: 11/12/16 08:02 Dose: 3 ml Amlodipine Besylate (Norvasc) 5 mg PO DAILY [facility] Last Admin: 11/12/16 09:26 Dose: 5 mg Aspirin (Aspirin Chewable) 81 mg PO DAILY [facility] Last Admin: 11/12/16 09:26 Dose: 81 mg Clonidine HCl (Catapres) 0.2 mg PO TID [facility] Last Admin: 11/12/16 09:27 Dose: 0.2 mg Clopidogrel Bisulfate (Plavix) 75 mg PO DAILY [facility] Last Admin: 11/12/16 09:26 Dose: 75 mg Docusate Sodium (Colace) 100 mg PO TID [facility] Last Admin: 11/12/16 09:26 Dose: 100 mg Ezetimibe (Zetia) 10 mg PO HS [facility] Last Admin: 11/11/16 21:26 Dose: 10 mg Ferrous Sulfate (Feosol) 325 mg PO TID [facility] Last Admin: 11/12/16 09:26 Dose: 325 mg Furosemide (Lasix) 40 mg IVP DAILY [facility] Last Admin: 11/12/16 09:29 Dose: 40 mg Gabapentin (Neurontin) 100 mg PO TID [facility] Last Admin: 11/12/16 09:26 Dose: 100 mg Guaifenesin (Mucinex La) 600 mg PO BID [facility] Last Admin: 11/12/16 09:26 Dose: 600 mg Insulin Detemir (Levemir) 14 unit SC BID [facility] Last Admin: 11/12/16 09:30 Dose: 14 unit Insulin Human Regular (Novolin R) 0 unit SC ACHS [facility] PRN Reason: Protocol Last Admin: 11/12/16 11:49 Dose: Not Given Metoprolol Tartrate (Lopressor) 25 mg PO Q12 [facility] Last Admin: 11/12/16 09:27 Dose: 25 mg Rosuvastatin Calcium (Crestor) 10 mg PO HS [facility] Last Admin: 11/11/16 21:26 Dose: 10 mg - Labs Labs: 11/12/16 06:30 11/12/16 06:30 PT 11.2 SECONDS (9.7-12.2) 11/12/16 06:30 INR 1.0 11/12/16 06:30 APTT 66 SECONDS (21-34) H D 11/12/16 06:30 - Constitutional Appears: No Acute Distress - ENT Exam ENT Exam: Mucous Membranes Moist - Respiratory Exam Respiratory Exam: absent: Chest Wall Tenderness - GI/Abdominal Exam GI & Abdominal Exam: Normal Bowel Sounds - Extremities Exam Extremities Exam: absent: Calf Tenderness - Back Exam Back Exam: absent: CVA tenderness (L), CVA tenderness (R) - Neurological Exam Neurological Exam: Alert Assessment and Plan (1) HTN (hypertension) Status: Acute (2) PVD (peripheral vascular disease) Status: Acute (3) Chronic kidney disease, stage III (moderate) Assessment & Plan: stable ckd 3 s/p surgery as noted perhaps for cardiac cath?as per crdiology. Status: Chronic
--- NOTE | 2016-11-12 12:42 | CARD ---
APPROVED REPORT EKG Measurement Heart [id number] <Conclusion> Normal sinus rhythm Possible Left atrial enlargement Septal infarct, age undetermined ST & T wave abnormality, consider lateral ischemia Abnormal ECG
[2016-11-12 17:40] LABS: FREE KAPPA SERUM 26.9 mg/L (3.3-19.4)
[2016-11-13] MEDS: Albuterol-Ipratrop 3 mg / 0.5 (3 ml) UD INH SCH ×4 (01:52→20:14)
[2016-11-13 08:16] LABS: EOS # 0.5 K/uL (0.0-0.7)
[2016-11-13 08:30] LABS: BASO % 0.6 % (0.0-2.0); EOS % 6.1 % (0.0-4.0); HEMATOCRIT 32.8 % (34.0-47.0); LYMPH # 1.6 K/uL (1.0-4.3); LYMPH % 18.8 % (20.0-40.0); MEAN CELL VOLUME 83.5 fL (81.0-99.0); MEAN CORPUSCULAR HEMOGLOBIN 26.4 pg (27.0-31.0); MEAN CORPUSCULAR HGB CONC 31.6 g/dL (33.0-37.0); MEAN PLATELET VOLUME 10.5 fL (7.2-11.7); MONO # 0.9 K/uL (0.0-0.8); MONO % 10.8 % (0.0-10.0); NRBC % 0.1 % (0.0-2.0); RED CELL DISTRIBUTION WIDTH 17.7 % (11.5-14.5); WHITE BLOOD COUNT 8.3 K/uL (4.8-10.8)
[2016-11-13] MEDS: (Novolin R) Insulin Human Regular 100 units/ml vial SC SCH ×4 (08:30→22:38)
[2016-11-13 08:41] LABS: POTASSIUM 4.4 mmol/L (3.6-5.2)
[2016-11-13 08:43] LABS: ALB/GLOB RATIO 1.1 (1.0-2.1); BILIRUBIN,TOTAL 0.7 mg/dL (0.2-1.3); TOTAL PROTEIN 6.6 g/dL (6.3-8.3)
[2016-11-13 08:44] LABS: CALCIUM 8.7 mg/dl (8.6-10.4); MAGNESIUM 2.2 mg/dL (1.6-2.3)
[2016-11-13] MEDS: Insulin Detemir 100 units/ml Vial (Levemir) SC SCH ×2 (09:45→17:41)
[2016-11-13] MEDS: guaiFENesin 600 mg ER Tab PO SCH ×2 (09:55→17:41)
[2016-11-13] MEDS ORDERED: POLYETHYLENE GLYCOL 3350 17 GM/Dose PACKET PO ONE (10:00)
[2016-11-13] MEDS ORDERED: Bisacodyl 5mg EC Tab PO ONE (12:00)
--- NOTE | 2016-11-13 13:54 | CP.PCM.PN ---
<Bridgette Schilling - Last Filed: 11/13/16 13:51> Subjective - Date & Time of Evaluation Date of Evaluation: 11/13/16 Time of Evaluation: 10:00 - Subjective Subjective: Medicine Note for Dr. Coelho, Patient was seen and examined at bedside. Patient reports her pain is well controlled and her breathing has much improved. Denied any fever, chills, headache, chest pain, abdominal pain, n/v/d/c, or urinary symptoms. Patient went for cardiac cath yesterday but it was unable to be performed due to lack of access. Plan is for medical management. Objective - Vital Signs/Intake and Output Vital Signs (last 24 hours): Temp Pulse Resp BP Pulse Ox 99.2 F 74 18 192/66 H 95 11/13/16 07:05 11/13/16 07:30 11/13/16 07:05 11/13/16 09:45 11/13/16 07:05 Intake and Output: 11/13/16 11/13/16 06:59 18:59 Intake Total 560 Balance 560 - Medications Medications: Current Medications Acetaminophen (Tylenol 650mg/20.3ml Solution Ud) 650 mg PO Q6 PRN PRN Reason: for temp 101 and above Last Admin: 11/12/16 05:54 Dose: 650 mg Albuterol/Ipratropium (Duoneb 3 Mg/0.5 Mg (3 Ml) Ud) 3 ml INH RQ6 [facility] Last Admin: 11/13/16 13:27 Dose: Not Given Amlodipine Besylate (Norvasc) 5 mg PO DAILY [facility] Last Admin: 11/13/16 09:45 Dose: 5 mg Aspirin (Aspirin Chewable) 81 mg PO DAILY [facility] Last Admin: 11/13/16 09:44 Dose: 81 mg Clonidine HCl (Catapres) 0.2 mg PO TID [facility] Last Admin: 11/13/16 13:00 Dose: 0.2 mg Clopidogrel Bisulfate (Plavix) 75 mg PO DAILY [facility] Last Admin: 11/13/16 09:45 Dose: 75 mg Docusate Sodium (Colace) 100 mg PO TID [facility] Last Admin: 11/13/16 13:00 Dose: 100 mg Ezetimibe (Zetia) 10 mg PO HS [facility] Last Admin: 11/12/16 22:11 Dose: 10 mg Ferrous Sulfate (Feosol) 325 mg PO TID [facility] Last Admin: 11/13/16 13:02 Dose: Not Given Furosemide (Lasix) 40 mg IVP DAILY [facility] Last Admin: 11/13/16 09:44 Dose: 40 mg Gabapentin (Neurontin) 100 mg PO TID [facility] Last Admin: 11/13/16 13:00 Dose: 100 mg Guaifenesin (Mucinex La) 600 mg PO BID [facility] Last Admin: 11/13/16 09:55 Dose: 600 mg Insulin Detemir (Levemir) 14 unit SC BID [facility] Last Admin: 11/13/16 09:45 Dose: 14 unit Insulin Human Regular (Novolin R) 0 unit SC ACHS [facility] PRN Reason: Protocol Last Admin: 11/13/16 08:30 Dose: 6 unit Metoprolol Tartrate (Lopressor) 25 mg PO Q12 [facility] Last Admin: 11/13/16 09:45 Dose: 25 mg Rosuvastatin Calcium (Crestor) 10 mg PO HS [facility] Last Admin: 11/12/16 22:11 Dose: 10 mg - Labs Labs: 11/13/16 07:58 11/13/16 07:58 PT 11.2 SECONDS (9.7-12.2) 11/12/16 06:30 INR 1.0 11/12/16 06:30 APTT 66 SECONDS (21-34) H D 11/12/16 06:30 - Constitutional Appears: No Acute Distress - Head Exam Head Exam: NORMAL INSPECTION, NORMOCEPHALIC - Respiratory Exam Respiratory Exam: Clear to Ausculation Bilateral, NORMAL BREATHING PATTERN. absent: Wheezes - Cardiovascular Exam Cardiovascular Exam: REGULAR RHYTHM - GI/Abdominal Exam GI & Abdominal Exam: Soft, Normal Bowel Sounds. absent: Distended, Tenderness - Extremities Exam Extremities Exam: Normal Inspection. absent: Pedal Edema, Tenderness - Neurological Exam Neurological Exam: Alert, Awake, Oriented x3 - Skin Skin Exam: Dry, Intact, Normal Color, Warm Assessment and Plan - Assessment and Plan (Free Text) Assessment: 71 year old female with a PMHx of HTN. Diabetes Mellitus, Chronic Kidney Disease , peripheral vascular disease, hypercholesterolemia, and Gout sent in by Dr. Peterson for Fem-pop bypass on 11/07. Pt had NSTEMI on 11/08. Unable to have cath , continue medical management. Plan: NSTEMI As per nursing, patient reported having chest pain last night, EKG and ROMIs were ordered, showing changes in the inferior leads. Patient was given nitro. 1st KASHIF was negative 2nd was elevated at 0.1660, as per Dr. Newman and by Dr. Peterson, patient was given plavix and to be started on it daily. Troponins elevated up to 12. Cardiac Cath 11/[address] Newman at [facility]: unable to be performed, access was not obtained. Plan is for medical management. Peripheral Vascular Disease -Management as per vascular surgery, Dr. Peterson -s/p peripehral angiogram with Dr. Newman - Fem-pop bypass S/P POD #6 - Plavix 75mg PO daily -ASA 81mg po daily -Crestor 10mg po hs Respiratory Failure requiring intubation NSTEMI, pulmonary edema was intubated on 11/08, extubated successfully on 11/10. Currently on lasix 40mg IVP daily HTN - ASA 81mg po daily - Norvasc 5mg po daily - Lopressor 25mg IVP BID -Clonidine 0.2mg po TID - Echo: normal EF, mild LVF -EKG - sinus bradycardia, t wave inversions in leads I and avL -Dr. Newman cardiology consulted Diabetes Mellitus -Acchuchecks achs -Regular insulin sliding scale - HIGH -Levimer 14mg SC BID - Gabapentin 100mg PO TID -HgbA1c: 7.7 Chronic Kidney Disease Stage III -monitor BUN:Cr -renal US: HTN disease -Dr. 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 ASA vs cochicine use Underlying anemia -likely anemia of chronic disease -Monitor Prophylactic Measures -Protonix 40 mg po qd -Heparin 5000 units sc q8h -SCD c/i -Heart healthy diet -Colace 100mg po tid - PT/OT - recommends [facility]- pending placement DW Tonie Fisher DO, PGY-1 <Tristan Coelho - Last Filed: 12/19/16 12:32> Objective - Vital Signs/Intake and Output Vital Signs (last 24 hours): Temp Pulse Resp BP Pulse Ox 98.5 F 57 L 20 147/78 95 11/14/16 15:00 11/14/16 15:00 11/14/16 15:00 11/14/16 15:00 11/14/16 15:00 - Labs Labs: 11/13/16 07:58 11/13/16 07:58 PT 11.2 SECONDS (9.7-12.2) 11/12/16 06:30 INR 1.0 11/12/16 06:30 APTT 66 SECONDS (21-34) H D 11/12/16 06:30 Attending/Attestation - Attestation I have personally seen and examined this patient.: Yes I have fully participated in the care of the patient.: Yes I have reviewed all pertinent clinical information, including history, physical exam and plan: Yes Notes (Text): Patient Seen and examined with the resident. Agree with the resident's evaluation, assessment and plan. 71 year old female with a PMHx of HTN. Diabetes Mellitus, Chronic Kidney Disease , peripheral vascular disease, hypercholesterolemia, and Gout sent in by Dr. Peterson for Fem-pop bypass on 11/07. Pt had NSTEMI on 11/08. For cardiac cath . Plan: NSTEMI Cardiac Cath 11/[address] Newman at [facility] Peripheral Vascular Disease -Management as per vascular surgery, Dr. Peterson Respiratory Failure requiring intubation NSTEMI, pulmonary edema was intubated on 11/08, extubated successfully on 11/10. Currently on lasix 40mg IVP daily HTN
[2016-11-13 16:21] VITALS: RESP 20
--- NOTE | 2016-11-13 17:09 | CP.PCM.PN ---
Subjective - Date & Time of Evaluation Date of Evaluation: 11/13/16 Time of Evaluation: 05:00 - Subjective Subjective: Pt appears comfortable supine Objective - Vital Signs/Intake and Output Vital Signs (last 24 hours): Temp Pulse Resp BP Pulse Ox 97.4 F L 66 20 159/58 H 95 11/13/16 15:00 11/13/16 15:00 11/13/16 15:00 11/13/16 15:00 11/13/16 15:00 Intake and Output: 11/13/16 11/13/16 06:59 18:59 Intake Total 560 Balance 560 - Medications Medications: Current Medications Acetaminophen (Tylenol 650mg/20.3ml Solution Ud) 650 mg PO Q6 PRN PRN Reason: for temp 101 and above Last Admin: 11/12/16 05:54 Dose: 650 mg Albuterol/Ipratropium (Duoneb 3 Mg/0.5 Mg (3 Ml) Ud) 3 ml INH RQ6 [facility] Last Admin: 11/13/16 13:27 Dose: Not Given Amlodipine Besylate (Norvasc) 5 mg PO DAILY [facility] Last Admin: 11/13/16 09:45 Dose: 5 mg Aspirin (Aspirin Chewable) 81 mg PO DAILY [facility] Last Admin: 11/13/16 09:44 Dose: 81 mg Clonidine HCl (Catapres) 0.2 mg PO TID [facility] Last Admin: 11/13/16 13:00 Dose: 0.2 mg Clopidogrel Bisulfate (Plavix) 75 mg PO DAILY [facility] Last Admin: 11/13/16 09:45 Dose: 75 mg Docusate Sodium (Colace) 100 mg PO TID [facility] Last Admin: 11/13/16 13:00 Dose: 100 mg Ezetimibe (Zetia) 10 mg PO HS [facility] Last Admin: 11/12/16 22:11 Dose: 10 mg Ferrous Sulfate (Feosol) 325 mg PO TID [facility] Last Admin: 11/13/16 13:02 Dose: Not Given Furosemide (Lasix) 40 mg IVP DAILY [facility] Last Admin: 11/13/16 09:44 Dose: 40 mg Gabapentin (Neurontin) 100 mg PO TID [facility] Last Admin: 11/13/16 13:00 Dose: 100 mg Guaifenesin (Mucinex La) 600 mg PO BID [facility] Last Admin: 11/13/16 09:55 Dose: 600 mg Insulin Detemir (Levemir) 14 unit SC BID [facility] Last Admin: 11/13/16 09:45 Dose: 14 unit Insulin Human Regular (Novolin R) 0 unit SC ACHS [facility] PRN Reason: Protocol Last Admin: 11/13/16 08:30 Dose: 6 unit Metoprolol Tartrate (Lopressor) 25 mg PO Q12 [facility] Last Admin: 11/13/16 09:45 Dose: 25 mg Rosuvastatin Calcium (Crestor) 10 mg PO HS [facility] Last Admin: 11/12/16 22:11 Dose: 10 mg - Labs Labs: 11/13/16 07:58 11/13/16 07:58 PT 11.2 SECONDS (9.7-12.2) 11/12/16 06:30 INR 1.0 11/12/16 06:30 APTT 66 SECONDS (21-34) H D 11/12/16 06:30 - Respiratory Exam Respiratory Exam: NORMAL BREATHING PATTERN - Cardiovascular Exam Cardiovascular Exam: REGULAR RHYTHM - Extremities Exam Additional comments: No edema Assessment and Plan - Assessment and Plan (Free Text) Assessment: Stage 111 kidney disease. Stable PVD S/P Lt Fem-Pop Plan: Continue to monitor renal function Monitor BP
--- NOTE | 2016-11-13 20:48 | CARD ---
APPROVED REPORT EKG Measurement Heart [id number] <Conclusion> Normal sinus rhythm Septal infarct, age undetermined Lateral infarct, age undetermined ST & T wave abnormality, consider inferior ischemia Abnormal ECG
[2016-11-14] MEDS: Albuterol-Ipratrop 3 mg / 0.5 (3 ml) UD INH SCH ×3 (01:17→13:20)
[2016-11-14] MEDS ORDERED: Bisacodyl 5mg EC Tab PO ONE (07:12)
[2016-11-14] MEDS ORDERED: POLYETHYLENE GLYCOL 3350 17 GM/Dose PACKET PO ONE (08:00)
[2016-11-14] MEDS: (Novolin R) Insulin Human Regular 100 units/ml vial SC SCH ×3 (08:24→17:57)
[2016-11-14] MEDS: guaiFENesin 600 mg ER Tab PO SCH ×2 (09:50→17:57)
[2016-11-14] MEDS: Insulin Detemir 100 units/ml Vial (Levemir) SC SCH ×2 (09:52→17:57)
--- NOTE | 2016-11-14 14:15 | CP.PCM.PN ---
<Curtis Schillinga - Last Filed: 11/14/16 14:12> Subjective - Date & Time of Evaluation Date of Evaluation: 11/14/16 Time of Evaluation: 10:00 - Subjective Subjective: Medicine Note for Dr. Coelho, Patient was seen and examined at bedside. Patient reports her pain is well controlled and her breathing has much improved. Denied any fever, chills, headache, chest pain, abdominal pain, n/v/d/c, or urinary symptoms. Patient discharged to [facility]. Medical Team signing off patient, stable for discharge. Objective - Vital Signs/Intake and Output Vital Signs (last 24 hours): Temp Pulse Resp BP Pulse Ox 98.2 F 60 20 179/75 H 99 11/14/16 07:00 11/14/16 07:00 11/14/16 07:00 11/14/16 09:51 11/14/16 07:00 Intake and Output: 11/14/16 11/14/16 06:59 18:59 Intake Total 240 Balance 240 - Medications Medications: Current Medications Acetaminophen (Tylenol 650mg/20.3ml Solution Ud) 650 mg PO Q6 PRN PRN Reason: for temp 101 and above Last Admin: 11/12/16 05:54 Dose: 650 mg Albuterol/Ipratropium (Duoneb 3 Mg/0.5 Mg (3 Ml) Ud) 3 ml INH RQ6 [facility] Last Admin: 11/14/16 13:20 Dose: Not Given Amlodipine Besylate (Norvasc) 5 mg PO DAILY [facility] Last Admin: 11/14/16 09:50 Dose: 5 mg Aspirin (Aspirin Chewable) 81 mg PO DAILY [facility] Last Admin: 11/14/16 09:51 Dose: 81 mg Clonidine HCl (Catapres) 0.2 mg PO TID [facility] Last Admin: 11/14/16 13:40 Dose: 0.2 mg Clopidogrel Bisulfate (Plavix) 75 mg PO DAILY [facility] Last Admin: 11/14/16 09:50 Dose: 75 mg Docusate Sodium (Colace) 100 mg PO TID [facility] Last Admin: 11/14/16 09:51 Dose: 100 mg Ezetimibe (Zetia) 10 mg PO HS [facility] Last Admin: 11/13/16 22:44 Dose: 10 mg Ferrous Sulfate (Feosol) 325 mg PO TID [facility] Last Admin: 11/14/16 13:40 Dose: Not Given Furosemide (Lasix) 40 mg IVP DAILY [facility] Last Admin: 11/14/16 09:51 Dose: 40 mg Gabapentin (Neurontin) 100 mg PO TID [facility] Last Admin: 11/14/16 13:40 Dose: 100 mg Guaifenesin (Mucinex La) 600 mg PO BID [facility] Last Admin: 11/14/16 09:50 Dose: 600 mg Insulin Detemir (Levemir) 14 unit SC BID [facility] Last Admin: 11/14/16 09:52 Dose: 14 unit Insulin Human Regular (Novolin R) 0 unit SC ACHS [facility] PRN Reason: Protocol Last Admin: 11/14/16 12:23 Dose: 4 unit Metoprolol Tartrate (Lopressor) 25 mg PO Q12 [facility] Last Admin: 11/14/16 09:50 Dose: 25 mg Rosuvastatin Calcium (Crestor) 10 mg PO HS [facility] Last Admin: 11/13/16 22:15 Dose: 10 mg - Labs Labs: 11/13/16 07:58 11/13/16 07:58 PT 11.2 SECONDS (9.7-12.2) 11/12/16 06:30 INR 1.0 11/12/16 06:30 APTT 66 SECONDS (21-34) H D 11/12/16 06:30 - Constitutional Appears: No Acute Distress - Head Exam Head Exam: NORMAL INSPECTION, NORMOCEPHALIC - Respiratory Exam Respiratory Exam: Clear to Ausculation Bilateral, NORMAL BREATHING PATTERN. absent: Rhonchi, Wheezes - Cardiovascular Exam Cardiovascular Exam: REGULAR RHYTHM, RRR - GI/Abdominal Exam GI & Abdominal Exam: Soft, Normal Bowel Sounds. absent: Distended, Tenderness - Extremities Exam Extremities Exam: Normal Inspection. absent: Pedal Edema, Tenderness - Neurological Exam Neurological Exam: Alert, Awake, Oriented x3 - Skin Skin Exam: Dry, Intact, Normal Color, Warm Assessment and Plan - Assessment and Plan (Free Text) Plan: NSTEMI As per nursing, patient reported having chest pain last night, EKG and ROMIs were ordered, showing changes in the inferior leads. Patient was given nitro. 1st KASHIF was negative 2nd was elevated at 0.1660, as per Dr. Newman and by Dr. Peterson, patient was given plavix and to be started on it daily. Troponins elevated up to 12. Cardiac Cath 11/[address] Newman at : unable to be performed, access was not obtained. Plan is for medical management. Peripheral Vascular Disease -Management as per vascular surgery, Dr. Peterson -s/p peripehral angiogram with Dr. Newman - Fem-pop bypass S/P POD #6 - Plavix 75mg PO daily -ASA 81mg po daily -Crestor 10mg po hs Respiratory Failure requiring intubation NSTEMI, pulmonary edema was intubated on 11/08, extubated successfully on 11/10. Currently on lasix 40mg IVP daily HTN - ASA 81mg po daily - Norvasc 5mg po daily - Lopressor 25mg IVP BID -Clonidine 0.2mg po TID - Echo: normal EF, mild LVF -EKG - sinus bradycardia, t wave inversions in leads I and avL -Dr. Newman cardiology consulted Diabetes Mellitus -Acchuchecks achs -Regular insulin sliding scale - HIGH -Levimer 14mg SC BID - Gabapentin 100mg PO TID -HgbA1c: 7.7 Chronic Kidney Disease Stage III -monitor BUN:Cr -renal US: HTN disease -Dr. 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 Medical team is signing off, patient stable for discharge. DW Tonie Fisher DO, PGY-1 <Tristan Coelho - Last Filed: 12/19/16 12:32> Objective - Vital Signs/Intake and Output Vital Signs (last 24 hours): Temp Pulse Resp BP Pulse Ox 98.5 F 57 L 20 147/78 95 11/14/16 15:00 11/14/16 15:00 11/14/16 15:00 11/14/16 15:00 11/14/16 15:00 - Labs Labs: 11/13/16 07:58 11/13/16 07:58 PT 11.2 SECONDS (9.7-12.2) 11/12/16 06:30 INR 1.0 11/12/16 06:30 APTT 66 SECONDS (21-34) H D 11/12/16 06:30 Attending/Attestation - Attestation I have personally seen and examined this patient.: Yes I have fully participated in the care of the patient.: Yes I have reviewed all pertinent clinical information, including history, physical exam and plan: Yes Notes (Text): Patient Seen and examined with the resident. Agree with the resident's evaluation, assessment and plan. 71 year old female with a PMHx of HTN. Diabetes Mellitus, Chronic Kidney Disease , peripheral vascular disease, hypercholesterolemia, and Gout sent in by Dr. Peterson for Fem-pop bypass on 11/07. Pt had NSTEMI on 11/08. For cardiac cath . Plan: NSTEMI Cardiac Cath 11/[address] Newman at Peripheral Vascular Disease -Management as per vascular surgery, Dr. Peterson Respiratory Failure requiring intubation NSTEMI, pulmonary edema was intubated on 11/08, extubated successfully on 11/10. Currently on lasix 40mg IVP daily HTN
--- NOTE | 2016-11-14 14:25 | CP.PCM.PN ---
Subjective - Date & Time of Evaluation Date of Evaluation: 11/14/16 Time of Evaluation: 02:00 - Subjective Subjective: C/o numbness in Rt foot & leg No sob Objective - Vital Signs/Intake and Output Vital Signs (last 24 hours): Temp Pulse Resp BP Pulse Ox 98.2 F 60 20 179/75 H 99 11/14/16 07:00 11/14/16 07:00 11/14/16 07:00 11/14/16 09:51 11/14/16 07:00 Intake and Output: 11/14/16 11/14/16 06:59 18:59 Intake Total 240 Balance 240 - Medications Medications: Current Medications Acetaminophen (Tylenol 650mg/20.3ml Solution Ud) 650 mg PO Q6 PRN PRN Reason: for temp 101 and above Last Admin: 11/12/16 05:54 Dose: 650 mg Albuterol/Ipratropium (Duoneb 3 Mg/0.5 Mg (3 Ml) Ud) 3 ml INH RQ6 [facility] Last Admin: 11/14/16 13:20 Dose: Not Given Amlodipine Besylate (Norvasc) 5 mg PO DAILY [facility] Last Admin: 11/14/16 09:50 Dose: 5 mg Aspirin (Aspirin Chewable) 81 mg PO DAILY [facility] Last Admin: 11/14/16 09:51 Dose: 81 mg Clonidine HCl (Catapres) 0.2 mg PO TID [facility] Last Admin: 11/14/16 13:40 Dose: 0.2 mg Clopidogrel Bisulfate (Plavix) 75 mg PO DAILY [facility] Last Admin: 11/14/16 09:50 Dose: 75 mg Docusate Sodium (Colace) 100 mg PO TID [facility] Last Admin: 11/14/16 09:51 Dose: 100 mg Ezetimibe (Zetia) 10 mg PO HS [facility] Last Admin: 11/13/16 22:44 Dose: 10 mg Ferrous Sulfate (Feosol) 325 mg PO TID [facility] Last Admin: 11/14/16 13:40 Dose: Not Given Furosemide (Lasix) 40 mg IVP DAILY [facility] Last Admin: 11/14/16 09:51 Dose: 40 mg Gabapentin (Neurontin) 100 mg PO TID [facility] Last Admin: 11/14/16 13:40 Dose: 100 mg Guaifenesin (Mucinex La) 600 mg PO BID [facility] Last Admin: 11/14/16 09:50 Dose: 600 mg Insulin Detemir (Levemir) 14 unit SC BID [facility] Last Admin: 11/14/16 09:52 Dose: 14 unit Insulin Human Regular (Novolin R) 0 unit SC ACHS [facility] PRN Reason: Protocol Last Admin: 11/14/16 12:23 Dose: 4 unit Metoprolol Tartrate (Lopressor) 25 mg PO Q12 [facility] Last Admin: 11/14/16 09:50 Dose: 25 mg Rosuvastatin Calcium (Crestor) 10 mg PO HS [facility] Last Admin: 11/13/16 22:15 Dose: 10 mg - Labs Labs: 11/13/16 07:58 11/13/16 07:58 PT 11.2 SECONDS (9.7-12.2) 11/12/16 06:30 INR 1.0 11/12/16 06:30 APTT 66 SECONDS (21-34) H D 11/12/16 06:30 - Respiratory Exam Additional comments: Lungs clear - Cardiovascular Exam Cardiovascular Exam: REGULAR RHYTHM - Extremities Exam Additional comments: Rt foot is cold but no cyanosis Assessment and Plan - Assessment and Plan (Free Text) Assessment: Stable stage 1V kidney dis PVD Lt leg Fem-Pop AMI Plan: Continue to monitor renal function F/b vascular & Cardiology Monitor BP
--- NOTE | 2016-11-14 15:36 | CP.PCM.PN ---
Subjective - Date & Time of Evaluation Date of Evaluation: 11/14/16 Time of Evaluation: 13:00 - Subjective Subjective: patient feels well. The patient no chest pain or dyspnea Objective - Vital Signs/Intake and Output Vital Signs (last 24 hours): Temp Pulse Resp BP Pulse Ox 98.2 F 60 20 179/75 H 99 11/14/16 07:00 11/14/16 07:00 11/14/16 07:00 11/14/16 09:51 11/14/16 07:00 Intake and Output: 11/14/16 11/14/16 06:59 18:59 Intake Total 240 Balance 240 - Medications Medications: Current Medications Acetaminophen (Tylenol 650mg/20.3ml Solution Ud) 650 mg PO Q6 PRN PRN Reason: for temp 101 and above Last Admin: 11/12/16 05:54 Dose: 650 mg Albuterol/Ipratropium (Duoneb 3 Mg/0.5 Mg (3 Ml) Ud) 3 ml INH RQ6 [facility] Last Admin: 11/14/16 13:20 Dose: Not Given Amlodipine Besylate (Norvasc) 5 mg PO DAILY [facility] Last Admin: 11/14/16 09:50 Dose: 5 mg Aspirin (Aspirin Chewable) 81 mg PO DAILY [facility] Last Admin: 11/14/16 09:51 Dose: 81 mg Clonidine HCl (Catapres) 0.2 mg PO TID [facility] Last Admin: 11/14/16 13:40 Dose: 0.2 mg Clopidogrel Bisulfate (Plavix) 75 mg PO DAILY [facility] Last Admin: 11/14/16 09:50 Dose: 75 mg Docusate Sodium (Colace) 100 mg PO TID [facility] Last Admin: 11/14/16 09:51 Dose: 100 mg Ezetimibe (Zetia) 10 mg PO HS [facility] Last Admin: 11/13/16 22:44 Dose: 10 mg Ferrous Sulfate (Feosol) 325 mg PO TID [facility] Last Admin: 11/14/16 13:40 Dose: Not Given Furosemide (Lasix) 40 mg IVP DAILY [facility] Last Admin: 11/14/16 09:51 Dose: 40 mg Gabapentin (Neurontin) 100 mg PO TID [facility] Last Admin: 11/14/16 13:40 Dose: 100 mg Guaifenesin (Mucinex La) 600 mg PO BID [facility] Last Admin: 11/14/16 09:50 Dose: 600 mg Insulin Detemir (Levemir) 14 unit SC BID [facility] Last Admin: 11/14/16 09:52 Dose: 14 unit Insulin Human Regular (Novolin R) 0 unit SC ACHS [facility] PRN Reason: Protocol Last Admin: 11/14/16 12:23 Dose: 4 unit Metoprolol Tartrate (Lopressor) 25 mg PO Q12 [facility] Last Admin: 11/14/16 09:50 Dose: 25 mg Rosuvastatin Calcium (Crestor) 10 mg PO HS [facility] Last Admin: 11/13/16 22:15 Dose: 10 mg - Labs Labs: 11/13/16 07:58 11/13/16 07:58 PT 11.2 SECONDS (9.7-12.2) 11/12/16 06:30 INR 1.0 11/12/16 06:30 APTT 66 SECONDS (21-34) H D 11/12/16 06:30 - Constitutional Appears: Non-toxic - Head Exam Head Exam: NORMAL INSPECTION - Eye Exam Eye Exam: Normal appearance - ENT Exam ENT Exam: Mucous Membranes Moist - Neck Exam Neck Exam: Full ROM - Respiratory Exam Respiratory Exam: NORMAL BREATHING PATTERN - Cardiovascular Exam Cardiovascular Exam: REGULAR RHYTHM - GI/Abdominal Exam GI & Abdominal Exam: Bruit - Rectal Exam Rectal Exam: Deferred - Extremities Exam Extremities Exam: Pedal Edema - Back Exam Back Exam: NORMAL INSPECTION - Neurological Exam Neurological Exam: Alert - Psychiatric Exam Psychiatric exam: Normal Affect - Skin Skin Exam: Normal Color Assessment and Plan (1) NSTEMI (non-ST elevated myocardial infarction) Assessment & Plan: patient has no vascular access, therefore cardiac cath could not be performed. Given extensive peripheral vascular disease patient likely has CAD. will continue antiplatelet therapy Status: Acute (2) HTN (hypertension) Assessment & Plan: blood pressure management Status: Acute (3) Hypercholesterolemia Assessment & Plan: recommend statin therapy Status: Acute (4) PVD (peripheral vascular disease) Assessment & Plan: s/p fem pop bypass. Status: Acute
[2016-11-14 16:44] VITALS: BP 147/78; PULSE 57; TEMP 98.5; O2SAT 95
--- NOTE | 2016-11-15 19:20 | CARD ---
APPROVED REPORT EKG Measurement Heart [id number] <Conclusion> Sinus rhythm with occasional premature ventricular complexes Possible Left atrial enlargement Septal infarct, age undetermined Abnormal ECG
--- NOTE | 2016-11-26 12:18 | CARD ---
APPROVED REPORT EKG Measurement Heart [id number] ID [id number] <Conclusion> Normal sinus rhythm Possible Left atrial enlargement Septal infarct, age undetermined Marked ST abnormality, possible lateral subendocardial injury Abnormal ECG
--- NOTE | 2016-12-09 12:48 | CARD ---
APPROVED REPORT EKG Measurement Heart [id number] <Conclusion> Normal sinus rhythm Minimal voltage criteria for LVH, may be normal variant Nonspecific ST and T wave abnormality Abnormal ECG
--- NOTE | 2016-12-09 12:49 | CARD ---
APPROVED REPORT EKG Measurement Heart [id number] <Conclusion> Sinus rhythm with marked sinus arrhythmia one PVC was present Possible Left atrial enlargement Septal infarct, age undetermined Abnormal ECG
== END 2016-11-14 19:00 | DRG 252 ==
LOC: C.ER 13:52 → C.3T 14:48 → C.6T 11-04 10:39 → C.9I 11-07 17:03 → C.6T 11-12 18:51
PROVIDERS: ADMIT Internal Medicine; ATTEND Internal Medicine
PROC: B40DYZZ Plain Radiography of Aorta and Bilateral Lower Extremity Arteries using Other Contrast (ICD-10-PCS; 2016-10-31)
PROC: 04UN0JZ Supplement Left Popliteal Artery with Synthetic Substitute, Open Approach (ICD-10-PCS; 2016-11-07)
PROC: 041L0JL Bypass Left Femoral Artery to Popliteal Artery with Synthetic Substitute, Open Approach (ICD-10-PCS; 2016-11-07)
PROC: 04CN0ZZ Extirpation of Matter from Left Popliteal Artery, Open Approach (ICD-10-PCS; principal; 2016-11-07 11:30)
PROC: 5A1945Z Respiratory Ventilation, 24-96 Consecutive Hours (ICD-10-PCS; 2016-11-08)
PROC: 0BH17EZ Insertion of Endotracheal Airway into Trachea, Via Natural or Artificial Opening (ICD-10-PCS; 2016-11-08)
PROC: 30233N1 Transfusion of Nonautologous Red Blood Cells into Peripheral Vein, Percutaneous Approach (ICD-10-PCS; 2016-11-09)
DX: I77.89 Other specified disorders of arteries and arterioles (principal); I21.4 Non-ST elevation (NSTEMI) myocardial infarction; J96.91 Respiratory failure, unspecified with hypoxia; N17.9 Acute kidney failure, unspecified; E11.22 Type 2 diabetes mellitus with diabetic chronic kidney disease; D69.59 Other secondary thrombocytopenia; D69.6 Thrombocytopenia, unspecified; N18.3 Chronic kidney disease, stage 3 (moderate); J81.1 Chronic pulmonary edema; E87.5 Hyperkalemia; R00.1 Bradycardia, unspecified; I12.9 Hypertensive chronic kidney disease with stage 1 through stage 4 chronic kidney disease, or unspecified chronic kidney disease; M19.90 Unspecified osteoarthritis, unspecified site; E78.00 Pure hypercholesterolemia, unspecified; M10.9 Gout, unspecified; Z87.891 Personal history of nicotine dependence; I99.8 Other disorder of circulatory system; D63.8 Anemia in other chronic diseases classified elsewhere; T39.015A Adverse effect of aspirin, initial encounter; T50.4X5A Adverse effect of drugs affecting uric acid metabolism, initial encounter; E66.9 Obesity, unspecified; I25.10 Atherosclerotic heart disease of native coronary artery without angina pectoris; E87.70 Fluid overload, unspecified